=== PATIENT | male | born 1940 | race Caucasian/White ===

== ENCOUNTER → 2016-08-23 | Outpatient (CLI) | payer MEDICARE ==
--- NOTE | 2016-08-23 12:09 | XR ---
EXAMINATION TYPE: XR chest 2V, XR ribs LT DATE OF EXAM: 08/23/2016 12:03 PM COMPARISON: NONE HISTORY: Chest and left lower rib pain after fall injury 5 days ago. TECHNIQUE: Frontal and lateral views of the chest are obtained. A frontal and oblique images of the left-sided ribs are acquired. FINDINGS: There is underlying emphysematous change. Post CABG changes with Smith clips and sternal wires is present. There is no focal air space opacity, pleural effusion, or pneumothorax seen. The c ardiac silhouette size is within normal limits. The osseous structures are intact. Dedicated images of the left-sided ribs show no acute displaced left-sided rib fracture. Overlying so ft tissue is unremarkable. IMPRESSION: 1. Chronic changes without acute pulmonary process. 2. No acute displaced left-sided rib fractures are evident.
== END ==
LOC: RADXRMAIN 11:34
PROVIDERS: ATTEND Family Medicine
DX: R07.81 Pleurodynia (principal); W19.XXXA Unspecified fall, initial encounter
CPT/HCPCS: 71020

== ENCOUNTER → 2016-10-14 | Outpatient (CLI) | payer MEDICARE ==
[2016-10-14 11:07] LABS: Bilirubin, Delta 0.2 mg/dL (0.0-0.2); Total Bilirubin 1.2 mg/dL (0.2-1.3); Total Protein 7.1 g/dL (6.3-8.2)
== END | disposition home or self-care (01) ==
LOC: LABWHC1 10:13
PROVIDERS: ATTEND Internal Medicine Cardiovascular Disease
DX: I25.10 Atherosclerotic heart disease of native coronary artery without angina pectoris (principal); E78.5 Hyperlipidemia, unspecified
CPT/HCPCS: 36415; 80061; 80076

== ENCOUNTER → 2017-02-28 | Outpatient (CLI) | payer MEDICARE ==
--- NOTE | 2017-03-01 08:48 | XR ---
EXAMINATION TYPE: XR ribs RT DATE OF EXAM: 02/28/2017 COMPARISON: NONE HISTORY: Pain TECHNIQUE: 4 views submitted FINDINGS: Arthropathy shoulders. Postsurgical change involving the mediastinum. There is slight deformity of th e anterolateral margin of the right 10th rib fracture. Right-sided consolidation and small effusion n oted. No sizable pneumothorax seen by x-ray rib series technique. IMPRESSION: 1. Fracture anterolateral margin right 10th rib with minimal displacement.
== END | disposition home or self-care (01) ==
LOC: RADXRMAIN 15:40
PROVIDERS: ATTEND Family Medicine
DX: S22.31XA Fracture of one rib, right side, initial encounter for closed fracture (principal)

== ENCOUNTER → 2018-05-01 | Outpatient (CLI) | payer MEDICARE ==
[2018-05-01 16:11] LABS: LDL Cholesterol,Calculated 104.6 mg/dL (0.0-131.0); VLDL Calculation 11.4 mg/dL (5.00-40.00)
== END | disposition home or self-care (01) ==
LOC: LABWHC1 11:16
PROVIDERS: ATTEND Internal Medicine Cardiovascular Disease
DX: I25.10 Atherosclerotic heart disease of native coronary artery without angina pectoris (principal); E78.5 Hyperlipidemia, unspecified
CPT/HCPCS: 36415; 80061; 84450; 84460

== ENCOUNTER 2018-11-13 11:15 | Inpatient (IN) | payer MEDICARE ==
[2018-11-13] MEDS ORDERED: methylPREDNISolone SOD SUCCI 125 MG/2 ML VIAL IV STA (11:35)
[2018-11-13] MEDS ORDERED: IPRATROPIUM-ALBUTEROL 3 ML NEB INHALATION STA ×2 (11:35→11:46)
[2018-11-13] MEDS ORDERED: ACETAMINOPHEN TAB 500 MG TAB PO STA (11:39)
--- NOTE | 2018-11-13 11:39 | ED ---
General Adult HPI - General Chief complaint: Shortness of Breath Stated complaint: TAM Time Seen by Provider: 11/13/18 11:28 Source: patient, family, RN notes reviewed Mode of arrival: wheelchair Limitations: no limitations - History of Present Illness Initial comments: Patient is a pleasant 78-year-old male presenting to the emergency department with difficulty in breathing. Symptoms started a couple of days ago and have progressed since that time. Patient does have rare cough. Nonproductive. No chest pain. No leg pain or leg swelling. Symptoms are similar to previous COPD. Patient is denying any fevers at home. Symptoms do worsen with exertion. - Related Data Home Medications Medication Instructions Recorded Confirmed Albuterol Inhaler [Ventolin Hfa 1 - 2 puff INHALATION RT-Q6H PRN 11/13/18 11/13/18 Inhaler] Aspirin EC [Ecotrin Low Dose] 81 mg PO DAILY 11/13/18 11/13/18 Budesonide/Formoterol Fumarate 2 puff INHALATION RT-BID 11/13/18 11/13/18 [Symbicort 160-4.5 Mcg Inhaler] Magnesium(Unknown) 1 tab PO DAILY 11/13/18 11/13/18 Multivitamins, Thera [Multivitamin 1 tab PO DAILY 11/13/18 11/13/18 (formulary)] Tiotropium 18 Mcg/Puff [Spiriva] 1 cap INHALATION RT-DAILY 11/13/18 11/13/18 Vit C/E/Zn/Coppr/Lutein/Zeaxan 1 cap PO BID 11/13/18 11/13/18 [Preservision Areds 2 Softgel] Vitamin E(Unknown) 1 tab PO DAILY 11/13/18 11/13/18 Allergies Allergy/AdvReac Type Severity Reaction Status Date / Time No Known Allergies Allergy Unverified 11/13/18 11:47 Review of Systems ROS Statement: Those systems with pertinent positive or pertinent negative responses have been documented in the HPI. ROS Other: All systems not noted in ROS Statement are negative. Constitutional: Denies: fever Eyes: Denies: eye pain ENT: Denies: ear pain Respiratory: Reports: dyspnea Cardiovascular: Denies: chest pain Endocrine: Reports: fatigue Gastrointestinal: Denies: abdominal pain Genitourinary: Denies: dysuria Musculoskeletal: Denies: back pain Skin: Denies: rash Neurological: Denies: weakness Past Medical History Past Medical History: Coronary Artery Disease (CAD), Chest Pain / Angina, COPD History of Any Multi-Drug Resistant Organisms: None Reported Past Surgical History: Coronary Bypass/CABG Smoking Status: Former smoker Past Alcohol Use History: None Reported Past Drug Use History: None Reported General Exam Limitations: no limitations General appearance: alert Head exam: Present: atraumatic Eye exam: Present: normal appearance, PERRL ENT exam: Present: normal oropharynx Neck exam: Present: normal inspection Respiratory exam: Present: respiratory distress, wheezes, accessory muscle use, decreased breath sounds Cardiovascular Exam: Present: regular rate, normal rhythm GI/Abdominal exam: Present: soft. Absent: tenderness Extremities exam: Present: normal inspection. Absent: pedal edema, calf tenderness Neurological exam: Present: alert Psychiatric exam: Present: normal affect, normal mood Skin exam: Present: normal color Course Vital Signs 11/13/18 11/13/18 11/13/18 11:18 11:44 11:51 Temperature 99.7 F H Pulse Rate 92 92 88 Respiratory 26 H Rate Blood Pressure 148/81 O2 Sat by Pulse 96 Oximetry 11/13/18 11/13/18 11:52 12:02 Temperature Pulse Rate 88 90 Respiratory Rate Blood Pressure O2 Sat by Pulse Oximetry - Reevaluation(s) Reevaluation #1: 11/13/18 12:34 Patient does meet sepsis criteria diagnosed at 12:34 PM. Blood culture and lactic acid have been ordered. IV antibiotics will be ordered. EKG Findings - EKG Comments: EKG Findings:: Normal sinus rhythm 88. MD 120. QRS 92. QT 346. QTc 418. Normal axis. Normal QRS. Nonspecific ST-T. Medical Decision Making - Medical Decision Making Patient reevaluated and is somewhat improved. Patient still has some accessory muscle use however otherwise not in significant respiratory distress. Patient and family are updated on results and plan. Case was discussed in detail with Dr. Puente, who will admit his patient. Consult will be placed for Dr. Maurer who has previously seen this patient. - Lab Data Result diagrams: 11/13/18 11:33 11/13/18 11:33 Lab Results 11/13/18 11/13/18 11/13/18 Range/Units 11:33 11:33 11:33 WBC 19.6 H (3.8-10.6) k/uL RBC 4.63 (4.30-5.90) m/uL Hgb 14.3 (13.0-17.5) gm/dL Hct 43.6 (39.0-53.0) % MCV 94.2 (80.0-100.0) fL MCH 31.0 (25.0-35.0) pg MCHC 32.9 (31.0-37.0) g/dL RDW 15.2 (11.5-15.5) % Plt Count 214 (150-450) k/uL Neutrophils % 88 % Lymphocytes % 5 % Monocytes % 5 % Eosinophils % 1 % Basophils % 0 % Neutrophils # 17.3 H (1.3-7.7) k/uL Lymphocytes # 0.9 L (1.0-4.8) k/uL Monocytes # 1.0 (0-1.0) k/uL Eosinophils # 0.1 (0-0.7) k/uL Basophils # 0.1 (0-0.2) k/uL PT 11.7 (9.0-12.0) sec INR 1.1 (<1.2) APTT 28.6 (22.0-30.0) sec Sodium 137 (137-145) mmol/L Potassium 4.5 (3.5-5.1) mmol/L Chloride 103 (98-107) mmol/L Carbon Dioxide 24 (22-30) mmol/L Anion Gap 10 mmol/L BUN 20 (9-20) mg/dL Creatinine 0.90 (0.66-1.25) mg/dL Est GFR (CKD-EPI)AfAm >90 (>60 ml/min/1.73 sqM) Est GFR (CKD-EPI)NonAf 80 (>60 ml/min/1.73 sqM) Glucose 98 (74-99) mg/dL Plasma Lactic Acid Mele (0.7-2.0) mmol/L Calcium 9.5 (8.4-10.2) mg/dL Magnesium 2.2 (1.6-2.3) mg/dL Total Bilirubin 1.4 H (0.2-1.3) mg/dL AST 23 (17-59) U/L ALT 12 L (21-72) U/L Alkaline Phosphatase 69 (38-126) U/L Total Protein 7.5 (6.3-8.2) g/dL Albumin 4.3 (3.5-5.0) g/dL 11/13/18 Range/Units 11:33 WBC (3.8-10.6) k/uL RBC (4.30-5.90) m/uL Hgb (13.0-17.5) gm/dL Hct (39.0-53.0) % MCV (80.0-100.0) fL MCH (25.0-35.0) pg MCHC (31.0-37.0) g/dL RDW (11.5-15.5) % Plt Count (150-450) k/uL Neutrophils % % Lymphocytes % % Monocytes % % Eosinophils % % Basophils % % Neutrophils # (1.3-7.7) k/uL Lymphocytes # (1.0-4.8) k/uL Monocytes # (0-1.0) k/uL Eosinophils # (0-0.7) k/uL Basophils # (0-0.2) k/uL PT (9.0-12.0) sec INR (<1.2) APTT (22.0-30.0) sec Sodium (137-145) mmol/L Potassium (3.5-5.1) mmol/L Chloride (98-107) mmol/L Carbon Dioxide (22-30) mmol/L Anion Gap mmol/L BUN (9-20) mg/dL Creatinine (0.66-1.25) mg/dL Est GFR (CKD-EPI)AfAm (>60 ml/min/1.73 sqM) Est GFR (CKD-EPI)NonAf (>60 ml/min/1.73 sqM) Glucose (74-99) mg/dL Plasma Lactic Acid Mele 1.8 (0.7-2.0) mmol/L Calcium (8.4-10.2) mg/dL Magnesium (1.6-2.3) mg/dL Total Bilirubin (0.2-1.3) mg/dL AST (17-59) U/L ALT (21-72) U/L Alkaline Phosphatase (38-126) U/L Total Protein (6.3-8.2) g/dL Albumin (3.5-5.0) g/dL - Radiology Data Radiology results: image reviewed (Chest x-ray does have some increased markings mid and lower lung interstitial that could represent atypical pneumonia.) Critical Care Time Critical Care Time: Yes Total Critical Care Time: 32 Disposition Clinical Impression: Acute exacerbation of chronic obstructive airways disease, Pneumonia, Sepsis Disposition: ADMITTED IP TO THIS HOSP Condition: Serious Is patient prescribed a controlled substance at d/c from ED?: No Referrals: Jorge L Puente DO [Primary Care Provider] - 1-2 days Decision Time: 12:34
[2018-11-13 11:59] LABS: Basophils # (A) 0.1 k/uL (0-0.2); Basophils % (A) 0 %; Eosinophils # (A) 0.1 k/uL (0-0.7); Eosinophils % (A) 1 %; HCT 43.6 % (39.0-53.0); HGB 14.3 gm/dL (13.0-17.5); Lymphocytes # (A) 0.9 k/uL (1.0-4.8); Lymphocytes % (A) 5 %; MCHC 32.9 g/dL (31.0-37.0); MCV 94.2 fL (80.0-100.0); Mean Platelet Volume 7.2; Monocytes % (A) 5 %; Neutrophils # (A) 17.3 k/uL (1.3-7.7); Neutrophils % (A) 88 %; Platelet Count 214 k/uL (150-450); RBC 4.63 m/uL (4.30-5.90); RDW 15.2 % (11.5-15.5); WBC 19.6 k/uL (3.8-10.6)
[2018-11-13 12:06] LABS: ALT 12 U/L (21-72); AST 23 U/L (17-59); African American GFR (CKD) >90 (>60 ml/min/1.73 sqM); Albumin 4.3 g/dL (3.5-5.0); Alkaline Phosphatase 69 U/L (38-126); Anion Gap 10 mmol/L; Blood Urea Nitrogen 20 mg/dL (9-20); Calcium 9.5 mg/dL (8.4-10.2); Carbon Dioxide 24 mmol/L (22-30); Chloride 103 mmol/L (98-107); Glucose 98 mg/dL (74-99); Magnesium 2.2 mg/dL (1.6-2.3); Potassium 4.5 mmol/L (3.5-5.1); Sodium 137 mmol/L (137-145); Total Bilirubin 1.4 mg/dL (0.2-1.3); Total Protein 7.5 g/dL (6.3-8.2)
[2018-11-13 12:10] LABS: INR 1.1 (<1.2); Partial Thromboplastin Time 28.6 sec (22.0-30.0); Prothrombin Time 11.7 sec (9.0-12.0)
--- NOTE | 2018-11-13 12:27 | XR ---
EXAMINATION TYPE: XR chest 2V DATE OF EXAM: 11/13/2018 COMPARISON: 08/23/2016 HISTORY: 78-year-old male difficulty breathing, shortness of breath TECHNIQUE: AP and lateral views FINDINGS: The heart is normal size. Aorta and pulmonary vasculature within normal limits. Hyperinflation with f lattening of the hemidiaphragms. Median sternotomy wires are present with post-CABG changes in the me diastinum. Mild interstitial densities are present in the mid and lower lungs, increased from 08/24/19 17. IMPRESSION: COPD with increased interstitial densities mid and lower lungs as compared to 08/23/2016. Correlate fo r possible bronchitis or atypical pneumonias.
[2018-11-13] MEDS ORDERED: PNEUMONIA PROTOCOL UTILIZED 1 EACH MISC PO PRN (12:35)
[2018-11-13] MEDS ORDERED: IPRATROPIUM-ALBUTEROL 3 ML NEB INHALATION PRN (12:35)
[2018-11-13] MEDS ORDERED: AZITHROMYCIN 500 MG in SODIUM CHLORIDE 0.9% 250 ML IVPB STA (12:35)
[2018-11-13] MEDS: SODIUM CHLORIDE 0.9% 1,000 ML IV SCH ×2 (13:26→23:32)
[2018-11-13] MEDS: IPRATROPIUM-ALBUTEROL 3 ML NEB INHALATION SCH ×2 (15:55→19:18)
[2018-11-13] MEDS: methylPREDNISolone SOD SUCCI 125 MG/2 ML VIAL IV SCH ×2 (17:58→23:31)
--- NOTE | 2018-11-13 20:54 | P.CNPUL ---
History of Present Illness Consult date: 11/13/18 Reason for consult: dyspnea, COPD History of present illness: 6-year-old male patient who came into the emergency department because of worsening shortness of breath. This started couple of days ago and the patient's condition is been progressively getting worse since. The patient has a regular cough nonproductive. No chest pain. No neck swelling. No palpitation. No altered mentation. No fever. No chills. The patient has severe COPD. The patient does not have major limitation because of his COPD. He has been maintained on a combination of Symbicort and Spiriva on outpatient basis. His baseline FEV1 is 36%. His oxygen saturation has been 96% on room air. He has been up-to-date with vaccination. He uses albuterol rescue inhaler necessary basis. He follows up with me in the office regarding his COPD. His white cell count was at 19.6. Influenza screen was negative. Chest x-ray showed COPD with some increased interstitial densities in the mid in the lower lung padron bilaterally. Review of Systems Constitutional Constitutional: no fever, no night sweats, no significant weight gain, no s ignificant weight loss, no exercise intolerance Eyes Eyes: no dry eyes, no vision change, no irritation ENMT Ears: no difficulty hearing, no ear pain Nose: no frequent nosebleeds, no nose problems, no sinus problems Mouth/Throat: no sore throat, no bleeding gums, no snoring, no dry mouth, no mouth ulcers, no oral abnormalities, no teeth problems Cardiovascular Cardiovascular: no chest pain, no arm pain on exertion, no shortness of breath when walking, no shortness of breath when lying down, no palpitations, no known heart murmur Respiratory Respiratory: Increased dyspnea shortness of breath as discussed above Gastrointestinal Gastrointestinal: no abdominal pain, no nausea, no vomiting, no constipation, normal appetite, no diarrhea, not vomiting blood, no dyspepsia, no GERD Genitourinary Genitourinary: no incontinence, no difficulty urinating, no hematuria, no increased frequency Musculoskeletal Musculoskeletal: no muscle aches, no muscle weakness, no arthralgias/joint pain, no back pain, no swelling in the extremities Integumentary Skin: no abnormal mole, no jaundice, no rashes, no laceration Neurologic Neurologic: no loss of consciousness, no weakness, no numbness, no seizures, no dizziness, no migraines, no headaches, no tremor Psychiatric Psych: no depression, no sleep disturbances, feeling safe in a relationship, no alcohol abuse, no anxiety, no hallucinations, no suicidal thoughts Endocrine Endocrine: no fatigue Hematologic/Lymphatic Hematologic/Lymphatic no swollen glands, no bruising, no excessive bleeding Allergic/Immunologic Allergy/Immunologic: no runny nose, no sinus pressure, no itching, no hives, no frequent sneezing Past Medical History Past Medical History: Coronary Artery Disease (CAD), Chest Pain / Angina, COPD, GERD/Reflux, Hyperlipidemia, Osteoarthritis (OA) Additional Past Medical History / Comment(s): Coronary artery disease appears bypass surgery, COPD, hyperlipidemia, History of Any Multi-Drug Resistant Organisms: None Reported Past Surgical History: Coronary Bypass/CABG, Heart Catheterization Additional Past Surgical History / Comment(s): 1994 CABG 3 vessel, colonoscopy with benign polypectomy. Past Anesthesia/Blood Transfusion Reactions: No Reported Reaction Smoking Status: Former smoker - Past Family History Father Family Medical History: Myocardial Infarction (IA) Additional Family Medical History / Comment(s): Father of a IA in his 60s. Mother Family Medical History: Dementia Additional Family Medical History / Comment(s): Mother of alzheimer's dementia in her 60s. Medications and Allergies Home Medications Medication Instructions Recorded Confirmed Type Albuterol Inhaler [Ventolin Hfa 1 - 2 puff INHALATION RT-Q6H PRN 11/13/18 11/13/18 History Inhaler] Aspirin EC [Ecotrin Low Dose] 81 mg PO DAILY 11/13/18 11/13/18 History Budesonide/Formoterol Fumarate 2 puff INHALATION RT-BID 11/13/18 11/13/18 History [Symbicort 160-4.5 Mcg Inhaler] Magnesium(Unknown) 1 tab PO DAILY 11/13/18 11/13/18 History Multivitamins, Thera [Multivitamin 1 tab PO DAILY 11/13/18 11/13/18 History (formulary)] Tiotropium 18 Mcg/Puff [Spiriva] 1 cap INHALATION RT-DAILY 11/13/18 11/13/18 History Vit C/E/Zn/Coppr/Lutein/Zeaxan 1 cap PO BID 11/13/18 11/13/18 History [Preservision Areds 2 Softgel] Vitamin E(Unknown) 1 tab PO DAILY 11/13/18 11/13/18 History Allergies Allergy/AdvReac Type Severity Reaction Status Date / Time No Known Allergies Allergy Unverified 11/13/18 11:47 Physical Exam Vitals: Vital Signs Temp Pulse Pulse Resp BP BP Pulse Ox 11/13/18 19:31 88 11/13/18 19:18 87 97 11/13/18 18:14 97.5 F L 89 22 162/83 95 11/13/18 16:02 88 11/13/18 16:00 18 11/13/18 15:57 86 11/13/18 14:45 20 11/13/18 14:42 99.4 F 81 20 132/75 94 L 11/13/18 12:02 90 11/13/18 11:52 88 11/13/18 11:51 88 11/13/18 11:44 92 11/13/18 11:18 99.7 F H 92 26 H 148/81 96 Intake and Output 11/13/18 11/13/18 11/13/18 06:59 14:59 22:59 Other: Voiding Method Urinal # Voids 2 Weight 73.028 kg General Appearance no diaphoresis, no respiratory distress, speech not interrupted by breaths, no dyspnea, no pallor, not cachectic, well nourished, appears well HEENT no pursed lip breathing, no jugular venous distention, no mucous membrane cyanosis, no perioral cyanosis, mallampati classification: class 1 Chest no barrel chest, no retractions, no sternocleidomastoid muscle contractions, no supraclavicular retractions, no intercostal retractions, no decreased air movement, no rhonchi, no hyperinflation, prolonged expiratory wheezing, decreased air movement Heart no right ventricular heave, no distant heart sounds, no s3 gallop GI bowel sounds: hyperactive (borborygmi), bowel sounds: diminished or absent Extremities no cyanosis, no clubbing, no edema Neurologic no decreased mental status, no somnolence, no confusion Skin General Appearance normal, (normal) normal except as noted Results - Laboratory Findings CBC and BMP: 11/13/18 11:33 11/13/18 11:33 PT/INR, D-dimer PT 11.7 sec (9.0-12.0) 11/13/18 11:33 INR 1.1 (<1.2) 11/13/18 11:33 Abnormal lab findings: Abnormal Labs 11/13/18 11/13/18 11:33 11:33 WBC 19.6 H Neutrophils # 17.3 H Lymphocytes # 0.9 L Total Bilirubin 1.4 H ALT 12 L - Diagnostic Findings Chest x-ray: image reviewed Assessment and Plan Plan: 1 acute COPD exacerbation with possible active lower lobe pneumonia (atypical), the patient also has some leukocytosis 2 advanced COPD with a baseline FEV1 of 36% of predicted at baseline and the patient has been maintained on a combination of Symbicort and Spiriva 3 coronary artery disease with previous bypass surgery was done in 1994 4 hypertension 5 hyperlipidemia 6 osteoarthritis Plan The patient is currently on a combination of Rocephin and Zithromax. Monitor white cell count. Blood culture. Sputum culture. IV Solu-Medrol. DuoNeb nebulized treatments around the clock. We'll continue to follow.
[2018-11-14] MEDS: methylPREDNISolone SOD SUCCI 125 MG/2 ML VIAL IV SCH ×4 (05:55→22:15)
[2018-11-14] MEDS: IPRATROPIUM-ALBUTEROL 3 ML NEB INHALATION SCH ×4 (07:01→20:40)
[2018-11-14] MEDS: SODIUM CHLORIDE 0.9% 1,000 ML IV SCH ×2 (07:25→20:11)
[2018-11-14] MEDS: ASPIRIN 81 MG PO SCH (07:25)
--- NOTE | 2018-11-14 09:51 | XR ---
EXAMINATION TYPE: XR chest 2V DATE OF EXAM: 11/14/2018 COMPARISON: Prior chest x-ray 11/13/2018 HISTORY: Pneumonia TECHNIQUE: Frontal and lateral views of the chest are obtained. FINDINGS: Patient is post median sternotomy. Prominent lung volumes with flattening the hemidiaphragm s is compatible with underlying COPD. Interstitium is increased as on prior. There is no focal air sp rodney opacity, pleural effusion, or pneumothorax seen. The cardiac silhouette size is stable. Aorta is dense. The osseous structures are intact. There is bronchial wall thickening. IMPRESSION: Correlate for bronchitis, reactive airways disease. Additional findings above.
[2018-11-14] MEDS: MAGNESIUM OXIDE 400 MG TAB PO SCH (11:11)
--- NOTE | 2018-11-14 12:18 | P.PN ---
Subjective Progress Note Date: 11/14/18 Principal diagnosis: Dyspnea, COPD 78-year-old male patient who came into the emergency department because of worsening shortness of breath. This started couple of days ago and the patient's condition is been progressively getting worse since. The patient has a regular cough nonproductive. No chest pain. No neck swelling. No palpitation. No altered mentation. No fever. No chills. The patient has severe COPD. The patient does not have major limitation because of his COPD. He has been maintained on a combination of Symbicort and Spiriva on outpatient basis. His baseline FEV1 is 36%. His oxygen saturation has been 96% on room air. He has been up-to-date with vaccination. He uses albuterol rescue inhaler necessary basis. He follows up with me in the office regarding his COPD. His white cell count was at 19.6. Influenza screen was negative. Chest x-ray s howed COPD with some increased interstitial densities in the mid in the lower lung padron bilaterally. On 11/14/2018 patient seen in follow-up on medical surgical floor. He is awake and alert, in no acute distress, he is coughing, and bringing up copious amount of thick green colored sputum. He is on 2 L of oxygen with pulse ox of 97, afebrile, denies any chills, denies any chest wall tenderness. No new labs today. Antibiotic coverage in the form of Zithromax and Rocephin, IV steroids, and nebulized bronchodilators. Objective - Vital Signs Vital signs: Vital Signs Temp 98.4 F 11/14/18 05:55 Pulse 78 11/14/18 10:59 Resp 22 11/14/18 05:55 BP 135/69 11/14/18 05:55 Pulse Ox 96 11/14/18 07:01 Intake & Output 11/13/18 11/14/18 11/14/18 18:59 06:59 18:59 Output Total 1600 Balance -1600 Weight 73.028 kg Output: Urine 1600 Other: Voiding Method Urinal # Voids 2 1 # Bowel Movements 1 - Exam GENERAL EXAM: Alert, pleasant, 78-year-old white male, on 2 L of oxygen with pulse ox of 97%, comfortable in no apparent distress. HEAD: Normocephalic/atraumatic. EYES: Normal reaction of pupils, equal size. Conjunctiva pink, sclera white. NOSE: Clear with pink turbinates. THROAT: No erythema or exudates. NECK: No masses, no JVD, no thyroid enlargement, no adenopathy. CHEST: No chest wall deformity. Symmetrical expansion. LUNGS: Equal air entry with scattered wheezes CVS: Regular rate and rhythm, normal S1 and S2, no gallops, no murmurs, no rubs ABDOMEN: Soft, nontender. No hepatosplenomegaly, normal bowel sounds, no guarding or rigidity. EXTREMITIES: No clubbing, no edema, no cyanosis, 2+ pulses and upper and lower extremities. MUSCULOSKELETAL: Muscle strength and tone normal. SPINE: No scoliosis or deformity SKIN: No rashes CENTRAL NERVOUS SYSTEM: Alert and oriented -3. No focal deficits, tone is norm al in all 4 extremities. PSYCHIATRIC: Alert and oriented -3. Appropriate affect. Intact judgment and insight. - Labs CBC & Chem 7: 11/13/18 11:33 11/13/18 11:33 Labs: Microbiology - Last 24 Hours (Table) 11/13/18 19:29 Gram Stain - Preliminary Sputum Assessment and Plan Plan: 1 acute COPD exacerbation with possible active lower lobe pneumonia (atypical), the patient also has some leukocytosis 2 advanced COPD with a baseline FEV1 of 36% of predicted at baseline and the patient has been maintained on a combination of Symbicort and Spiriva 3 coronary artery disease with previous bypass surgery was done in 1994 4 hypertension 5 hyperlipidemia 6 osteoarthritis Plan: Continue same antibiotic coverage, no fever or chills, preliminary Gram stain of the sputum culture showed moderate gram-positive cocci, moderate gram-negative the selective and few gram-positive bacilli, final culture is pending. No fever or chills, patient is breathing easier, will continue with IV steroids, nebulized bronchodilators, he has a strong affective cough, and he is bringing up large amount of thick green colored sputum. We'll continue to follow I performed a history & physical examination of the patient and discussed their management with my nurse practitioner, Angelique Boone. I reviewed the nurse practitioner's note and agree with the documented findings and plan of care. Lung sounds are positive for diffuse wheezes. The findings and the impression was discussed with the patient. I attest to the documentation by the nurse practitioner. Time with Patient: Less than 30
[2018-11-14] MEDS: AZITHROMYCIN 500 MG TAB PO SCH (13:08)
[2018-11-15] MEDS: SODIUM CHLORIDE 0.9% 1,000 ML IV SCH ×2 (03:59→13:41)
[2018-11-15] MEDS: methylPREDNISolone SOD SUCCI 125 MG/2 ML VIAL IV SCH ×4 (05:03→23:53)
[2018-11-15] MEDS: ASPIRIN 81 MG PO SCH (08:12)
[2018-11-15] MEDS: IPRATROPIUM-ALBUTEROL 3 ML NEB INHALATION SCH ×4 (08:42→19:07)
[2018-11-15] MEDS: MAGNESIUM OXIDE 400 MG TAB PO SCH (11:30)
[2018-11-15 11:40] LABS: Glucose,Whole Blood 111 mg/dL (75-99)
[2018-11-15] MEDS: AZITHROMYCIN 500 MG TAB PO SCH (13:40)
--- NOTE | 2018-11-15 14:32 | P.PN ---
Subjective Progress Note Date: 11/15/18 Principal diagnosis: Dyspnea, COPD 78-year-old male patient who came into the emergency department because of worsening shortness of breath. This started couple of days ago and the patient's condition is been progressively getting worse since. The patient has a regular cough nonproductive. No chest pain. No neck swelling. No palpitation. No altered mentation. No fever. No chills. The patient has severe COPD. The patient does not have major limitation because of his COPD. He has been maintained on a combination of Symbicort and Spiriva on outpatient basis. His baseline FEV1 is 36%. His oxygen saturation has been 96% on room air. He has been up-to-date with vaccination. He uses albuterol rescue inhaler necessary basis. He follows up with me in the office regarding his COPD. His white cell count was at 19.6. Influenza screen was negative. Chest x-ray s howed COPD with some increased interstitial densities in the mid in the lower lung padron bilaterally. On 11/14/2018 patient seen in follow-up on medical surgical floor. He is awake and alert, in no acute distress, he is coughing, and bringing up copious amount of thick green colored sputum. He is on 2 L of oxygen with pulse ox of 97, afebrile, denies any chills, denies any chest wall tenderness. No new labs today. Antibiotic coverage in the form of Zithromax and Rocephin, IV steroids, and nebulized bronchodilators. On 11/15/2018 patient seen in follow-up on medical surgical floor. He is resting comfortably in bed, he is in no acute distress. Breathing easier, less congested, he states he is feeling much better, vital signs are stable, no fever, no chills, blood culture was negative, sputum culture is pending, preliminary Gram stain reveals moderate gram-positive cocci, moderate gram- negative bacilli, few gram-positive bacilli, final culture is pending. no new Labs today, no new chest x-rays. O2 saturation at rest on room air, was 96%, with exercise was 90%, and patient does not qualify for home oxygen. Hematocrit coverage in the form of Zithromax and Rocephin, IV steroids, nebulized dilators. Aspirin discharge home today or tomorrow. Objective - Vital Signs Vital signs: Vital Signs Temp 97.8 F 11/15/18 05:45 Pulse 80 11/15/18 12:17 Resp 16 11/15/18 05:45 BP 120/57 11/15/18 05:45 Pulse Ox 96 11/15/18 10:21 Intake & Output 11/14/18 11/15/18 11/15/18 18:59 06:59 18:59 Other: Voiding Method Urinal # Voids 3 1 - Exam GENERAL EXAM: Alert, pleasant, 78-year-old white male, on room air with pulse ox of 96%, comfortable in no apparent distress. HEAD: Normocephalic/atraumatic. EYES: Normal reaction of pupils, equal size. Conjunctiva pink, sclera white. NOSE: Clear with pink turbinates. THROAT: No erythema or exudates. NECK: No masses, no JVD, no thyroid enlargement, no adenopathy. CHEST: No chest wall deformity. Symmetrical expansion. LUNGS: Equal air entry with minimal wheezes, much better since yesterday. CVS: Regular rate and rhythm, normal S1 and S2, no gallops, no murmurs, no rubs ABDOMEN: Soft, nontender. No hepatosplenomegaly, normal bowel sounds, no guarding or rigidity. EXTREMITIES: No clubbing, no edema, no cyanosis, 2+ pulses and upper and lower extremities. MUSCULOSKELETAL: Muscle strength and tone normal. SPINE: No scoliosis or deformity SKIN: No rashes CENTRAL NERVOUS SYSTEM: Alert and oriented -3. No focal deficits, tone is normal in all 4 extremities. PSYCHIATRIC: Alert and oriented -3. Appropriate affect. Intact judgment and insight. - Labs CBC & Chem 7: 11/13/18 11:33 11/13/18 11:33 Labs: Abnormal Lab Results - Last 24 Hours (Table) 11/15/18 Range/Units 11:38 POC Glucose (mg/dL) 111 H (75-99) mg/dL Microbiology - Last 24 Hours (Table) 11/13/18 13:25 Blood Culture - Preliminary Blood No Growth after 24 hours Assessment and Plan Plan: 1 acute COPD exacerbation with possible active lower lobe pneumonia (atypical), the patient also has some leukocytosis 2 advanced COPD with a baseline FEV1 of 36% of predicted at baseline and the patient has been maintained on a combination of Symbicort and Spiriva 3 coronary artery disease with previous bypass surgery was done in 1994 4 hypertension 5 hyperlipidemia 6 osteoarthritis Plan: Patient is improving, less dyspneic, less bronchospastic, afebrile, vital signs are stable, he is on room air, limiting ambulation, sputum culture is still pending, the patient is improving, remains on Zithromax and Rocephin, from pulmonary perspective patient is stable for discharge home today or possibly tomorrow. Resected as tolerated, patient can go home on outpatient course of oral antibiotics, prednisone taper, he does have a nebulizer machine at home, however it is old and malfunctioning, consult with wedding planner regarding obtaining a new nebulizer machine for the patient. Patient can continue on Symbicort, Spiriva, and albuterol after discharge. He can go home on DuoNeb nebulized treatments 4 times daily and as needed every 2 hours. Need outpatient follow-up in the office with Dr. Maurer in 7-10 days. I performed a history & physical examination of the patient and discussed their management with my nurse practitioner, Angelique oBone. I reviewed the nurse practitioner's note and agree with the documented findings and plan of care. Lung sounds are positive for diffuse wheezes. The findings and the impression was discussed with the patient. I attest to the documentation by the nurse practitioner. Time with Patient: Less than 30
[2018-11-15 17:07] LABS: Glucose,Whole Blood 119 mg/dL (75-99)
--- NOTE | 2018-11-15 18:14 | P.HPIM ---
History of Present Illness H&P Date: 11/14/18 Chief Complaint: Worsening Shortness of breath This is an 78-year-old gentleman with history of CAD, CABG, chest pain,/angina, severe COPD, former smoker ,gastroesophageal reflux disease, hyperlipidemia, osteoarthritis presented to the ER with difficulty breathing 2 days. N onproductive occasional cough. Denies fevers or chills. Shortness of breath worsened with exertion.Chest x-ray reported COPD with increased densities bilateral mid to lower lungs. Influenza screen negative. T-max 99.7 on admission, and WBC 19.6, 96% on room air. Currently 96% on 2 L nasal cannula. IV antibiotics of Rocephin and Zithromax initiated along with nebulized bronchodilators, steroids. EKG reporting normal sinus rhythm with nonspecific ST-T waves. Evaluated by pulmonary with recommendations noted and appreciated. Patient now on coughing up tenacious green colored sputum. Blood and sputum cultures collected. Review of Systems ROS Statement: Those systems with pertinent positive or pertinent negative responses have been documented in the HPI. ROS Other: All systems not noted in ROS Statement are negative. Past Medical History Past Medical History: Coronary Artery Disease (CAD), Chest Pain / Angina, COPD, GERD/Reflux, Hyperlipidemia, Osteoarthritis (OA) Additional Past Medical History / Comment(s): Coronary artery disease appears bypass surgery, COPD, hyperlipidemia, History of Any Multi-Drug Resistant Organisms: None Reported Past Surgical History: Coronary Bypass/CABG, Heart Catheterization Additional Past Surgical History / Comment(s): 1994 CABG 3 vessel, colonoscopy with benign polypectomy. Past Anesthesia/Blood Transfusion Reactions: No Reported Reaction Smoking Status: Former smoker - Past Family History Father Family Medical History: Myocardial Infarction (WA) Additional Family Medical History / Comment(s): Father of a [place] in his 60s. Mother Family Medical History: Dementia Additional Family Medical History / Comment(s): Mother of alzheimer's dementia in her 60s. Medications and Allergies Home Medications Medication Instructions Recorded Confirmed Type Albuterol Inhaler [Ventolin Hfa 1 - 2 puff INHALATION RT-Q6H PRN 11/13/18 11/13/18 History Inhaler] Aspirin EC [Ecotrin Low Dose] 81 mg PO DAILY 11/13/18 11/13/18 History Budesonide/Formoterol Fumarate 2 puff INHALATION RT-BID 11/13/18 11/13/18 History [Symbicort 160-4.5 Mcg Inhaler] Magnesium(Unknown) 1 tab PO DAILY 11/13/18 11/13/18 History Multivitamins, Thera [Multivitamin 1 tab PO DAILY 11/13/18 11/13/18 History (formulary)] Tiotropium 18 Mcg/Puff [Spiriva] 1 cap INHALATION RT-DAILY 11/13/18 11/13/18 H istory Vit C/E/Zn/Coppr/Lutein/Zeaxan 1 cap PO BID 11/13/18 11/13/18 History [Preservision Areds 2 Softgel] Vitamin E(Unknown) 1 tab PO DAILY 11/13/18 11/13/18 History Allergies Allergy/AdvReac Type Severity Reaction Status Date / Time No Known Allergies Allergy Unverified 11/13/18 11:47 Physical Exam Vitals: Vital Signs Temp Pulse Pulse Pulse Resp BP BP 11/14/18 07:11 72 11/14/18 07:01 88 11/14/18 05:55 98.4 F 68 22 135/69 11/13/18 21:20 97.9 F 95 22 134/68 11/13/18 19:31 88 11/13/18 19:18 87 11/13/18 18:14 97.5 F L 89 22 162/83 11/13/18 16:02 88 11/13/18 16:00 18 11/13/18 15:57 86 11/13/18 14:45 20 11/13/18 14:42 99.4 F 81 20 132/75 11/13/18 12:02 90 11/13/18 11:52 88 11/13/18 11:51 88 11/13/18 11:44 92 11/13/18 11:18 99.7 F H 92 26 H 148/81 Pulse Ox 11/14/18 07:11 11/14/18 07:01 96 11/14/18 05:55 97 11/13/18 21:20 97 11/13/18 19:31 11/13/18 19:18 97 11/13/18 18:14 95 11/13/18 16:02 11/13/18 16:00 11/13/18 15:57 11/13/18 14:45 11/13/18 14:42 94 L 11/13/18 12:02 11/13/18 11:52 11/13/18 11:51 11/13/18 11:44 11/13/18 11:18 96 Intake and Output 11/13/18 11/14/18 11/14/18 22:59 06:59 14:59 Output Total 1600 Balance -1600 Output: Urine 1600 Other: Voiding Method Urinal # Voids 1 # Bowel Movements 1 PHYSICAL EXAM: VITAL SIGNS: As above GENERAL: Sitting up in bed, no acute distress HEENT: Conjunctivae normal. eyes normal. Oral Mucosa moist NECK: No JVD. No thyroid enlargement. No LNs CARDIOVASCULAR: S1, S2 regular.. No murmur RESPIRATION: Breath sounds diminished in the bases. No rhonchi or crackles. Positive scattered expiratory wheezing . ABDOMEN: Soft, nontender . No guarding. no masses palpable.Bowel sounds heard. LEGS: No edema. no swelling PSYCHIATRY: Alert and oriented & O-3, mood and affect normal. NERVOUS SYSTEM: Cranial N 2-12 grossly normal. Moves all 4 limbs. Diffuse weakness No focal deficits. Strength and sensation grossly intact.. Skin: no lesions, no rash Joints: No active swelling. No inflammation. Lymphatic system. No LN neck axilla or groin. Results CBC & Chem 7: 11/13/18 11:33 11/13/18 11:33 Labs: Abnormal Lab Results - Last 24 Hours (Table) 11/13/18 11/13/18 Range/Units 11:33 11:33 WBC 19.6 H (3.8-10.6) k/uL Neutrophils # 17.3 H (1.3-7.7) k/uL Lymphocytes # 0.9 L (1.0-4.8) k/uL Total Bilirubin 1.4 H (0.2-1.3) mg/dL ALT 12 L (21-72) U/L Thrombosis Risk Factor Assmnt - Choose All That Apply Any of the Below Risk Factors Present?: Yes Each Factor Represents 1 point: Abnormal pulmonary function (COPD), Sepsis (< 1month), Serious lung disease incl. pneumonia (< 1month) Other Risk Factors: Yes Each Risk Factor Represents 3 Points: Age 75 years or older Other congenital or acquired thrombophilia - If yes, enter type in comment: No Thrombosis Risk Factor Assessment Total Risk Factor Score: 6 Thrombosis Risk Factor Assessment Level: High Risk Assessment and Plan Assessment: -Acute COPD exacerbation in a patient with advanced COPD -Possible acute bilateral lower lobe pneumonia -Leukocytosis secondary to the above -CAD, history of CABG -Gastroesophageal reflux disease -Hypertension -Hyperlipidemia -Osteoarthritis Plan: Continue on current medication regime ,monitoring and symptomatic treatment. Maintain IV antibiotics, nebulized bronchodilators, IV steroids. Follow cultures closely. Aggressive pulmonary toileting. GI and DVT prophylaxis in place. Follow closely with pulmonary. Home meds have been reviewed and resumed. Further recommendations to follow. The impression and plan of care has been dictated as directed. : I performed a history and examination of this patient, discussed the same with the dictator. I agree with the dictator's note ,documented as a scribe. Any additional findings or plans will be noted.
--- NOTE | 2018-11-15 18:23 | P.PN ---
Subjective Progress Note Date: 11/15/18 This is an 78-year-old gentleman with history of CAD, CABG, chest pain,/angina, severe COPD, former smoker ,gastroesophageal reflux disease, hyperlipidemia, osteoarthritis presented to the ER with difficulty breathing 2 days. Nonproductive occasional cough. Denies fevers or chills. Shortness of breath worsened with exertion.Chest x-ray reported COPD with increased densities bilateral mid to lower lungs. Influenza screen negative. T-max 99.7 on admission, and WBC 19.6, 96% on room air. Currently 96% on 2 L nasal cannula. IV antibiotics of Rocephin and Zithromax initiated along with nebulized br onchodilators, steroids. EKG reporting normal sinus rhythm with nonspecific ST-T waves. Evaluated by pulmonary with recommendations noted and appreciated. Patient now on coughing up tenacious green colored sputum. Blood and sputum cultures collected. 11/15/2018 breathing improving on nebulized bronchodilators, IV steroids, Zithromax and Rocephin. Afebrile. Preliminary sputum reporting moderate gram- negative cocci and moderate gram-negative bacilli. blood cultures negative at 48 hours. Maintaining O2 sats in the high 90s on room air. Objective - Vital Signs Vital signs: Vital Signs Temp 97.9 F 11/15/18 14:27 Pulse 85 11/15/18 15:30 Resp 16 11/15/18 15:30 BP 126/56 11/15/18 14:27 Pulse Ox 94 L 11/15/18 14:27 Intake & Output 11/14/18 11/15/18 11/15/18 18:59 06:59 18:59 Other: Voiding Method Urinal # Voids 3 1 3 - Exam VITAL SIGNS: As above GENERAL: Sitting up in bed, no acute distress HEENT: Conjunctivae normal. eyes normal. Oral Mucosa moist NECK: No JVD. No thyroid enlargement. No LNs CARDIOVASCULAR: S1, S2 regular.. No murmur RESPIRATION: Improved air entry , bilateral bases diminished. No rhonchi or crackles. Improving scattered expiratory wheezing . ABDOMEN: Soft, nontender . No guarding. no masses palpable.Bowel sounds heard. LEGS: No edema. no swelling PSYCHIATRY: Alert and oriented & O-3, mood and affect normal. NERVOUS SYSTEM: Cranial N 2-12 grossly normal. Moves all 4 limbs. Diffuse weakness No focal deficits. Strength and sensation grossly intact.. Skin: no lesions, no rash Joints: No active swelling. No inflammation. Lymphatic system. No LN neck axilla or groin. Microbiology 11/13/18 13:25 Blood Blood Culture - Preliminary No Growth after 48 hours 11/13/18 19:29 Sputum Gram Stain - Preliminary - Labs CBC & Chem 7: 11/13/18 11:33 11/13/18 11:33 Labs: Abnormal Lab Results - Last 24 Hours (Table) 11/15/18 11/15/18 Range/Units 11:38 17:06 POC Glucose (mg/dL) 111 H 119 H (75-99) mg/dL Microbiology - Last 24 Hours (Table) 11/13/18 13:25 Blood Culture - Preliminary Blood No Growth after 48 hours Assessment and Plan Assessment: -Acute COPD exacerbation in a patient with advanced COPD -Possible acute bilateral lower lobe pneumonia, and preliminary sputum reporting moderate gram-positive cocci and gram-negative bacilli -Leukocytosis secondary to the above -CAD, history of CABG -Gastroesophageal reflux disease -Hypertension -Hyperlipidemia -Osteoarthritis Plan: Continue on current medication regime ,monitoring and symptomatic treatment. Maintain IV antibiotics, nebulized bronchodilators, IV steroids. Final culture results pending. Cleared by pulmonary for discharge tomorrow. Discharge planning in progress. Case management to assist with replacing malfunctioning nebulizer machine. The impression and plan of care has been dictated as directed. : I performed a history and examination of this patient, discussed the same with the dictator. I agree with the dictator's note ,documented as a scribe. Any additional findings or plans will be noted.
[2018-11-15 20:45] LABS: Glucose,Whole Blood 156 mg/dL (75-99)
[2018-11-15] MEDS: INSULIN ASPART (NovoLOG) 100 UNIT/ML VIAL SQ SCH (20:48)
[2018-11-15 22:02] VITALS: RESP 18
[2018-11-16] MEDS: methylPREDNISolone SOD SUCCI 125 MG/2 ML VIAL IV SCH ×2 (05:57→11:35)
[2018-11-16 06:04] VITALS: BP 157/74; TEMP 97.9
[2018-11-16 07:01] LABS: Glucose,Whole Blood 113 mg/dL (75-99)
[2018-11-16] MEDS: INSULIN ASPART (NovoLOG) 100 UNIT/ML VIAL SQ SCH ×2 (07:06→11:40)
[2018-11-16] MEDS: IPRATROPIUM-ALBUTEROL 3 ML NEB INHALATION SCH ×2 (07:16→11:02)
[2018-11-16] MEDS: ASPIRIN 81 MG PO SCH (08:28)
[2018-11-16 10:28] LABS: Basophils % (A) 0 %; Eosinophils % (A) 0 %; HCT 41.8 % (39.0-53.0); HGB 13.2 gm/dL (13.0-17.5); Lymphocytes # (A) 0.5 k/uL (1.0-4.8); Lymphocytes % (A) 3 %; MCH 30.8 pg (25.0-35.0); MCHC 31.6 g/dL (31.0-37.0); MCV 97.5 fL (80.0-100.0); Mean Platelet Volume 7.2; Monocytes # (A) 0.3 k/uL (0-1.0); Monocytes % (A) 2 %; Neutrophils # (A) 13.2 k/uL (1.3-7.7); Neutrophils % (A) 94 %; Platelet Count 295 k/uL (150-450); RBC 4.29 m/uL (4.30-5.90); RDW 13.7 % (11.5-15.5); WBC 14.1 k/uL (3.8-10.6)
[2018-11-16 10:50] LABS: African American GFR (CKD) >90 (>60 ml/min/1.73 sqM); Anion Gap 9 mmol/L; Blood Urea Nitrogen 23 mg/dL (9-20); Calcium 9.4 mg/dL (8.4-10.2); Carbon Dioxide 27 mmol/L (22-30); Chloride 106 mmol/L (98-107); Glucose 145 mg/dL (74-99); Potassium 4.4 mmol/L (3.5-5.1); Sodium 142 mmol/L (137-145)
[2018-11-16 11:12] VITALS: PULSE 79
--- NOTE | 2018-11-16 11:22 | P.DS ---
Providers Date of admission: 11/13/18 12:35 Expected date of discharge: 11/16/18 Attending physician: Jorge L Puente Consults: 11/13/18 12:35 Consult Physician Routine Consulting Provider: Filiberto Maurer Consult Reason/Comments: dyspnea Do you want consulting provider notified?: Yes Primary care physician: Jorge L Puente [place] [facility] Course: Final Diagnoses: -Acute COPD exacerbation in a patient with advanced COPD -Possible acute bilateral lower lobe pneumonia, and preliminary sputum reporting moderate gram-positive cocci and gram-negative bacilli -Leukocytosis secondary to the above -CAD, history of CABG -Gastroesophageal reflux disease -Hypertension -Hyperlipidemia -Osteoarthritis Hospital course:This is an 78-year-old gentleman with history of CAD, CABG, chest pain,/angina, severe COPD, former smoker ,gastroesophageal reflux disease, hyperlipidemia, osteoarthritis presented to the ER with difficulty breathing 2 days. Nonproductive occasional cough. Denies fevers or chills. Shortness of breath worsened with exertion.Chest x-ray reported COPD with increased densities bilateral mid to lower lungs. Influenza screen negative. T-max 99.7 on admission, and WBC 19.6, 96% on room air. Currently 96% on 2 L nasal cannula. IV antibiotics of Rocephin and Zithromax initiated along with nebulized bronchodilators, steroids. EKG reporting normal sinus rhythm with nonspecific ST-T waves. Evaluated by pulmonary with recommendations noted and appreciated. Patient now on coughing up tenacious green colored sputum. Blood and sputum cultures collected. 11/15/2018 breathing improving on nebulized bronchodilators, IV steroids, Zithromax and Rocephin. Afebrile. Preliminary sputum reporting moderate gram- negative cocci and moderate gram-negative bacilli. blood cultures negative at 48 hours. Maintaining O2 sats in the high 90s on room air. Significant clinical improvement. O2 sat 92% on room air after ambulation.Patient has been cleared by pulmonary for discharge. Patient is being discharged home in a stable condition with guarded prognosis. Final sputum culture results to be faxed to both Dr. Puente and Dr. Maurer. Exam GENERAL: Alert and oriented 3 no acute distress CARDIOVASCULAR: S1, S2 regular.. No murmur RESPIRATION: Improved air entry , bilateral bases diminished. No rhonchi or crackles. Improving fine scattered expiratory wheezing . ABDOMEN: Soft, nontender . No guarding. no masses palpable.Bowel sounds heard. NERVOUS SYSTEM: No focal deficits. The impression and plan of care has been dictated as directed. : I performed a history and examination of this patient, discussed the same with the dictator. I agree with the dictator's note ,documented as a scribe. Any additional findings or plans will be noted. Time taken: 35 minutes Patient Condition at Discharge: Stable Plan - Discharge Summary Discharge Rx Participant: No New Discharge Prescriptions: New Cefuroxime Axetil [Ceftin] 500 mg PO BID #14 tab predniSONE 10 mg PO DIRECTED #30 tab Ipratropium-Albuterol Nebulize [Duoneb 0.5 mg-3 mg/3 ml Soln] 3 ml INHALATION RT-QID #120 ampul.neb Omeprazole [PriLOSEC] 20 mg PO AC-BID #30 cap Continue Vitamin E(Unknown) 1 tab PO DAILY Multivitamins, Thera [Multivitamin (formulary)] 1 tab PO DAILY Magnesium(Unknown) 1 tab PO DAILY Aspirin EC [Ecotrin Low Dose] 81 mg PO DAILY Albuterol Inhaler [Ventolin Hfa Inhaler] 1 - 2 puff INHALATION RT-Q6H PRN PRN Reason: Shortness Of Breath Tiotropium 18 Mcg/Puff [Spiriva] 1 cap INHALATION RT-DAILY Budesonide/Formoterol Fumarate [Symbicort 160-4.5 Mcg Inhaler] 2 puff IN HALATION RT-BID Vit C/E/Zn/Coppr/Lutein/Zeaxan [Preservision Areds 2 Softgel] 1 cap PO BID Discharge Medication List Albuterol Inhaler [Ventolin Hfa Inhaler] 1 - 2 puff INHALATION RT-Q6H PRN 11/13/18 [History] Aspirin EC [Ecotrin Low Dose] 81 mg PO DAILY 11/13/18 [History] Budesonide/Formoterol Fumarate [Symbicort 160-4.5 Mcg Inhaler] 2 puff INHALATION RT-BID 11/13/18 [History] Magnesium(Unknown) 1 tab PO DAILY 11/13/18 [History] Multivitamins, Thera [Multivitamin (formulary)] 1 tab PO DAILY 11/13/18 [History] Tiotropium 18 Mcg/Puff [Spiriva] 1 cap INHALATION RT-DAILY 11/13/18 [History] Vit C/E/Zn/Coppr/Lutein/Zeaxan [Preservision Areds 2 Softgel] 1 cap PO BID 11/13/18 [History] Vitamin E(Unknown) 1 tab PO DAILY 11/13/18 [History] Cefuroxime Axetil [Ceftin] 500 mg PO BID #14 tab 11/16/18 [Rx] Ipratropium-Albuterol Nebulize [Duoneb 0.5 mg-3 mg/3 ml Soln] 3 ml INHALATION RT-QID #120 ampul.neb 11/16/18 [Rx] Omeprazole [PriLOSEC] 20 mg PO AC-BID #30 cap 11/16/18 [Rx] predniSONE 10 mg PO DIRECTED #30 tab 11/16/18 [Rx] Follow up Appointment(s)/Referral(s): Jorge L Puente DO [Primary Care Provider] - 2 Weeks [facility] [NON-STAFF] - (Supplied Nebulizer) Filiberto Maurer MD [Family Provider] - 1 Week Activity/Diet/Wound Care/Special Instructions: Pending pulmonary clearance. O2 sat on room air after ambulation: 92% Case management assisting with new nebulizer machine Fax final sputum culture results to both Dr. Puente and Dr. Maurer
[2018-11-16 11:37] LABS: Glucose,Whole Blood 87 mg/dL (75-99)
[2018-11-16] MEDS: MAGNESIUM OXIDE 400 MG TAB PO SCH (11:37)
--- NOTE | 2018-11-16 13:51 | P.PN ---
Subjective Progress Note Date: 11/16/18 Principal diagnosis: Dyspnea, COPD 78-year-old male patient who came into the emergency department because of worsening shortness of breath. This started couple of days ago and the patient's condition is been progressively getting worse since. The patient has a regular cough nonproductive. No chest pain. No neck swelling. No palpitation. No altered mentation. No fever. No chills. The patient has severe COPD. The patient does not have major limitation because of his COPD. He has been maintained on a combination of Symbicort and Spiriva on outpatient basis. His baseline FEV1 is 36%. His oxygen saturation has been 96% on room air. He has been up-to-date with vaccination. He uses albuterol rescue inhaler necessary basis. He follows up with me in the office regarding his COPD. His white cell count was at 19.6. Influenza screen was negative. Chest x-ray s howed COPD with some increased interstitial densities in the mid in the lower lung padron bilaterally. On 11/14/2018 patient seen in follow-up on medical surgical floor. He is awake and alert, in no acute distress, he is coughing, and bringing up copious amount of thick green colored sputum. He is on 2 L of oxygen with pulse ox of 97, afebrile, denies any chills, denies any chest wall tenderness. No new labs today. Antibiotic coverage in the form of Zithromax and Rocephin, IV steroids, and nebulized bronchodilators. On 11/15/2018 patient seen in follow-up on medical surgical floor. He is resting comfortably in bed, he is in no acute distress. Breathing easier, less congested, he states he is feeling much better, vital signs are stable, no fever, no chills, blood culture was negative, sputum culture is pending, preliminary Gram stain reveals moderate gram-positive cocci, moderate gram- negative bacilli, few gram-positive bacilli, final culture is pending. no new Labs today, no new chest x-rays. O2 saturation at rest on room air, was 96%, with exercise was 90%, and patient does not qualify for home oxygen. Hematocrit coverage in the form of Zithromax and Rocephin, IV steroids, nebulized dilators. Aspirin discharge home today or tomorrow. On 11/16/2018 In follow-up on medical surgical floor. He continues to improve, no fever no chills, breathing easier, lung sounds are diminished, with some minimal end expiratory wheezes, overall feeling much better. Vital signs are stable, no fever or chills, sputum culture still pending, blood culture shows no growth. White count is trending down, down to 14.1, hemoglobin is 13.2, electrolyte within normal limits, B1 is 23, creatinine 0.86. Patient has been treated with Zithromax and Rocephin. IV steroids, nebulizers. Objective - Vital Signs Vital signs: Vital Signs Temp 97.9 F 11/16/18 06:04 Pulse 79 11/16/18 11:11 Resp 18 11/16/18 06:04 BP 157/74 11/16/18 06:04 Pulse Ox 92 L 11/16/18 11:19 Intake & Output 11/15/18 11/16/18 11/16/18 18:59 06:59 18:59 Other: Voiding Method Urinal # Voids 3 1 - Exam GENERAL EXAM: Alert, pleasant, 78-year-old white male, on room air with pulse ox of 92%, comfortable in no apparent distress. HEAD: Normocephalic/atraumatic. EYES: Normal reaction of pupils, equal size. Conjunctiva pink, sclera white. NOSE: Clear with pink turbinates. THROAT: No erythema or exudates. NECK: No masses, no JVD, no thyroid enlargement, no adenopathy. CHEST: No chest wall deformity. Symmetrical expansion. LUNGS: Equal air entry with minimal end expiratory wheezes CVS: Regular rate and rhythm, normal S1 and S2, no gallops, no murmurs, no rubs ABDOMEN: Soft, nontender. No hepatosplenomegaly, normal bowel sounds, no guarding or rigidity. EXTREMITIES: No clubbing, no edema, no cyanosis, 2+ pulses and upper and lower extremities. MUSCULOSKELETAL: Muscle strength and tone normal. SPINE: No scoliosis or deformity SKIN: No rashes CENTRAL NERVOUS SYSTEM: Alert and oriented -3. No focal deficits, tone is normal in all 4 extremities. PSYCHIATRIC: Alert and oriented -3. Appropriate affect. Intact judgment and insight. - Labs CBC & Chem 7: 11/16/18 09:24 11/16/18 09:24 Labs: Abnormal Lab Results - Last 24 Hours (Table) 11/15/18 11/15/18 11/16/18 Range/Units 17:06 20:44 06:59 WBC (3.8-10.6) k/uL RBC (4.30-5.90) m/uL Neutrophils # (1.3-7.7) k/uL Lymphocytes # (1.0-4.8) k/uL BUN (9-20) mg/dL Glucose (74-99) mg/dL POC Glucose (mg/dL) 119 H 156 H 113 H (75-99) mg/dL 11/16/18 11/16/18 Range/Units 09:24 09:24 WBC 14.1 H (3.8-10.6) k/uL RBC 4.29 L (4.30-5.90) m/uL Neutrophils # 13.2 H (1.3-7.7) k/uL Lymphocytes # 0.5 L (1.0-4.8) k/uL BUN 23 H (9-20) mg/dL Glucose 145 H (74-99) mg/dL POC Glucose (mg/dL) (75-99) mg/dL Microbiology - Last 24 Hours (Table) 11/13/18 13:25 Blood Culture - Preliminary Blood No Growth after 48 hours Assessment and Plan Plan: 1 acute COPD exacerbation with possible active lower lobe pneumonia (atypical), the patient also has some leukocytosis 2 advanced COPD with a baseline FEV1 of 36% of predicted at baseline and the patient has been maintained on a combination of Symbicort and Spiriva 3 coronary artery disease with previous bypass surgery was done in 1994 4 hypertension 5 hyperlipidemia 6 osteoarthritis Plan: Patient continues to improve, vital signs table, no fever or chills, so far no growth on the sputum and blood cultures, final cultures are pending. From pulmonary perspective he stable for discharge home today and prednisone taper, he finish outpatient course of oral antibiotics, he continues on albuterol nebulized treatments, Spiriva, Symbicort I performed a history & physical examination of the patient and discussed their management with my nurse practitioner, Angelique Boone. I reviewed the nurse practitioner's note and agree with the documented findings and plan of care. Lung sounds are positive for diffuse wheezes. The findings and the impression was discussed with the patient. I attest to the documentation by the nurse practitioner. Time with Patient: Less than 30
--- NOTE | 2018-11-20 08:33 | CDI ---
Documentation Clarification Form Date: 11/20/18 From: Lori Lagos Phone: If questions call Sarah Gamez @ [phone], Hours-8:30 am & 5 pm M- Michelle Admit Date: 11/13/2018 12:35:00 PM Patient Name: Calixto Olivarez Visit Number: [id number] Discharge Date: 11/16/2018 11:57:00 AM ATTENTION: The Clinical Documentation Specialists (CDI) and [facility] Coding Staff appreciate your assistance in clarifying documentation. Please respond to the clarification below the line at the bottom and electronically sign. The CDI & [facility] Coding staff will review the response and follow-up if needed. Please note: Queries are made part of the Legal Health Record. If you have any questions, please contact the author of this message via ITS. Dr. Jorge L Puente The patient presented with the following acute COPD exacerbation and possbile acute bilateral lower lobe pneumonia. Per ED Note - meets sepsis criteria. Some accessory muscle use however not in significant respiratory distress. History/Risk Factors: CAD, GERD, HTN, hyperlipidemia, OA WBC: 19.6 Lactic acid: 1.8 Blood cultures: no growth Vitals signs on admission: P-92, r-26, BP-148/81, O2 sat- 96 RA Total Bilirubin: 1.4 Treatment: IV Rocephin, In your professional opinion, please clarify if these findings signify one of the following conditions, whether the condition is POA, and cause, if known: Condition Sepsis ruled out Sepsis ruled in SIRS, without underlying infectious process Other, please specify Unable to determine Present on Admission Yes No NO MTDD
== END 2018-11-16 11:57 | disposition home or self-care (01) | DRG 194 ==
LOC: EC 11:15 → 4MS4W 12:35
PROVIDERS: ADMIT Family Medicine; ATTEND Family Medicine
DX: J18.9 Pneumonia, unspecified organism (principal); J44.0 Chronic obstructive pulmonary disease with (acute) lower respiratory infection; J44.1 Chronic obstructive pulmonary disease with (acute) exacerbation; I25.10 Atherosclerotic heart disease of native coronary artery without angina pectoris; I10 Essential (primary) hypertension; E78.5 Hyperlipidemia, unspecified; K21.9 Gastro-esophageal reflux disease without esophagitis; M19.90 Unspecified osteoarthritis, unspecified site; Z79.82 Long term (current) use of aspirin; Z79.51 Long term (current) use of inhaled steroids; Z79.899 Other long term (current) drug therapy; Z95.1 Presence of aortocoronary bypass graft; Z87.891 Personal history of nicotine dependence; Z82.49 Family history of ischemic heart disease and other diseases of the circulatory system; Z82.0 Family history of epilepsy and other diseases of the nervous system
CPT/HCPCS: 36415; 71046; 80048; 80053; 83605; 83735; 85025; 85610; 85730; 87040; 87070; 87205; 87502; 93005; 94640; 96365; 96366; 96367; 96375; 96376; 99291

== ENCOUNTER 2020-04-09 13:04 | Inpatient (IN) | payer MEDICARE ==
[2020-04-09] MEDS ORDERED: ALBUTEROL NEBULIZED 2.5 MG/3 ML INHALATION STA (13:45)
[2020-04-09] MEDS ORDERED: SODIUM CHLORIDE 0.9% 1,000 ML IV STA (13:45)
[2020-04-09] MEDS ORDERED: IPRATROPIUM 0.5 MG/2.5 ML NEBU INHALATION STA (13:45)
[2020-04-09] MEDS ORDERED: methylPREDNISolone SOD SUCCI 125 MG/2 ML VIAL IV STA (13:45)
[2020-04-09] MEDS ORDERED: ACETAMINOPHEN TAB 500 MG TAB PO STA (13:47)
[2020-04-09] MEDS ORDERED: IBUPROFEN 600 MG TAB PO STA (13:47)
--- NOTE | 2020-04-09 13:55 | ED ---
General Adult HPI - General Chief complaint: Shortness of Breath Stated complaint: SOB Time Seen by Provider: 04/09/20 13:40 Source: patient, RN notes reviewed, old records reviewed Mode of arrival: ambulatory Limitations: no limitations - History of Present Illness Initial comments: This is an 79-year-old male who presents emergency department with a past medical history significant for COPD. Patient states started having shortness of breath yesterday and it got considerably worse today. Patient states he is coughing with occasional sputum production. Patient denies any chest pain or palpitations. Patient states he does feel warm but he didn't accept her. Patient denies any headache patient denies numbness weakness. Patient denies lightheadedness or dizziness. Patient has vomited patient denies nausea vomiting diarrhea. - Related Data Home Medications Medication Instructions Recorded Confirmed Albuterol Inhaler (Mhu) [Ventolin 1 - 2 puff INHALATION RT-Q6H PRN 11/13/18 11/13/18 Hfa Inhaler (Mhu)] Aspirin EC [Ecotrin Low Dose] 81 mg PO DAILY 11/13/18 11/13/18 Budesonide/Formoterol Fumarate 2 puff INHALATION RT-BID 11/13/18 11/13/18 [Symbicort 160-4.5 Mcg Inhaler] Magnesium(Unknown) 1 tab PO DAILY 11/13/18 11/13/18 Multivitamins, Thera [Multivitamin 1 tab PO DAILY 11/13/18 11/13/18 (formulary)] Tiotropium 18 Mcg/Puff [Spiriva] 1 cap INHALATION RT-DAILY 11/13/18 11/13/18 Vit C/E/Zn/Coppr/Lutein/Zeaxan 1 cap PO BID 11/13/18 11/13/18 [Preservision Areds 2 Softgel] Vitamin E(Unknown) 1 tab PO DAILY 11/13/18 11/13/18 Previous Rx's Medication Instructions Recorded Cefuroxime Axetil [Ceftin] 500 mg PO BID #14 tab 11/16/18 Ipratropium-Albuterol Nebulize 3 ml INHALATION RT-QID #120 11/16/18 [Duoneb 0.5 mg-3 mg/3 ml Soln] ampul.neb Omeprazole [PriLOSEC] 20 mg PO AC-BID #30 cap 11/16/18 predniSONE 10 mg PO DIRECTED #30 tab 11/16/18 Allergies Allergy/AdvReac Type Severity Reaction Status Date / Time No Known Allergies Allergy Unverified 11/13/18 11:47 Review of Systems ROS Statement: Those systems with pertinent positive or pertinent negative responses have been documented in the HPI. ROS Other: All systems not noted in ROS Statement are negative. Past Medical History Past Medical History: Coronary Artery Disease (CAD), Chest Pain / Angina, COPD, GERD/Reflux, Hyperlipidemia, Osteoarthritis (OA) Additional Past Medical History / Comment(s): Coronary artery disease appears bypass surgery, COPD, hyperlipidemia, History of Any Multi-Drug Resistant Organisms: None Reported Past Surgical History: Coronary Bypass/CABG, Heart Catheterization Additional Past Surgical History / Comment(s): 1994 CABG 3 vessel, colonoscopy with benign polypectomy. Past Anesthesia/Blood Transfusion Reactions: No Reported Reaction Past Psychological History: No Psychological Hx Reported Smoking Status: Former smoker Past Alcohol Use History: None Reported Past Drug Use History: None Reported - Past Family History Father Family Medical History: Myocardial Infarction ([place]) Additional Family Medical History / Comment(s): Father of a [place] in his 60s. Mother Family Medical History: Dementia Additional Family Medical History / Comment(s): Mother of alzheimer's dementia in her 60s. General Exam - General Exam Comments Initial Comments: GENERAL: Patient is well-developed and well-nourished. Patient is nontoxic and well- hydrated and is in mild distress. ENT: Neck is soft and supple. No significant lymphadenopathy is noted. Oropharynx is clear. Moist mucous membranes. Neck has full range of motion without eliciting any pain. EYES: The sclera were anicteric and conjunctiva were pink and moist. Extraocular movements were intact and pupils were equal round and reactive to light. Eyelids were unremarkable. PULMONARY: Unlabored respirations. Good breath sounds bilaterally. No audible rales rhonchi or wheezing was noted. CARDIOVASCULAR: There is a regular rate and rhythm without any murmurs gallops or rubs. ABDOMEN: Soft and nontender with normal bowel sounds. SKIN: Skin is clear with no lesions or rashes and otherwise unremarkable. NEUROLOGIC: Patient is alert and oriented x3. Cranial nerves II through XII are grossly intact. Motor and sensory are also intact. Normal speech, volume and content. Symmetrical smile. MUSCULOSKELETAL: Normal extremities with adequate strength and full range of motion. LYMPHATICS: No significant lymphadenopathy is noted PSYCHIATRIC: Normal psychiatric evaluation. Limitations: no limitations Course Vital Signs 04/09/20 04/09/20 04/09/20 13:42 14:01 14:25 Temperature 100.3 F H Pulse Rate 100 89 91 Respiratory 22 Rate Blood Pressure 137/66 O2 Sat by Pulse 93 L Oximetry Medical Decision Making - Medical Decision Making EKG shows normal sinus rhythm at 93 bpm MT interval is 124 QRS is 90 QT interval 362 QTC is 450 per patient's EKG shows no ST segment elevation or depression. Chest x-ray shows no acute abnormality. Patient was given Rocephin. Patient received 3 breathing treatment in the emergency department as well as steroids and he was feeling better but not back to his baseline. Patient continued to wheeze diffusely. I spoke with Dr. Puente admitted the patient I wrote admitting orders. I con tinue and steroids - Lab Data Result diagrams: 04/09/20 13:54 04/09/20 13:54 Lab Results 04/09/20 04/09/20 04/09/20 Range/Units 13:54 13:54 13:54 WBC 19.7 H (3.8-10.6) k/uL RBC 4.56 (4.30-5.90) m/uL Hgb 14.4 (13.0-17.5) gm/dL Hct 44.5 (39.0-53.0) % MCV 97.5 (80.0-100.0) fL MCH 31.5 (25.0-35.0) pg MCHC 32.3 (31.0-37.0) g/dL RDW 13.8 (11.5-15.5) % Plt Count 223 (150-450) k/uL Neutrophils % 88 % Lymphocytes % 6 % Monocytes % 4 % Eosinophils % 1 % Basophils % 0 % Neutrophils # 17.4 H (1.3-7.7) k/uL Lymphocytes # 1.2 (1.0-4.8) k/uL Monocytes # 0.8 (0-1.0) k/uL Eosinophils # 0.2 (0-0.7) k/uL Basophils # 0.0 (0-0.2) k/uL PT 11.8 (9.0-12.0) sec INR 1.2 H (<1.2) APTT 26.2 (22.0-30.0) sec Sodium 134 L (137-145) mmol/L Potassium 5.0 (3.5-5.1) mmol/L Chloride 103 (98-107) mmol/L Carbon Dioxide 22 (22-30) mmol/L Anion Gap 9 mmol/L BUN 19 (9-20) mg/dL Creatinine 0.88 (0.66-1.25) mg/dL Est GFR (CKD-EPI)AfAm >90 (>60 ml/min/1.73 sqM) Est GFR (CKD-EPI)NonAf 81 (>60 ml/min/1.73 sqM) Glucose 112 H (74-99) mg/dL Plasma Lactic Acid Mele (0.7-2.0) mmol/L Calcium 9.0 (8.4-10.2) mg/dL Magnesium 1.9 (1.6-2.3) mg/dL Total Bilirubin 1.2 (0.2-1.3) mg/dL AST 34 (17-59) U/L ALT 13 (4-49) U/L Alkaline Phosphatase 47 (38-126) U/L Troponin I (0.000-0.034) ng/mL Total Protein 7.3 (6.3-8.2) g/dL Albumin 4.2 (3.5-5.0) g/dL 04/09/20 04/09/20 Range/Units 13:54 13:54 WBC (3.8-10.6) k/uL RBC (4.30-5.90) m/uL Hgb (13.0-17.5) gm/dL Hct (39.0-53.0) % MCV (80.0-100.0) fL MCH (25.0-35.0) pg MCHC (31.0-37.0) g/dL RDW (11.5-15.5) % Plt Count (150-450) k/uL Neutrophils % % Lymphocytes % % Monocytes % % Eosinophils % % Basophils % % Neutrophils # (1.3-7.7) k/uL Lymphocytes # (1.0-4.8) k/uL Monocytes # (0-1.0) k/uL Eosinophils # (0-0.7) k/uL Basophils # (0-0.2) k/uL PT (9.0-12.0) sec INR (<1.2) APTT (22.0-30.0) sec Sodium (137-145) mmol/L Potassium (3.5-5.1) mmol/L Chloride (98-107) mmol/L Carbon Dioxide (22-30) mmol/L Anion Gap mmol/L BUN (9-20) mg/dL Creatinine (0.66-1.25) mg/dL Est GFR (CKD-EPI)AfAm (>60 ml/min/1.73 sqM) Est GFR (CKD-EPI)NonAf (>60 ml/min/1.73 sqM) Glucose (74-99) mg/dL Plasma Lactic Acid Mele 2.1 H* (0.7-2.0) mmol/L Calcium (8.4-10.2) mg/dL Magnesium (1.6-2.3) mg/dL Total Bilirubin (0.2-1.3) mg/dL AST (17-59) U/L ALT (4-49) U/L Alkaline Phosphatase (38-126) U/L Troponin I <0.012 (0.000-0.034) ng/mL Total Protein (6.3-8.2) g/dL Albumin (3.5-5.0) g/dL Critical Care Time Critical Care Time: Yes Total Critical Care Time: 35 Disposition Clinical Impression: Acute exacerbation of chronic obstructive pulmonary disease Disposition: ADMITTED IP TO THIS HOSP Referrals: Jorge L Puente DO [Primary Care Provider] - 1-2 days Time of Disposition: 14:58
[2020-04-09 14:20] LABS: Basophils % (A) 0 %; Eosinophils # (A) 0.2 k/uL (0-0.7); Eosinophils % (A) 1 %; HCT 44.5 % (39.0-53.0); HGB 14.4 gm/dL (13.0-17.5); Lymphocytes # (A) 1.2 k/uL (1.0-4.8); Lymphocytes % (A) 6 %; MCH 31.5 pg (25.0-35.0); MCHC 32.3 g/dL (31.0-37.0); MCV 97.5 fL (80.0-100.0); Mean Platelet Volume 7.3; Monocytes # (A) 0.8 k/uL (0-1.0); Monocytes % (A) 4 %; Neutrophils # (A) 17.4 k/uL (1.3-7.7); Neutrophils % (A) 88 %; Platelet Count 223 k/uL (150-450); RBC 4.56 m/uL (4.30-5.90); RDW 13.8 % (11.5-15.5); WBC 19.7 k/uL (3.8-10.6)
[2020-04-09 14:24] LABS: ALT 13 U/L (4-49); AST 34 U/L (17-59); African American GFR (CKD) >90 (>60 ml/min/1.73 sqM); Albumin 4.2 g/dL (3.5-5.0); Alkaline Phosphatase 47 U/L (38-126); Anion Gap 9 mmol/L; Blood Urea Nitrogen 19 mg/dL (9-20); Carbon Dioxide 22 mmol/L (22-30); Chloride 103 mmol/L (98-107); Glucose 112 mg/dL (74-99); Magnesium 1.9 mg/dL (1.6-2.3); Non-African American GFR(CKD) 81 (>60 ml/min/1.73 sqM); Sodium 134 mmol/L (137-145); Total Bilirubin 1.2 mg/dL (0.2-1.3); Total Protein 7.3 g/dL (6.3-8.2)
[2020-04-09 14:32] LABS: INR 1.2 (<1.2); Partial Thromboplastin Time 26.2 sec (22.0-30.0); Prothrombin Time 11.8 sec (9.0-12.0)
[2020-04-09] MEDS ORDERED: AZITHROMYCIN 500 MG in SODIUM CHLORIDE 0.9% 250 ML IVPB STA (15:18)
--- NOTE | 2020-04-09 15:26 | XR ---
EXAMINATION TYPE: XR chest 2V DATE OF EXAM: 04/09/2020 COMPARISON: Prior chest x-ray 11/14/2018 HISTORY: Shortness of breath, cough, difficulty breathing TECHNIQUE: Frontal and lateral views of the chest are obtained. FINDINGS: Lung volumes are increased. Patient is post median sternotomy. Aorta is dense. There is pat jacque basilar density noted on the left. There is likely underlying emphysematous change with apical jordon cencies present. Heart is small and stable. IMPRESSION: Correlate for left lower lobe or lingular pneumonia versus atelectasis or scarring. Ther e is likely underlying emphysema.
[2020-04-09] MEDS: methylPREDNISolone SOD SUCCI 125 MG/2 ML VIAL IV SCH (18:46)
[2020-04-09] MEDS: IPRATROPIUM-ALBUTEROL 3 ML NEB INHALATION PRN (19:52)
[2020-04-09] MEDS ORDERED: ALBUTEROL NEBULIZED 2.5 MG/3 ML INHALATION PRN ×2 (21:30)
[2020-04-10] MEDS: methylPREDNISolone SOD SUCCI 125 MG/2 ML VIAL IV SCH ×4 (00:41→17:16)
[2020-04-10] MEDS: IPRATROPIUM-ALBUTEROL 3 ML NEB INHALATION PRN (07:36)
[2020-04-10] MEDS: IPRATROPIUM 0.5 MG/2.5 ML NEBU INHALATION SCH ×4 (07:38→19:37)
[2020-04-10] MEDS: guaiFENesin 600 MG TABLET.ER PO SCH (08:09)
[2020-04-10] MEDS: FUROSEMIDE 20 MG TAB PO SCH (08:09)
[2020-04-10] MEDS: ATORVASTATIN 10 MG TAB PO SCH (08:09)
[2020-04-10] MEDS: ASPIRIN 81 MG PO SCH (08:09)
[2020-04-10] MEDS: SYMBICORT 160-4.5 MCG INHALER INHALATION SCH (10:57)
--- NOTE | 2020-04-10 14:35 | P.CNPUL ---
History of Present Illness Consult date: 04/10/20 Requesting physician: Jorge L Puente Reason for consult: dyspnea, COPD Chief complaint: Shortness of breath, cough congestion History of present illness: This a very pleasant 79-year-old gentleman who follows with Dr. Puente as his primary care provider. He has a history of coronary artery disease with previous coronary artery bypass grafting, hyperlipidemia, osteoarthritis, former smoker. He also has a history of severe chronic obstructive pulmonary disease and is maintained on Symbicort, Spiriva and albuterol in the outpatient setting. His baseline FEV1 value is 36% of predicted. He follows with Dr. Maurer in our office for the same. He presented to the emergency room yesterday with complaints of increasing shortness of breath, cough, congestion. His x-ray does show some left lower lobe/lingular pneumonia versus atelectasis or scarring. Evidence of underlying emphysema. He is seen today in consultation on the regular medical floor. He is currently sitting up in bed. Awake and alert in no acute distress. He is maintaining O2 saturation in the mid 90s on 3 L/m per nasal cannula. He is afebrile. White count 19.7. Hemoglobin 14.4. Sodium 134. Potassium 5.0 creatinine 0.88. He's been initiated on DuoNeb inhalations, Symbicort, IV Solu-Medrol, Mucinex and antibiotics in the form of ceftriaxone and azithromycin. CoVID 19 screen pending. Review of Systems REVIEW OF SYSTEMS: CONSTITUTIONAL: Denies any recent significant weight loss or weight gain. EYES: Denies change in vision. EARS, NOSE, MOUTH, THROAT: Denies headaches, denies sore throat. CARDIOVASCULAR: Denies chest pain, palpitations or syncopal episodes. RESPIRATORY: Positive for shortness of breath, cough, congestion no hemoptysis. GASTROINTESTINAL: Denies change in appetite, denies abdominal pain GENITOURINARY: Denies hematuria, denies infections. MUSKULOSKELETAL: Denies pain, denies swelling. INTEGUMENTARY: Denies rash, denies eczema. NEUROLOGICAL: Denies recent memory loss, no recent seizure activity. PSYCHIATRIC: Denies anxiety, denies depression. HEMATOLOGIC/LYMPHATIC: Denies anemia, denies enlarged lymph nodes. Past Medical History Past Medical History: Coronary Artery Disease (CAD), Chest Pain / Angina, COPD, GERD/Reflux, Hyperlipidemia, Osteoarthritis (OA) Additional Past Medical History / Comment(s): Coronary artery disease appears bypass surgery, COPD, hyperlipidemia, History of Any Multi-Drug Resistant Organisms: None Reported Past Surgical History: Coronary Bypass/CABG, Heart Catheterization Additional Past Surgical History / Comment(s): 1994 CABG 3 vessel, colonoscopy with benign polypectomy. Past Anesthesia/Blood Transfusion Reactions: No Reported Reaction Past Psychological History: No Psychological Hx Reported Additional Psychological History / Comment(s): Pt resides with his spouse. He uses no assistive devices. He drives. He states he has a nebulizer. Smoking Status: Former smoker Past Alcohol Use History: None Reported Additional Past Alcohol Use History / Comment(s): Pt started smoking in 1955 and quit in 2004. He smoked 1-1.5 ppd. Past Drug Use History: None Reported - Past Family History Father Family Medical History: Myocardial Infarction ([place]) Additional Family Medical History / Comment(s): Father of a [place] in his 60s. Mother Family Medical History: Dementia Additional Family Medical History / Comment(s): Mother of alzheimer's dementia in her 60s. Medications and Allergies Home Medications Medication Instructions Recorded Confirmed Type Aspirin EC [Ecotrin Low Dose] 81 mg PO DAILY 11/13/18 04/09/20 History Budesonide/Formoterol Fumarate 1 puff INHALATION RT-DAILY 11/13/18 04/09/20 History [Symbicort 160-4.5 Mcg Inhaler] Vit C/E/Zn/Coppr/Lutein/Zeaxan 1 cap PO DAILY 11/13/18 04/09/20 History [Preservision Areds 2 Softgel] Albuterol Inhaler [Ventolin Hfa 1 puff INHALATION RT-DAILY PRN 04/09/20 04/09/20 History Inhaler] Albuterol Nebulized [Ventolin 2.5 mg INHALATION RT-QID PRN 04/09/20 04/09/20 History Nebulized] Cyanocobalamin (Vitamin B-12) 1,000 mcg PO DAILY 04/09/20 04/09/20 History [Vitamin B-12] Furosemide [Lasix] 20 mg PO DAILY 04/09/20 04/09/20 History Rosuvastatin Calcium [Crestor] 5 mg PO DAILY 04/09/20 04/09/20 History Tiotropium [place] [Spiriva 2 puff INHALATION RT-DAILY 04/09/20 04/09/20 History Respimat] Vitamin A 8,000 unit PO DAILY 04/09/20 04/09/20 History guaiFENesin [Mucinex] 600 mg PO DAILY 04/09/20 04/09/20 History Allergies Allergy/AdvReac Type Severity Reaction Status Date / Time No Known Allergies Allergy Verified 04/09/20 15:49 Physical Exam Vitals: Vital Signs Temp Pulse Pulse Resp BP BP Pulse Ox 04/10/20 12:36 97.6 F 82 18 160/83 96 04/10/20 11:10 79 04/10/20 10:57 78 04/10/20 07:49 80 04/10/20 07:38 80 04/10/20 05:00 98.3 F 75 16 112/67 98 04/09/20 22:40 97.9 F 80 16 139/74 97 04/09/20 21:55 98.1 F 85 18 117/68 97 04/09/20 21:27 98.1 F 85 18 117/68 97 04/09/20 20:03 78 04/09/20 19:52 70 04/09/20 18:48 80 18 118/73 98 04/09/20 16:10 98.9 F 82 18 114/76 99 04/09/20 14:59 20 04/09/20 14:25 91 Intake and Output 04/09/20 04/10/20 04/10/20 22:59 06:59 14:59 Intake Total 590 600 Balance 590 600 Intake: Oral 590 600 Other: Voiding Method Urinal Urinal # Voids 2 2 Weight 65.629 kg GENERAL EXAM: Alert, very pleasant 79-year-old gentleman, on 3 L nasal cannula, comfortable in no apparent distress. HEAD: Normocephalic. EYES: Normal reaction of pupils, equal size. NOSE: Clear with pink turbinates. THROAT: No erythema or exudates. NECK: No masses, no JVD. CHEST: No chest wall deformity. LUNGS: Equal air entry with crackles in left posterior bases, end expiratory wheeze, diminished CVS: S1 and S2 normal with no audible murmur, regular rhythm. ABDOMEN: No hepatosplenomegaly, normal bowel sounds, no guarding or rigidity. SPINE: No scoliosis or deformity SKIN: No rashes CENTRAL NERVOUS SYSTEM: No focal deficits, tone is normal in all 4 extremities. EXTREMITIES: There is no peripheral edema. No clubbing, no cyanosis. Peripheral pulses are intact. Results - Laboratory Findings CBC and BMP: 04/09/20 13:54 04/09/20 13:54 PT/INR, D-dimer PT 11.8 sec (9.0-12.0) 04/09/20 13:54 INR 1.2 (<1.2) H 04/09/20 13:54 Abnormal lab findings: Abnormal Labs 04/09/20 04/09/20 04/09/20 13:54 13:54 13:54 WBC 19.7 H Neutrophils # 17.4 H INR 1.2 H Sodium 134 L Glucose 112 H Plasma Lactic Acid Mele 04/09/20 13:54 WBC Neutrophils # INR Sodium Glucose Plasma Lactic Acid Mele 2.1 H* - Diagnostic Findings Chest x-ray: image reviewed Assessment and Plan Assessment: 1 Acute exacerbation of chronic obstructive pulmonary sees, complicated by left lower lobe early infiltrate/pneumonia, CoVID 19 screen pending 2 Severe Gold stage III/IV chronic obstructive pulmonary disease with FEV1 value 36% of predicted 3 History of chronic tobacco dependence 4 Coronary artery disease with previous coronary artery bypass grafting 3 5 Hyperlipidemia 6 Osteoarthritis 7 Gastroesophageal reflux disease Plan: The patient was seen and evaluated by Dr. Malave Chest x-ray and labs reviewed Continue treatment for COPD exacerbation Titrate down the FiO2 as tolerated Probable discharge in a.m. We'll continue to follow and make further recommendations based on his clinical status I, the cosigning physician, performed a history & physical examination of the patient. Lungs sounds with crackles in left base, end expiratory wheeze, diminished Maintaining good O2 saturations in the 90s on 3 L/m per nasal cannula. I discussed the assessment and plan of care with my nurse practitioner, Maribel Gray. I attest to the above note as dictated by her. Time with Patient: Greater than 30
[2020-04-10] MEDS ORDERED: AZITHROMYCIN 500 MG in SODIUM CHLORIDE 0.9% 250 ML IVPB SCH (16:00)
[2020-04-10 16:23] VITALS: BMI 20.2
--- NOTE | 2020-04-10 23:23 | P.HPIM ---
History of Present Illness H&P Date: 04/10/20 79-year-old male who was admitted with significant exacerbation COPD. Patient states started having shortness of breath yesterday and it got considerably worse today. Patient states he is coughing with occasional sputum production. Patient denies any chest pain or palpitations. Patient states he does feel warm but he didn't accept her. Patient denies any headache patient denies numbness weakness. Patient denies lightheadedness or dizziness. Patient has vomited patient denies nausea vomiting diarrhea. he was tested for ". Covid 19 which is pending currently Review of Systems GENERAL: Patient denies fever. Denies chills. EYES: Denies blurred vision. Denies vision changes. Denies eye pain. EARS, NOSE, MOUTH, & THROAT: Denies headache. Denies sore throat. Denies ear pain. RESPIRATORY: Shortness of breath and difficulty with breathing. CARDIOVASCULAR: Denies chest pain or pressure. Denies palpitations. Denies arrhythmias. GASTROINTESTINAL: Denies abdominal pain. Denies diarrhea. Denies constipation. Denies nausea. Denies vomiting. Denies heartburn. Denies blood in the stool. GENITOURINARY: Denies urinary frequency. Denies burning. Denies dysuria. Denies cloudy urine. Denies blood in the urine. MUSCULOSKELETAL: Denies myalgias. Denies joint swelling. Denies decreased range of motion beyond patients baseline. INTEGUMENTARY: Denies pruitis. Denies rash. PSYCHIATRIC: Denies suicidal or homicial ideations. ENDOCRINE: Denies weight change. Denies polydipsia. Denies polyuria. HEMATOLOGIC: Denies bleeding disorders. Past Medical History Past Medical History: Coronary Artery Disease (CAD), Chest Pain / Angina, COPD, GERD/Reflux, Hyperlipidemia, Osteoarthritis (OA) Additional Past Medical History / Comment(s): Coronary artery disease appears bypass surgery, COPD, hyperlipidemia, History of Any Multi-Drug Resistant Organisms: None Reported Past Surgical History: Coronary Bypass/CABG, Heart Catheterization Additional Past Surgical History / Comment(s): 1994 CABG 3 vessel, colonoscopy with benign polypectomy. Past Anesthesia/Blood Transfusion Reactions: No Reported Reaction Past Psychological History: No Psychological Hx Reported Additional Psychological History / Comment(s): Pt resides with his spouse. He uses no assistive devices. He drives. He states he has a nebulizer. Smoking Status: Former smoker Past Alcohol Use History: None Reported Additional Past Alcohol Use History / Comment(s): Pt started smoking in 1955 and quit in 2004. He smoked 1-1.5 ppd. Past Drug Use History: None Reported - Past Family History Father Family Medical History: Myocardial Infarction ([place]) Additional Family Medical History / Comment(s): Father of a [place] in his 60s. Mother Family Medical History: Dementia Additional Family Medical History / Comment(s): Mother of alzheimer's dementia in her 60s. Medications and Allergies Home Medications Medication Instructions Recorded Confirmed Type Aspirin EC [Ecotrin Low Dose] 81 mg PO DAILY 11/13/18 04/09/20 History Budesonide/Formoterol Fumarate 1 puff INHALATION RT-DAILY 11/13/18 04/09/20 History [Symbicort 160-4.5 Mcg Inhaler] Vit C/E/Zn/Coppr/Lutein/Zeaxan 1 cap PO DAILY 11/13/18 04/09/20 History [Preservision Areds 2 Softgel] Albuterol Inhaler [Ventolin Hfa 1 puff INHALATION RT-DAILY PRN 04/09/20 04/09/20 History Inhaler] Albuterol Nebulized [Ventolin 2.5 mg INHALATION RT-QID PRN 04/09/20 04/09/20 History Nebulized] Cyanocobalamin (Vitamin B-12) 1,000 mcg PO DAILY 04/09/20 04/09/20 History [Vitamin B-12] Furosemide [Lasix] 20 mg PO DAILY 04/09/20 04/09/20 History Rosuvastatin Calcium [Crestor] 5 mg PO DAILY 04/09/20 04/09/20 History Tiotropium [place] [Spiriva 2 puff INHALATION RT-DAILY 04/09/20 04/09/20 History Respimat] Vitamin A 8,000 unit PO DAILY 04/09/20 04/09/20 History guaiFENesin [Mucinex] 600 mg PO DAILY 04/09/20 04/09/20 History Allergies Allergy/AdvReac Type Severity Reaction Status Date / Time No Known Allergies Allergy Verified 04/09/20 15:49 Physical Exam Osteopathic Statement: *. No significant issues noted on an osteopathic structural exam other than those noted in the History and Physical/Consult. Vitals: Vital Signs Temp Pulse Pulse Resp BP Pulse Ox 04/10/20 19:47 80 04/10/20 19:38 80 04/10/20 15:30 80 04/10/20 15:19 78 04/10/20 12:36 97.6 F 82 18 160/83 96 04/10/20 11:10 79 04/10/20 10:57 78 04/10/20 07:49 80 04/10/20 07:38 80 04/10/20 05:00 98.3 F 75 16 112/67 98 Intake and Output 04/10/20 04/10/20 04/11/20 14:59 22:59 06:59 Intake Total 600 350 Output Total 400 Balance 600 -50 Intake: Intake, IV Titration 50 Amount cefTRIAXone 1 gm In 50 Sodium Chloride 0.9% 50 ml @ 100 mls/hr IVPB Q24H [facility] Rx#:[id number] Oral 600 300 Output: Urine 400 Other: Voiding Method Urinal # Voids 2 Weight 65.629 kg GENERAL: This is a -79 year-old in no apparent distress at the time of examination. Pleasant and cooperative. HEENT: Head is atraumatic, normocephalic. Pupils are equal, round, and reactive to light. Sclerae anicteric. Conjunctivae are clear. Mucus membranes of the mouth are moist. Neck is supple. RESPIRATORY: Diminished breath sounds bilateral or air exchange CARDIOVASCULAR: Regular rate and rhythm. S1 and S2 noted. No systolic or diastolic murmur auscultated. No JVD noted. No S3 or S4 noted. Is a former GASTROINTESTINAL: No distention noted. Abdomen soft and round. Normal active bowel sounds auscultated x 4 quadrants. No pain or tenderness noted upon palpation. INTEGUMENTARY: No cyanosis. No jaundice. No rashes noted. No cellulitis noted. EXTREMITIES: 2+ peripheral pulses. No evidence of peripheral edema. No calf tenderness noted. NEUROLOGIC: Cranial nerves II-XII intact. PSYCHIATRIC: Awake, alert, and oriented X 3. Appropriate affect. Intact judgement and insight. Results CBC & Chem 7: 04/09/20 13:54 04/09/20 13:54 Labs: Microbiology - Last 24 Hours (Table) 04/09/20 13:59 Blood Culture - Preliminary Blood No Growth after 24 hours Thrombosis Risk Factor Assmnt - Choose All That Apply Each Factor Represents 1 point: Abnormal pulmonary function (COPD) Each Risk Factor Represents 3 Points: Age 75 years or older Other congenital or acquired thrombophilia - If yes, enter type in comment: No Thrombosis Risk Factor Assessment Total Risk Factor Score: 4 Thrombosis Risk Factor Assessment Level: Moderate Risk Assessment and Plan (1) Acute exacerbation of chronic obstructive pulmonary disease Current Visit: Yes Status: Acute Code(s): J44.1 - CHRONIC OBSTRUCTIVE PULMONARY DISEASE W (ACUTE) EXACERBATION SNOMED Code(s): 801973664 (2) Pneumonia Current Visit: No Status: Acute Code(s): J18.9 - PNEUMONIA, UNSPECIFIED ORGANISM SNOMED Code(s): 232796220 (3) History of coronary artery disease Current Visit: Yes Status: Acute Code(s): Z86.79 - PERSONAL HISTORY OF OTHER DISEASES OF THE CIRCULATORY SYSTEM SNOMED Code(s): 857786045 (4) GERD (gastroesophageal reflux disease) Current Visit: Yes Status: Acute Code(s): K21.9 - GASTRO-ESOPHAGEAL REFLUX DISEASE WITHOUT ESOPHAGITIS SNOMED Code(s): 728622787 Plan: Plan is to continue IV hydration pulmonary dictation and progress
[2020-04-11] MEDS: methylPREDNISolone SOD SUCCI 125 MG/2 ML VIAL IV SCH ×3 (00:27→12:45)
[2020-04-11] MEDS: IPRATROPIUM 0.5 MG/2.5 ML NEBU INHALATION SCH ×3 (07:28→14:59)
[2020-04-11] MEDS: SYMBICORT 160-4.5 MCG INHALER INHALATION SCH (07:29)
[2020-04-11] MEDS: guaiFENesin 600 MG TABLET.ER PO SCH (08:03)
[2020-04-11] MEDS: ASPIRIN 81 MG PO SCH (08:03)
[2020-04-11] MEDS: ATORVASTATIN 10 MG TAB PO SCH (08:03)
[2020-04-11] MEDS: FUROSEMIDE 20 MG TAB PO SCH (08:04)
[2020-04-11 13:18] VITALS: BP 139/76; TEMP 98.3
--- NOTE | 2020-04-11 13:46 | P.DS ---
Providers Date of admission: 04/09/20 15:13 Expected date of discharge: 04/11/20 Attending physician: Jorge L Puente Consults: 04/09/20 15:13 Consult Physician Routine Consulting Provider: Christie Malave Consult Reason/Comments: COPD exacerbation Do you want consulting provider notified?: Yes Primary care physician: Jorge L Puente [facility] Course: Final Diagnoses: (1) Acute exacerbation of chronic obstructive pulmonary disease Current Visit: Yes Status: Acute Code(s): J44.1 - CHRONIC OBSTRUCTIVE PULMONARY DISEASE W (ACUTE) EXACERBATION SNOMED Code(s): 895314783 (2) Pneumonia Current Visit: No Status: Acute Code(s): J18.9 - PNEUMONIA, UNSPECIFIED ORGANISM SNOMED Code(s): 398438321 (3) History of coronary artery disease Current Visit: Yes Status: Acute Code(s): Z86.79 - PERSONAL HISTORY OF OTHER DISEASES OF THE CIRCULATORY SYSTEM SNOMED Code(s): 483292105 (4) GERD (gastroesophageal reflux disease) Current Visit: Yes Status: Acute Code(s): K21.9 - GASTRO-ESOPHAGEAL REFLUX DISEASE WITHOUT ESOPHAGITIS SNOMED Code(s): 322369193 Hospital course:79-year-old male who was admitted with significant exacerbation COPD. Patient states started having shortness of breath yesterday and it got considerably worse today. Patient states he is coughing with occasional sputum production. Patient denies any chest pain or palpitations. Patient states he does feel warm but he didn't accept her. Patient denies any headache patient denies numbness weakness. Patient denies lightheadedness or dizziness. Patient has vomited patient denies nausea vomiting diarrhea. he was tested for ". Covid 19 which is pending currently Evaluated associated by pulmonary. Maintained on nebulized bronchodilators, antibiotics and steroids. Significant clinical improvement. Required 2 L of oxygen at discharge, 88% on room air after ambulation.COVID testing pending. Patient will be discharged home today in a stable condition with guarded prognosis pending final DC recommendations and clearance from pulmonary. The impression and plan of care has been dictated as directed. : I performed a history and examination of this patient, discussed the same with the dictator. I agree with the dictator's note ,documented as a scribe. Any additional findings or plans will be noted. Patient Condition at Discharge: Stable Plan - Discharge Summary Discharge Rx Participant: No New Discharge Prescriptions: New predniSONE 10 mg PO DIRECTED #30 tab Azithromycin [Zithromax] 500 mg PO DAILY 1 Days #5 tab Continue Aspirin EC [Ecotrin Low Dose] 81 mg PO DAILY Budesonide/Formoterol Fumarate [Symbicort 160-4.5 Mcg Inhaler] 1 puff INHALATION RT-DAILY Vit C/E/Zn/Coppr/Lutein/Zeaxan [Preservision Areds 2 Softgel] 1 cap PO DAILY Vitamin A 8,000 unit PO DAILY Furosemide [Lasix] 20 mg PO DAILY Tiotropium [place] [Spiriva Respimat] 2 puff INHALATION RT-DAILY Rosuvastatin Calcium [Crestor] 5 mg PO DAILY Cyanocobalamin (Vitamin B-12) [Vitamin B-12] 1,000 mcg PO DAILY Albuterol Nebulized [Ventolin Nebulized] 2.5 mg INHALATION RT-QID PRN PRN Reason: Shortness Of Breath Albuterol Inhaler [Ventolin Hfa Inhaler] 1 puff INHALATION RT-DAILY PRN PRN Reason: Shortness Of Breath guaiFENesin [Mucinex] 600 mg PO DAILY Discharge Medication List Aspirin EC [Ecotrin Low Dose] 81 mg PO DAILY 11/13/18 [History] Budesonide/Formoterol Fumarate [Symbicort 160-4.5 Mcg Inhaler] 1 puff INHALATION RT-DAILY 11/13/18 [History] Vit C/E/Zn/Coppr/Lutein/Zeaxan [Preservision Areds 2 Softgel] 1 cap PO DAILY 11/13/18 [History] Albuterol Inhaler [Ventolin Hfa Inhaler] 1 puff INHALATION RT-DAILY PRN 04/09/20 [History] Albuterol Nebulized [Ventolin Nebulized] 2.5 mg INHALATION RT-QID PRN 04/09/20 [History] Cyanocobalamin (Vitamin B-12) [Vitamin B-12] 1,000 mcg PO DAILY 04/09/20 [History] Furosemide [Lasix] 20 mg PO DAILY 04/09/20 [History] Rosuvastatin Calcium [Crestor] 5 mg PO DAILY 04/09/20 [History] Tiotropium [place] [Spiriva Respimat] 2 puff INHALATION RT-DAILY 04/09/20 [History] Vitamin A 8,000 unit PO DAILY 04/09/20 [History] guaiFENesin [Mucinex] 600 mg PO DAILY 04/09/20 [History] Azithromycin [Zithromax] 500 mg PO DAILY 1 Days #5 tab 04/11/20 [Rx] predniSONE 10 mg PO DIRECTED #30 tab 04/11/20 [Rx] Follow up Appointment(s)/Referral(s): Christie Malave MD [STAFF PHYSICIAN] - 04/30/20 3:00 pm ( You will see Maribel Gray NP.) Jorge L Puente DO [Primary Care Provider] - 04/17/20 1:20 pm Ambulatory/Diagnostic Orders: Complete Blood Count w/diff [LAB.AMB] Time Frame: 3 Days, Location: None Selected Activity/Diet/Wound Care/Special Instructions: Pending final DC recommendations and clearance from pulmonary. Covid pending, maintain quarantine until results in/notified by PCP. 2 L nasal cannula O2 at discharge, O2 sat on room air after ambulation 88%
[2020-04-11 15:01] VITALS: RESP 18
[2020-04-11 15:17] VITALS: PULSE 88
--- NOTE | 2020-04-11 15:55 | P.PN ---
Subjective Progress Note Date: 04/11/20 Principal diagnosis: Acute exacerbation of COPD This a very pleasant 79-year-old gentleman who follows with Dr. Puente as his primary care provider. He has a history of coronary artery disease with previous coronary artery bypass grafting, hyperlipidemia, osteoarthritis, former smoker. He also has a history of severe chronic obstructive pulmonary disease and is maintained on Symbicort, Spiriva and albuterol in the outpatient setting. His baseline FEV1 value is 36% of predicted. He follows with Dr. Maurer in our office for the same. He presented to the emergency room yesterday with complaints of increasing shortness of breath, cough, congestion. His x-ray does show some left lower lobe/lingular pneumonia versus atelectasis or scarring. Evidence of underlying emphysema. He is seen today in consultation on the regular medical floor. He is currently sitting up in bed. Awake and alert in no acute distress. He is maintaining O2 saturation in the mid 90s on 3 L/m per nasal cannula. He is afebrile. White count 19.7. Hemoglobin 14.4. Sodium 134. Potassium 5.0 creatinine 0.88. He's been initiated on DuoNeb inhalations, Symbicort, IV Solu-Medrol, Mucinex and antibiotics in the form of ceftriaxone and azithromycin. CoVID 19 screen pending. The patient is seen today 04/11/2020 in follow-up on the regular medical floor. He is currently sitting up in a chair at the bedside. Awake and alert in no acute distress. His breathing is nearly back to his baseline. No worsening shortness of breath, cough or congestion. Continues with some dyspnea on ex ertion. Does qualify for home oxygen. He is continued on ceftriaxone and azithromycin along with Symbicort, DuoNeb inhalations, IV Solu-Medrol, Mucinex. Objective - Vital Signs Vital signs: Vital Signs Temp 98.3 F 04/11/20 13:00 Pulse 88 04/11/20 15:12 Resp 18 04/11/20 15:12 BP 139/76 04/11/20 13:00 Pulse Ox 94 L 04/11/20 13:00 Intake & Output 04/10/20 04/11/20 04/11/20 18:59 06:59 18:59 Intake Total 369 609 2664 Output Total 400 Balance 744 268 0691 Weight 65.629 kg Intake: Intake, IV Titration 50 Amount cefTRIAXone 1 gm In 50 Sodium Chloride 0.9% 50 ml @ 100 mls/hr IVPB Q24H [facility] Rx#:[id number] Oral [phone] Output: Urine 400 Other: Voiding Method Urinal Urinal Urinal # Voids 2 3 2 - Exam GENERAL EXAM: Alert, very pleasant 79-year-old gentleman, on 3 L nasal cannula, comfortable in no apparent distress. HEAD: Normocephalic. EYES: Normal reaction of pupils, equal size. NOSE: Clear with pink turbinates. THROAT: No erythema or exudates. NECK: No masses, no JVD. CHEST: No chest wall deformity. LUNGS: Equal air entry with crackles in left posterior bases, end expiratory wheeze, diminished CVS: S1 and S2 normal with no audible murmur, regular rhythm. ABDOMEN: No hepatosplenomegaly, normal bowel sounds, no guarding or rigidity. SPINE: No scoliosis or deformity SKIN: No rashes CENTRAL NERVOUS SYSTEM: No focal deficits, tone is normal in all 4 extremities. EXTREMITIES: There is no peripheral edema. No clubbing, no cyanosis. Peripheral pulses are intact. - Labs CBC & Chem 7: 04/09/20 13:54 04/09/20 13:54 Labs: Microbiology - Last 24 Hours (Table) 04/09/20 13:59 Blood Culture - Preliminary Blood No Growth after 24 hours Assessment and Plan Assessment: 1 Acute exacerbation of chronic obstructive pulmonary sees, complicated by left lower lobe early infiltrate/pneumonia, CoVID 19 screen pending 2 Severe Gold stage III/IV chronic obstructive pulmonary disease with FEV1 value 36% of predicted 3 History of chronic tobacco dependence 4 Coronary artery disease with previous coronary artery bypass grafting 3 5 Hyperlipidemia 6 Osteoarthritis 7 Gastroesophageal reflux disease Plan: The patient was seen and evaluated by Dr. Malave Cleared for discharge from the pulmonary standpoint Continue prednisone taper, bronchodilators Complete a course of antibiotics Remain in self isolation until Covid 19 test resulted Follow-up in the office in 1-2 weeks' time I, the cosigning physician, performed a history & physical examination of the patient. Lungs sounds with crackles in left base, end expiratory wheeze, diminished Maintaining good O2 saturations in the 90s on 3 L/m per nasal cannula. I discussed the assessment and plan of care with my nurse practitioner, Maribel Gray. I attest to the above note as dictated by her.
== END 2020-04-11 16:45 | disposition home or self-care (01) | DRG 190 ==
LOC: EC 13:04 → 2ORMAIN 15:13 → 6NMEDSUR 17:43
PROVIDERS: ADMIT Family Medicine; ATTEND Family Medicine
DX: J43.9 Emphysema, unspecified (principal); J18.9 Pneumonia, unspecified organism; M19.90 Unspecified osteoarthritis, unspecified site; K21.9 Gastro-esophageal reflux disease without esophagitis; I25.10 Atherosclerotic heart disease of native coronary artery without angina pectoris; E78.5 Hyperlipidemia, unspecified; Z20.828 Contact with and (suspected) exposure to other viral communicable diseases; Z79.51 Long term (current) use of inhaled steroids; Z79.52 Long term (current) use of systemic steroids; Z79.82 Long term (current) use of aspirin; Z79.899 Other long term (current) drug therapy; Z82.0 Family history of epilepsy and other diseases of the nervous system; Z82.49 Family history of ischemic heart disease and other diseases of the circulatory system; Z87.891 Personal history of nicotine dependence; Z95.1 Presence of aortocoronary bypass graft
CPT/HCPCS: 36415; 71046; 80053; 83605; 83735; 84484; 85025; 85610; 85730; 87040; 93005; 94640; 96365; 96367; 96375; 99291

== ENCOUNTER 2021-09-26 13:58 | Emergency (ER) | payer MEDICARE ==
[2021-09-26 14:10] VITALS: RESP 18; TEMP 98.4
[2021-09-26 14:19] LABS: Glucose,Whole Blood 109 mg/dL (75-99)
[2021-09-26] MEDS ORDERED: SODIUM CHLORIDE 0.9% 500 ML 500 ML IV STA (15:41)
--- NOTE | 2021-09-26 15:51 | ED ---
General Adult HPI - General Chief complaint: Weakness Stated complaint: weakness Time Seen by Provider: 09/26/21 15:03 Source: patient, EMS, RN notes reviewed, old records reviewed Mode of arrival: EMS Limitations: no limitations - History of Present Illness Initial comments: 81-year-old male presenting for evaluation of weakness and cramping. 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 He is currently on Lasix for lower extremity edema. He does not drink enough water according to family. He's return to baseline at the time my evaluation without any significant complaints. He did have some chest discomfort as well as headache over the past several days. No fever. No cough. - Related Data Home Medications Medication Instructions Recorded Confirmed Aspirin EC [Ecotrin Low Dose] 81 mg PO DAILY 11/13/18 09/26/21 Furosemide [Lasix] 20 mg PO DAILY 04/09/20 09/26/21 Allergies Allergy/AdvReac Type Severity Reaction Status Date / Time No Known Allergies Allergy Verified 09/26/21 16:34 Review of Systems ROS Statement: Those systems with pertinent positive or pertinent negative responses have been documented in the HPI. ROS Other: All systems not noted in ROS Statement are negative. Past Medical History Past Medical History: Coronary Artery Disease (CAD), Chest Pain / Angina, COPD, GERD/Reflux, Hyperlipidemia, Osteoarthritis (OA) Additional Past Medical History / Comment(s): Coronary artery disease appears bypass surgery, COPD, hyperlipidemia, History of Any Multi-Drug Resistant Organisms: None Reported Past Surgical History: Coronary Bypass/CABG, Heart Catheterization Additional Past Surgical History / Comment(s): 1994 CABG 3 vessel, colonoscopy with benign polypectomy. Past Anesthesia/Blood Transfusion Reactions: No Reported Reaction Past Psychological History: No Psychological Hx Reported Smoking Status: Former smoker Past Alcohol Use History: None Reported Past Drug Use History: None Reported - Past Family History Father Family Medical History: Myocardial Infarction ([place]) Additional Family Medical History / Comment(s): Father of a [place] in his 60s. Mother Family Medical History: Dementia Additional Family Medical History / Comment(s): Mother of alzheimer's dementia in her 60s. General Exam Limitations: no limitations General appearance: alert, in no apparent distress Head exam: Present: atraumatic, normocephalic Eye exam: Present: normal appearance, PERRL ENT exam: Present: mucous membranes dry Neck exam: Present: normal inspection. Absent: tenderness, meningismus Respiratory exam: Present: normal lung sounds bilaterally. Absent: respiratory distress, wheezes Cardiovascular Exam: Present: regular rate, normal rhythm GI/Abdominal exam: Present: soft. Absent: distended, tenderness Extremities exam: Present: normal capillary refill, pedal edema Neurological exam: Present: alert, oriented X3, CN II-XII intact. Absent: motor sensory deficit Psychiatric exam: Present: normal affect, normal mood Skin exam: Present: warm, dry, intact. Absent: cyanosis, diaphoretic Course Vital Signs 09/26/21 14:04 Temperature 98.4 F Pulse Rate 66 Respiratory 18 Rate Blood Pressure 159/87 O2 Sat by Pulse 97 Oximetry - Reevaluation(s) Reevaluation #1: 09/26/21 18:25 Urinalysis does show white cells without bacteria. Patient is not having any urinary symptoms. Culture pending. EKG Findings - EKG Comments: EKG Findings:: EKG: Sinus rhythm rate of 67, MA interval 97, QRS duration 98, QTC 413, no ST segment elevation. Medical Decision Making - Medical Decision Making 81-year-old male who presented for cramping episode and weakness. With several other minor complaints. Extensive workup was performed emergency department including head CT, chest x-ray, laboratory testing. He has normal CBC, normal CMP, Patient feeling better, no further symptoms. Eager for discharge. - Lab Data Result diagrams: 09/26/21 15:41 09/26/21 15:41 Lab Results 09/26/21 09/26/21 09/26/21 Range/Units 14:17 15:41 15:41 WBC 7.8 (3.8-10.6) k/uL RBC 4.18 L (4.30-5.90) m/uL Hgb 13.1 (13.0-17.5) gm/dL Hct 40.0 (39.0-53.0) % MCV 95.9 (80.0-100.0) fL MCH 31.5 (25.0-35.0) pg MCHC 32.8 (31.0-37.0) g/dL RDW 13.8 (11.5-15.5) % Plt Count 231 (150-450) k/uL MPV 7.6 Neutrophils % 71 % Lymphocytes % 17 % Monocytes % 7 % Eosinophils % 2 % Basophils % 2 % Neutrophils # 5.5 (1.3-7.7) k/uL Lymphocytes # 1.3 (1.0-4.8) k/uL Monocytes # 0.5 (0-1.0) k/uL Eosinophils # 0.2 (0-0.7) k/uL Basophils # 0.1 (0-0.2) k/uL PT 11.4 (9.0-12.0) sec INR 1.1 (<1.2) APTT 25.7 (22.0-30.0) sec Sodium (137-145) mmol/L Potassium (3.5-5.1) mmol/L Chloride (98-107) mmol/L Carbon Dioxide (22-30) mmol/L Anion Gap mmol/L BUN (9-20) mg/dL Creatinine (0.66-1.25) mg/dL Est GFR (CKD-EPI)AfAm (>60 ml/min/1.73 sqM) Est GFR (CKD-EPI)NonAf (>60 ml/min/1.73 sqM) Glucose (74-99) mg/dL POC Glucose (mg/dL) 109 H (75-99) mg/dL POC Glu [employer]neyman Painter ID Neha Martin Calcium (8.4-10.2) mg/dL Magnesium (1.6-2.3) mg/dL Total Bilirubin (0.2-1.3) mg/dL AST (17-59) U/L ALT (4-49) U/L Alkaline Phosphatase (38-126) U/L NT-Pro-B Natriuret Pep pg/mL Total Protein (6.3-8.2) g/dL Albumin (3.5-5.0) g/dL Urine Color Urine Appearance (Clear) Urine pH (5.0-8.0) Ur Specific [place] (1.001-1.035) Urine Protein (Negative) Urine Glucose (UA) (Negative) Urine Ketones (Negative) Urine Blood (Negative) Urine Nitrite (Negative) Urine Bilirubin (Negative) Urine Urobilinogen (<2.0) mg/dL Ur Leukocyte Esterase (Negative) Urine RBC (0-5) /hpf Urine WBC (0-5) /hpf Hyaline Casts (0-2) /lpf Urine Mucus (None) /hpf 09/26/21 09/26/21 09/26/21 Range/Units 15:41 15:41 17:13 WBC (3.8-10.6) k/uL RBC (4.30-5.90) m/uL Hgb (13.0-17.5) gm/dL Hct (39.0-53.0) % MCV (80.0-100.0) fL MCH (25.0-35.0) pg MCHC (31.0-37.0) g/dL RDW (11.5-15.5) % Plt Count (150-450) k/uL MPV Neutrophils % % Lymphocytes % % Monocytes % % Eosinophils % % Basophils % % Neutrophils # (1.3-7.7) k/uL Lymphocytes # (1.0-4.8) k/uL Monocytes # (0-1.0) k/uL Eosinophils # (0-0.7) k/uL Basophils # (0-0.2) k/uL PT (9.0-12.0) sec INR (<1.2) APTT (22.0-30.0) sec Sodium 138 (137-145) mmol/L Potassium 4.5 (3.5-5.1) mmol/L Chloride 104 (98-107) mmol/L Carbon Dioxide 28 (22-30) mmol/L Anion Gap 6 mmol/L BUN 20 (9-20) mg/dL Creatinine 1.02 (0.66-1.25) mg/dL Est GFR (CKD-EPI)AfAm 78 (>60 ml/min/1.73 sqM) Est GFR (CKD-EPI)NonAf 68 (>60 ml/min/1.73 sqM) Glucose 83 (74-99) mg/dL POC Glucose (mg/dL) (75-99) mg/dL POC Glu Journeyman Painter ID Calcium 9.3 (8.4-10.2) mg/dL Magnesium 2.1 (1.6-2.3) mg/dL Total Bilirubin 0.8 (0.2-1.3) mg/dL AST 23 (17-59) U/L ALT 13 (4-49) U/L Alkaline Phosphatase 58 (38-126) U/L NT-Pro-B Natriuret Pep 245 pg/mL Total Protein 7.0 (6.3-8.2) g/dL Albumin 4.1 (3.5-5.0) g/dL Urine Color Yellow Urine Appearance Clear (Clear) Urine pH 6.0 (5.0-8.0) Ur Specific [place] 1.017 (1.001-1.035) Urine Protein Trace H (Negative) Urine Glucose (UA) Negative (Negative) Urine Ketones Negative (Negative) Urine Blood Negative (Negative) Urine Nitrite Negative (Negative) Urine Bilirubin Negative (Negative) Urine Urobilinogen <2.0 (<2.0) mg/dL Ur Leukocyte Esterase Moderate H (Negative) Urine RBC 4 (0-5) /hpf Urine WBC 25 H (0-5) /hpf Hyaline Casts 3 H (0-2) /lpf Urine Mucus Few H (None) /hpf Disposition Clinical Impression: Muscle cramping, Dehydration Disposition: HOME SELF-CARE Condition: Fair Instructions (If sedation given, give patient instructions): Dehydration (ED) Is patient prescribed a controlled substance at d/c from ED?: No Referrals: Jorge L Puente DO [Primary Care Provider] - 1-2 days Time of Disposition: 18:29
[2021-09-26 15:56] LABS: Basophils # (A) 0.1 k/uL (0-0.2); Basophils % (A) 2 %; Eosinophils # (A) 0.2 k/uL (0-0.7); Eosinophils % (A) 2 %; HGB 13.1 gm/dL (13.0-17.5); Lymphocytes # (A) 1.3 k/uL (1.0-4.8); Lymphocytes % (A) 17 %; MCH 31.5 pg (25.0-35.0); MCHC 32.8 g/dL (31.0-37.0); MCV 95.9 fL (80.0-100.0); Mean Platelet Volume 7.6; Monocytes # (A) 0.5 k/uL (0-1.0); Monocytes % (A) 7 %; Neutrophils # (A) 5.5 k/uL (1.3-7.7); Neutrophils % (A) 71 %; Platelet Count 231 k/uL (150-450); RBC 4.18 m/uL (4.30-5.90); RDW 13.8 % (11.5-15.5); WBC 7.8 k/uL (3.8-10.6)
[2021-09-26 16:07] LABS: Albumin 4.1 g/dL (3.5-5.0); Calcium 9.3 mg/dL (8.4-10.2); INR 1.1 (<1.2); Magnesium 2.1 mg/dL (1.6-2.3); Partial Thromboplastin Time 25.7 sec (22.0-30.0); Potassium 4.5 mmol/L (3.5-5.1); Prothrombin Time 11.4 sec (9.0-12.0); Total Bilirubin 0.8 mg/dL (0.2-1.3)
--- NOTE | 2021-09-26 16:27 | CT ---
EXAMINATION TYPE: CT brain wo con DATE OF EXAM: 09/26/2021 COMPARISON: None HISTORY: Weakness CT DLP: 1099.4 mGycm Automated exposure control for dose reduction was used. Images obtained of the brain without contrast. There is cerebral cortical atrophy. There is no mass effect or midline shift. There is no sign of int racranial hemorrhage. There is mild white matter hypodensity around the lateral ventricles. There is mucosal thickening posterior left maxillary sinus. Calvarium is intact. IMPRESSION: Cerebral atrophy and mild chronic small vessel ischemia. No acute intracranial abnormality.
--- NOTE | 2021-09-26 16:28 | XR ---
EXAMINATION TYPE: XR chest 2V DATE OF EXAM: 09/26/2021 COMPARISON: 09/27/2019 HISTORY: Weakness TECHNIQUE: FINDINGS: Heart is normal. Lungs are clear of infiltrate. There is flattening of the diaphragm. There are sternal wires. There are no hilar masses. Thoracic aorta is atheromatous. IMPRESSION: COPD. No acute lung disease. No change.
[2021-09-26 17:22] LABS: Appearance,Urine Clear (Clear); Bilirubin,Urine Negative (Negative); Blood,Urine Negative (Negative); Color,Urine Yellow; Glucose,Urine (UA) Negative (Negative); Hyaline Casts,Urine 3 /lpf (0-2); Ketones,Urine Negative (Negative); Leukocyte Esterase,Urine Moderate (Negative); Mucus,Urine Few /hpf; Nitrite,Urine Negative (Negative); Protein,Urine Trace (Negative); RBC,Urine 4 /hpf (0-5); Specific Gravity,Urine 1.017 (1.001-1.035); Urobilinogen,Urine <2.0 mg/dL (<2.0); WBC,Urine 25 /hpf (0-5)
[2021-09-26 19:06] VITALS: BP 163/86; PULSE 60
== END 2021-09-26 18:48 | disposition home or self-care (01) ==
LOC: EC 13:58
DX: E86.0 Dehydration (principal); R25.2 Cramp and spasm; J44.9 Chronic obstructive pulmonary disease, unspecified; E78.5 Hyperlipidemia, unspecified; I25.10 Atherosclerotic heart disease of native coronary artery without angina pectoris; K21.9 Gastro-esophageal reflux disease without esophagitis; M19.90 Unspecified osteoarthritis, unspecified site; Z79.82 Long term (current) use of aspirin; Z87.891 Personal history of nicotine dependence; Z95.1 Presence of aortocoronary bypass graft; Z79.899 Other long term (current) drug therapy
CPT/HCPCS: 36415; 70450; 71046; 80053; 81001; 83605; 83735; 83880; 85025; 85610; 85730; 87086; 93005; 99285

== ENCOUNTER 2021-12-24 21:49 | Inpatient (IN) | payer MEDICARE ==
[2021-12-24] MEDS ORDERED: IPRATROPIUM-ALBUTEROL 3 ML NEB INHALATION STA (22:00)
[2021-12-24] MEDS ORDERED: methylPREDNISolone SOD SUCCI 125 MG/2 ML VIAL IV STA (22:00)
[2021-12-24] MEDS ORDERED: SODIUM CHLORIDE 0.9% 1,000 ML IV STA (22:00)
--- NOTE | 2021-12-24 22:08 | ED ---
SOB HPI - General Chief Complaint: Shortness of Breath Stated Complaint: TAM Time Seen by Provider: 12/24/21 21:50 Source: patient, EMS Mode of arrival: EMS Limitations: no limitations - History of Present Illness Initial Comments: This patient is an 81-year-old man with history of COPD brought by ambulance to be evaluated for worsening shortness of breath. Patient states that he is usually on 3 L of oxygen at home. Tonight he was feeling short of breath despite using that. He did try using his home medication but with no improvement EMS was called. Patient denies having fever or chills. States he has a nonproductive cough. There is no chest pain but he states it does feel tight. The patient states she is feeling a little better since EMS had placed him on CPAP. He has not noted change in urination or bowel movements. No leg pain or swelling. MD Complaint: shortness of breath, cough -: hour(s) Severity scale (1-10): 0 Improves With: oxygen Worsens With: nothing Known History Of: COPD Associated Symptoms: cough Treatments Prior to Arrival: oxygen, bronchodilator, NIPPV - Related Data Home Oxygen Therapy: Yes Home Oxygen Amount: 3 Liters Home Medications Medication Instructions Recorded Confirmed Aspirin EC [Ecotrin Low Dose] 81 mg PO DAILY 11/13/18 12/24/21 Albuterol Sulfate [Proair Hfa] 1 puff INHALATION RT-Q6H PRN 10/15/21 12/24/21 Fluticasone Propion/Salmeterol 1 puff INHALATION RT-HS 10/15/21 12/24/21 [Wixela 250-50 Inhub] Finasteride [Proscar] 5 mg PO DAILY 12/24/21 12/24/21 Tamsulosin HCl [Flomax] 0.4 mg PO BID 12/24/21 12/24/21 Previous Rx's Medication Instructions Recorded Atorvastatin [Lipitor] 40 mg PO HS #30 tab 10/22/21 Clopidogrel [Plavix] 75 mg PO DAILY #30 tab 10/22/21 Folic Acid 1 mg PO DAILY tab 10/22/21 Pantoprazole [Protonix] 40 mg PO AC-BRKFST #30 tab 10/22/21 amLODIPine [Norvasc] 5 mg PO DAILY #30 tab 10/22/21 Albuterol Nebulized [Ventolin 2.5 mg INHALATION RT-Q4H PRN ml 12/30/21 Nebulized] Calcium Carbonate [Tums] 1,000 mg PO TID PRN tab 12/30/21 INSULIN ASPART (NovoLOG) [NovoLOG 0 unit SQ ACHS each 12/30/21 (formulary)] Insulin Detemir (Levemir) [Levemir] 10 unit SQ HS each 12/30/21 Ipratropium-Albuterol Nebulize 3 ml INHALATION RT-QID each 12/30/21 [Duoneb 0.5 mg-3 mg/3 ml Soln] Sulfamethox-Tmp 800-160Mg [Bactrim 1 each PO BID 5 Days #10 tab 12/30/21 DS 800-160 mg] guaiFENesin [Mucinex] 600 mg PO Q8HR PRN tab 12/31/21 Allergies Allergy/AdvReac Type Severity Reaction Status Date / Time No Known Allergies Allergy Verified 12/24/21 23:10 Review of Systems ROS Statement: Those systems with pertinent positive or pertinent negative responses have been documented in the HPI. ROS Other: All systems not noted in ROS Statement are negative. Constitutional: Denies: fever, chills Respiratory: Reports: cough, dyspnea, wheezes. Denies: hemoptysis Cardiovascular: Denies: chest pain, palpitations, orthopnea, edema, syncope Gastrointestinal: Denies: abdominal pain, vomiting, diarrhea, melena, hematochezia Genitourinary: Denies: dysuria, hematuria Musculoskeletal: Denies: back pain Skin: Denies: rash Neurological: Denies: headache Past Medical History Past Medical History: Coronary Artery Disease (CAD), Chest Pain / Angina, COPD, CVA/TIA, Hyperlipidemia, Osteoarthritis (OA) Additional Past Medical History / Comment(s): COPD, "mini stroke 2-3 months ago- "weakness on rt side, some on the left", indwelling catheter. History of Any Multi-Drug Resistant Organisms: None Reported Past Surgical History: Coronary Bypass/CABG Additional Past Surgical History / Comment(s): 1994 CABG 3 vessel, colonoscopy with benign polypectomy. hoda cataracts Past Anesthesia/Blood Transfusion Reactions: No Reported Reaction Past Psychological History: No Psychological Hx Reported Smoking Status: Former smoker Past Alcohol Use History: Unable to Obtain Past Drug Use History: Unable to Obtain - Past Family History Father Family Medical History: Myocardial Infarction (MT) Additional Family Medical History / Comment(s): Father of a MT in his 60s. Mother Family Medical History: Unable to Obtain Additional Family Medical History / Comment(s): . General Exam Limitations: no limitations General appearance: alert, in no apparent distress Head exam: Present: atraumatic, normocephalic Eye exam: Present: normal appearance. Absent: scleral icterus, conjunctival injection Neck exam: Present: normal inspection Respiratory exam: Present: respiratory distress, wheezes, accessory muscle use, decreased breath sounds. Absent: rales, rhonchi, stridor Cardiovascular Exam: Present: normal rhythm, tachycardia, normal heart sounds. Absent: systolic murmur, diastolic murmur, rubs, gallop GI/Abdominal exam: Present: soft. Absent: distended, tenderness, guarding, rebound, rigid, mass Extremities exam: Present: normal inspection, normal capillary refill. Absent: pedal edema, calf tenderness Back exam: Present: normal inspection. Absent: CVA tenderness (R), CVA tenderness (L) Neurological exam: Present: alert Skin exam: Present: warm, dry, intact, normal color. Absent: rash Course Vital Signs 12/24/21 12/24/21 12/24/21 21:51 22:02 22:05 Temperature 98.5 F Pulse Rate 115 H Respiratory 33 H Rate Blood Pressure 103/83 O2 Sat by Pulse 90 L Oximetry Fraction of 40 Inspired Oxygen (FIO2) 12/24/21 12/24/21 12/25/21 23:00 23:05 00:46 Temperature Pulse Rate 87 86 Respiratory Rate Blood Pressure O2 Sat by Pulse Oximetry Fraction of 40 Inspired Oxygen (FIO2) 12/25/21 12/25/21 12/25/21 01:00 01:39 02:28 Temperature Pulse Rate 82 82 87 Respiratory 16 16 20 Rate Blood Pressure 76/49 89/57 77/46 O2 Sat by Pulse 100 100 Oximetry Fraction of Inspired Oxygen (FIO2) 12/25/21 12/25/21 12/25/21 02:55 03:00 03:10 Temperature Pulse Rate 85 84 83 Respiratory Rate Blood Pressure 77/49 77/49 77/49 O2 Sat by Pulse 100 100 100 Oximetry Fraction of Inspired Oxygen (FIO2) 12/25/21 12/25/21 12/25/21 03:12 03:20 03:30 Temperature 98.7 F Pulse Rate 82 81 84 Respiratory 18 Rate Blood Pressure 82/53 82/53 85/55 O2 Sat by Pulse 100 100 100 Oximetry Fraction of Inspired Oxygen (FIO2) 12/25/21 12/25/21 12/25/21 03:40 03:50 04:00 Temperature Pulse Rate 79 77 77 Respiratory Rate Blood Pressure 90/57 79/51 75/55 O2 Sat by Pulse 100 100 100 Oximetry Fraction of Inspired Oxygen (FIO2) 12/25/21 12/25/21 12/25/21 04:10 04:20 04:30 Temperature Pulse Rate 75 82 78 Respiratory Rate Blood Pressure 78/51 90/56 93/61 O2 Sat by Pulse 100 99 100 Oximetry Fraction of Inspired Oxygen (FIO2) 12/25/21 12/25/21 04:40 04:50 Temperature Pulse Rate 79 81 Respiratory Rate Blood Pressure 88/58 87/59 O2 Sat by Pulse 100 99 Oximetry Fraction of Inspired Oxygen (FIO2) Medical Decision Making - Lab Data Result diagrams: 12/30/21 11:23 12/30/21 11:23 Lab Results 12/24/21 12/24/21 12/24/21 Range/Units 22:08 22:08 22:08 WBC 14.8 H (3.8-10.6) k/uL RBC 2.45 L (4.30-5.90) m/uL Hgb 7.7 L D (13.0-17.5) gm/dL Hct 23.3 L (39.0-53.0) % MCV 95.3 (80.0-100.0) fL MCH 31.4 (25.0-35.0) pg MCHC 33.0 (31.0-37.0) g/dL RDW 15.4 (11.5-15.5) % Plt Count 461 H (150-450) k/uL MPV 7.0 Neutrophils % 97 % Lymphocytes % 2 % Monocytes % 1 % Eosinophils % 0 % Basophils % 0 % Neutrophils # 14.3 H (1.3-7.7) k/uL Lymphocytes # 0.3 L (1.0-4.8) k/uL Monocytes # 0.1 (0-1.0) k/uL Eosinophils # 0.0 (0-0.7) k/uL Basophils # 0.0 (0-0.2) k/uL Hypochromasia Moderate Poikilocytosis Moderate PT 12.2 H (9.0-12.0) sec INR 1.1 (<1.2) APTT 17.6 L (22.0-30.0) sec D-Dimer 4.84 H (<0.60) mg/L FEU VBG pH (7.31-7.41) VBG pCO2 (37-51) mmHg VBG HCO3 (24-28) mmol/L Sodium 131 L (137-145) mmol/L Potassium 4.3 (3.5-5.1) mmol/L Chloride 96 L (98-107) mmol/L Carbon Dioxide 22 (22-30) mmol/L Anion Gap 13 mmol/L BUN 24 H (9-20) mg/dL Creatinine 1.14 (0.66-1.25) mg/dL Est GFR (CKD-EPI)AfAm 69 (>60 ml/min/1.73 sqM) Est GFR (CKD-EPI)NonAf 60 (>60 ml/min/1.73 sqM) Glucose 96 (74-99) mg/dL Lactic Ac Sepsis Rflx Plasma Lactic Acid Mele (0.7-2.0) mmol/L Calcium 8.8 (8.4-10.2) mg/dL Total Bilirubin 0.4 (0.2-1.3) mg/dL AST 23 (17-59) U/L ALT 16 (4-49) U/L Alkaline Phosphatase 78 (38-126) U/L Troponin I (0.000-0.034) ng/mL NT-Pro-B Natriuret Pep pg/mL Total Protein 6.1 L (6.3-8.2) g/dL Albumin 3.7 (3.5-5.0) g/dL Urine Color Urine Appearance (Clear) Urine pH (5.0-8.0) Ur Specific [place] (1.001-1.035) Urine Protein (Negative) Urine Glucose (UA) (Negative) Urine Ketones (Negative) Urine Blood (Negative) Urine Nitrite (Negative) Urine Bilirubin (Negative) Urine Urobilinogen (<2.0) mg/dL Ur Leukocyte Esterase (Negative) Urine RBC (0-5) /hpf Urine WBC (0-5) /hpf Urine WBC Clumps (None) /hpf Urine Bacteria (None) /hpf Urine Mucus (None) /hpf Blood Type Blood Type Confirm Blood Type Recheck Bld Type Recheck Status Antibody Screen Crossmatch Spec Expiration Date 12/24/21 12/24/21 12/24/21 Range/Units 22:08 22:08 22:08 WBC (3.8-10.6) k/uL RBC (4.30-5.90) m/uL Hgb (13.0-17.5) gm/dL Hct (39.0-53.0) % MCV (80.0-100.0) fL MCH (25.0-35.0) pg MCHC (31.0-37.0) g/dL RDW (11.5-15.5) % Plt Count (150-450) k/uL MPV Neutrophils % % Lymphocytes % % Monocytes % % Eosinophils % % Basophils % % Neutrophils # (1.3-7.7) k/uL Lymphocytes # (1.0-4.8) k/uL Monocytes # (0-1.0) k/uL Eosinophils # (0-0.7) k/uL Basophils # (0-0.2) k/uL Hypochromasia Poikilocytosis PT (9.0-12.0) sec INR (<1.2) APTT (22.0-30.0) sec D-Dimer (<0.60) mg/L FEU VBG pH (7.31-7.41) VBG pCO2 (37-51) mmHg VBG HCO3 (24-28) mmol/L Sodium (137-145) mmol/L Potassium (3.5-5.1) mmol/L Chloride (98-107) mmol/L Carbon Dioxide (22-30) mmol/L Anion Gap mmol/L BUN (9-20) mg/dL Creatinine (0.66-1.25) mg/dL Est GFR (CKD-EPI)AfAm (>60 ml/min/1.73 sqM) Est GFR (CKD-EPI)NonAf (>60 ml/min/1.73 sqM) Glucose (74-99) mg/dL Lactic Ac Sepsis Rflx Plasma Lactic Acid Mele 2.3 H* (0.7-2.0) mmol/L Calcium (8.4-10.2) mg/dL Total Bilirubin (0.2-1.3) mg/dL AST (17-59) U/L ALT (4-49) U/L Alkaline Phosphatase (38-126) U/L Troponin I <0.012 (0.000-0.034) ng/mL NT-Pro-B Natriuret Pep 224 pg/mL Total Protein (6.3-8.2) g/dL Albumin (3.5-5.0) g/dL Urine Color Urine Appearance (Clear) Urine pH (5.0-8.0) Ur Specific [place] (1.001-1.035) Urine Protein (Negative) Urine Glucose (UA) (Negative) Urine Ketones (Negative) Urine Blood (Negative) Urine Nitrite (Negative) Urine Bilirubin (Negative) Urine Urobilinogen (<2.0) mg/dL Ur Leukocyte Esterase (Negative) Urine RBC (0-5) /hpf Urine WBC (0-5) /hpf Urine WBC Clumps (None) /hpf Urine Bacteria (None) /hpf Urine Mucus (None) /hpf Blood Type Blood Type Confirm Blood Type Recheck Bld Type Recheck Status Antibody Screen Crossmatch Spec Expiration Date 12/24/21 12/24/21 12/24/21 Range/Units 22:08 22:22 23:30 WBC (3.8-10.6) k/uL RBC (4.30-5.90) m/uL Hgb (13.0-17.5) gm/dL Hct (39.0-53.0) % MCV (80.0-100.0) fL MCH (25.0-35.0) pg MCHC (31.0-37.0) g/dL RDW (11.5-15.5) % Plt Count (150-450) k/uL MPV Neutrophils % % Lymphocytes % % Monocytes % % Eosinophils % % Basophils % % Neutrophils # (1.3-7.7) k/uL Lymphocytes # (1.0-4.8) k/uL Monocytes # (0-1.0) k/uL Eosinophils # (0-0.7) k/uL Basophils # (0-0.2) k/uL Hypochromasia Poikilocytosis PT (9.0-12.0) sec INR (<1.2) APTT (22.0-30.0) sec D-Dimer (<0.60) mg/L FEU VBG pH 7.39 (7.31-7.41) VBG pCO2 40 (37-51) mmHg VBG HCO3 24 (24-28) mmol/L Sodium (137-145) mmol/L Potassium (3.5-5.1) mmol/L Chloride (98-107) mmol/L Carbon Dioxide (22-30) mmol/L Anion Gap mmol/L BUN (9-20) mg/dL Creatinine (0.66-1.25) mg/dL Est GFR (CKD-EPI)AfAm (>60 ml/min/1.73 sqM) Est GFR (CKD-EPI)NonAf (>60 ml/min/1.73 sqM) Glucose (74-99) mg/dL Lactic Ac Sepsis Rflx Y Plasma Lactic Acid Mele (0.7-2.0) mmol/L Calcium (8.4-10.2) mg/dL Total Bilirubin (0.2-1.3) mg/dL AST (17-59) U/L ALT (4-49) U/L Alkaline Phosphatase (38-126) U/L Troponin I (0.000-0.034) ng/mL NT-Pro-B Natriuret Pep pg/mL Total Protein (6.3-8.2) g/dL Albumin (3.5-5.0) g/dL Urine Color Urine Appearance (Clear) Urine pH (5.0-8.0) Ur Specific [place] (1.001-1.035) Urine Protein (Negative) Urine Glucose (UA) (Negative) Urine Ketones (Negative) Urine Blood (Negative) Urine Nitrite (Negative) Urine Bilirubin (Negative) Urine Urobilinogen (<2.0) mg/dL Ur Leukocyte Esterase (Negative) Urine RBC (0-5) /hpf Urine WBC (0-5) /hpf Urine WBC Clumps (None) /hpf Urine Bacteria (None) /hpf Urine Mucus (None) /hpf Blood Type Blood Type Confirm O Positive Blood Type Recheck Bld Type Recheck Status Antibody Screen Crossmatch Spec Expiration Date 12/24/21 12/25/21 12/25/21 Range/Units 23:59 00:52 01:58 WBC (3.8-10.6) k/uL RBC (4.30-5.90) m/uL Hgb (13.0-17.5) gm/dL Hct (39.0-53.0) % MCV (80.0-100.0) fL MCH (25.0-35.0) pg MCHC (31.0-37.0) g/dL RDW (11.5-15.5) % Plt Count (150-450) k/uL MPV Neutrophils % % Lymphocytes % % Monocytes % % Eosinophils % % Basophils % % Neutrophils # (1.3-7.7) k/uL Lymphocytes # (1.0-4.8) k/uL Monocytes # (0-1.0) k/uL Eosinophils # (0-0.7) k/uL Basophils # (0-0.2) k/uL Hypochromasia Poikilocytosis PT (9.0-12.0) sec INR (<1.2) APTT (22.0-30.0) sec D-Dimer (<0.60) mg/L FEU VBG pH (7.31-7.41) VBG pCO2 (37-51) mmHg VBG HCO3 (24-28) mmol/L Sodium (137-145) mmol/L Potassium (3.5-5.1) mmol/L Chloride (98-107) mmol/L Carbon Dioxide (22-30) mmol/L Anion Gap mmol/L BUN (9-20) mg/dL Creatinine (0.66-1.25) mg/dL Est GFR (CKD-EPI)AfAm (>60 ml/min/1.73 sqM) Est GFR (CKD-EPI)NonAf (>60 ml/min/1.73 sqM) Glucose (74-99) mg/dL Lactic Ac Sepsis Rflx Plasma Lactic Acid Mele 2.1 H* (0.7-2.0) mmol/L Calcium (8.4-10.2) mg/dL Total Bilirubin (0.2-1.3) mg/dL AST (17-59) U/L ALT (4-49) U/L Alkaline Phosphatase (38-126) U/L Troponin I (0.000-0.034) ng/mL NT-Pro-B Natriuret Pep pg/mL Total Protein (6.3-8.2) g/dL Albumin (3.5-5.0) g/dL Urine Color Yellow Urine Appearance Cloudy (Clear) Urine pH 6.0 (5.0-8.0) Ur Specific [place] 1.014 (1.001-1.035) Urine Protein Trace H (Negative) Urine Glucose (UA) Negative (Negative) Urine Ketones Negative (Negative) Urine Blood Large H (Negative) Urine Nitrite Positive (Negative) Urine Bilirubin Negative (Negative) Urine Urobilinogen <2.0 (<2.0) mg/dL Ur Leukocyte Esterase Large H (Negative) Urine RBC >182 H (0-5) /hpf Urine WBC >182 H (0-5) /hpf Urine WBC Clumps Occasional H (None) /hpf Urine Bacteria Rare H (None) /hpf Urine Mucus Rare H (None) /hpf Blood Type O Positive Blood Type Confirm Blood Type Recheck No Previous Record Bld Type Recheck Status CABO Indicated Antibody Screen NEGATIVE Crossmatch See Detail Spec Expiration Date 12/28/2021 - 235112/25/21 Range/Units 03:14 WBC (3.8-10.6) k/uL RBC (4.30-5.90) m/uL Hgb (13.0-17.5) gm/dL Hct (39.0-53.0) % MCV (80.0-100.0) fL MCH (25.0-35.0) pg MCHC (31.0-37.0) g/dL RDW (11.5-15.5) % Plt Count (150-450) k/uL MPV Neutrophils % % Lymphocytes % % Monocytes % % Eosinophils % % Basophils % % Neutrophils # (1.3-7.7) k/uL Lymphocytes # (1.0-4.8) k/uL Monocytes # (0-1.0) k/uL Eosinophils # (0-0.7) k/uL Basophils # (0-0.2) k/uL Hypochromasia Poikilocytosis PT (9.0-12.0) sec INR (<1.2) APTT (22.0-30.0) sec D-Dimer (<0.60) mg/L FEU VBG pH (7.31-7.41) VBG pCO2 (37-51) mmHg VBG HCO3 (24-28) mmol/L Sodium (137-145) mmol/L Potassium (3.5-5.1) mmol/L Chloride (98-107) mmol/L Carbon Dioxide (22-30) mmol/L Anion Gap mmol/L BUN (9-20) mg/dL Creatinine (0.66-1.25) mg/dL Est GFR (CKD-EPI)AfAm (>60 ml/min/1.73 sqM) Est GFR (CKD-EPI)NonAf (>60 ml/min/1.73 sqM) Glucose (74-99) mg/dL Lactic Ac Sepsis Rflx Y Plasma Lactic Acid Mele (0.7-2.0) mmol/L Calcium (8.4-10.2) mg/dL Total Bilirubin (0.2-1.3) mg/dL AST (17-59) U/L ALT (4-49) U/L Alkaline Phosphatase (38-126) U/L Troponin I (0.000-0.034) ng/mL NT-Pro-B Natriuret Pep pg/mL Total Protein (6.3-8.2) g/dL Albumin (3.5-5.0) g/dL Urine Color Urine Appearance (Clear) Urine pH (5.0-8.0) Ur Specific [place] (1.001-1.035) Urine Protein (Negative) Urine Glucose (UA) (Negative) Urine Ketones (Negative) Urine Blood (Negative) Urine Nitrite (Negative) Urine Bilirubin (Negative) Urine Urobilinogen (<2.0) mg/dL Ur Leukocyte Esterase (Negative) Urine RBC (0-5) /hpf Urine WBC (0-5) /hpf Urine WBC Clumps (None) /hpf Urine Bacteria (None) /hpf Urine Mucus (None) /hpf Blood Type Blood Type Confirm Blood Type Recheck Bld Type Recheck Status Antibody Screen Crossmatch Spec Expiration Date - EKG Data -: EKG Interpreted by Me EKG shows normal: sinus rhythm, axis (Normal), intervals (Normal), QRS complexes (Normal) Rate: tachycardia (Rate 114 bpm) Interpretation: nonspecific ST-T wave changes, other (ECG is limited by artifact) Disposition Clinical Impression: COPD (chronic obstructive pulmonary disease), Anemia, Lactic acidosis, Elevated d-dimer, UTI (urinary tract infection) Disposition: ADMITTED IP TO THIS HOSP Condition: Stable Is patient prescribed a controlled substance at d/c from ED?: No Time of Disposition: 00:15
[2021-12-24 22:19] LABS: Albumin 3.7 g/dL (3.5-5.0); Calcium 8.8 mg/dL (8.4-10.2); Potassium 4.3 mmol/L (3.5-5.1); Total Bilirubin 0.4 mg/dL (0.2-1.3); Total Protein 6.1 g/dL (6.3-8.2)
[2021-12-24 22:37] LABS: INR 1.1 (<1.2); Prothrombin Time 12.2 sec (9.0-12.0)
--- NOTE | 2021-12-24 22:37 | XR ---
EXAMINATION TYPE: XR chest 1V portable DATE OF EXAM: 12/24/2021 COMPARISON: 09/26/2021 HISTORY: Short of breath TECHNIQUE: FINDINGS: There is no heart failure nor confluent pneumonic infiltrate. There is pulmonary emphysema. Heart size is normal. There are sternal wires. There is pulmonary hyperinflation and flattening of t he diaphragm. There are chest leads. IMPRESSION: COPD. No acute lung disease. No change.
[2021-12-24 22:38] LABS: Basophils % (A) 0 %; Eosinophils % (A) 0 %; HCT 23.3 % (39.0-53.0); Hypochromasia Moderate; Lymphocytes # (A) 0.3 k/uL (1.0-4.8); Lymphocytes % (A) 2 %; MCH 31.4 pg (25.0-35.0); MCV 95.3 fL (80.0-100.0); Monocytes # (A) 0.1 k/uL (0-1.0); Monocytes % (A) 1 %; Neutrophils # (A) 14.3 k/uL (1.3-7.7); Neutrophils % (A) 97 %; Platelet Count 461 k/uL (150-450); Poikilocytosis Moderate; RBC 2.45 m/uL (4.30-5.90); RDW 15.4 % (11.5-15.5); WBC 14.8 k/uL (3.8-10.6)
[2021-12-24 22:48] LABS: HGB 7.7 gm/dL (13.0-17.5)
[2021-12-24 22:50] LABS: Partial Thromboplastin Time 17.6 sec (22.0-30.0)
[2021-12-24 23:39] LABS: VBG PH 7.39 (7.31-7.41)
[2021-12-25] MEDS ORDERED: SODIUM CHLORIDE 0.9% 1,000 ML IV ONE (00:26)
[2021-12-25] MEDS ORDERED: SODIUM CHLORIDE 0.9% 500 ML 500 ML IV STA (00:26)
[2021-12-25] MEDS ORDERED: SODIUM CHLORIDE 0.9% 1,000 ML IV STA (00:26)
[2021-12-25 01:10] LABS: Appearance,Urine Cloudy (Clear); Bacteria,Urine Rare /hpf; Bilirubin,Urine Negative (Negative); Blood,Urine Large (Negative); Color,Urine Yellow; Glucose,Urine (UA) Negative (Negative); Ketones,Urine Negative (Negative); Leukocyte Esterase,Urine Large (Negative); Mucus,Urine Rare /hpf; Nitrite,Urine Positive (Negative); Protein,Urine Trace (Negative); RBC,Urine >182 /hpf (0-5); Specific Gravity,Urine 1.014 (1.001-1.035); Urobilinogen,Urine <2.0 mg/dL (<2.0); WBC,Urine >182 /hpf (0-5)
--- NOTE | 2021-12-25 01:19 | CT ---
EXAMINATION TYPE: CT chest angio for PE DATE OF EXAM: 12/25/2021 COMPARISON: 11/10/2021 HISTORY: SOB CT DLP: 248.6 mGycm Automated exposure control for dose reduction was used. CONTRAST: The contrast was Isovue 70 mL. There are 3 postprocessed images. There is diffuse pulmonary emphysema. There is pulmonary hyperinflation and flattening of the diaphra gm. No mediastinal adenopathy. No hilar mass. Thoracic aorta is intact. There is 2.5 cm stellate mass in the anterior segment right upper lobe with central calcification. There is normal contrast opacification of the pulmonary arteries. No filling defect. Thoracic aorta is intact. No aneurysm or dissection. No pleural effusion. The bony thorax is intact. There are sternal wires. IMPRESSION: No evidence of pulmonary embolism. Bullous pulmonary emphysema. Right upper lobe mass with central ca lcification that is stable compared to recent CT scan. I would consider benign and malignant etiology .
[2021-12-25] MEDS ORDERED: ALBUTEROL NEBULIZED 2.5 MG/3 ML INHALATION PRN (03:57)
[2021-12-25] MEDS: methylPREDNISolone SOD SUCCI 125 MG/2 ML VIAL IV SCH ×4 (06:22→23:20)
[2021-12-25] MEDS: PANTOPRAZOLE 40 MG TABLET PO SCH (06:48)
[2021-12-25] MEDS: IPRATROPIUM-ALBUTEROL 3 ML NEB INHALATION SCH ×4 (07:00→20:40)
[2021-12-25] MEDS ORDERED: NON FORMULARY DRUG (Tiotropium 18 Mcg/Puff 1 PUFF Each) INHALATION SCH (08:00)
[2021-12-25 08:47] LABS: HCT 24.5 % (39.0-53.0); HGB 7.8 gm/dL (13.0-17.5); Hypochromasia Marked; MCH 29.9 pg (25.0-35.0); MCHC 31.6 g/dL (31.0-37.0); MCV 94.5 fL (80.0-100.0); Mean Platelet Volume 7.1; Platelet Count 352 k/uL (150-450); Poikilocytosis Slight; RDW 15.4 % (11.5-15.5); WBC 49.6 k/uL (3.8-10.6)
[2021-12-25 08:52] LABS: Calcium 8.7 mg/dL (8.4-10.2); Potassium 4.8 mmol/L (3.5-5.1)
[2021-12-25] MEDS: amLODIPine 5 MG TAB PO SCH (09:36)
[2021-12-25] MEDS: TAMSULOSIN 0.4 MG CAP.ER.24H PO SCH ×2 (10:11→20:30)
[2021-12-25] MEDS: ASPIRIN 81 MG PO SCH (10:11)
[2021-12-25] MEDS: FINASTERIDE 5 MG TAB PO SCH (10:11)
[2021-12-25] MEDS: CLOPIDOGREL 75 MG TAB PO SCH (10:11)
[2021-12-25 11:17] LABS: Band Neutrophils % 3 %; Lymphocytes # (M) 0.99 k/uL (1.0-4.8); Metamyelocytes % 1 %; Neutrophils % (M) 93 %; Nucleated Red Blood Cells 0 /100 WBC (0-0); Total Cells Counted 100
[2021-12-25 11:21] LABS: Polychromasia Present
[2021-12-25] MEDS: ERTAPENEM 1 GM in SODIUM CHLORIDE 0.9% 50 ML IVPB SCH (11:41)
--- NOTE | 2021-12-25 13:00 | US ---
EXAMINATION TYPE: US kidneys/renal and bladder DATE OF EXAM: 12/25/2021 COMPARISON: NONE CLINICAL HISTORY: Recurrent UTI. UTI's EXAM MEASUREMENTS: Right Kidney: 10.9 x 5.6 x 5.6 cm Left Kidney: 10.6 x 5.1 x 6.1 cm Right Kidney: Moderate hydronephrosis Left Kidney: Moderate hydronephrosis Bladder: distended with internal debris Bilateral Jets: right only seen There is no evidence for hydronephrosis at this point in time. Question increased cortical echogenici ty. No nephrolithiasis is seen. No masses are identified. The urinary bladder is shows low level in ternal echoes suggesting debris, there is likely an impression inferiorly on the bladder due to promi nent prostate. IMPRESSION: Bilateral hydronephrosis, there may be a component of medical renal disease. Probable debris within t he urinary bladder, correlate for chronic bladder outlet obstruction
[2021-12-25] MEDS ORDERED: CALCIUM CARBONATE 500 MG CHEWABLE PO PRN (13:50)
[2021-12-25 14:02] VITALS: BMI 19.3
--- NOTE | 2021-12-25 14:15 | P.CNPUL ---
History of Present Illness Consult date: 12/25/21 Reason for consult: dyspnea History of present illness: I was asked to evaluate this patient for shortness of breath and dyspnea. The patient presented emergency department because of increased shortness of breath. He is known to have advanced COPD and the patient has been oxygen dependent at 3 L per minute nasal cannula. The patient has some limited cough. No significant sputum production. He is chronically short of breath and he has d eveloped significant limitation excess capacity because of his underlying advanced COPD he also has a right upper lobe opacity, a spiculated lesion that needs to be further investigated. The patient was supposed underwent PET scan on outpatient basis and this has not been completed. The patient was in the hospital back in October 2021 and that time the patient had a gram-negative urine checked infection with Enterobacter. I was reviewing the subsequent urine cultures and there is a urine culture that was done by his primary care physician on 12/17/2021 which showed again Enterobacter and this time the patient's Enterobacter was quite resistant to Rocephin and penicillins. The patient continues to have dysuria frequency or urgency. His UA was significantly abnormal and the patient had clumps of white cells and rare bacteria. Culture is still pending for now. Abdominal admission, his lactic acid was at 2.8 currently is at 3.0. The patient also developed an acute leukocytosis morning. The white cell count came from 14.8 up to 49.6. Hemoglobin stable at 7.8 and platelet count is at 352. The patient obviously has signs of UTI and some early sepsis. BUN is 24 with a creatinine of 1.1. His coagulation profile is within normal. D-dimer slightly elevated at 4.8. The patient was given a dose of Rocephin in the emergency department. I discontinued the Rocephin and give the patient IV Invanz. He is not altered. Is able to communicate and answer questions appropriately. Denies having any chest pain. No flank pain. A CT abdomen chest was done in the emergency department and the patient was found to have no evidence of any pulmonary embolism. 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 The patient also has a right upper lobe mass measuring around 2.5 cm in size and anterior segment of the right upper lobe with central calcification and the patient has some right hilar mediastinal lymph node calcification also. Upon my evaluation, I ordered an ultrasound the abdomen and the kidneys and the patient was found to have moderate hydronephrosis. There was also debris within the urinary bladder consistent with infection and possible chronic bladder outlet obstruction. Review of Systems REVIEW OF SYSTEMS: CONSTITUTIONAL: No reported fever or chills.. Progressive debility and ongoing weight loss EYES: Denies change in vision. EARS, NOSE, MOUTH, THROAT: Denies headaches, denies sore throat. CARDIOVASCULAR: Denies chest pain, palpitations or syncopal episodes. RESPIRATORY: Positive for shortness of breath, cough, congestion no hemoptysis. GASTROINTESTINAL: Denies change in appetite, denies abdominal pain GENITOURINARY: Denies hematuria, recurrent UTIs and the patient is currently having difficulties with urination dysuria MUSKULOSKELETAL: Denies pain, denies swelling. INTEGUMENTARY: Denies rash, denies eczema. NEUROLOGICAL: Denies recent memory loss, no recent seizure activity. PSYCHIATRIC: Denies anxiety, denies depression. HEMATOLOGIC/LYMPHATIC: Denies anemia, denies enlarged lymph nodes. Past Medical History Past Medical History: Coronary Artery Disease (CAD), Chest Pain / Angina, COPD, CVA/TIA, Hyperlipidemia, Osteoarthritis (OA) Additional Past Medical History / Comment(s): COPD, "mini stroke 2-3 months ago- "weakness on rt side, some on the left", indwelling catheter. History of Any Multi-Drug Resistant Organisms: None Reported Past Surgical History: Coronary Bypass/CABG Additional Past Surgical History / Comment(s): 1994 CABG 3 vessel, colonoscopy with benign polypectomy. hoda cataracts Past Anesthesia/Blood Transfusion Reactions: No Reported Reaction Past Psychological History: No Psychological Hx Reported Additional Psychological History / Comment(s): Pt resides with his spouse. He states he has a nebulizer. Smoking Status: Former smoker Past Alcohol Use History: Unable to Obtain Additional Past Alcohol Use History / Comment(s): Pt started smoking in 1955 and quit in 2004. He smoked 1-1.5 ppd. Past Drug Use History: Unable to Obtain - Past Family History Father Family Medical History: Myocardial Infarction (LA) Additional Family Medical History / Comment(s): Father of a LA in his 60s. Mother Family Medical History: Unable to Obtain Additional Family Medical History / Comment(s): . Medications and Allergies Home Medications Medication Instructions Recorded Confirmed Type Aspirin EC [Ecotrin Low Dose] 81 mg PO DAILY 11/13/18 12/24/21 History Albuterol Sulfate [Proair Hfa] 1 puff INHALATION RT-Q6H PRN 10/15/21 12/24/21 History Fluticasone Propion/Salmeterol 1 puff INHALATION RT-HS 10/15/21 12/24/21 History [Wixela 250-50 Inhub] Tiotropium 18 Mcg/Puff [Spiriva] 1 puff INHALATION RT-DAILY 10/15/21 12/24/21 History Atorvastatin [Lipitor] 40 mg PO HS #30 tab 10/22/21 12/24/21 Rx Clopidogrel [Plavix] 75 mg PO DAILY #30 tab 10/22/21 12/24/21 Rx Folic Acid 1 mg PO DAILY tab 10/22/21 12/24/21 Rx Pantoprazole [Protonix] 40 mg PO AC-BRKFST #30 tab 10/22/21 12/24/21 Rx amLODIPine [Norvasc] 5 mg PO DAILY #30 tab 10/22/21 12/24/21 Rx Finasteride [Proscar] 5 mg PO DAILY 12/24/21 12/24/21 History Sulfamethox-Tmp 800-160Mg [Bactrim 1 tab PO BID 12/24/21 12/24/21 History DS 800-160 mg] Tamsulosin HCl [Flomax] 0.4 mg PO BID 12/24/21 12/24/21 History Allergies Allergy/AdvReac Type Severity Reaction Status Date / Time No Known Allergies Allergy Verified 12/24/21 23:10 Physical Exam Vitals: Vital Signs Temp Pulse Pulse Resp BP BP Pulse Ox 12/25/21 08:03 98.3 F 76 19 90/49 99 12/25/21 07:14 88 12/25/21 07:00 88 12/25/21 05:50 98 F 80 12/25/21 05:30 98.7 F 79 20 93/55 100 12/25/21 04:50 81 87/59 99 12/25/21 04:40 79 88/58 100 12/25/21 04:30 78 93/61 100 12/25/21 04:20 82 90/56 99 12/25/21 04:10 75 78/51 100 12/25/21 04:00 77 75/55 100 12/25/21 03:50 77 79/51 100 12/25/21 03:40 79 90/57 100 12/25/21 03:30 84 85/55 100 12/25/21 03:20 81 82/53 100 12/25/21 03:12 98.7 F 82 18 82/53 100 12/25/21 03:10 83 77/49 100 12/25/21 03:00 84 77/49 100 12/25/21 02:55 85 77/49 100 12/25/21 02:28 87 20 77/46 100 12/25/21 01:39 82 16 89/57 12/25/21 01:00 82 16 76/49 100 12/25/21 00:46 12/24/21 23:05 86 12/24/21 23:00 87 12/24/21 22:05 12/24/21 22:02 98.5 F 12/24/21 21:51 115 H 33 H 103/83 90 L FiO2 12/25/21 08:03 12/25/21 07:14 12/25/21 07:00 12/25/21 05:50 12/25/21 05:30 12/25/21 04:50 12/25/21 04:40 12/25/21 04:30 12/25/21 04:20 12/25/21 04:10 12/25/21 04:00 12/25/21 03:50 12/25/21 03:40 12/25/21 03:30 12/25/21 03:20 12/25/21 03:12 12/25/21 03:10 12/25/21 03:00 12/25/21 02:55 12/25/21 02:28 12/25/21 01:39 12/25/21 01:00 12/25/21 00:46 40 12/24/21 23:05 12/24/21 23:00 12/24/21 22:05 40 12/24/21 22:02 12/24/21 21:51 Intake and Output 12/24/21 12/25/21 12/25/21 22:59 06:59 14:59 Intake Total 310 118 Output Total 250 Balance 310 -132 Intake: Oral 118 Blood Product 310 Rc Cpda-1 Unit 310 [id number] Output: Urine 250 Other: Voiding Method Urinal Weight 54.431 kg 54.431 kg GENERAL EXAM: Alert, very pleasant 79-year-old gentleman, on 4 L nasal cannula, comfortable in no apparent distress. HEAD: Normocephalic. EYES: Normal reaction of pupils, equal size. NOSE: Clear with pink turbinates. THROAT: No erythema or exudates. NECK: No masses, no JVD. CHEST: No chest wall deformity. LUNGS: Equal air entry with crackles in left posterior bases, end expiratory wheeze, diminished CVS: S1 and S2 normal with no audible murmur, regular rhythm. ABDOMEN: No hepatosplenomegaly, normal bowel sounds, no guarding or rigidity. SPINE: No scoliosis or deformity SKIN: No rashes CENTRAL NERVOUS SYSTEM: No focal deficits, tone is normal in all 4 extremities. EXTREMITIES: There is no peripheral edema. No clubbing, no cyanosis. Peripheral pulses are intact. Results - Laboratory Findings CBC and BMP: 12/25/21 06:55 12/25/21 06:55 PT/INR, D-dimer PT 12.2 sec (9.0-12.0) H 12/24/21 22:08 INR 1.1 (<1.2) 12/24/21 22:08 D-Dimer 4.84 mg/L FEU (<0.60) H 12/24/21 22:08 Abnormal lab findings: Abnormal Labs 12/24/21 12/24/21 12/24/21 22:08 22:08 22:08 WBC 14.8 H RBC 2.45 L Hgb 7.7 L D Hct 23.3 L Plt Count 461 H Neutrophils # 14.3 H Lymphocytes # 0.3 L PT 12.2 H APTT 17.6 L D-Dimer 4.84 H Sodium 131 L Chloride 96 L BUN 24 H Glucose Plasma Lactic Acid Mele Total Protein 6.1 L Urine Protein Urine Blood Ur Leukocyte Esterase Urine RBC Urine WBC Urine WBC Clumps Urine Bacteria Urine Mucus Crossmatch 12/24/21 12/24/21 12/25/21 22:08 23:59 00:52 WBC RBC Hgb Hct Plt Count Neutrophils # Lymphocytes # PT APTT D-Dimer Sodium Chloride BUN Glucose Plasma Lactic Acid Mele 2.3 H* Total Protein Urine Protein Trace H Urine Blood Large H Ur Leukocyte Esterase Large H Urine RBC >182 H Urine WBC >182 H Urine WBC Clumps Occasional H Urine Bacteria Rare H Urine Mucus Rare H Crossmatch See Detail 12/25/21 12/25/21 12/25/21 01:58 06:55 06:55 WBC 49.6 H RBC 2.60 L Hgb 7.8 L Hct 24.5 L Plt Count Neutrophils # Lymphocytes # PT APTT D-Dimer Sodium Chloride BUN Glucose Plasma Lactic Acid Mele 2.1 H* 2.3 H* Total Protein Urine Protein Urine Blood Ur Leukocyte Esterase Urine RBC Urine WBC Urine WBC Clumps Urine Bacteria Urine Mucus Crossmatch 12/25/21 06:55 WBC RBC Hgb Hct Plt Count Neutrophils # Lymphocytes # PT APTT D-Dimer Sodium 132 L Chloride BUN 24 H Glucose 120 H Plasma Lactic Acid Mele Total Protein Urine Protein Urine Blood Ur Leukocyte Esterase Urine RBC Urine WBC Urine WBC Clumps Urine Bacteria Urine Mucus Crossmatch - Diagnostic Findings Chest x-ray: image reviewed CT scan - chest: image reviewed Assessment and Plan Plan: Acute UTI, suspect recurrent gram-negative infection with Enterobacter as the patient previous infections with Enterobacter back in October and December 2021.. Ultrasound of the kidneys also showing moderate degree of bilateral hydronephrosis. Consider obstructive uropathy resulting into recurrent UTIs. T he renal function is stable for now. Acute leukocytosis, likely secondary to above Mild lactic acidosis Advanced COPD with chronic hypoxic respiratory failure with an O2 Right upper lobe mass, measuring 2.5 cm in size in the right upper lobe that needs to be worked up on outpatient basis including a PET scan. Nevertheless, the patient has advanced lung disease and quite debilitated and he may not be a good candidate for biopsies or any other further intervention being a therapeutic or surgical interventions regarding the site upper lobe opacity. Chronic anemia, chronic disease UTI with previous cultures showing enterobacter, Resistant to Rocephine New-onset seizure activity Previous TIA, difficulty speaking resolved. 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 No surgery recommended at this time, continued outpatient monitoring. Status post fall, possible seizure or per neurology possible convulsive syncope Central cord syndrome, Cervical spinal stenosis ;C3-C4 moderate to severe and C5-C6 moderate spinal canal stenosis, additional multilevel bilateral moderate to severe neural foraminal stenosis extending from C3-C4 through C5-C6 reported as per cervical MRI, orthopedic spine recommending steroids/conservative management COPD, advanced CAD, history of CABG Gastroesophageal reflux disease Hypertension Hyperlipidemia Osteoarthritis Former nicotine dependence plan Obtain urine cultures ultrasound the kidneys were noted and the patient has moderate degree of bilateral hydronephrosis. Proceed with urology consultation regarding obstructive uropathy. IV antibiotic coverage with IV Invanz 1 g every 24 hours pneumonic-like cultures and sensitivities COPD stable for now. Put the patient on DuoNeb nebulized treatments around the clock and Symbicort and the patient was also taking Spiriva on outpatient basis in combination with Wixela Inhub Give the patient Solu-Medrol over the next 24 hours IV. I think the COPD essentially stable. Should be able to taper the patient to a prednisone by t omorrow Right upper lobe opacity the stool further workup with a PET scan on outpatient basis Continue Flomax Monitor urine output Resume all medications We'll continue to follow Long-term prognosis poor baseline above-mentioned comorbidities.
[2021-12-25 16:44] LABS: Glucose,Whole Blood 154 mg/dL (70-110)
[2021-12-25] MEDS: INSULIN ASPART (NovoLOG) 100 UNIT/ML VIAL SQ SCH (20:30)
[2021-12-25] MEDS: ATORVASTATIN 40 MG TAB PO SCH (20:30)
[2021-12-25] MEDS: SYMBICORT 80-4.5 MCG INHALER INHALATION SCH (20:40)
[2021-12-25 20:46] LABS: Glucose,Whole Blood 156 mg/dL (70-110)
[2021-12-26 05:53] LABS: Glucose,Whole Blood 140 mg/dL (70-110)
[2021-12-26] MEDS: INSULIN ASPART (NovoLOG) 100 UNIT/ML VIAL SQ SCH ×4 (06:35→19:58)
[2021-12-26] MEDS: PANTOPRAZOLE 40 MG TABLET PO SCH (06:35)
[2021-12-26] MEDS: methylPREDNISolone SOD SUCCI 125 MG/2 ML VIAL IV SCH ×4 (06:35→23:42)
[2021-12-26] MEDS: IPRATROPIUM-ALBUTEROL 3 ML NEB INHALATION SCH ×4 (08:29→20:43)
[2021-12-26] MEDS: SYMBICORT 80-4.5 MCG INHALER INHALATION SCH ×2 (08:29→20:44)
[2021-12-26] MEDS: ERTAPENEM 1 GM in SODIUM CHLORIDE 0.9% 50 ML IVPB SCH (09:23)
[2021-12-26] MEDS: amLODIPine 5 MG TAB PO SCH (09:23)
[2021-12-26] MEDS: TAMSULOSIN 0.4 MG CAP.ER.24H PO SCH ×2 (09:23→19:57)
[2021-12-26] MEDS: ASPIRIN 81 MG PO SCH (09:23)
[2021-12-26] MEDS: CLOPIDOGREL 75 MG TAB PO SCH (09:23)
[2021-12-26] MEDS: FINASTERIDE 5 MG TAB PO SCH (09:23)
--- NOTE | 2021-12-26 11:34 | P.PN ---
Subjective Progress Note Date: 12/26/21 I was asked to evaluate this patient for shortness of breath and dyspnea. The patient presented emergency department because of increased shortness of breath. He is known to have advanced COPD and the patient has been oxygen dependent at 3 L per minute nasal cannula. The patient has some limited cough. No significant sputum production. He is chronically short of breath and he has developed significant limitation excess capacity because of his underlying advanced COPD he also has a right upper lobe opacity, a spiculated lesion that needs to be further investigated. The patient was supposed underwent PET scan on outpatient basis and this has not been completed. The patient was in the hospital back in October 2021 and that time the patient had a gram-negative urine checked infection with Enterobacter. I was reviewing the subsequent urine cultures and there is a urine culture that was done by his primary care physician on 12/17/2021 which showed again Enterobacter and this time the patient's Enterobacter was quite resistant to Rocephin and penicillins. The patient continues to have dysuria frequency or urgency. His UA was significantly abnormal and the patient had clumps of white cells and rare bacteria. Culture is still pending for now. Abdominal admission, his lactic acid was at 2.8 currently is at 3.0. The patient also developed an acute leukocytosis morning. The white cell count came from 14.8 up to 49.6. Hemoglobin stable at 7.8 and platelet count is at 352. The patient obviously has signs of UTI and some early sepsis. BUN is 24 with a creatinine of 1.1. His coagulation profile is within normal. D-dimer slightly elevated at 4.8. The patient was given a dose of Rocephin in the emergency department. I discontinued the Rocephin and give the patient IV Invanz. He is not altered. Is able to communicate and answer questions appropriately. Denies having any chest pain. No flank pain. A CT [facility] and the patient was found to have no evidence of any pulmonary embolism. 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 The patient also has a right upper lobe mass measuring around 2.5 cm in size and anterior segment of the right upper lobe with central calcification and the patient has some right hilar mediastinal lymph node calcification also. Upon my evaluation, I ordered an ultrasound the abdomen and the kidneys and the patient was found to have moderate hydronephrosis. There was also debris within the urinary bladder consistent with infection and possible chronic bladder outlet obstruction. On today's evaluation of 12/23/2021, the patient is stable. The patient is being covered with broad-spectrum antibiotics. Urine cultures are still pending for now. No new complaints. The patient remains on IV Invanz. The patient also will be seen by urology regarding the bilateral hydronephrosis and obstructive uropathy. No new labs are available from today. Cultures are still pending for now. The patient does not look to be septic or toxic at this point in time. His resting comfortably in bed. No other significant events otherwise for now. Objective - Vital Signs Vital signs: Vital Signs Temp 97.7 F 12/26/21 08:00 Pulse 82 12/26/21 08:43 Resp 18 12/26/21 08:00 BP 118/50 12/26/21 08:00 Pulse Ox 100 12/26/21 08:00 FiO2 40 12/25/21 00:46 Intake & Output 12/25/21 12/26/21 12/26/21 18:59 06:59 18:59 Intake Total 354 360 Output Total 1675 600 Balance -1321 -600 360 Weight 54.431 kg Intake: Oral 354 360 Output: Urine 1675 600 Other: Voiding Method Urinal Urinal - Exam GENERAL EXAM: Alert, very pleasant 79-year-old gentleman, on 4 L nasal cannula, comfortable in no apparent distress. HEAD: Normocephalic. EYES: Normal reaction of pupils, equal size. NOSE: Clear with pink turbinates. THROAT: No erythema or exudates. NECK: No masses, no JVD. CHEST: No chest wall deformity. LUNGS: Equal air entry with crackles in left posterior bases, end expiratory wheeze, diminished CVS: S1 and S2 normal with no audible murmur, regular rhythm. ABDOMEN: No hepatosplenomegaly, normal bowel sounds, no guarding or rigidity. SPINE: No scoliosis or deformity SKIN: No rashes CENTRAL NERVOUS SYSTEM: No focal deficits, tone is normal in all 4 extremities. EXTREMITIES: There is no peripheral edema. No clubbing, no cyanosis. Peripheral pulses are intact. - Labs CBC & Chem 7: 12/25/21 06:55 12/25/21 06:55 Labs: Abnormal Lab Results - Last 24 Hours (Table) 12/25/21 12/25/2122 Range/Units 14:34 16:39 20:27 POC Glucose (mg/dL) 154 H 156 H (70-110) mg/dL Plasma Lactic Acid Mele 2.2 H* (0.7-2.0) mmol/L 12/26/21 Range/Units 05:52 POC Glucose (mg/dL) 140 H (70-110) mg/dL Plasma Lactic Acid Mele (0.7-2.0) mmol/L Assessment and Plan Plan: Acute UTI, suspect recurrent gram-negative infection with Enterobacter as the patient previous infections with Enterobacter back in October and December 2021.. Ultrasound of the kidneys also showing moderate degree of bilateral hydronephrosis. Consider obstructive uropathy resulting into recurrent UTIs. The renal function is stable for now. Awaiting cultures from today and the patient is also going to be seen by urology Acute leukocytosis, likely secondary to above, awaiting follow-up labs from today Mild lactic acidosis Advanced COPD with chronic hypoxic respiratory failure with an O2 Right upper lobe mass, measuring 2.5 cm in size in the right upper lobe that needs to be worked up on outpatient basis including a PET scan. Nevertheless, the patient has advanced lung disease and quite debilitated and he may not be a good candidate for biopsies or any other further intervention being a therapeuti c or surgical interventions regarding the site upper lobe opacity. Chronic anemia, chronic disease UTI with previous cultures showing enterobacter, Resistant to Rocephine New-onset seizure activity Previous TIA, difficulty speaking resolved. 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 No surgery recommended at this time, continued outpatient monitoring. Status post fall, possible seizure or per neurology possible convulsive syncope Central cord syndrome, Cervical spinal stenosis ;C3-C4 moderate to severe and C5-C6 moderate spinal canal stenosis, additional multilevel bilateral moderate to severe neural foraminal stenosis extending from C3-C4 through C5-C6 reported as per cervical MRI, orthopedic spine recommending steroids/conservative management COPD, advanced CAD, history of CABG Gastroesophageal reflux disease Hypertension Hyperlipidemia Osteoarthritis Former nicotine dependence plan Obtain urine cultures , results are still pending ultrasound the kidneys were noted and the patient has moderate degree of bilateral hydronephrosis. Proceed with urology consultation regarding obstructive uropathy. Urology consultation is still pending Continue IV antibiotic coverage with IV Invanz 1 g every 24 hours pneumonic-like cultures and sensitivities COPD stable for now. Put the patient on DuoNeb nebulized treatments around the clock and Symbicort and the patient was also taking Spiriva on outpatient basis in combination with Wixela Inhub Give the patient Solu-Medrol over the next 24 hours IV. Keep IV salmeterol for another 24 hours Right upper lobe opacity the stool further workup with a PET scan on outpatient basis Continue Flomax Monitor urine output Resume all medications We'll continue to follow Long-term prognosis poor baseline above-mentioned comorbidities.
[2021-12-26 11:36] LABS: Glucose,Whole Blood 157 mg/dL (70-110)
[2021-12-26 16:58] LABS: Glucose,Whole Blood 424 mg/dL (70-110)
--- NOTE | 2021-12-26 18:15 | P.HPIM ---
History of Present Illness H&P Date: 12/26/21 Chief Complaint: Shortness of breath Patient is seen and evaluated for Dr. Jorge L Puente 81-year-old man with history of COPD brought by ambulance to be evaluated for worsening shortness of breath. Patient states that he is usually on 3 L of oxygen at home. Tonight he was feeling short of breath despite using that. He did try using his home medication but with no improvement EMS was called. Patient denies having fever or chills. States he has a nonproductive cough. Th ere is no chest pain but he states it does feel tight. The patient states she is feeling a little better since EMS had placed him on CPAP. He has not noted change in urination or bowel movements. No leg pain or swelling. Workup in ED reveals his lactic acid was at 2.8 currently is at 3.0; white cell count came from 14.8 up to 49.6. Hemoglobin stable at 7.8 and platelet count is at 352; signs of UTI and some early sepsis. BUN is 24 with a creatinine of 1.1. His coagulation profile is within normal. D-dimer slightly elevated at 4.8. The patient was given a dose of Rocephin in the emergency department. A CT abdomen chest was done in the emergency department and the patient was found to have no evidence of any pulmonary embolism. 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 The patient also has a right upper lobe mass measuring around 2.5 cm in size and anterior segment of the right upper lobe with central calcification and the patient has some right hilar mediastinal lymph node calcification also. Upon my evaluation, I ordered an ultrasound the abdomen and the kidneys and the patient was found to have moderate hydronephrosis. There was also debris within the urinary bladder consistent with infection and possible chronic bladder outlet obstruction. Review of Systems REVIEW OF SYSTEMS: CONSTITUTIONAL: No fever, no malaise, no fatigue. HEENT: No recent visual problems or hearing problems. Denied any sore throat. CARDIOVASCULAR: No chest pain, orthopnea, PND, no palpitations, no syncope. PULMONARY: No shortness of breath, no cough, no hemoptysis. GASTROINTESTINAL: No diarrhea, no nausea, no vomiting, no abdominal pain. NEUROLOGICAL: No headaches, no weakness, no numbness. HEMATOLOGICAL: Denies any bleeding or petechiae. GENITOURINARY: Denies any burning micturition, frequency, or urgency. MUSCULOSKELETAL/RHEUMATOLOGICAL: Denies any joint pain, swelling, or any muscle pain. ENDOCRINE: Denies any polyuria or polydipsia. The rest of the 14-point review of systems is negative. Past Medical History Past Medical History: Coronary Artery Disease (CAD), Chest Pain / Angina, COPD, CVA/TIA, Hyperlipidemia, Osteoarthritis (OA) Additional Past Medical History / Comment(s): COPD, "mini stroke 2-3 months ago- "weakness on rt side, some on the left", indwelling catheter. History of Any Multi-Drug Resistant Organisms: None Reported Past Surgical History: Coronary Bypass/CABG Additional Past Surgical History / Comment(s): 1994 CABG 3 vessel, colonoscopy with benign polypectomy. hoda cataracts Past Anesthesia/Blood Transfusion Reactions: No Reported Reaction Past Psychological History: No Psychological Hx Reported Additional Psychological History / Comment(s): Pt resides with his spouse. He states he has a nebulizer. Smoking Status: Former smoker Past Alcohol Use History: Unable to Obtain Additional Past Alcohol Use History / Comment(s): Pt started smoking in 1954 and quit in 2004. He smoked 1-1.5 ppd. Past Drug Use History: Unable to Obtain - Past Family History Father Family Medical History: Myocardial Infarction (CT) Additional Family Medical History / Comment(s): Father of a CT in his 60s. Mother Family Medical History: Unable to Obtain Additional Family Medical History / Comment(s): . Medications and Allergies Home Medications Medication Instructions Recorded Confirmed Type Aspirin EC [Ecotrin Low Dose] 81 mg PO DAILY 11/13/18 12/24/21 History Albuterol Sulfate [Proair Hfa] 1 puff INHALATION RT-Q6H PRN 10/15/21 12/24/21 History Fluticasone Propion/Salmeterol 1 puff INHALATION RT-HS 10/15/21 12/24/21 History [Wixela 250-50 Inhub] Tiotropium 18 Mcg/Puff [Spiriva] 1 puff INHALATION RT-DAILY 10/15/21 12/24/21 History Atorvastatin [Lipitor] 40 mg PO HS #30 tab 10/22/21 12/24/21 Rx Clopidogrel [Plavix] 75 mg PO DAILY #30 tab 10/22/21 12/24/21 Rx Folic Acid 1 mg PO DAILY tab 10/22/21 12/24/21 Rx Pantoprazole [Protonix] 40 mg PO AC-BRKFST #30 tab 10/22/21 12/24/21 Rx amLODIPine [Norvasc] 5 mg PO DAILY #30 tab 10/22/21 12/24/21 Rx Finasteride [Proscar] 5 mg PO DAILY 12/24/21 12/24/21 History Sulfamethox-Tmp 800-160Mg [Bactrim 1 tab PO BID 12/24/21 12/24/21 History DS 800-160 mg] Tamsulosin HCl [Flomax] 0.4 mg PO BID 12/24/21 12/24/21 History Allergies Allergy/AdvReac Type Severity Reaction Status Date / Time No Known Allergies Allergy Verified 12/24/21 23:10 Physical Exam Vitals: Vital Signs Temp Pulse Pulse Resp BP Pulse Ox 12/26/21 11:39 80 12/26/21 08:43 82 12/26/21 08:29 82 12/26/21 08:00 97.7 F 84 18 118/50 100 12/26/21 03:00 98 F 96 21 109/48 99 12/25/21 23:15 97.8 F 87 20 100/52 100 12/25/21 20:50 85 12/25/21 20:40 84 12/25/21 19:37 98.5 F 80 20 99/52 100 12/25/21 16:41 82 12/25/21 16:29 80 100 12/25/21 16:00 98.4 F 96 18 92/45 100 12/25/21 14:00 92 22 12/25/21 12:00 98.8 F 85 92 22 104/35 98 Intake and Output 12/25/21 12/26/21 12/26/21 22:59 06:59 14:59 Intake Total 118 360 Output Total 775 600 Balance -657 -600 360 Intake: Oral 118 360 Output: Urine 775 600 Other: Voiding Method Urinal Urinal - Constitutional General appearance: Present: average body habitus, cooperative, no acute distress - EENT Eyes: Present: anicteric sclerae, EOMI, PERRLA, normal appearance ENT: Present: hearing grossly normal, normal oropharynx Ears: bilateral: normal - Neck Neck: Present: normal ROM. Absent: lymphadenopathy, rigidity, thyromegaly Carotids: negative: bruit present Thyroid: bilateral: normal size, negative: enlarged, nodule - Respiratory Respiratory: bilateral: CTA, negative: rales, rhonchi, wheezing - Cardiovascular Rhythm: regular Heart sounds: normal: S1, S2 Abnormal Heart Sounds: Absent: systolic murmur, diastolic murmur - Gastrointestinal General gastrointestinal: Present: normal bowel sounds, soft. Absent: distended, organomegaly, tenderness - Genitourinary Genitourinary Comment(s): deferred - Integumentary Integumentary: Present: normal turgor. Absent: jaundiced, rash, ulcer - Neurologic Neurologic: Present: CNII-XII intact. Absent: focal deficits - Musculoskeletal Musculoskeletal: Present: gait normal, strength equal bilaterally - Psychiatric Psychiatric: Present: A&O x's 3, appropriate affect, intact judgment & insight Results CBC & Chem 7: 12/25/21 06:55 12/25/21 06:55 Labs: Abnormal Lab Results - Last 24 Hours (Table) 12/25/21 12/25/21 12/25/21 Range/Units 14:34 16:39 20:27 POC Glucose (mg/dL) 154 H 156 H (70-110) mg/dL Plasma Lactic Acid Mele 2.2 H* (0.7-2.0) mmol/L 12/26/21 12/26/21 Range/Units 05:52 11:31 POC Glucose (mg/dL) 140 H 157 H (70-110) mg/dL Plasma Lactic Acid Mele (0.7-2.0) mmol/L Thrombosis Risk Factor Assmnt - Choose All That Apply Any of the Below Risk Factors Present?: Yes Each Factor Represents 1 point: Abnormal pulmonary function (COPD), Medical pt on bed rest, Serious lung disease incl. pneumonia (< 1month) Each Risk Factor Represents 3 Points: Age 75 years or older Other congenital or acquired thrombophilia - If yes, enter type in comment: No Thrombosis Risk Factor Assessment Total Risk Factor Score: 6 Thrombosis Risk Factor Assessment Level: High Risk Assessment and Plan Assessment: 1. Acute UTI, suspect recurrent gram-negative infection with Enterobacter as the patient previous infections with Enterobacter back in October and December 2021.. Ultrasound of the kidneys also showing moderate degree of bilateral hydro nephrosis. Consider obstructive uropathy resulting into recurrent UTIs. The renal function is stable for now. Urology is consulted and recommendations are pending -- Acute leukocytosis, likely secondary to above -Mild lactic acidosis 2. Advanced COPD with chronic hypoxic respiratory failure with an O2; in acute exacerbation; patient remains on methylprednisolone 60 mg every 6 hours 3. Right upper lobe mass, measuring 2.5 cm in size in the right upper lobe that needs to be worked up on outpatient basis including a PET scan. Nevertheless, the patient has advanced lung disease and quite debilitated and he may not be a good candidate for biopsies or any other further intervention being a therapeutic or surgical interventions regarding the site upper lobe opacity. 4. New-onset seizure activity -- Status post fall, possible seizure or per neurology possible convulsive syncope 5. Previous TIA, difficulty speaking resolved. 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 No surgery recommended at this time, continued outpatient monitoring. 6. Mild encephalopathy, etiology unclear reported per EEG 7. Central cord syndrome, Cervical spinal stenosis ;C3-C4 moderate to severe a nd C5-C6 moderate spinal canal stenosis, additional multilevel bilateral moderate to severe neural foraminal stenosis extending from C3-C4 through C5-C6 reported as per cervical MRI, orthopedic spine recommending steroids/conservative management 8. Hypertension; amlodipine 5 mg daily 9. Hyperlipidemia; Lipitor 40 mg by mouth daily at bedtime
[2021-12-26 19:53] LABS: Glucose,Whole Blood 197 mg/dL (70-110)
[2021-12-26] MEDS: ATORVASTATIN 40 MG TAB PO SCH (19:57)
[2021-12-26] MEDS: INSULIN DETEMIR (LEVEMIR) 100 UNIT/ML SYR SQ SCH (19:58)
[2021-12-27] MEDS: INSULIN ASPART (NovoLOG) 100 UNIT/ML VIAL SQ SCH ×4 (06:45→20:47)
[2021-12-27 06:47] LABS: Glucose,Whole Blood 67 mg/dL (70-110)
[2021-12-27] MEDS: PANTOPRAZOLE 40 MG TABLET PO SCH (06:49)
[2021-12-27] MEDS: methylPREDNISolone SOD SUCCI 125 MG/2 ML VIAL IV SCH ×4 (06:49→23:38)
[2021-12-27 07:04] LABS: Glucose,Whole Blood 99 mg/dL (70-110)
[2021-12-27 07:20] LABS: Basophils % (A) 0 %; Eosinophils % (A) 0 %; HCT 24.9 % (39.0-53.0); HGB 7.7 gm/dL (13.0-17.5); Hypochromasia Marked; Lymphocytes # (A) 0.4 k/uL (1.0-4.8); Lymphocytes % (A) 2 %; MCH 29.3 pg (25.0-35.0); MCHC 30.9 g/dL (31.0-37.0); MCV 95.1 fL (80.0-100.0); Mean Platelet Volume 7.4; Monocytes # (A) 0.3 k/uL (0-1.0); Monocytes % (A) 2 %; Neutrophils # (A) 20.1 k/uL (1.3-7.7); Neutrophils % (A) 96 %; Platelet Count 352 k/uL (150-450); Poikilocytosis Slight; RBC 2.62 m/uL (4.30-5.90); RDW 15.5 % (11.5-15.5); WBC 20.8 k/uL (3.8-10.6)
[2021-12-27 07:45] LABS: Calcium 8.9 mg/dL (8.4-10.2); Potassium 5.2 mmol/L (3.5-5.1); Total Bilirubin 0.2 mg/dL (0.2-1.3); Total Protein 5.4 g/dL (6.3-8.2)
--- NOTE | 2021-12-27 08:04 | P.GSCN ---
History of Present Illness Consult date: 12/26/21 Reason for Consult: UTI, Hematuria Requesting physician: Jorge L Puente History of present illness: The patient is an 81-year-old white male known to Dr. Vickers. He was hospitalized in October 2021 with new onset seizure. A Paige catheter was placed at that time for urinary retention. Later that month a urine culture showed an Enterobacter UTI. He was placed on tamsulosin. When last seen in the office by Dr. Vickers on December 17, the postvoid residual was 452 mL. A urine culture showed a persistent Enterobacter UTI. The tamsulosin dosage was increased to 0.8 mg daily. Ultrasound shows bilateral moderate hydronephrosis. I explained to the patient and his family that this is likely due to urinary retention, and in some cases can ultimately progress to renal failure. Review of Systems - Constitutional Denies chills, Denies fever - Genitourinary Reports as per HPI Past Medical History Past Medical History: Coronary Artery Disease (CAD), Chest Pain / Angina, COPD, CVA/TIA, Hyperlipidemia, Osteoarthritis (OA) Additional Past Medical History / Comment(s): COPD, "mini stroke 2-3 months ago- "weakness on rt side, some on the left", indwelling catheter. History of Any Multi-Drug Resistant Organisms: None Reported Past Surgical History: Coronary Bypass/CABG Additional Past Surgical History / Comment(s): 1994 CABG 3 vessel, colonoscopy with benign polypectomy. hoda cataracts Past Anesthesia/Blood Transfusion Reactions: No Reported Reaction Past Psychological History: No Psychological Hx Reported Additional Psychological History / Comment(s): Pt resides with his spouse. He states he has a nebulizer. Smoking Status: Former smoker Past Alcohol Use History: Unable to Obtain Additional Past Alcohol Use History / Comment(s): Pt started smoking in 1955 and quit in 2004. He smoked 1-1.5 ppd. Past Drug Use History: Unable to Obtain - Past Family History Father Family Medical History: Myocardial Infarction ([place]) Additional Family Medical History / Comment(s): Father of a [place] in his 60s. Mother Family Medical History: Unable to Obtain Additional Family Medical History / Comment(s): . Medications and Allergies Home Medications Medication Instructions Recorded Confirmed Type Aspirin EC [Ecotrin Low Dose] 81 mg PO DAILY 11/13/18 12/24/21 History Albuterol Sulfate [Proair Hfa] 1 puff INHALATION RT-Q6H PRN 10/15/21 12/24/21 History Fluticasone Propion/Salmeterol 1 puff INHALATION RT-HS 10/15/21 12/24/21 History [Wixela 250-50 Inhub] Tiotropium 18 Mcg/Puff [Spiriva] 1 puff INHALATION RT-DAILY 10/15/21 12/24/21 History Atorvastatin [Lipitor] 40 mg PO HS #30 tab 10/22/21 12/24/21 Rx Clopidogrel [Plavix] 75 mg PO DAILY #30 tab 10/22/21 12/24/21 Rx Folic Acid 1 mg PO DAILY tab 10/22/21 12/24/21 Rx Pantoprazole [Protonix] 40 mg PO AC-BRKFST #30 tab 10/22/21 12/24/21 Rx amLODIPine [Norvasc] 5 mg PO DAILY #30 tab 10/22/21 12/24/21 Rx Finasteride [Proscar] 5 mg PO DAILY 12/24/21 12/24/21 History Sulfamethox-Tmp 800-160Mg [Bactrim 1 tab PO BID 12/24/21 12/24/21 History DS 800-160 mg] Tamsulosin HCl [Flomax] 0.4 mg PO BID 12/24/21 12/24/21 History Allergies Allergy/AdvReac Type Severity Reaction Status Date / Time No Known Allergies Allergy Verified 12/24/21 23:10 Surgical - Exam Vital Signs Pulse Resp BP Pulse Ox 115 H 33 H 103/83 90 L 12/24/21 21:51 12/24/21 21:51 12/24/21 21:51 12/24/21 21:51 - General well developed, well nourished, no distress - Respiratory normal respiratory effort - Abdomen Soft, non-tender, no mass. Suprapubic fullness is palpable. - Genitourinary normal penis with no external lesions, testicles non-tender - Psychiatric oriented to time, oriented to person, oriented to place, speech is normal, memory intact Results - Labs 12/27/21 06:54 12/27/21 06:54 Abnormal Lab Results - Last 24 Hours (Table) 12/25/21 12/25/21 12/25/21 Range/Units 14:34 16:39 20:27 POC Glucose (mg/dL) 154 H 156 H (70-110) mg/dL Plasma Lactic Acid Mele 2.2 H* (0.7-2.0) mmol/L 12/26/21 12/26/21 Range/Units 05:52 11:31 POC Glucose (mg/dL) 140 H 157 H (70-110) mg/dL Plasma Lactic Acid Mele (0.7-2.0) mmol/L - Imaging US - kidney/bladder: report reviewed Assessment and Plan (1) Bilateral hydronephrosis Current Visit: Yes Status: Acute Code(s): N13.30 - UNSPECIFIED HYDRON EPHROSIS SNOMED Code(s): 33408722 (2) UTI (urinary tract infection) Current Visit: Yes Status: Acute Code(s): N39.0 - URINARY TRACT INFECTION, SITE NOT SPECIFIED SNOMED Code(s): 16807968 Plan: The patient is currently receiving ertapenem, to which the Enterobacter is sensitive. He continues to receive tamsulosin 0.8 mg daily in addition to finasteride. I suspect he continues to empty his bladder incompletely. A p ostvoid residual will be checked. He may require Paige catheter replacement, as the bilateral hydronephrosis seen on ultrasound is likely due to urinary retention. Time with Patient: Greater than 30
[2021-12-27] MEDS: IPRATROPIUM-ALBUTEROL 3 ML NEB INHALATION SCH ×4 (08:07→20:10)
[2021-12-27] MEDS: SYMBICORT 80-4.5 MCG INHALER INHALATION SCH ×2 (08:08→20:10)
[2021-12-27] MEDS: ERTAPENEM 1 GM in SODIUM CHLORIDE 0.9% 50 ML IVPB SCH (08:51)
[2021-12-27] MEDS: ASPIRIN 81 MG PO SCH (08:51)
[2021-12-27] MEDS: CLOPIDOGREL 75 MG TAB PO SCH (08:51)
[2021-12-27] MEDS: amLODIPine 5 MG TAB PO SCH (08:52)
[2021-12-27] MEDS: TAMSULOSIN 0.4 MG CAP.ER.24H PO SCH ×2 (08:52→20:47)
[2021-12-27] MEDS: FINASTERIDE 5 MG TAB PO SCH (08:52)
--- NOTE | 2021-12-27 10:09 | P.PN ---
Subjective Progress Note Date: 12/27/21 Principal diagnosis: UTI, Hematuria, Incomplete Bladder Emptying The patient denies dysuria and hematuria. He states that he is voiding without difficulty. Objective - Vital Signs Vital signs: Vital Signs Temp 97.9 F 12/27/21 03:35 Pulse 85 12/27/21 08:18 Resp 20 12/27/21 03:35 BP 118/68 12/27/21 03:35 Pulse Ox 100 12/27/21 03:35 FiO2 40 12/25/21 00:46 Intake & Output 12/26/21 12/27/21 12/27/21 18:59 06:59 18:59 Intake Total 1130 118 Output Total 825 550 Balance 1130 825 432 Intake: Intake, IV Titration 50 Amount Ertapenem 1 gm In Sodium 50 Chloride 0.9% 50 ml @ 100 mls/hr IVPB DAILY [facility] Rx #:[id number] Oral 1080 118 Output: Urine 825 550 Other: Voiding Method Urinal - Constitutional General appearance: Present: average body habitus, cooperative - Genitourinary Genitourinary Comment(s): Normal phallus, normal urethral meatus. The scrotum and testes are normal. MAXIMO - Normal anal sphincter tone, no rectal masses. The prostate is significantly enlarged and smooth. - Psychiatric Psychiatric: Present: A&O x's 3 - Labs CBC & Chem 7: 12/27/21 06:54 12/27/21 06:54 Labs: Abnormal Lab Results - Last 24 Hours (Table) 12/26/21 12/26/21 12/26/21 Range/Units 11:31 16:36 19:51 WBC (3.8-10.6) k/uL RBC (4.30-5.90) m/uL Hgb (13.0-17.5) gm/dL Hct (39.0-53.0) % MCHC (31.0-37.0) g/dL Neutrophils # (1.3-7.7) k/uL Lymphocytes # (1.0-4.8) k/uL Potassium (3.5-5.1) mmol/L Chloride (98-107) mmol/L BUN (9-20) mg/dL POC Glucose (mg/dL) 157 H 424 H 197 H (70-110) mg/dL Total Protein (6.3-8.2) g/dL Albumin (3.5-5.0) g/dL 12/27/21 12/27/21 12/27/21 Range/Units 06:40 06:54 06:54 WBC 20.8 H (3.8-10.6) k/uL RBC 2.62 L (4.30-5.90) m/uL Hgb 7.7 L (13.0-17.5) gm/dL Hct 24.9 L (39.0-53.0) % MCHC 30.9 L (31.0-37.0) g/dL Neutrophils # 20.1 H (1.3-7.7) k/uL Lymphocytes # 0.4 L (1.0-4.8) k/uL Potassium 5.2 H (3.5-5.1) mmol/L Chloride 108 H (98-107) mmol/L BUN 28 H (9-20) mg/dL POC Glucose (mg/dL) 67 L (70-110) mg/dL Total Protein 5.4 L (6.3-8.2) g/dL Albumin 3.0 L (3.5-5.0) g/dL Assessment and Plan (1) Bilateral hydronephrosis Current Visit: Yes Status: Acute Code(s): N13.30 - UNSPECIFIED HYDRONEPHROSIS SNOMED Code(s): 62291991 (2) UTI (urinary tract infection) Current Visit: Yes Status: Acute Code(s): N39.0 - URINARY TRACT INFECTION, SITE NOT SPECIFIED SNOMED Code(s): 12193014 Plan: Continue ertapenem. Bladder Scan will be utilized to check postvoid residual.
--- NOTE | 2021-12-27 11:33 | P.PN ---
Subjective Progress Note Date: 12/27/21 I was asked to evaluate this patient for shortness of breath and dyspnea. The patient presented emergency department because of increased shortness of breath. He is known to have advanced COPD and the patient has been oxygen dependent at 3 L per minute nasal cannula. The patient has some limited cough. No significant sputum production. He is chronically short of breath and he has developed significant limitation excess capacity because of his underlying advanced COPD he also has a right upper lobe opacity, a spiculated lesion that needs to be further investigated. The patient was supposed underwent PET scan on outpatient basis and this has not been completed. The patient was in the hospital back in October 2021 and that time the patient had a gram-negative urine checked infection with Enterobacter. I was reviewing the subsequent urine cultures and there is a urine culture that was done by his primary care physician on 12/17/2021 which showed again Enterobacter and this time the patient's Enterobacter was quite resistant to Rocephin and penicillins. The patient continues to have dysuria frequency or urgency. His UA was significantly abnormal and the patient had clumps of white cells and rare bacteria. Culture is still pending for now. Abdominal admission, his lactic acid was at 2.8 currently is at 3.0. The patient also developed an acute leukocytosis morning. The white cell count came from 14.8 up to 49.6. Hemoglobin stable at 7.8 and platelet count is at 352. The patient obviously has signs of UTI and some early sepsis. BUN is 24 with a creatinine of 1.1. His coagulation profile is within normal. D-dimer slightly elevated at 4.8. The patient was given a dose of Rocephin in the emergency department. I discontinued the Rocephin and give the patient IV Invanz. He is not altered. Is able to communicate and answer questions appropriately. Denies having any chest pain. No flank pain. [facility] CT [facility] and the patient was found to have no evidence of any pulmonary embolism. 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 The patient also has a right upper lobe mass measuring around 2.5 cm in size and anterior segment of the right upper lobe with central calcification and the patient has some right hilar mediastinal lymph node calcification also. Upon my evaluation, I ordered an ultrasound the abdomen and the kidneys and the patient was found to have moderate hydronephrosis. There was also debris within the urinary bladder consistent with infection and possible chronic bladder outlet obstruction. On today's evaluation of 12/26/2021, the patient is stable. The patient is being covered with broad-spectrum antibiotics. Urine cultures are still pending for now. No new complaints. The patient remains on IV Invanz. The patient also will be seen by urology regarding the bilateral hydronephrosis and obstructive uropathy. No new labs are available from today. Cultures are still pending for now. The patient does not look to be septic or toxic at this point in time. His resting comfortably in bed. No other significant events otherwise for now. 12/27/2021, the patient is being seen for a follow-up. The patient is doing well. No specific complaints. Remains on IV Invanz. Urine cultures are still pending. The patient was seen by urology and Proscar was also added to his medication regimen. He remains on bronchodilators. He remains on systemic steroids. He is feeling better. Less short of breath. No altered mentation. Very fragile. Oral intake is quite low and the patient's body mass index is 19.4. No other significant issues otherwise for now. Objective - Vital Signs Vital signs: Vital Signs Temp 97.9 F 12/27/21 08:00 Pulse 84 12/27/21 11:20 Resp 20 12/27/21 11:20 BP 104/60 12/27/21 11:20 Pulse Ox 99 12/27/21 11:20 FiO2 40 12/25/21 00:46 Intake & Output 12/26/21 12/27/21 12/27/21 18:59 06:59 18:59 Intake Total 1130 118 Output Total 825 550 Balance 1130 825 432 Intake: Intake, IV Titration 50 Amount Ertapenem 1 gm In Sodium 50 Chloride 0.9% 50 ml @ 100 mls/hr IVPB DAILY [facility] Rx #:[id number] Oral 1080 118 Output: Urine 825 550 Other: Voiding Method Urinal - Exam GENERAL EXAM: Alert, very pleasant 79-year-old gentleman, on 4 L nasal cannula, comfortable in no apparent distress. HEAD: Normocephalic. EYES: Normal reaction of pupils, equal size. NOSE: Clear with pink turbinates. THROAT: No erythema or exudates. NECK: No masses, no JVD. CHEST: No chest wall deformity. LUNGS: Equal air entry with crackles in left posterior bases, end expiratory wheeze, diminished CVS: S1 and S2 normal with no audible murmur, regular rhythm. ABDOMEN: No hepatosplenomegaly, normal bowel sounds, no guarding or rigidity. SPINE: No scoliosis or deformity SKIN: No rashes CENTRAL NERVOUS SYSTEM: No focal deficits, tone is normal in all 4 extremities. EXTREMITIES: There is no peripheral edema. No clubbing, no cyanosis. Peripheral pulses are intact. - Labs CBC & Chem 7: 12/27/21 06:54 12/27/21 06:54 Labs: Abnormal Lab Results - Last 24 Hours (Table) 12/26/21 12/26/21 12/26/21 Range/Units 11:31 16:36 19:51 WBC (3.8-10.6) k/uL RBC (4.30-5.90) m/uL Hgb (13.0-17.5) gm/dL Hct (39.0-53.0) % MCHC (31.0-37.0) g/dL Neutrophils # (1.3-7.7) k/uL Lymphocytes # (1.0-4.8) k/uL Potassium (3.5-5.1) mmol/L Chloride (98-107) mmol/L BUN (9-20) mg/dL POC Glucose (mg/dL) 157 H 424 H 197 H (70-110) mg/dL Total Protein (6.3-8.2) g/dL Albumin (3.5-5.0) g/dL 12/27/21 12/27/21 12/27/21 Range/Units 06:40 06:54 06:54 WBC 20.8 H (3.8-10.6) k/uL RBC 2.62 L (4.30-5.90) m/uL Hgb 7.7 L (13.0-17.5) gm/dL Hct 24.9 L (39.0-53.0) % MCHC 30.9 L (31.0-37.0) g/dL Neutrophils # 20.1 H (1.3-7.7) k/uL Lymphocytes # 0.4 L (1.0-4.8) k/uL Potassium 5.2 H (3.5-5.1) mmol/L Chloride 108 H (98-107) mmol/L BUN 28 H (9-20) mg/dL POC Glucose (mg/dL) 67 L (70-110) mg/dL Total Protein 5.4 L (6.3-8.2) g/dL Albumin 3.0 L (3.5-5.0) g/dL Assessment and Plan Plan: Acute UTI, suspect recurrent gram-negative infection with Enterobacter as the patient previous infections with Enterobacter back in October and December 2021.. Ultrasound of the kidneys also showing moderate degree of bilateral hydronephrosis. Consider obstructive uropathy resulting into recurrent UTIs. The renal function is stable for now. Awaiting cultures. Note that the patient's obstructive uropathy and the patient is currently on examination Flomax and Proscar. Acute leukocytosis, likely secondary to above, and the white cell count has improved significantly down to 20.8 Mild lactic acidosis Advanced COPD with chronic hypoxic respiratory failure with an O2 Right upper lobe mass, measuring 2.5 cm in size in the right upper lobe that needs to be worked up on outpatient basis including a PET scan. Nevertheless, the patient has advanced lung disease and quite debilitated and he may not be a good candidate for biopsies or any other further intervention being a therapeutic or surgical interventions regarding the site upper lobe opacity. Chronic anemia, chronic disease UTI with previous cultures showing enterobacter, Resistant to Rocephine New-onset seizure activity Previous TIA, difficulty speaking resolved. 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 No surgery recommended at this time, continued outpatient monitoring. Status post fall, possible seizure or per neurology possible convulsive syncope Central cord syndrome, Cervical spinal stenosis ;C3-C4 moderate to severe and C5-C6 moderate spinal canal stenosis, additional multilevel bilateral moderate to severe neural foraminal stenosis extending from C3-C4 through C5-C6 reported as per cervical MRI, orthopedic spine recommending steroids/conservative manage ment COPD, advanced CAD, history of CABG Gastroesophageal reflux disease Hypertension Hyperlipidemia Osteoarthritis Former nicotine dependence plan Awaiting urine cultures ultrasound the kidneys were noted and the patient has moderate degree of bilateral hydronephrosis. Proceed with urology consultation regarding obstructive uropathy. Urology consultation was done and patient was given Proscar for obstructive uropathy Continue IV antibiotic coverage with IV Invanz 1 g every 24 hours pneumonic-like cultures and sensitivities COPD stable for now. Put the patient on DuoNeb nebulized treatments around the clock and Symbicort and the patient was also taking Spiriva on outpatient basis in combination with Wixela Inhub Give the patient Solu-Medrol over the next 24 hours IV. Right upper lobe opacity the stool further workup with a PET scan on outpatient basis Continue Flomax Monitor urine output Resume all medications We'll continue to follow Long-term prognosis poor baseline above-mentioned comorbidities.
[2021-12-27 11:53] LABS: Glucose,Whole Blood 206 mg/dL (70-110)
[2021-12-27 16:29] LABS: Glucose,Whole Blood 133 mg/dL (70-110)
--- NOTE | 2021-12-27 19:31 | P.PN ---
Subjective Progress Note Date: 12/27/21 Principal diagnosis: Acute UTI, suspect recurrent gram-negative infection with Enterobacter Acute exacerbation COPD Possible pneumonia Right upper lobe lung mass Bilateral hydronephrosis 81-year-old man with history of COPD brought by ambulance to be evaluated for worsening shortness of breath. Patient states that he is usually on 3 L of oxygen at home. Tonight he was feeling short of breath despite using that. He did try using his home medication but with no improvement EMS was called. Patient denies having fever or chills. States he has a nonproductive cough. There is no chest pain but he states it does feel tight. The patient states she is feeling a little better since EMS had placed him on CPAP. He has not noted change in urination or bowel movements. No leg pain or swelling. Workup in ED reveals his lactic acid was at 2.8 currently is at 3.0; white cell count came from 14.8 up to 49.6. Hemoglobin stable at 7.8 and platelet count is at 352; signs of UTI and some early sepsis. BUN is 24 with a creatinine of 1.1. His coagulation profile is within normal. D-dimer slightly elevated at 4.8. The patient was given a dose of Rocephin in the emergency department. A CT abdomen chest was done in the emergency department and the patient was found to have no evidence of any pulmonary embolism. 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 The patient also has a right upper lobe mass measuring around 2.5 cm in size and anterior segment of the right upper lobe with central calcification and the patient has some right hilar mediastinal lymph node calcification also. Upon my evaluation, I ordered an ultrasound the abdomen and the kidneys and the patient was found to have moderate hydronephrosis. There was also debris within the urinary bladder consistent with infection and possible chronic bladder outlet obstruction. 12/27/2021 Patient is seen and evaluated with family at bedside; family continues to be worried about patient being weak Vital signs are reviewed; patient remains hemodynamically stable and remains afebrile Blood work reveals elevated white blood count of 20.8, hemoglobin of 7.7, sodium 138, potassium 5.2, BUN/creatinine of 28/0.9 Patient has been evaluated by urology for bilateral hydronephrosis and is deemed related to incomplete bladder emptying; urology recommending monitoring for postvoid residual; further recommendations pending Patient remains on IV antibiotics in form of Invanz 1 g every 24 hours for possible pneumonia/UTI; pulmonary recommending to continue with IV Solu-Medrol for another 24 hours; remains on DuoNeb nebulizer treatments and Symbicort Recommend PT/OT evaluation once patient is medically stable Objective - Vital Signs Vital signs: Vital Signs Temp 97.9 F 12/27/21 08:00 Pulse 84 12/27/21 15:52 Resp 20 12/27/21 11:20 BP 104/60 12/27/21 11:20 Pulse Ox 99 12/27/21 11:20 FiO2 40 12/25/21 00:46 Intake & Output 12/26/21 12/27/21 12/27/21 18:59 06:59 18:59 Intake Total 1130 118 Output Total 825 1580 Balance 5740 -000 -9594 Intake: Intake, IV Titration 50 Amount Ertapenem 1 gm In Sodium 50 Chloride 0.9% 50 ml @ 100 mls/hr IVPB DAILY [facility] Rx #:[id number] Oral 1080 118 Output: Urine 825 800 Post Void Residual 780 Other: Voiding Method Urinal - Exam - Constitutional General appearance: Present: average body habitus, cooperative, no acute distress - EENT Eyes: Present: anicteric sclerae, EOMI, PERRLA, normal appearance ENT: Present: hearing grossly normal, normal oropharynx Ears: bilateral: normal - Neck Neck: Present: normal ROM. Absent: lymphadenopathy, rigidity, thyromegaly Carotids: negative: bruit present Thyroid: bilateral: normal size, negative: enlarged, nodule - Respiratory Respiratory: bilateral: CTA, negative: rales, rhonchi, wheezing - Cardiovascular Rhythm: regular Heart sounds: normal: S1, S2 Abnormal Heart Sounds: Absent: systolic murmur, diastolic murmur - Gastrointestinal General gastrointestinal: Present: normal bowel sounds, soft. Absent: distended, organomegaly, tenderness - Genitourinary Genitourinary Comment(s): deferred - Integumentary Integumentary: Present: normal turgor. Absent: jaundiced, rash, ulcer - Neurologic Neurologic: Present: CNII-XII intact. Absent: focal deficits - Musculoskeletal Musculoskeletal: Present: gait normal, strength equal bilaterally - Psychiatric Psychiatric: Present: A&O x's 3, appropriate affect, intact judgment & insight - Labs CBC & Chem 7: 12/27/21 06:54 12/27/21 06:54 Labs: Abnormal Lab Results - Last 24 Hours (Table) 12/26/21 12/26/21 12/27/21 Range/Units 16:36 19:51 06:40 WBC (3.8-10.6) k/uL RBC (4.30-5.90) m/uL Hgb (13.0-17.5) gm/dL Hct (39.0-53.0) % MCHC (31.0-37.0) g/dL Neutrophils # (1.3-7.7) k/uL Lymphocytes # (1.0-4.8) k/uL Potassium (3.5-5.1) mmol/L Chloride (98-107) mmol/L BUN (9-20) mg/dL POC Glucose (mg/dL) 424 H 197 H 67 L (70-110) mg/dL Total Protein (6.3-8.2) g/dL Albumin (3.5-5.0) g/dL 12/27/21 12/27/21 12/27/21 Range/Units 06:54 06:54 11:33 WBC 20.8 H (3.8-10.6) k/uL RBC 2.62 L (4.30-5.90) m/uL Hgb 7.7 L (13.0-17.5) gm/dL Hct 24.9 L (39.0-53.0) % MCHC 30.9 L (31.0-37.0) g/dL Neutrophils # 20.1 H (1.3-7.7) k/uL Lymphocytes # 0.4 L (1.0-4.8) k/uL Potassium 5.2 H (3.5-5.1) mmol/L Chloride 108 H (98-107) mmol/L BUN 28 H (9-20) mg/dL POC Glucose (mg/dL) 206 H (70-110) mg/dL Total Protein 5.4 L (6.3-8.2) g/dL Albumin 3.0 L (3.5-5.0) g/dL Assessment and Plan Assessment: 1. Acute UTI, suspect recurrent gram-negative infection with Enterobacter as the patient previous infections with Enterobacter back in October and December 2021.. Ultrasound of the kidneys also showing moderate degree of bilateral hydronephrosis. Consider obstructive uropathy resulting into recurrent UTIs. The renal function is stable for now. Urology is consulted and recommendations are pending -- Acute leukocytosis, likely secondary to above -Mild lactic acidosis 2. Advanced COPD with chronic hypoxic respiratory failure with an O2; in acute exacerbation; patient remains on methylprednisolone 60 mg every 6 hours 3. Right upper lobe mass, measuring 2.5 cm in size in the right upper lobe that needs to be worked up on outpatient basis including a PET scan. Nevertheless, the patient has advanced lung disease and quite debilitated and he may not be a good candidate for biopsies or any other further intervention being a therapeutic or surgical interventions regarding the site upper lobe opacity. 4. New-onset seizure activity -- Status post fall, possible seizure or per neurology possible convulsive syncope 5. Previous TIA, difficulty speaking resolved. 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 No surgery recommended at this time, continued outpatient monitoring. 6. Mild encephalopathy, etiology unclear reported per EEG 7. Central cord syndrome, Cervical spinal stenosis ;C3-C4 moderate to severe and C5-C6 moderate spinal canal stenosis, additional multilevel bilateral moderate to severe neural foraminal stenosis extending from C3-C4 through C5-C6 reported as per cervical MRI, orthopedic spine recommending steroids/conserv ative management 8. Hypertension; amlodipine 5 mg daily 9. Hyperlipidemia; Lipitor 40 mg by mouth daily at bedtime
[2021-12-27 20:07] LABS: Glucose,Whole Blood 257 mg/dL (70-110)
[2021-12-27] MEDS: INSULIN DETEMIR (LEVEMIR) 100 UNIT/ML SYR SQ SCH (20:47)
[2021-12-27] MEDS: ATORVASTATIN 40 MG TAB PO SCH (20:47)
[2021-12-28] MEDS ORDERED: LORazepam 0.5 MG TAB PO PRN (01:24)
[2021-12-28 02:00] LABS: Glucose,Whole Blood 59 mg/dL (70-110)
[2021-12-28 02:18] LABS: Glucose,Whole Blood 87 mg/dL (70-110)
[2021-12-28 06:11] LABS: Glucose,Whole Blood 89 mg/dL (70-110)
[2021-12-28] MEDS: INSULIN ASPART (NovoLOG) 100 UNIT/ML VIAL SQ SCH ×4 (06:27→20:23)
[2021-12-28] MEDS: methylPREDNISolone SOD SUCCI 125 MG/2 ML VIAL IV SCH ×4 (06:40→22:59)
[2021-12-28] MEDS: PANTOPRAZOLE 40 MG TABLET PO SCH (06:40)
[2021-12-28 07:55] LABS: African American GFR (CKD) >90 (>60 ml/min/1.73 sqM); Anion Gap 2 mmol/L; Blood Urea Nitrogen 23 mg/dL (9-20); Calcium 8.6 mg/dL (8.4-10.2); Carbon Dioxide 30 mmol/L (22-30); Chloride 104 mmol/L (98-107); Glucose 64 mg/dL (74-99); Non-African American GFR(CKD) 82 (>60 ml/min/1.73 sqM); Potassium 4.4 mmol/L (3.5-5.1); Sodium 136 mmol/L (137-145)
[2021-12-28] MEDS: IPRATROPIUM-ALBUTEROL 3 ML NEB INHALATION SCH ×4 (08:34→20:56)
[2021-12-28] MEDS: SYMBICORT 80-4.5 MCG INHALER INHALATION SCH ×2 (08:34→20:56)
[2021-12-28 08:49] LABS: Basophils % (A) 0 %; Eosinophils % (A) 0 %; HCT 25.2 % (39.0-53.0); HGB 7.7 gm/dL (13.0-17.5); Hypochromasia Marked; Lymphocytes # (A) 0.3 k/uL (1.0-4.8); Lymphocytes % (A) 3 %; MCH 29.3 pg (25.0-35.0); MCHC 30.6 g/dL (31.0-37.0); MCV 95.7 fL (80.0-100.0); Mean Platelet Volume 7.8; Monocytes # (A) 0.2 k/uL (0-1.0); Monocytes % (A) 2 %; Neutrophils # (A) 12.7 k/uL (1.3-7.7); Neutrophils % (A) 95 %; Platelet Count 320 k/uL (150-450); Poikilocytosis Slight; RBC 2.64 m/uL (4.30-5.90); RDW 15.1 % (11.5-15.5); WBC 13.3 k/uL (3.8-10.6)
[2021-12-28] MEDS: ERTAPENEM 1 GM in SODIUM CHLORIDE 0.9% 50 ML IVPB SCH (10:17)
[2021-12-28] MEDS: amLODIPine 5 MG TAB PO SCH (10:17)
[2021-12-28] MEDS: FOLIC ACID 1 MG TAB PO SCH (10:18)
[2021-12-28] MEDS: ASPIRIN 81 MG PO SCH (10:18)
[2021-12-28] MEDS: CLOPIDOGREL 75 MG TAB PO SCH (10:18)
[2021-12-28] MEDS: FINASTERIDE 5 MG TAB PO SCH (10:18)
[2021-12-28] MEDS: TAMSULOSIN 0.4 MG CAP.ER.24H PO SCH ×2 (10:18→20:23)
[2021-12-28 11:35] LABS: Glucose,Whole Blood 143 mg/dL (70-110)
--- NOTE | 2021-12-28 13:04 | P.PN ---
Subjective Progress Note Date: 12/28/21 Principal diagnosis: Acute urinary tract infection, and advanced COPD with chronic hypoxic respiratory failure I was asked to evaluate this patient for shortness of breath and dyspnea. The patient presented emergency department because of increased shortness of breath. He is known to have advanced COPD and the patient has been oxygen dependent at 3 L per minute nasal cannula. The patient has some limited cough. No significant sputum production. He is chronically short of breath and he has developed significant limitation excess capacity because of his underlying advan lana COPD he also has a right upper lobe opacity, a spiculated lesion that needs to be further investigated. The patient was supposed underwent PET scan on outpatient basis and this has not been completed. The patient was in the hospital back in October 2021 and that time the patient had a gram-negative urine checked infection with Enterobacter. I was reviewing the subsequent urine cultures and there is a urine culture that was done by his primary care physician on 12/17/2021 which showed again Enterobacter and this time the patient's Enterobacter was quite resistant to Rocephin and penicillins. The patient continues to have dysuria frequency or urgency. His UA was significantly abnormal and the patient had clumps of white cells and rare bacteria. Culture is still pending for now. Abdominal admission, his lactic acid was at 2.8 currently is at 3.0. The patient also developed an acute leukocytosis morning. The white cell count came from 14.8 up to 49.6. Hemoglobin stable at 7.8 and platelet count is at 352. The patient obviously has signs of UTI and some early sepsis. BUN is 24 with a creatinine of 1.1. His coagulation profile is within normal. D-dimer slightly elevated at 4.8. The patient was given a dose of Rocephin in the emergency department. I discontinued the Rocephin and give the patient IV Invanz. He is not altered. Is able to communicate and answer questions appropriately. Denies having any chest pain. No flank pain. A CT abdomen chest was done in the emergency department and the patient was found to have no evidence of any pulmonary embolism. 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 The patient also has a right upper lobe mass measuring around 2.5 cm in size and anterior segment of the right upper lobe with central calcification and the patient has some right hilar mediastinal lymph node calcification also. Upon my evaluation, I ordered an ultrasound the abdomen and the kidneys and the patient was found to have moderate hydronephrosis. There was also debris within the urinary bladder consistent with infection and possible chronic bladder outlet obstruction. On today's evaluation of 12/26/2021, the patient is stable. The patient is being covered with broad-spectrum antibiotics. Urine cultures are still pending for now. No new complaints. The patient remains on IV Invanz. The patient also will be seen by urology regarding the bilateral hydronephrosis and obstructive uropathy. No new labs are available from today. Cultures are still pending for now. The patient does not look to be septic or toxic at this point in time. His resting comfortably in bed. No other significant events otherwise for now. 12/27/2021, the patient is being seen for a follow-up. The patient is doing well. No specific complaints. Remains on IV Invanz. Urine cultures are still pending. The patient was seen by urology and Proscar was also added to his medication regimen. He remains on bronchodilators. He remains on systemic steroids. He is feeling better. Less short of breath. No altered mentation. Very fragile. Oral intake is quite low and the patient's body mass index is 19.4. No other significant issues otherwise for now. Reevaluated today on 12/28/21, patient is doing relatively well, no active pulmonary issues, he does have underlying COPD, but he seems to be comfortable, and not in any distress. His urinary tract infection and his hydronephrosis is being addressed by urology and by infectious disease on the case. WBC count today is 13.3 hemoglobin 7.7. Basic metabolic profile is normal Objective - Vital Signs Vital signs: Vital Signs Temp 97.8 F 12/28/21 08:00 Pulse 82 12/28/21 11:57 Resp 18 12/28/21 08:00 BP 116/65 12/28/21 08:00 Pulse Ox 98 12/28/21 08:23 FiO2 32 12/27/21 20:10 Intake & Output 12/27/21 12/28/21 12/28/21 18:59 06:59 18:59 Intake Total 118 Output Total 1580 2675 Balance -1462 -2675 Intake: Oral 118 Output: Urine 800 2675 Post Void Residual 780 Other: Voiding Method Indwelling Catheter Indwelling Catheter - Exam GENERAL EXAM: Revealed 81-year-old white male in no distress. HEENT: PERRLA, EOMI, nonicteric, no neck masses, no JVD. CHEST: No chest wall deformity. LUNGS: Symmetrical chest expansion, expiratory rhonchi and wheezes noted bilaterally. Mostly on forced expiratory maneuver. CVS: S1 and S2 normal with no audible murmur, regular rhythm. ABDOMEN: No hepatosplenomegaly, normal bowel sounds, no guarding or rigidity. SPINE: No scoliosis or deformity SKIN: No rashes CENTRAL NERVOUS SYSTEM: Alert and oriented 3 no gross focal deficits. EXTREMITIES: No clubbing edema or cyanosis. - Labs CBC & Chem 7: 12/28/21 08:22 12/28/21 06:57 Labs: Abnormal Lab Results - Last 24 Hours (Table) 12/27/21 12/27/21 12/28/21 Range/Units 16:26 20:05 01:59 WBC (3.8-10.6) k/uL RBC (4.30-5.90) m/uL Hgb (13.0-17.5) gm/dL Hct (39.0-53.0) % MCHC (31.0-37.0) g/dL Neutrophils # (1.3-7.7) k/uL Lymphocytes # (1.0-4.8) k/uL Sodium (137-145) mmol/L BUN (9-20) mg/dL Glucose (74-99) mg/dL POC Glucose (mg/dL) 133 H 257 H 59 L (70-110) mg/dL Plasma Lactic Acid Mele (0.7-2.0) mmol/L 12/28/21 12/28/21 12/28/21 Range/Units 06:57 08:22 08:22 WBC 13.3 H (3.8-10.6) k/uL RBC 2.64 L (4.30-5.90) m/uL Hgb 7.7 L (13.0-17.5) gm/dL Hct 25.2 L (39.0-53.0) % MCHC 30.6 L (31.0-37.0) g/dL Neutrophils # 12.7 H (1.3-7.7) k/uL Lymphocytes # 0.3 L (1.0-4.8) k/uL Sodium 136 L (137-145) mmol/L BUN 23 H (9-20) mg/dL Glucose 64 L (74-99) mg/dL POC Glucose (mg/dL) (70-110) mg/dL Plasma Lactic Acid Mele 3.6 H* (0.7-2.0) mmol/L 12/28/21 12/28/21 Range/Units 11:09 11:33 WBC (3.8-10.6) k/uL RBC (4.30-5.90) m/uL Hgb (13.0-17.5) gm/dL Hct (39.0-53.0) % MCHC (31.0-37.0) g/dL Neutrophils # (1.3-7.7) k/uL Lymphocytes # (1.0-4.8) k/uL Sodium (137-145) mmol/L BUN (9-20) mg/dL Glucose (74-99) mg/dL POC Glucose (mg/dL) 143 H (70-110) mg/dL Plasma Lactic Acid Mele 2.3 H* (0.7-2.0) mmol/L Assessment and Plan Assessment: Impression: Acute urinary tract infection/recurrent,/cultures are pending. In the meantime the patient remains on Invanz. Advanced COPD with chronic hypoxic respiratory failure Right upper lobe mass, needs evaluation on outpatient basis. Suspicious for malignancy. Chronic anemia New onset seizure History of TIA Central cord syndrome Coronary artery disease Benign essential hypertension Ex-smoker Degenerative joint disease Dyslipidemia Recommendation: Continue antibiotics as per ID on the case. Continue bronchodilators for underlying COPD Will need outpatient follow-up post discharge. PET scan on outpatient basis after discharge and follow-up on our office Continue Flomax. Continue to monitor urine output. Continue supportive care measures. Will follow. Time with Patient: Less than 30
[2021-12-28 16:32] LABS: Glucose,Whole Blood 182 mg/dL (70-110)
[2021-12-28 20:00] LABS: Glucose,Whole Blood 163 mg/dL (70-110)
[2021-12-28] MEDS: INSULIN DETEMIR (LEVEMIR) 100 UNIT/ML SYR SQ SCH (20:23)
[2021-12-28] MEDS: ATORVASTATIN 40 MG TAB PO SCH (20:23)
[2021-12-29 06:08] LABS: Glucose,Whole Blood 114 mg/dL (70-110)
[2021-12-29] MEDS: PANTOPRAZOLE 40 MG TABLET PO SCH (06:12)
[2021-12-29] MEDS: methylPREDNISolone SOD SUCCI 125 MG/2 ML VIAL IV SCH (06:12)
[2021-12-29] MEDS: INSULIN ASPART (NovoLOG) 100 UNIT/ML VIAL SQ SCH ×4 (06:14→20:32)
[2021-12-29] MEDS: IPRATROPIUM-ALBUTEROL 3 ML NEB INHALATION SCH ×4 (08:12→20:38)
[2021-12-29] MEDS: SYMBICORT 80-4.5 MCG INHALER INHALATION SCH ×2 (08:12→20:38)
--- NOTE | 2021-12-29 09:00 | P.PN ---
Progress Note - Text Progress Note Date: 12/29/21 Mr. Olivarez Paige catheter is draining clear yellow urine. It was placed on December 27 because his postvoid residual exceeded 800 mL. He continues to receive ertapenem. From a urologic standpoint, he may be discharged home on appropriate oral antibiotics, with the Paige catheter, and follow up with Dr. Vickers. Please notify me if I can be of any further assistance.
[2021-12-29] MEDS: TAMSULOSIN 0.4 MG CAP.ER.24H PO SCH ×2 (11:31→20:31)
[2021-12-29] MEDS: amLODIPine 5 MG TAB PO SCH (11:31)
[2021-12-29] MEDS: ASPIRIN 81 MG PO SCH (11:31)
[2021-12-29] MEDS: FOLIC ACID 1 MG TAB PO SCH (11:31)
[2021-12-29] MEDS: CLOPIDOGREL 75 MG TAB PO SCH (11:31)
[2021-12-29] MEDS: FINASTERIDE 5 MG TAB PO SCH (11:31)
[2021-12-29] MEDS: ERTAPENEM 1 GM in SODIUM CHLORIDE 0.9% 50 ML IVPB SCH (11:32)
[2021-12-29 11:46] LABS: Glucose,Whole Blood 157 mg/dL (70-110)
--- NOTE | 2021-12-29 12:28 | P.PN ---
Subjective Progress Note Date: 12/29/21 Principal diagnosis: Acute urinary tract infection, and advanced COPD with chronic hypoxic respiratory failure I was asked to evaluate this patient for shortness of breath and dyspnea. The patient presented emergency department because of increased shortness of breath. He is known to have advanced COPD and the patient has been oxygen dependent at 3 L per minute nasal cannula. The patient has some limited cough. No significant sputum production. He is chronically short of breath and he has developed significant limitation excess capacity because of his underlying advan lana COPD he also has a right upper lobe opacity, a spiculated lesion that needs to be further investigated. The patient was supposed underwent PET scan on outpatient basis and this has not been completed. The patient was in the hospital back in October 2021 and that time the patient had a gram-negative urine checked infection with Enterobacter. I was reviewing the subsequent urine cultures and there is a urine culture that was done by his primary care physician on 12/17/2021 which showed again Enterobacter and this time the patient's Enterobacter was quite resistant to Rocephin and penicillins. The patient continues to have dysuria frequency or urgency. His UA was significantly abnormal and the patient had clumps of white cells and rare bacteria. Culture is still pending for now. Abdominal admission, his lactic acid was at 2.8 currently is at 3.0. The patient also developed an acute leukocytosis morning. The white cell count came from 14.8 up to 49.6. Hemoglobin stable at 7.8 and platelet count is at 352. The patient obviously has signs of UTI and some early sepsis. BUN is 24 with a creatinine of 1.1. His coagulation profile is within normal. D-dimer slightly elevated at 4.8. The patient was given a dose of Rocephin in the emergency department. I discontinued the Rocephin and give the patient IV Invanz. He is not altered. Is able to communicate and answer questions appropriately. Denies having any chest pain. No flank pain. A CT abdomen chest was done in the emergency department and the patient was found to have no evidence of any pulmonary embolism. 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 The patient also has a right upper lobe mass measuring around 2.5 cm in size and anterior segment of the right upper lobe with central calcification and the patient has some right hilar mediastinal lymph node calcification also. Upon my evaluation, I ordered an ultrasound the abdomen and the kidneys and the patient was found to have moderate hydronephrosis. There was also debris within the urinary bladder consistent with infection and possible chronic bladder outlet obstruction. On today's evaluation of 12/26/2021, the patient is stable. The patient is being covered with broad-spectrum antibiotics. Urine cultures are still pending for now. No new complaints. The patient remains on IV Invanz. The patient also will be seen by urology regarding the bilateral hydronephrosis and obstructive uropathy. No new labs are available from today. Cultures are still pending for now. The patient does not look to be septic or toxic at this point in time. His resting comfortably in bed. No other significant events otherwise for now. 12/27/2021, the patient is being seen for a follow-up. The patient is doing well. No specific complaints. Remains on IV Invanz. Urine cultures are still pending. The patient was seen by urology and Proscar was also added to his medication regimen. He remains on bronchodilators. He remains on systemic steroids. He is feeling better. Less short of breath. No altered mentation. Very fragile. Oral intake is quite low and the patient's body mass index is 19.4. No other significant issues otherwise for now. Reevaluated today on 12/28/21, patient is doing relatively well, no active pulmonary issues, he does have underlying COPD, but he seems to be comfortable, and not in any distress. His urinary tract infection and his hydronephrosis is being addressed by urology and by infectious disease on the case. WBC count today is 13.3 hemoglobin 7.7. Basic metabolic profile is normal Reevaluated today on 12/29/21, patient is doing well pulmonary perspective, he was seen by urology, and recommended discharge home on oral antibiotics. Patient is complaining of weakness, he cannot ambulate without assistance, and he was given a walker to use at bedside. But he had difficulty using it on his own. I believe the patient will definitely need referral to a rehab facility/ECF from the pulmonary perspective, I will clear the patient to be discharged home, and we will change his antibiotics to Bactrim to cover En terobacter infection in the urine. This should be given for no more than 5 days Objective - Vital Signs Vital signs: Vital Signs Temp 97.4 F L 12/29/21 11:34 Pulse 81 12/29/21 11:42 Resp 18 12/29/21 11:34 BP 131/63 12/29/21 11:34 Pulse Ox 99 12/29/21 11:34 FiO2 32 12/27/21 20:10 Intake & Output 12/28/21 12/29/21 12/29/21 18:59 06:59 18:59 Intake Total 500 490 420 Output Total 1150 2500 Balance -650 490 -2080 Weight 54.431 kg Intake: IV 20 10 Invasive Line 2 20 10 Oral 480 480 420 Output: Urine 1150 2500 Other: Voiding Method Indwelling Catheter Indwelling Catheter # Voids 2 - Exam GENERAL EXAM: Revealed 81-year-old white male in no distress. HEENT: PERRLA, EOMI, nonicteric, no neck masses, no JVD. CHEST: No chest wall deformity. LUNGS: Symmetrical chest expansion, expiratory rhonchi and wheezes noted bilaterally. Mostly on forced expiratory maneuver. CVS: S1 and S2 normal with no audible murmur, regular rhythm. ABDOMEN: No hepatosplenomegaly, normal bowel sounds, no guarding or rigidity. SPINE: No scoliosis or deformity SKIN: No rashes CENTRAL NERVOUS SYSTEM: Alert and oriented 3 no gross focal deficits. EXTREMITIES: No clubbing edema or cyanosis. - Labs CBC & Chem 7: 12/28/21 08:22 12/28/21 06:57 Labs: Abnormal Lab Results - Last 24 Hours (Table) 12/28/21 12/28/21 12/29/21 Range/Units 16:31 19:58 06:07 POC Glucose (mg/dL) 182 H 163 H 114 H (70-110) mg/dL 12/29/21 Range/Units 11:34 POC Glucose (mg/dL) 157 H (70-110) mg/dL Microbiology - Last 24 Hours (Table) 12/28/21 08:22 Blood Culture - Preliminary Blood No Growth after 24 hours Assessment and Plan Assessment: Impression: Acute urinary tract infection/patient is on Invanz urine cultures from 12/17 were positive for Enterobacter aerogenes Advanced COPD with chronic hypoxic respiratory failure Right upper lobe mass, needs evaluation on outpatient basis. Suspicious for malignancy. Chronic anemia New onset seizure History of TIA Central cord syndrome Coronary artery disease Benign essential hypertension Ex-smoker Degenerative joint disease Dyslipidemia Recommendation: Continue bronchodilators for underlying COPD Will need outpatient follow-up post discharge. Patient should have outpatient follow-up possibly a PET scan on outpatient basis Bactrim for 5 days orally student services director to evaluate for possible rehab placement Continue Flomax. Cleared from the pulmonary perspective for discharge planning Will follow. Time with Patient: Less than 30
[2021-12-29 16:36] LABS: Glucose,Whole Blood 151 mg/dL (70-110)
[2021-12-29 20:23] LABS: Glucose,Whole Blood 149 mg/dL (70-110)
[2021-12-29] MEDS: INSULIN DETEMIR (LEVEMIR) 100 UNIT/ML SYR SQ SCH (20:31)
[2021-12-29] MEDS: ATORVASTATIN 40 MG TAB PO SCH (20:31)
[2021-12-29] MEDS: SULFAMETHOX-TMP 800-160MG 1 EACH TAB PO SCH (21:01)
--- NOTE | 2021-12-29 21:06 | P.PN ---
Subjective Progress Note Date: 12/28/21 patient is pleasant 81-year-old male who is doing better today with less shortness of breath however he does suffer from extreme weakness which is currently under physical therapy evaluation for. He continues pulmonary treatment at this time. He denies any fever he wants to slightly more productive cough and he denies any chest pain Objective - Vital Signs Vital signs: Vital Signs Temp 97.9 F 12/28/21 23:21 Pulse 83 12/28/21 23:21 Resp 18 12/28/21 23:21 BP 126/66 12/28/21 23:21 Pulse Ox 99 12/28/21 23:21 FiO2 32 12/27/21 20:10 Intake & Output 12/28/21 12/28/21 12/29/21 06:59 18:59 06:59 Intake Total 500 10 Output Total 2675 1150 Balance -2675 -650 10 Weight 54.431 kg Intake: IV 20 10 Invasive Line 2 20 10 Oral 480 Output: Urine 2675 1150 Other: Voiding Method Indwelling Catheter Indwelling Catheter Indwelling Catheter - Exam GENERAL EXAM: Alert, very pleasant 79-year-old gentleman, on 4 L nasal cannula, comfortable in no apparent distress. HEAD: Normocephalic. EYES: Normal reaction of pupils, equal size. NOSE: Clear with pink turbinates. THROAT: No erythema or exudates. NECK: No masses, no JVD. CHEST: No chest wall deformity. LUNGS: Equal air entry with crackles in left posterior bases, end expiratory wheeze, diminished CVS: S1 and S2 normal with no audible murmur, regular rhythm. ABDOMEN: No hepatosplenomegaly, normal bowel sounds, no guarding or rigidity. SPINE: No scoliosis or deformity SKIN: No rashes CENTRAL NERVOUS SYSTEM: No focal deficits, tone is normal in all 4 extremities. EXTREMITIES: There is no peripheral edema. No clubbing, no cyanosis. Peripheral pulses are intact. - Labs CBC & Chem 7: 12/28/21 08:22 12/28/21 06:57 Labs: Abnormal Lab Results - Last 24 Hours (Table) 12/28/21 12/28/21 12/28/21 Range/Units 01:59 06:57 08:22 WBC 13.3 H (3.8-10.6) k/uL RBC 2.64 L (4.30-5.90) m/uL Hgb 7.7 L (13.0-17.5) gm/dL Hct 25.2 L (39.0-53.0) % MCHC 30.6 L (31.0-37.0) g/dL Neutrophils # 12.7 H (1.3-7.7) k/uL Lymphocytes # 0.3 L (1.0-4.8) k/uL Sodium 136 L (137-145) mmol/L BUN 23 H (9-20) mg/dL Glucose 64 L (74-99) mg/dL POC Glucose (mg/dL) 59 L (70-110) mg/dL Plasma Lactic Acid Mele (0.7-2.0) mmol/L 12/28/21 12/28/21 12/28/21 Range/Units 08:22 11:09 11:33 WBC (3.8-10.6) k/uL RBC (4.30-5.90) m/uL Hgb (13.0-17.5) gm/dL Hct (39.0-53.0) % MCHC (31.0-37.0) g/dL Neutrophils # (1.3-7.7) k/uL Lymphocytes # (1.0-4.8) k/uL Sodium (137-145) mmol/L BUN (9-20) mg/dL Glucose (74-99) mg/dL POC Glucose (mg/dL) 143 H (70-110) mg/dL Plasma Lactic Acid Mele 3.6 H* 2.3 H* (0.7-2.0) mmol/L 12/28/21 12/28/21 Range/Units 16:31 19:58 WBC (3.8-10.6) k/uL RBC (4.30-5.90) m/uL Hgb (13.0-17.5) gm/dL Hct (39.0-53.0) % MCHC (31.0-37.0) g/dL Neutrophils # (1.3-7.7) k/uL Lymphocytes # (1.0-4.8) k/uL Sodium (137-145) mmol/L BUN (9-20) mg/dL Glucose (74-99) mg/dL POC Glucose (mg/dL) 182 H 163 H (70-110) mg/dL Plasma Lactic Acid Mele (0.7-2.0) mmol/L Assessment and Plan (1) Anemia Current Visit: Yes Status: Acute Code(s): D64.9 - ANEMIA, UNSPECIFIED SNOMED Code(s): 528992907 (2) Acute exacerbation of chronic obstructive pulmonary disease Current Visit: No Status: Acute Code(s): J44.1 - CHRONIC OBSTRUCTIVE PULMONARY DISEASE W (ACUTE) EXACERBATION SNOMED Code(s): 624750996 (3) Acute on chronic renal failure Current Visit: No Status: Acute Code(s): N17.9 - ACUTE KIDNEY FAILURE, UNSPECIFIED; N18.9 - CHRONIC KIDNEY DISEASE, UNSPECIFIED SNOMED Code(s): 854737800 (4) Coronary artery disease Current Visit: No Status: Acute Code(s): I25.10 - ATHSCL HEART DISEASE OF [place] CORONARY ARTERY W/O ANG PCTRS SNOMED Code(s): 57707822 (5) Degenerative cervical disc Current Visit: No Status: Acute Code(s): M50.30 - OTHER CERVICAL DISC DEGENERATION, UNSP CERVICAL REGION SNOMED Code(s): 30929247 (6) Frequent falls Current Visit: No Status: Acute Code(s): R29.6 - REPEATED FALLS SNOMED Code(s): 533643741 (7) GERD (gastroesophageal reflux disease) Current Visit: No Status: Acute Code(s): K21.9 - GASTRO-ESOPHAGEAL REFLUX DISEASE WITHOUT ESOPHAGITIS SNOMED Code(s): 105498937 (8) Hard of hearing Current Visit: No Status: Acute Code(s): H91.90 - UNSPECIFIED HEARING LOSS, UNSPECIFIED EAR SNOMED Code(s): 37775966 (9) History of coronary artery bypass graft Current Visit: No Status: Acute Code(s): Z95.1 - PRESENCE OF AORTOCORONARY BYPASS GRAFT SNOMED Code(s): 014655977 (10) UTI (urinary tract infection) Current Visit: Yes Status: Acute Code(s): N39.0 - URINARY TRACT INFECTION, SITE NOT SPECIFIED SNOMED Code(s): 84002814
--- NOTE | 2021-12-29 21:14 | P.PN ---
Subjective Progress Note Date: 12/29/21 patient is pleasant 81-year-old male who is doing better today with less shortness of breath however he does suffer from extreme weakness which is currently under physical therapy evaluation for. He continues pulmonary treatment at this time. He denies any fever he wants to slightly more productive cough and he denies any chest pain 12/29/21 patient seen today doing much better he still with folely catheter will continue to monitor signs and symptoms of infection no fever reported working with physical therapy Objective - Vital Signs Vital signs: Vital Signs Temp 97.6 F 12/29/21 16:36 Pulse 84 12/29/21 20:48 Resp 18 12/29/21 16:36 BP 120/72 12/29/21 16:36 Pulse Ox 98 12/29/21 16:36 FiO2 32 12/27/21 20:10 Intake & Output 12/29/21 12/29/21 12/30/21 06:59 18:59 06:59 Intake Total 490 1000 Output Total 4300 900 Balance 490 -3300 -900 Intake: IV 10 20 Invasive Line 2 10 20 Oral 480 980 Output: Urine 4300 900 Other: Voiding Method Indwelling Catheter Indwelling Catheter # Voids 2 - Exam GENERAL EXAM: Alert, very pleasant 79-year-old gentleman, on 4 L nasal cannula, comfortable in no apparent distress. HEAD: Normocephalic. EYES: Normal reaction of pupils, equal size. NOSE: Clear with pink turbinates. THROAT: No erythema or exudates. NECK: No masses, no JVD. CHEST: No chest wall deformity. LUNGS: Equal air entry with crackles in left posterior bases, end expiratory wheeze, diminished CVS: S1 and S2 normal with no audible murmur, regular rhythm. ABDOMEN: No hepatosplenomegaly, normal bowel sounds, no guarding or rigidity. SPINE: No scoliosis or deformity SKIN: No rashes CENTRAL NERVOUS SYSTEM: No focal deficits, tone is normal in all 4 extremities. EXTREMITIES: There is no peripheral edema. No clubbing, no cyanosis. Peripheral pulses are intact. - Labs CBC & Chem 7: 12/28/21 08:22 12/28/21 06:57 Labs: Abnormal Lab Results - Last 24 Hours (Table) 12/29/21 12/29/21 12/29/21 Range/Units 06:07 11:34 16:29 POC Glucose (mg/dL) 114 H 157 H 151 H (70-110) mg/dL 12/29/21 Range/Units 20:21 POC Glucose (mg/dL) 149 H (70-110) mg/dL Microbiology - Last 24 Hours (Table) 12/28/21 08:22 Blood Culture - Preliminary Blood No Growth after 24 hours Assessment and Plan (1) Anemia Current Visit: Yes Status: Acute Code(s): D64.9 - ANEMIA, UNSPECIFIED SNOMED Code(s): 409273802 (2) Acute exacerbation of chronic obstructive pulmonary disease Current Visit: No Status: Acute Code(s): J44.1 - CHRONIC OBSTRUCTIVE PULMONARY DISEASE W (ACUTE) EXACERBATION SNOMED Code(s): 156000049 (3) Acute on chronic renal failure Current Visit: No Status: Acute Code(s): N17.9 - ACUTE KIDNEY FAILURE, UNSPECIFIED; N18.9 - CHRONIC KIDNEY DISEASE, UNSPECIFIED SNOMED Code(s): 702370434 (4) Coronary artery disease Current Visit: No Status: Acute Code(s): I25.10 - ATHSCL HEART DISEASE OF [place] CORONARY ARTERY W/O ANG PCTRS SNOMED Code(s): 23145454 (5) Degenerative cervical disc Current Visit: No Status: Acute Code(s): M50.30 - OTHER CERVICAL DISC DEGENERATION, UNSP CERVICAL REGION SNOMED Code(s): 88839508 (6) Frequent falls Current Visit: No Status: Acute Code(s): R29.6 - REPEATED FALLS SNOMED Code(s): 339365160 (7) GERD (gastroesophageal reflux disease) Current Visit: No Status: Acute Code(s): K21.9 - GASTRO-ESOPHAGEAL REFLUX DISEASE WITHOUT ESOPHAGITIS SNOMED Code(s): 057183229 (8) Hard of hearing Current Visit: No Status: Acute Code(s): H91.90 - UNSPECIFIED HEARING LOSS, UNSPECIFIED EAR SNOMED Code(s): 32959968 (9) History of coronary artery bypass graft Current Visit: No Status: Acute Code(s): Z95.1 - PRESENCE OF AORTOCORONARY BYPASS GRAFT SNOMED Code(s): 292000863 (10) UTI (urinary tract infection) Current Visit: Yes Status: Acute Code(s): N39.0 - URINARY TRACT INFECTION, SITE NOT SPECIFIED SNOMED Code(s): 04690252 Plan: continue IV antibiotics continue pulmonary support continue physical therapy anticipate discharge in the next 24 to 36 hours.
[2021-12-30 06:03] LABS: Glucose,Whole Blood 76 mg/dL (70-110)
[2021-12-30] MEDS: INSULIN ASPART (NovoLOG) 100 UNIT/ML VIAL SQ SCH ×4 (06:11→20:14)
[2021-12-30] MEDS: PANTOPRAZOLE 40 MG TABLET PO SCH (06:13)
[2021-12-30] MEDS: SYMBICORT 80-4.5 MCG INHALER INHALATION SCH ×2 (08:38→20:24)
[2021-12-30] MEDS: IPRATROPIUM-ALBUTEROL 3 ML NEB INHALATION SCH ×4 (08:38→20:25)
[2021-12-30] MEDS: SULFAMETHOX-TMP 800-160MG 1 EACH TAB PO SCH ×2 (10:21→20:14)
[2021-12-30] MEDS: CLOPIDOGREL 75 MG TAB PO SCH (10:22)
[2021-12-30] MEDS: FOLIC ACID 1 MG TAB PO SCH (10:22)
[2021-12-30] MEDS: TAMSULOSIN 0.4 MG CAP.ER.24H PO SCH ×2 (10:22→20:14)
[2021-12-30] MEDS: ASPIRIN 81 MG PO SCH (10:22)
[2021-12-30] MEDS: FINASTERIDE 5 MG TAB PO SCH (10:22)
[2021-12-30] MEDS: amLODIPine 5 MG TAB PO SCH (10:22)
[2021-12-30 11:44] LABS: Basophils % (A) 0 %; Eosinophils % (A) 0 %; HCT 23.7 % (39.0-53.0); HGB 7.3 gm/dL (13.0-17.5); Hypochromasia Marked; Lymphocytes # (A) 0.8 k/uL (1.0-4.8); Lymphocytes % (A) 6 %; MCH 28.5 pg (25.0-35.0); MCHC 30.9 g/dL (31.0-37.0); MCV 92.3 fL (80.0-100.0); Mean Platelet Volume 7.9; Monocytes # (A) 0.6 k/uL (0-1.0); Monocytes % (A) 5 %; Neutrophils # (A) 10.7 k/uL (1.3-7.7); Neutrophils % (A) 88 %; Platelet Count 312 k/uL (150-450); Poikilocytosis Slight; RBC 2.57 m/uL (4.30-5.90); RDW 15.1 % (11.5-15.5); WBC 12.2 k/uL (3.8-10.6)
[2021-12-30 11:51] LABS: Glucose,Whole Blood 158 mg/dL (70-110)
[2021-12-30 12:12] LABS: Calcium 8.5 mg/dL (8.4-10.2); Potassium 4.2 mmol/L (3.5-5.1)
--- NOTE | 2021-12-30 12:46 | P.DS ---
Providers Date of admission: 12/25/21 03:57 Expected date of discharge: 12/30/21 Attending physician: Jorge L Puente Consults: 12/25/21 00:24 Consult Physician Routine Consulting Provider: Filiberto Maurer Consult Reason/Comments: COPD exacerbation. Dyspnea. Do you want consulting provider notified?: Yes 12/25/21 03:57 Consult Physician Routine Consulting Provider: David Vickers Consult Reason/Comments: Your patient. Hematuria Do you want consulting provider notified?: Yes Primary care physician: Jorge L Puente [facility] Course: Final diagnoses Assessment and Plan (1) Anemia, chronic Current Visit: Yes Status: Acute Code(s): D64.9 - ANEMIA, UNSPECIFIED S NOMED Code(s): 561359875 (2) Acute exacerbation of chronic obstructive pulmonary disease Current Visit: No Status: Acute Code(s): J44.1 - CHRONIC OBSTRUCTIVE PULMONARY DISEASE W (ACUTE) EXACERBATION SNOMED Code(s): 353390757 (3) Acute on chronic renal failure Current Visit: No Status: Acute Code(s): N17.9 - ACUTE KIDNEY FAILURE, UNSPECIFIED; N18.9 - CHRONIC KIDNEY DISEASE, UNSPECIFIED SNOMED Code(s): 137413438 (4) Coronary artery disease Current Visit: No Status: Acute Code(s): I25.10 - ATHSCL HEART DISEASE OF [place] CORONARY ARTERY W/O ANG PCTRS SNOMED Code(s): 65813341 (5) Degenerative cervical disc Current Visit: No Status: Acute Code(s): M50.30 - OTHER CERVICAL DISC DEGENERATION, UNSP CERVICAL REGION SNOMED Code(s): 57061910 (6) Frequent falls Current Visit: No Status: Acute Code(s): R29.6 - REPEATED FALLS SNOMED Code(s): 533072396 (7) GERD (gastroesophageal reflux disease) Current Visit: No Status: Acute Code(s): K21.9 - GASTRO-ESOPHAGEAL REFLUX DISEASE WITHOUT ESOPHAGITIS SNOMED Code(s): 648805777 (8) Hard of hearing Current Visit: No Status: Acute Code(s): H91.90 - UNSPECIFIED HEARING LOSS, UNSPECIFIED EAR SNOMED Code(s): 81875919 (9) History of coronary artery bypass graft Current Visit: No Status: Acute Code(s): Z95.1 - PRESENCE OF AORTOCORONARY BYPASS GRAFT SNOMED Code(s): 130729899 (10) UTI (urinary tract infection) with urine cultures on 12/17 reporting Enterobacter aerogenesis Current Visit: Yes Status: Acute Code(s): N39.0 - URINARY TRACT INFECTION, SITE NOT SPECIFIED SNOMED Code(s): 87848160 (11) right upper lobe mass, further outpatient evaluation/PET scan recommended Hospital course: This is an 81-year-old gentleman admitted with acute UTI, advanced COPD, chronic hypoxic respiratory failure, bilateral hydronephrosis and multiple other medical issues. Evaluated and treated by pulmonary, urology .Chest CTA completed, reporting no evidence of any pulmonary embolism; positive bullous emphysema,right upper lobe mass measuring around 2.5 cm in size and anterior segment of the right upper lobe with central calcification-stable compared to prior computed tomography scan. Per pulmonary review, patient also has right hilar mediastinal lymph node calcification. Abdomen/Pelvis ultrasound completed reporting bilateral moderate hydronephrosis with debris within the urinary bladder consistent with infection and possible chronic bladder outlet obstruction. Maintained on ertapenem. Continued on Flomax. High post-residuals exceeding 800 MLS, required Paige catheter placement; per urology bilateral hydronephrosis likely due to urinary retention. Patient to be maintained with Paige catheter and follow-up with urology in 1 week for further recommendations. Telemetry sinus rhythm, Chest pain, palpitations or increased shortness of breath. Significant clinical improvement but at the same time continues to have significant weakness. Cleared for discharge by both pulmonary and neurology. Evaluated by physical therapy recommending subacute rehab. Patient will be discharged today in a stable condition with guarded prognosis to [facility] subacute rehab. The impression and plan of care has been dictated as directed. : I performed a history and examination of this patient, discussed the same with the dictator. I agree with the dictator's note ,documented as a scribe. Any additional findings or plans will be noted. Patient Condition at Discharge: Stable Plan - Discharge Summary Discharge Rx Participant: No New Discharge Prescriptions: New Insulin Detemir (Levemir) [Levemir] 10 unit SQ HS each INSULIN ASPART (NovoLOG) [NovoLOG (formulary)] 0 unit SQ ACHS each Calcium Carbonate [Tums] 1,000 mg PO TID PRN tab PRN Reason: Heartburn Sulfamethox-Tmp 800-160Mg [Bactrim DS 800-160 mg] 1 each PO BID 5 Days #10 tab Ipratropium-Albuterol Nebulize [Duoneb 0.5 mg-3 mg/3 ml Soln] 3 ml INHALATION RT-QID each Albuterol Nebulized [Ventolin Nebulized] 2.5 mg INHALATION RT-Q4H PRN ml PRN Reason: Dyspnea Continue Aspirin EC [Ecotrin Low Dose] 81 mg PO DAILY Folic Acid 1 mg PO DAILY tab Atorvastatin [Lipitor] 40 mg PO HS #30 tab amLODIPine [Norvasc] 5 mg PO DAILY #30 tab Clopidogrel [Plavix] 75 mg PO DAILY #30 tab Fluticasone Propion/Salmeterol [Wixela 250-50 Inhub] 1 puff INHALATION RT-HS Albuterol Sulfate [Proair Hfa] 1 puff INHALATION RT-Q6H PRN PRN Reason: Shortness Of Breath Pantoprazole [Protonix] 40 mg PO AC-BRKFST #30 tab Tamsulosin HCl [Flomax] 0.4 mg PO BID Finasteride [Proscar] 5 mg PO DAILY Discontinued Tiotropium 18 Mcg/Puff [Spiriva] 1 puff INHALATION RT-DAILY Sulfamethox-Tmp 800-160Mg [Bactrim DS 800-160 mg] 1 tab PO BID Discharge Medication List Aspirin EC [Ecotrin Low Dose] 81 mg PO DAILY 11/13/18 [History] Albuterol Sulfate [Proair Hfa] 1 puff INHALATION RT-Q6H PRN 10/15/21 [History] Fluticasone Propion/Salmeterol [Wixela 250-50 Inhub] 1 puff INHALATION RT-HS 10/15/21 [History] Atorvastatin [Lipitor] 40 mg PO HS #30 tab 10/22/21 [Rx] Clopidogrel [Plavix] 75 mg PO DAILY #30 tab 10/22/21 [Rx] Folic Acid 1 mg PO DAILY tab 10/22/21 [Rx] Pantoprazole [Protonix] 40 mg PO AC-BRKFST #30 tab 10/22/21 [Rx] amLODIPine [Norvasc] 5 mg PO DAILY #30 tab 10/22/21 [Rx] Finasteride [Proscar] 5 mg PO DAILY 12/24/21 [History] Tamsulosin HCl [Flomax] 0.4 mg PO BID 12/24/21 [History] Albuterol Nebulized [Ventolin Nebulized] 2.5 mg INHALATION RT-Q4H PRN ml 12/30/21 [Rx] Calcium Carbonate [Tums] 1,000 mg PO TID PRN tab 12/30/21 [Rx] INSULIN ASPART (NovoLOG) [NovoLOG (formulary)] 0 unit SQ ACHS each 12/30/21 [Rx] Insulin Detemir (Levemir) [Levemir] 10 unit SQ HS each 12/30/21 [Rx] Ipratropium-Albuterol Nebulize [Duoneb 0.5 mg-3 mg/3 ml Soln] 3 ml INHALATION RT-QID each 12/30/21 [Rx] Sulfamethox-Tmp 800-160Mg [Bactrim DS 800-160 mg] 1 each PO BID 5 Days #10 tab 12/30/21 [Rx] Follow up Appointment(s)/Referral(s): David Vickers MD [STAFF PHYSICIAN] - 1 Week Filiberto Maurer MD [Family Provider] - 01/13/22 10:00 am Jorge L Puente DO [Primary Care Provider] - 1 Week (After DC from subacute rehab.) Activity/Diet/Wound Care/Special Instructions: ECF: [facility] Son pending Maintain Paige catheter, with management as per urology. Discharge Disposition: TRANSFER TO SNF/ECF
--- NOTE | 2021-12-30 14:33 | P.PN ---
Subjective Progress Note Date: 12/30/21 Principal diagnosis: Acute urinary tract infection, and advanced COPD with chronic hypoxic respiratory failure I was asked to evaluate this patient for shortness of breath and dyspnea. The patient presented emergency department because of increased shortness of breath. He is known to have advanced COPD and the patient has been oxygen dependent at 3 L per minute nasal cannula. The patient has some limited cough. No significant sputum production. He is chronically short of breath and he has developed significant limitation excess capacity because of his underlying advan lana COPD he also has a right upper lobe opacity, a spiculated lesion that needs to be further investigated. The patient was supposed underwent PET scan on outpatient basis and this has not been completed. The patient was in the hospital back in October 2021 and that time the patient had a gram-negative urine checked infection with Enterobacter. I was reviewing the subsequent urine cultures and there is a urine culture that was done by his primary care physician on 12/17/2021 which showed again Enterobacter and this time the patient's Enterobacter was quite resistant to Rocephin and penicillins. The patient continues to have dysuria frequency or urgency. His UA was significantly abnormal and the patient had clumps of white cells and rare bacteria. Culture is still pending for now. Abdominal admission, his lactic acid was at 2.8 currently is at 3.0. The patient also developed an acute leukocytosis morning. The white cell count came from 14.8 up to 49.6. Hemoglobin stable at 7.8 and platelet count is at 352. The patient obviously has signs of UTI and some early sepsis. BUN is 24 with a creatinine of 1.1. His coagulation profile is within normal. D-dimer slightly elevated at 4.8. The patient was given a dose of Rocephin in the emergency department. I discontinued the Rocephin and give the patient IV Invanz. He is not altered. Is able to communicate and answer questions appropriately. Denies having any chest pain. No flank pain. A CT abdomen chest was done in the emergency department and the patient was found to have no evidence of any pulmonary embolism. 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 The patient also has a right upper lobe mass measuring around 2.5 cm in size and anterior segment of the right upper lobe with central calcification and the patient has some right hilar mediastinal lymph node calcification also. Upon my evaluation, I ordered an ultrasound the abdomen and the kidneys and the patient was found to have moderate hydronephrosis. There was also debris within the urinary bladder consistent with infection and possible chronic bladder outlet obstruction. On today's evaluation of 12/26/2021, the patient is stable. The patient is being covered with broad-spectrum antibiotics. Urine cultures are still pending for now. No new complaints. The patient remains on IV Invanz. The patient also will be seen by urology regarding the bilateral hydronephrosis and obstructive uropathy. No new labs are available from today. Cultures are still pending for now. The patient does not look to be septic or toxic at this point in time. His resting comfortably in bed. No other significant events otherwise for now. 12/27/2021, the patient is being seen for a follow-up. The patient is doing well. No specific complaints. Remains on IV Invanz. Urine cultures are still pending. The patient was seen by urology and Proscar was also added to his medication regimen. He remains on bronchodilators. He remains on systemic steroids. He is feeling better. Less short of breath. No altered mentation. Very fragile. Oral intake is quite low and the patient's body mass index is 19.4. No other significant issues otherwise for now. Reevaluated today on 12/28/21, patient is doing relatively well, no active pulmonary issues, he does have underlying COPD, but he seems to be comfortable, and not in any distress. His urinary tract infection and his hydronephrosis is being addressed by urology and by infectious disease on the case. WBC count today is 13.3 hemoglobin 7.7. Basic metabolic profile is normal Reevaluated today on 12/29/21, patient is doing well pulmonary perspective, he was seen by urology, and recommended discharge home on oral antibiotics. Patient is complaining of weakness, he cannot ambulate without assistance, and he was given a walker to use at bedside. But he had difficulty using it on his own. I believe the patient will definitely need referral to a rehab facility/ECF from the pulmonary perspective, I will clear the patient to be discharged home, and we will change his antibiotics to Bactrim to cover En terobacter infection in the urine. This should be given for no more than 5 days Reevaluated today on 12/30/21, patient is doing well, no major issues overnight, patient is being considered for discharge to rehab facility or ECF possibly [facility]. No major issues at present Objective - Vital Signs Vital signs: Vital Signs Temp 98.2 F 12/30/21 12:54 Pulse 87 12/30/21 12:54 Resp 20 12/30/21 12:54 BP 123/68 12/30/21 12:54 Pulse Ox 97 12/30/21 12:54 FiO2 32 12/27/21 20:10 Intake & Output 12/29/21 12/30/21 12/30/21 18:59 06:59 18:59 Intake Total 1000 120 Output Total 4300 2700 1600 Balance -3300 -2700 -1480 Intake: IV 20 Invasive Line 2 20 Oral 980 120 Output: Urine 4300 2700 1600 Other: Voiding Method Indwelling Catheter Indwelling Catheter Indwelling Catheter - Exam GENERAL EXAM: Revealed 81-year-old white male in no distress. HEENT: PERRLA, EOMI, nonicteric, no neck masses, no JVD. CHEST: No chest wall deformity. LUNGS: Symmetrical chest expansion, no rhonchi and no wheezes CVS: S1 and S2 normal with no audible murmur, regular rhythm. ABDOMEN: No hepatosplenomegaly, normal bowel sounds, no guarding or rigidity. SPINE: No scoliosis or deformity SKIN: No rashes CENTRAL NERVOUS SYSTEM: Alert and oriented 3 no gross focal deficits. EXTREMITIES: No clubbing edema or cyanosis. - Labs CBC & Chem 7: 12/30/21 11:23 12/30/21 11:23 Labs: Abnormal Lab Results - Last 24 Hours (Table) 12/29/21 12/29/21 12/30/21 Range/Units 16:29 20:21 11:23 WBC 12.2 H (3.8-10.6) k/uL RBC 2.57 L (4.30-5.90) m/uL Hgb 7.3 L (13.0-17.5) gm/dL Hct 23.7 L (39.0-53.0) % MCHC 30.9 L (31.0-37.0) g/dL Neutrophils # 10.7 H (1.3-7.7) k/uL Lymphocytes # 0.8 L (1.0-4.8) k/uL Sodium (137-145) mmol/L Carbon Dioxide (22-30) mmol/L BUN (9-20) mg/dL Glucose (74-99) mg/dL POC Glucose (mg/dL) 151 H 149 H (70-110) mg/dL 12/30/21 12/30/21 Range/Units 11:23 11:49 WBC (3.8-10.6) k/uL RBC (4.30-5.90) m/uL Hgb (13.0-17.5) gm/dL Hct (39.0-53.0) % MCHC (31.0-37.0) g/dL Neutrophils # (1.3-7.7) k/uL Lymphocytes # (1.0-4.8) k/uL Sodium 133 L (137-145) mmol/L Carbon Dioxide 33 H (22-30) mmol/L BUN 24 H (9-20) mg/dL Glucose 125 H (74-99) mg/dL POC Glucose (mg/dL) 158 H (70-110) mg/dL Microbiology - Last 24 Hours (Table) 12/28/21 08:22 Blood Culture - Preliminary Blood No Growth after 48 hours Assessment and Plan Assessment: Impression: Acute urinary tract infection/patient is on Invanz urine cultures from 12/17 were positive for Enterobacter aerogenes Advanced COPD with chronic hypoxic respiratory failure Right upper lobe mass, needs evaluation on outpatient basis. Suspicious for malignancy. Chronic anemia New onset seizure History of TIA Central cord syndrome Coronary artery disease Benign essential hypertension Ex-smoker Degenerative joint disease Dyslipidemia Recommendation: Agree with discharge planning Follow-up with Dr. Maurer in 2 weeks Continue Bactrim for few more days. Continue Flomax. Cleared from the pulmonary perspective for discharge planning Will follow. Time with Patient: Less than 30
[2021-12-30 16:43] LABS: Glucose,Whole Blood 120 mg/dL (70-110)
[2021-12-30 20:11] LABS: Glucose,Whole Blood 120 mg/dL (70-110)
[2021-12-30] MEDS: ATORVASTATIN 40 MG TAB PO SCH (20:14)
[2021-12-30] MEDS: INSULIN DETEMIR (LEVEMIR) 100 UNIT/ML SYR SQ SCH (20:14)
[2021-12-30] MEDS: guaiFENesin 600 MG TABLET.ER PO PRN (22:31)
[2021-12-31 06:01] LABS: Glucose,Whole Blood 62 mg/dL (70-110)
[2021-12-31 06:12] LABS: Glucose,Whole Blood 75 mg/dL (70-110)
[2021-12-31] MEDS: INSULIN ASPART (NovoLOG) 100 UNIT/ML VIAL SQ SCH ×4 (06:18→20:48)
[2021-12-31] MEDS: PANTOPRAZOLE 40 MG TABLET PO SCH (06:19)
[2021-12-31] MEDS: SYMBICORT 80-4.5 MCG INHALER INHALATION SCH ×2 (08:34→20:17)
[2021-12-31] MEDS: IPRATROPIUM-ALBUTEROL 3 ML NEB INHALATION SCH ×4 (08:34→20:17)
[2021-12-31] MEDS: ASPIRIN 81 MG PO SCH (09:07)
[2021-12-31] MEDS: CLOPIDOGREL 75 MG TAB PO SCH (09:07)
[2021-12-31] MEDS: TAMSULOSIN 0.4 MG CAP.ER.24H PO SCH ×2 (09:07→20:46)
[2021-12-31] MEDS: guaiFENesin 600 MG TABLET.ER PO PRN ×2 (09:07→20:46)
[2021-12-31] MEDS: amLODIPine 5 MG TAB PO SCH (09:08)
[2021-12-31] MEDS: FINASTERIDE 5 MG TAB PO SCH (09:08)
[2021-12-31] MEDS: FOLIC ACID 1 MG TAB PO SCH (09:08)
[2021-12-31] MEDS: SULFAMETHOX-TMP 800-160MG 1 EACH TAB PO SCH ×2 (09:10→21:06)
[2021-12-31 11:40] LABS: Glucose,Whole Blood 134 mg/dL (70-110)
[2021-12-31 16:34] LABS: Glucose,Whole Blood 154 mg/dL (70-110)
[2021-12-31 17:18] LABS: HCT 24.9 % (39.0-53.0); HGB 7.7 gm/dL (13.0-17.5); Hypochromasia Marked; MCH 28.7 pg (25.0-35.0); MCHC 30.8 g/dL (31.0-37.0); MCV 93.1 fL (80.0-100.0); Platelet Count 322 k/uL (150-450); RBC 2.68 m/uL (4.30-5.90); RDW 15.2 % (11.5-15.5); WBC 14.6 k/uL (3.8-10.6)
[2021-12-31 17:29] LABS: Potassium 4.3 mmol/L (3.5-5.1)
[2021-12-31 17:30] LABS: Calcium 8.5 mg/dL (8.4-10.2)
[2021-12-31 20:35] LABS: Glucose,Whole Blood 121 mg/dL (70-110)
[2021-12-31] MEDS: INSULIN DETEMIR (LEVEMIR) 100 UNIT/ML SYR SQ SCH (20:46)
[2021-12-31] MEDS: ATORVASTATIN 40 MG TAB PO SCH (20:46)
[2022-01-01 06:04] LABS: Glucose,Whole Blood 64 mg/dL (70-110)
[2022-01-01] MEDS: INSULIN ASPART (NovoLOG) 100 UNIT/ML VIAL SQ SCH ×3 (06:10→16:54)
[2022-01-01] MEDS: PANTOPRAZOLE 40 MG TABLET PO SCH (06:10)
[2022-01-01 06:21] LABS: Glucose,Whole Blood 104 mg/dL (70-110)
[2022-01-01] MEDS: SULFAMETHOX-TMP 800-160MG 1 EACH TAB PO SCH (08:55)
[2022-01-01] MEDS: amLODIPine 5 MG TAB PO SCH (08:55)
[2022-01-01] MEDS: FINASTERIDE 5 MG TAB PO SCH (08:55)
[2022-01-01] MEDS: TAMSULOSIN 0.4 MG CAP.ER.24H PO SCH (08:55)
[2022-01-01] MEDS: CLOPIDOGREL 75 MG TAB PO SCH (08:55)
[2022-01-01] MEDS: ASPIRIN 81 MG PO SCH (08:55)
[2022-01-01] MEDS: FOLIC ACID 1 MG TAB PO SCH (08:55)
[2022-01-01] MEDS: guaiFENesin 600 MG TABLET.ER PO PRN (09:01)
[2022-01-01] MEDS: IPRATROPIUM-ALBUTEROL 3 ML NEB INHALATION SCH ×3 (09:19→17:02)
[2022-01-01] MEDS: SYMBICORT 80-4.5 MCG INHALER INHALATION SCH (09:19)
[2022-01-01 09:36] VITALS: RESP 18
[2022-01-01 11:48] LABS: Glucose,Whole Blood 150 mg/dL (70-110)
[2022-01-01 11:49] VITALS: TEMP 98.1
[2022-01-01] MEDS ORDERED: LEVOFLOXACIN 500 MG TAB PO SCH (12:00)
[2022-01-01 12:18] LABS: Calcium 8.2 mg/dL (8.4-10.2); Potassium 4.7 mmol/L (3.5-5.1)
[2022-01-01 15:48] VITALS: BP 108/55; PULSE 60
[2022-01-01 16:44] LABS: Glucose,Whole Blood 135 mg/dL (70-110)
[2022-01-02] MEDS ORDERED: LEVOFLOXACIN 250 MG TAB PO SCH (12:00)
--- NOTE | 2022-01-02 23:11 | CDI ---
Documentation Clarification Form Date: 01/02/2022 10:55:59 PM From: Elizabeth Arriaga Phone: Admit Date: 12/25/2021 03:57:00 AM Patient Name: Calixto Olivarez Visit Number: [id number] Discharge Date: 01/01/2022 05:02:00 PM ATTENTION: The Clinical Documentation Specialists (CDI) and [facility] Coding Staff appreciate your assistance in clarifying documentation. Please respond to the clarification below the line at the bottom and electronically sign. The CDI & [facility] Coding staff will review the response and follow-up if needed. Please note: Queries are made part of the Legal Health Record. If you have any questions, please contact the author of this message via ITS. Dr. Jorge L Puente Patient has a documented BMI of [insert BMI. date, location]. Additional clarification is requested. History/Risk Factors: 81yo M, bullous pulmonary emphysema right upper lobe mass with central calcification, UTI w Enterobacter aerogenes, mild lactic acidosis, chronic resp failure w O2, Chronic anemia Clinical Indicators: Progressive debility and ongoingweightloss Patients weight: Sqoqux36.431 kg 54.431 kg; Very fragile; Oral intake is quite low Calculated BMI is: 19.4 Please clarify, is there is an additional diagnosis that is clinically appropriate for this patient? [ ] Cachexia [X ] Underweight [ ] Malnutrition, (further specify severity and type) [ ] Other, please specify [ ] Unable to determine (Template Last Revised: July 2020) MTDD
--- NOTE | 2022-01-02 23:32 | CDI ---
Documentation Clarification Form Date: 01/02/2022 11:16:30 PM From: Elizabeth Arriaga Phone: Admit Date: 12/25/2021 03:57:00 AM Patient Name: Calixto Olivarez Visit Number: [id number] Discharge Date: 01/01/2022 05:02:00 PM ATTENTION: The Clinical Documentation Specialists (CDI) and [facility] Coding Staff appreciate your assistance in clarifying documentation. Please respond to the clarification below the line at the bottom and electronically sign. The CDI & [facility] Coding staff will review the response and follow-up if needed. Please note: Queries are made part of the Legal Health Record. If you have any questions, please contact the author of this message via ITS. Dr. Jorge L Puente Unspecified CKD is documented per Juaquin Puente 12/29/21. Additional clarification regarding the stage of CKD is requested. History/Risk Factors: 81yo M, bullous pulmonary emphysema right upper lobe mass with central calcification, UTI w Enterobacter aerogenes, mild lactic acidosis, chronic resp failure w O2, Chronic anemia, CITLALLI on CKD Clinical Indicators: 12/25 H Blood Urea Nitrogen 24mg/dL (9-20) Creatinine 1.18mg/dL (0.66-1.25) Non- GFR(CKD) 57 (>60 ml/min/1.73 sqM) GFR (CKD) 66 (>60 ml/min/1.73 sq Please clarify the stage of the CKD, if known: [ ] CKD Stage 1 (GFR > 90) [ ] CKD Stage 2 (GFR 60-89) [ ] CKD Stage 3 (GFR 30-59) [ ] CKD Stage 3a (GFR 45-59) [ ] CKD Stage 3b (GFR 30-44) [ ] CKD Stage 4 (GFR 15-29) [ ] CKD Stage 5 (GFR <15) [ ] ESRD [ ] Other, please specify [X ] Unable to determine (Template last revised: July 2020) CAROLINAD
--- NOTE | 2022-01-07 12:23 | CDI ---
Documentation Clarification Form Date: 01/07/2022 11:52:14 AM From: Elizabeth Arriaga Admit Date: 12/25/2021 03:57:00 AM Patient Name: Calixto Olivarez Visit Number: [id number] Discharge Date: 01/01/2022 05:02:00 PM ATTENTION: The Clinical Documentation Specialists (CDI) and [facility] Coding Staff appreciate your assistance in clarifying documentation. Please respond to the clarification below the line at the bottom and electronically sign. The CDI & [facility] Coding staff will review the response and follow-up if needed. Please note: Queries are made part of the Legal Health Record. If you have any questions, please contact the author of this message via ITS. Dr. Jorge L Puente Sepsis is documented per Consult 12/25/21 which may lack sufficient clinical evidence/support in the medical record. Additional clarification is requested. History/Risk Factors: 81yo M, Acute UTI, mild lactic acidosis, COPD w/ chronic resp failure, early sepsis, Bullous pulmonary emphysema right upper lobe mass with central calcification Clinical Indicators: WBC: 12/25/21 49.6 k/uL (3.8- 10.6) HH Lactic Acid, Venous 2.2mmol/L (0.7-2.0) Blood Culture [id number] Vitals signs: 12/25/2222:15 97.8 F 87 20 100/52 100 Treatment: Mild increase in renal function, Bactrim DS discontinued and convertedto Levaquin. RepeatBMPpending. Denieschest pain,palpitationsor increasedshortness of breath. Antibiotics: Bactrim DS discontinued and convertedto Levaquin. In your professional opinion, please clarify if these findings signify one of the following conditions: [ ] Sepsis POA [X ] Sepsis, Not POA [ ] Sepsis ruled out [ ] Other, please specify [ ] Unable to determine MTDD
== END 2022-01-01 17:02 | DRG 689 ==
LOC: EC 21:49 → 3SCARD 12-25 03:57
PROVIDERS: ADMIT Family Medicine; ATTEND Family Medicine
DX: N13.6 Pyonephrosis (principal); A41.89 Other specified sepsis; E87.2 Acidosis; I69.351 Hemiplegia and hemiparesis following cerebral infarction affecting right dominant side; J96.11 Chronic respiratory failure with hypoxia; I69.352 Hemiplegia and hemiparesis following cerebral infarction affecting left dominant side; G93.40 Encephalopathy, unspecified; Z16.19 Resistance to other specified beta lactam antibiotics; Z68.1 Body mass index [BMI] 19.9 or less, adult; N17.9 Acute kidney failure, unspecified; N18.9 Chronic kidney disease, unspecified; I12.9 Hypertensive chronic kidney disease with stage 1 through stage 4 chronic kidney disease, or unspecified chronic kidney disease; D63.1 Anemia in chronic kidney disease; I25.10 Atherosclerotic heart disease of native coronary artery without angina pectoris; M50.30 Other cervical disc degeneration, unspecified cervical region; R29.6 Repeated falls; K21.00 Gastro-esophageal reflux disease with esophagitis, without bleeding; H91.90 Unspecified hearing loss, unspecified ear; R91.8 Other nonspecific abnormal finding of lung field; J43.9 Emphysema, unspecified; J98.4 Other disorders of lung; N32.0 Bladder-neck obstruction; R53.81 Other malaise; R56.9 Unspecified convulsions; W19.XXXA Unspecified fall, initial encounter; M48.02 Spinal stenosis, cervical region; S14.129A Central cord syndrome at unspecified level of cervical spinal cord, initial encounter; B95.2 Enterococcus as the cause of diseases classified elsewhere; I65.21 Occlusion and stenosis of right carotid artery; I72.0 Aneurysm of carotid artery; R31.9 Hematuria, unspecified; R33.9 Retention of urine, unspecified; B96.89 Other specified bacterial agents as the cause of diseases classified elsewhere; R79.1 Abnormal coagulation profile; R33.8 Other retention of urine; M19.90 Unspecified osteoarthritis, unspecified site; E78.5 Hyperlipidemia, unspecified; R63.6 Underweight; Z96.0 Presence of urogenital implants; Z91.81 History of falling; Z95.1 Presence of aortocoronary bypass graft; Z98.41 Cataract extraction status, right eye; Z98.42 Cataract extraction status, left eye; Z86.010 Personal history of colon polyps; Z98.890 Other specified postprocedural states; Z87.891 Personal history of nicotine dependence; Z82.49 Family history of ischemic heart disease and other diseases of the circulatory system; Z79.82 Long term (current) use of aspirin; Z79.899 Other long term (current) drug therapy; Z79.02 Long term (current) use of antithrombotics/antiplatelets; Z79.51 Long term (current) use of inhaled steroids; Z87.440 Personal history of urinary (tract) infections; Z99.81 Dependence on supplemental oxygen
CPT/HCPCS: 36415; 71045; 71275; 76770; 80048; 80053; 81001; 82803; 83605; 83880; 84484; 85025; 85027; 85379; 85610; 85730; 86850; 86900; 86901; 86920; 87040; 87635; 93005; 94640; 94660; 94760; 96374; 99285

== ENCOUNTER → 2022-01-15 | Outpatient (CLI) | payer MEDICARE ==
--- NOTE | 2022-01-16 11:11 | PE ---
EXAMINATION TYPE: PET CT fusion skull to thigh DATE OF EXAM: 01/15/2022 CLINICAL INDICATION:Male, 81 years old with history of R91.1 Lung Nodule; TECHNIQUE: Following the intravenous administration of 12.98 mCi of F-18 FDG, whole body images ar e performed from the skull base to the midthigh. Images are reviewed on the computer in the coronal, axial, and sagittal planes. Reconstructed rotating images are created on independent workstation an d reviewed on the computer. A non-contrast CT is performed in conjunction with the PET scan. Glucos e level 110 mg/dL COMPARISON: CT 11/10/2021, 12/25/2021. PET/CT none. FINDINGS: Mediastinal SUV maximum is 1.4. Hepatic parenchyma SUV maximum is 2.4. SKULL BASE AND NECK: Soft tissue uptake in the posterior larynx involving the inferior constrictor p haryngeal raphe max SUV 4.1. CHEST, MEDIASTINUM, AND HILAR REGION: New pulmonary nodules from prior scan on 12/25/2021, -Right upper lobe 13 mm pulmonary nodule Max SUV 2.1. -Left lower lobe tubular FDG uptake max SUV 5.1 . This felt to represent an opacified bronchus on tessa or CT.. -Right lower lobe consolidation/nodule areas along the right lateral lower lobe SUV 2.5 and 2.4. Right upper lobe partially calcified pulmonary nodule measuring 20 x 15 mm with max SUV 8.5. Left upper lobe spiculated nodule measuring 5 mm with FDG activity below background levels likely due to its small size. Left lower lobe pulmonary nodule really only 1040 FDG uptake is seen within the ABDOMEN AND PELVIS: No suspicious FDG activity. OSSEOUS STRUCTURES: No suspicious FDG activity. OTHER CT: Calcified senile bands. Mild intracranial vascular calcifications. Carotid artery bifurcati on atherosclerosis. Moderate to severe coronary artery atherosclerosis with sternotomy changes. There is moderate centrilobular emphysema changes throughout the lungs. Partially calcified right pulmonar y hilum and mediastinal lymph nodes. Calcified gallstones in the gallbladder lumen. Bilateral renal c ysts. Atherosclerosis of the arterial vasculature. Thickened bladder wall circumferentially measuring up to 12 mm. Paige catheter is in place. Prostate gland calcifications with prominence of the prosta te gland. Bone island in the sacrum. There is peripheral sclerotic rim of the lucent lesion in the ri ght iliac bone likely benign. Additional multilevel disc degeneration changes are seen throughout the spine. IMPRESSION: 1. FDG activity in the right upper lobe pulmonary nodule suspicious for malignancy. 2. New scattered nodules/consolidation areas from prior on 12/25/2021 and may represent superimposed infectious/inflammatory process versus metastatic disease given such a short interval between prior e xam 3. Slight asymmetric left focal uptake at the level of the arytenoid cartilage posteriorly, FDG leve ls appear to be more physiologic. Attention on follow-up imaging. Consider direct visualization if th ere is concern. 4. Circumferential bladder wall thickening correlate with urinalysis for cystitis.
== END | disposition home or self-care (01) ==
LOC: RADPETMAIN 14:43
PROVIDERS: ATTEND Internal Medicine Critical Care Medicine
DX: R91.1 Solitary pulmonary nodule (principal)
CPT/HCPCS: 78815; A9552

== ENCOUNTER 2022-01-22 21:50 | Inpatient (IN) | payer MEDICARE ==
[2022-01-22] MEDS ORDERED: ALBUTEROL NEBULIZED 2.5 MG/3 ML INHALATION STA (23:15)
[2022-01-22 23:37] LABS: Basophils % (A) 0 %; Eosinophils % (A) 1 %; HCT 23.3 % (39.0-53.0); Hypochromasia Marked; Lymphocytes # (A) 0.8 k/uL (1.0-4.8); Lymphocytes % (A) 12 %; MCHC 29.7 g/dL (31.0-37.0); Mean Platelet Volume 7.4; Monocytes # (A) 0.5 k/uL (0-1.0); Monocytes % (A) 8 %; Neutrophils # (A) 4.9 k/uL (1.3-7.7); Neutrophils % (A) 76 %; Platelet Count 381 k/uL (150-450); Poikilocytosis Moderate; RBC 2.76 m/uL (4.30-5.90); RDW 15.8 % (11.5-15.5); WBC 6.5 k/uL (3.8-10.6)
[2022-01-22 23:54] LABS: Partial Thromboplastin Time 23.7 sec (22.0-30.0); Prothrombin Time 11.2 sec (9.0-12.0)
[2022-01-22 23:55] LABS: Appearance,Urine Cloudy (Clear); Bacteria,Urine Occasional /hpf; Bilirubin,Urine Negative (Negative); Blood,Urine Trace (Negative); Color,Urine Yellow; Glucose,Urine (UA) Negative (Negative); Ketones,Urine Negative (Negative); Leukocyte Esterase,Urine Large (Negative); Mucus,Urine Many /hpf; Nitrite,Urine Positive (Negative); Protein,Urine 1+ (Negative); RBC,Urine 16 /hpf (0-5); Squamous Epithelial Cell,Urine <1 /hpf (0-4); Urobilinogen,Urine <2.0 mg/dL (<2.0); WBC,Urine >182 /hpf (0-5)
[2022-01-22 23:59] LABS: ALT 15 U/L (4-49); AST 19 U/L (17-59); African American GFR (CKD) >90 (>60 ml/min/1.73 sqM); Albumin 3.3 g/dL (3.5-5.0); Alkaline Phosphatase 80 U/L (38-126); Anion Gap 10 mmol/L; Blood Urea Nitrogen 19 mg/dL (9-20); Calcium 8.9 mg/dL (8.4-10.2); Carbon Dioxide 22 mmol/L (22-30); Chloride 101 mmol/L (98-107); Glucose 104 mg/dL (74-99); HGB 6.9 gm/dL (13.0-17.5); MCV 84.3 fL (80.0-100.0); Non-African American GFR(CKD) 79 (>60 ml/min/1.73 sqM); Potassium 4.6 mmol/L (3.5-5.1); Sodium 133 mmol/L (137-145); Total Bilirubin 0.2 mg/dL (0.2-1.3); Total Protein 5.7 g/dL (6.3-8.2)
[2022-01-23] MEDS ORDERED: NALOXONE 0.4 MG/ML 1 ML VIAL IV PRN (00:24)
--- NOTE | 2022-01-23 00:30 | XR ---
EXAMINATION TYPE: XR chest 2V DATE OF EXAM: 01/23/2022 COMPARISON: 12/24/2021 HISTORY: Productive cough TECHNIQUE: FINDINGS: There is pulmonary hyperinflation and flattening of the diaphragm. There is some mild patch y infiltrate lateral right lower lobe. There are no hilar masses. Mediastinum is normal. There are st ernal wires. Thorax is intact IMPRESSION: Pulmonary emphysema without change. There is some new mild infiltrate lateral right lower lobe compared to old exam.
--- NOTE | 2022-01-23 00:31 | ED ---
General Adult HPI - General Chief complaint: Recheck/Abnormal Lab/Rx Stated complaint: Abnormal labs, sent by Time Seen by Provider: 01/22/22 22:41 Source: patient Mode of arrival: wheelchair Limitations: no limitations - History of Present Illness Initial comments: Patient is an 81-year-old male with a past medical history of COPD, TIA, hyperlipidemia, and coronary artery disease who presents to the emergency department for evaluation of low hemoglobin. Patient states he was in the hospital for and was then sent to rehab at [facility]. Patient states he was discharged from [facility] this morning. They man blood before discharge. He got a call this evening stating his hemoglobin was 5.9 and that he needed to go to the emergency department. Patient reports feeling more weak than normal and a bit lightheaded. Denies fever, chills, chest pain, dizziness, palpitations, shortness of breath, abdominal pain, nausea, vomiting, blood in stool, blood in urine. Denies personal and family history of colon cancer. Denies history of GI bleed, diverticulosis, and hemorrhoids. Patient is on Plavix for prior TIAs. Takes a baby aspirin but otherwise denies chronic NSAID use. - Related Data Home Medications Medication Instructions Recorded Confirmed Aspirin EC [Ecotrin Low Dose] 81 mg PO DAILY 11/13/18 12/24/21 Albuterol Sulfate [Proair Hfa] 1 puff INHALATION RT-Q6H PRN 10/15/21 12/24/21 Fluticasone Propion/Salmeterol 1 puff INHALATION RT-HS 10/15/21 12/24/21 [Wixela 250-50 Inhub] Finasteride [Proscar] 5 mg PO DAILY 12/24/21 12/24/21 Tamsulosin HCl [Flomax] 0.4 mg PO BID 12/24/21 12/24/21 Previous Rx's Medication Instructions Recorded Atorvastatin [Lipitor] 40 mg PO HS #30 tab 10/22/21 Clopidogrel [Plavix] 75 mg PO DAILY #30 tab 10/22/21 Folic Acid 1 mg PO DAILY tab 10/22/21 Pantoprazole [Protonix] 40 mg PO AC-BRKFST #30 tab 10/22/21 amLODIPine [Norvasc] 5 mg PO DAILY #30 tab 10/22/21 Calcium Carbonate [Tums] 1,000 mg PO TID PRN tab 12/30/21 guaiFENesin [Mucinex] 600 mg PO Q8HR PRN tab 12/31/21 Ipratropium-Albuterol Nebulize 3 ml INHALATION QID #120 packet 01/01/22 [Duoneb 0.5 mg-3 mg/3 ml Soln] Levofloxacin [Levaquin] 500 mg PO DAILY 3 Days #3 tab 01/01/22 Allergies Allergy/AdvReac Type Severity Reaction Status Date / Time No Known Allergies Allergy Verified 01/22/22 22:04 Review of Systems ROS Statement: Those systems with pertinent positive or pertinent negative responses have been documented in the HPI. ROS Other: All systems not noted in ROS Statement are negative. Past Medical History Past Medical History: Coronary Artery Disease (CAD), Chest Pain / Angina, COPD, CVA/TIA, Hyperlipidemia, Osteoarthritis (OA) Additional Past Medical History / Comment(s): COPD, "mini stroke 2-3 months ago- "weakness on rt side, some on the left", indwelling catheter. History of Any Multi-Drug Resistant Organisms: None Reported Past Surgical History: Coronary Bypass/CABG Additional Past Surgical History / Comment(s): 1994 CABG 3 vessel, colonoscopy with benign polypectomy. hoda cataracts Past Anesthesia/Blood Transfusion Reactions: No Reported Reaction Past Psychological History: No Psychological Hx Reported Smoking Status: Former smoker Past Alcohol Use History: Unable to Obtain Past Drug Use History: Unable to Obtain - Past Family History Father Family Medical History: Myocardial Infarction ([place]) Additional Family Medical History / Comment(s): Father of a [place] in his 60s. Mother Family Medical History: Unable to Obtain Additional Family Medical History / Comment(s): . General Exam Limitations: no limitations General appearance: alert, in no apparent distress Head exam: Present: atraumatic, normocephalic, normal inspection Respiratory exam: Present: normal lung sounds bilaterally. Absent: respiratory distress, wheezes, rales, rhonchi, stridor Cardiovascular Exam: Present: regular rate, normal rhythm, normal heart sounds. Absent: systolic murmur, diastolic murmur, rubs, gallop, clicks GI/Abdominal exam: Present: soft, normal bowel sounds. Absent: distended, tenderness, guarding, rebound, rigid Rectal exam: Present: heme (+) stool, hemorrhoids (1 external non thrombosed ). Absent: black stool, bloody stool Neurological exam: Present: alert, oriented X3, CN II-XII intact Psychiatric exam: Present: normal affect, normal mood Skin exam: Present: warm, dry, intact, normal color. Absent: rash Course Vital Signs 01/22/22 01/23/22 01/23/22 22:01 00:25 00:35 Temperature 98.5 F Pulse Rate 88 88 90 Respiratory 16 Rate Blood Pressure 114/70 O2 Sat by Pulse 98 Oximetry Medical Decision Making - Medical Decision Making This is an 81-year-old male who presents for evaluation of low hemoglobin. Thorough history and examination were performed. Patient is well-appearing. Vitals stable. Rectal exam reveals 1 nonthrombosed external hemorrhoid. No gross blood in the stool. Laboratory studies obtained. Hemoglobin is 6.9. For the most part hemoglobin has been trending downward since October. Hemoccult is positive. 1 packed unit ordered. Results discussed with patient and his family were agreeable to admission. Case discussed with Dr. Moyer who accepts admission. Dr. Escobar on consult. Dr. Hylton is my attending. - Lab Data Result diagrams: 01/22/22 23:28 01/22/22 23:28 Lab Results 01/22/22 01/22/22 01/22/22 Range/Units 23:28 23:28 23:28 WBC 6.5 (3.8-10.6) k/uL RBC 2.76 L (4.30-5.90) m/uL Hgb 6.9 L* (13.0-17.5) gm/dL Hct 23.3 L (39.0-53.0) % MCV 84.3 D (80.0-100.0) fL MCH 25.0 (25.0-35.0) pg MCHC 29.7 L (31.0-37.0) g/dL RDW 15.8 H (11.5-15.5) % Plt Count 381 (150-450) k/uL MPV 7.4 Neutrophils % 76 % Lymphocytes % 12 % Monocytes % 8 % Eosinophils % 1 % Basophils % 0 % Neutrophils # 4.9 (1.3-7.7) k/uL Lymphocytes # 0.8 L (1.0-4.8) k/uL Monocytes # 0.5 (0-1.0) k/uL Eosinophils # 0.0 (0-0.7) k/uL Basophils # 0.0 (0-0.2) k/uL Hypochromasia Marked Poikilocytosis Moderate PT (9.0-12.0) sec INR (<1.2) APTT (22.0-30.0) sec Sodium 133 L (137-145) mmol/L Potassium 4.6 (3.5-5.1) mmol/L Chloride 101 (98-107) mmol/L Carbon Dioxide 22 (22-30) mmol/L Anion Gap 10 mmol/L BUN 19 (9-20) mg/dL Creatinine 0.90 (0.66-1.25) mg/dL Est GFR (CKD-EPI)AfAm >90 (>60 ml/min/1.73 sqM) Est GFR (CKD-EPI)NonAf 79 (>60 ml/min/1.73 sqM) Glucose 104 H (74-99) mg/dL Calcium 8.9 (8.4-10.2) mg/dL Total Bilirubin 0.2 (0.2-1.3) mg/dL AST 19 (17-59) U/L ALT 15 (4-49) U/L Alkaline Phosphatase 80 (38-126) U/L Troponin I (0.000-0.034) ng/mL Total Protein 5.7 L (6.3-8.2) g/dL Albumin 3.3 L (3.5-5.0) g/dL Urine Color Urine Appearance (Clear) Urine pH (5.0-8.0) Ur Specific [place] (1.001-1.035) Urine Protein (Negative) Urine Glucose (UA) (Negative) Urine Ketones (Negative) Urine Blood (Negative) Urine Nitrite (Negative) Urine Bilirubin (Negative) Urine Urobilinogen (<2.0) mg/dL Ur Leukocyte Esterase (Negative) Urine RBC (0-5) /hpf Urine WBC (0-5) /hpf Urine WBC Clumps (None) /hpf Ur Squamous Epith Cells (0-4) /hpf Urine Bacteria (None) /hpf Urine Mucus (None) /hpf Stool Occult Blood Positive (Negative) 08/19/22 08/19/22 08/19/22 Range/Units 23:28 23:28 23:28 WBC (3.8-10.6) k/uL RBC (4.30-5.90) m/uL Hgb (13.0-17.5) gm/dL Hct (39.0-53.0) % MCV (80.0-100.0) fL MCH (25.0-35.0) pg MCHC (31.0-37.0) g/dL RDW (11.5-15.5) % Plt Count (150-450) k/uL MPV Neutrophils % % Lymphocytes % % Monocytes % % Eosinophils % % Basophils % % Neutrophils # (1.3-7.7) k/uL Lymphocytes # (1.0-4.8) k/uL Monocytes # (0-1.0) k/uL Eosinophils # (0-0.7) k/uL Basophils # (0-0.2) k/uL Hypochromasia Poikilocytosis PT 11.2 (9.0-12.0) sec INR 1.0 (<1.2) APTT 23.7 (22.0-30.0) sec Sodium (137-145) mmol/L Potassium (3.5-5.1) mmol/L Chloride (98-107) mmol/L Carbon Dioxide (22-30) mmol/L Anion Gap mmol/L BUN (9-20) mg/dL Creatinine (0.66-1.25) mg/dL Est GFR (CKD-EPI)AfAm (>60 ml/min/1.73 sqM) Est GFR (CKD-EPI)NonAf (>60 ml/min/1.73 sqM) Glucose (74-99) mg/dL Calcium (8.4-10.2) mg/dL Total Bilirubin (0.2-1.3) mg/dL AST (17-59) U/L ALT (4-49) U/L Alkaline Phosphatase (38-126) U/L Troponin I <0.012 (0.000-0.034) ng/mL Total Protein (6.3-8.2) g/dL Albumin (3.5-5.0) g/dL Urine Color Yellow Urine Appearance Cloudy (Clear) Urine pH 6.0 (5.0-8.0) Ur Specific [place] 1.020 (1.001-1.035) Urine Protein 1+ H (Negative) Urine Glucose (UA) Negative (Negative) Urine Ketones Negative (Negative) Urine Blood Trace H (Negative) Urine Nitrite Positive (Negative) Urine Bilirubin Negative (Negative) Urine Urobilinogen <2.0 (<2.0) mg/dL Ur Leukocyte Esterase Large H (Negative) Urine RBC 16 H (0-5) /hpf Urine WBC >182 H (0-5) /hpf Urine WBC Clumps Few H (None) /hpf Ur Squamous Epith Cells <1 (0-4) /hpf Urine Bacteria Occasional H (None) /hpf Urine Mucus Many H (None) /hpf Stool Occult Blood (Negative) Disposition Clinical Impression: GI bleed, Low hemoglobin, Weakness Disposition: ADMITTED IP TO THIS [facility] Condition: Fair Referrals: Jorge L Puente DO [Primary Care Provider] - 1-2 days Time of Disposition: 00:42 Decision Time: 00:42
--- NOTE | 2022-01-23 09:13 | P.GSCN ---
History of Present Illness Consult date: 01/23/22 Reason for Consult: Anemia History of present illness: This is an 81-year-old male with multiple medical problems patient was noted to be anemic. [facility] Patient denies any evidence of GI bleed. Past Medical History Past Medical History: Coronary Artery Disease (CAD), Chest Pain / Angina, COPD, CVA/TIA, Hyperlipidemia, Osteoarthritis (OA) Additional Past Medical History / Comment(s): COPD, "mini stroke 2-3 months ago- "weakness on rt side, some on the left", indwelling catheter. History of Any Multi-Drug Resistant Organisms: None Reported Past Surgical History: Coronary Bypass/CABG Additional Past Surgical History / Comment(s): 1994 CABG 3 vessel, colonoscopy with benign polypectomy. hoda cataracts Past Anesthesia/Blood Transfusion Reactions: No Reported Reaction Past Psychological History: No Psychological Hx Reported Additional Psychological History / Comment(s): Pt resides with his spouse. He states he has a nebulizer. Smoking Status: Former smoker Past Alcohol Use History: Unable to Obtain Additional Past Alcohol Use History / Comment(s): Pt started smoking in 1954 and quit in 2004. He smoked 1-1.5 ppd. Past Drug Use History: Unable to Obtain - Past Family History Father Family Medical History: Myocardial Infarction ([place]) Additional Family Medical History / Comment(s): Father of a [place] in his 60s. Mother Family Medical History: Unable to Obtain Additional Family Medical History / Comment(s): . Medications and Allergies Home Medications Medication Instructions Recorded Confirmed Type Aspirin EC [Ecotrin Low Dose] 81 mg PO DAILY 11/13/18 12/24/21 History Albuterol Sulfate [Proair Hfa] 1 puff INHALATION RT-Q6H PRN 10/15/21 12/24/21 History Fluticasone Propion/Salmeterol 1 puff INHALATION RT-HS 10/15/21 12/24/21 History [Wixela 250-50 Inhub] Atorvastatin [Lipitor] 40 mg PO HS #30 tab 10/22/21 12/24/21 Rx Clopidogrel [Plavix] 75 mg PO DAILY #30 tab 10/22/21 12/24/21 Rx Folic Acid 1 mg PO DAILY tab 10/22/21 12/24/21 Rx Pantoprazole [Protonix] 40 mg PO AC-BRKFST #30 tab 10/22/21 12/24/21 Rx amLODIPine [Norvasc] 5 mg PO DAILY #30 tab 10/22/21 12/24/21 Rx Finasteride [Proscar] 5 mg PO DAILY 12/24/21 12/24/21 History Tamsulosin HCl [Flomax] 0.4 mg PO BID 12/24/21 12/24/21 History Calcium Carbonate [Tums] 1,000 mg PO TID PRN tab 12/30/21 Rx guaiFENesin [Mucinex] 600 mg PO Q8HR PRN tab 12/31/21 Rx Ipratropium-Albuterol Nebulize 3 ml INHALATION QID #120 packet 01/01/22 Rx [Duoneb 0.5 mg-3 mg/3 ml Soln] Levofloxacin [Levaquin] 500 mg PO DAILY 3 Days #3 tab 01/01/22 Rx Allergies Allergy/AdvReac Type Severity Reaction Status Date / Time No Known Allergies Allergy Verified 01/22/22 22:04 Surgical - Exam Vital Signs Temp Pulse Resp BP Pulse Ox 98.5 F 88 16 114/70 98 01/22/22 22:01 01/22/22 22:01 01/22/22 22:01 01/22/22 22:01 01/22/22 22:01 - General well developed, well nourished, no distress - Eyes PERRL - ENT normal pinna - Neck no masses - Respiratory normal expansion - Abdomen Abdomen: soft, non tender Results - Labs 01/22/22 23:28 01/22/22 23:28 Abnormal Lab Results - Last 24 Hours (Table) 01/22/22 01/22/22 01/22/22 Range/Units 23:14 23:28 23:28 RBC 2.76 L (4.30-5.90) m/uL Hgb 6.9 L* (13.0-17.5) gm/dL Hct 23.3 L (39.0-53.0) % MCHC 29.7 L (31.0-37.0) g/dL RDW 15.8 H (11.5-15.5) % Lymphocytes # 0.8 L (1.0-4.8) k/uL Sodium 133 L (137-145) mmol/L Glucose 104 H (74-99) mg/dL Total Protein 5.7 L (6.3-8.2) g/dL Albumin 3.3 L (3.5-5.0) g/dL Urine Protein (Negative) Urine Blood (Negative) Ur Leukocyte Esterase (Negative) Urine RBC (0-5) /hpf Urine WBC (0-5) /hpf Urine WBC Clumps (None) /hpf Urine Bacteria (None) /hpf Urine Mucus (None) /hpf Crossmatch See Detail 01/22/22 Range/Units 23:28 RBC (4.30-5.90) m/uL Hgb (13.0-17.5) gm/dL Hct (39.0-53.0) % MCHC (31.0-37.0) g/dL RDW (11.5-15.5) % Lymphocytes # (1.0-4.8) k/uL Sodium (137-145) mmol/L Glucose (74-99) mg/dL Total Protein (6.3-8.2) g/dL Albumin (3.5-5.0) g/dL Urine Protein 1+ H (Negative) Urine Blood Trace H (Negative) Ur Leukocyte Esterase Large H (Negative) Urine RBC 16 H (0-5) /hpf Urine WBC >182 H (0-5) /hpf Urine WBC Clumps Few H (None) /hpf Urine Bacteria Occasional H (None) /hpf Urine Mucus Many H (None) /hpf Crossmatch Diabetes panel 01/22/22 Range/Units 23:28 Sodium 133 L (137-145) mmol/L Potassium 4.6 (3.5-5.1) mmol/L Chloride 101 (98-107) mmol/L Carbon Dioxide 22 (22-30) mmol/L BUN 19 (9-20) mg/dL Creatinine 0.90 (0.66-1.25) mg/dL Glucose 104 H (74-99) mg/dL Calcium 8.9 (8.4-10.2) mg/dL AST 19 (17-59) U/L ALT 15 (4-49) U/L Alkaline Phosphatase 80 (38-126) U/L Total Protein 5.7 L (6.3-8.2) g/dL Albumin 3.3 L (3.5-5.0) g/dL Calcium panel 08/19/22 Range/Units 23:28 Calcium 8.9 (8.4-10.2) mg/dL Albumin 3.3 L (3.5-5.0) g/dL Pituitary panel 01/22/22 Range/Units 23:28 Sodium 133 L (137-145) mmol/L Potassium 4.6 (3.5-5.1) mmol/L Chloride 101 (98-107) mmol/L Carbon Dioxide 22 (22-30) mmol/L BUN 19 (9-20) mg/dL Creatinine 0.90 (0.66-1.25) mg/dL Glucose 104 H (74-99) mg/dL Calcium 8.9 (8.4-10.2) mg/dL Adrenal panel 01/22/22 Range/Units 23:28 Sodium 133 L (137-145) mmol/L Potassium 4.6 (3.5-5.1) mmol/L Chloride 101 (98-107) mmol/L Carbon Dioxide 22 (22-30) mmol/L BUN 19 (9-20) mg/dL Creatinine 0.90 (0.66-1.25) mg/dL Glucose 104 H (74-99) mg/dL Calcium 8.9 (8.4-10.2) mg/dL Total Bilirubin 0.2 (0.2-1.3) mg/dL AST 19 (17-59) U/L ALT 15 (4-49) U/L Alkaline Phosphatase 80 (38-126) U/L Total Protein 5.7 L (6.3-8.2) g/dL Albumin 3.3 L (3.5-5.0) g/dL Assessment and Plan Assessment: Severe anemia. Patient will 6.1. Patient will undergo upper and lower endoscopy Tuesday.
[2022-01-23 13:16] LABS: Anisocytosis Slight; HCT 24.6 % (39.0-53.0); HGB 7.3 gm/dL (13.0-17.5); Hypochromasia Marked; MCH 24.4 pg (25.0-35.0); MCHC 29.7 g/dL (31.0-37.0); MCV 82.2 fL (80.0-100.0); Mean Platelet Volume 9.1; Platelet Count 284 k/uL (150-450); Poikilocytosis Slight; RBC 2.99 m/uL (4.30-5.90); RDW 17.3 % (11.5-15.5)
[2022-01-23 14:26] VITALS: BMI 18.3
--- NOTE | 2022-01-23 20:35 | P.HPIM ---
History of Present Illness H&P Date: 01/23/22 Chief Complaint: Low hemoglobin 81-year-old male with a past medical history of COPD, TIA, hyperlipidemia, and coronary artery disease who presents to the emergency department for evaluation of low hemoglobin. Patient states he was in the hospital for and was then sent to rehab at [facility]. Patient states he was discharged from [facility] this morning. They man blood before discharge. He got a call this evening stating his hemoglobin was 5.9 and that he needed to go to the emergency department. Patient reports feeling more weak than normal and a bit lighthea ded. Denies fever, chills, chest pain, dizziness, palpitations, shortness of breath, abdominal pain, nausea, vomiting, blood in stool, blood in urine. Denies personal and family history of colon cancer. Denies history of GI bleed, diverticulosis, and hemorrhoids. Patient is on Plavix for prior TIAs. Takes a baby aspirin but otherwise denies chronic NSAID use. Laboratory studies obtained. Hemoglobin is 6.9. For the most part hemoglobin has been trending downward since October. Hemoccult is positive. 1 packed unit ordered. Results discussed with patient and his family were agreeable to ad mission. Review of Systems REVIEW OF SYSTEMS: CONSTITUTIONAL: No fever, no malaise, no fatigue. HEENT: No recent visual problems or hearing problems. Denied any sore throat. CARDIOVASCULAR: No chest pain, orthopnea, PND, no palpitations, no syncope. PULMONARY: No shortness of breath, no cough, no hemoptysis. GASTROINTESTINAL: No diarrhea, no nausea, no vomiting, no abdominal pain. NEUROLOGICAL: No headaches, no weakness, no numbness. HEMATOLOGICAL: Denies any bleeding or petechiae. GENITOURINARY: Denies any burning micturition, frequency, or urgency. MUSCULOSKELETAL/RHEUMATOLOGICAL: Denies any joint pain, swelling, or any muscle pain. ENDOCRINE: Denies any polyuria or polydipsia. The rest of the 14-point review of systems is negative. Past Medical History Past Medical History: Coronary Artery Disease (CAD), Chest Pain / Angina, COPD, CVA/TIA, Hyperlipidemia, Osteoarthritis (OA) Additional Past Medical History / Comment(s): COPD, "mini stroke 2-3 months ago- "weakness on rt side, some on the left", indwelling catheter. History of Any Multi-Drug Resistant Organisms: None Reported Past Surgical History: Coronary Bypass/CABG Additional Past Surgical History / Comment(s): 1994 CABG 3 vessel, colonoscopy with benign polypectomy. hoda cataracts Past Anesthesia/Blood Transfusion Reactions: No Reported Reaction Past Psychological History: No Psychological Hx Reported Additional Psychological History / Comment(s): Pt resides with his spouse. He states he has a nebulizer. Smoking Status: Former smoker Past Alcohol Use History: Unable to Obtain Additional Past Alcohol Use History / Comment(s): Pt started smoking in 1954 and quit in 2004. He smoked 1-1.5 ppd. Past Drug Use History: Unable to Obtain - Past Family History Father Family Medical History: Myocardial Infarction ([place]) Additional Family Medical History / Comment(s): Father of a [place] in his 60s. Mother Family Medical History: Unable to Obtain Additional Family Medical History / Comment(s): . Medications and Allergies Home Medications Medication Instructions Recorded Confirmed Type Aspirin EC [Ecotrin Low Dose] 81 mg PO DAILY 11/13/18 01/23/22 History Albuterol Sulfate [Proair Hfa] 1 puff INHALATION RT-Q6H PRN 10/15/21 01/23/22 History Fluticasone Propion/Salmeterol 1 puff INHALATION RT-HS 10/15/21 01/23/22 History [Wixela 250-50 Inhub] Atorvastatin [Lipitor] 40 mg PO HS #30 tab 10/22/21 01/23/22 Rx Clopidogrel [Plavix] 75 mg PO DAILY #30 tab 10/22/21 01/23/22 Rx Folic Acid 1 mg PO DAILY tab 10/22/21 01/23/22 Rx Pantoprazole [Protonix] 40 mg PO AC-BRKFST #30 tab 10/22/21 01/23/22 Rx amLODIPine [Norvasc] 5 mg PO DAILY #30 tab 10/22/21 01/23/22 Rx Finasteride [Proscar] 5 mg PO DAILY 12/24/21 01/23/22 History Tamsulosin HCl [Flomax] 0.4 mg PO BID 12/24/21 01/23/22 History Calcium Carbonate [Tums] 1,000 mg PO TID PRN tab 12/30/21 01/23/22 Rx guaiFENesin [Mucinex] 600 mg PO Q8HR PRN tab 12/31/21 01/23/22 Rx Ipratropium-Albuterol Nebulize 3 ml INHALATION RT-QID PRN 01/23/22 01/23/22 History [Duoneb 0.5 mg-3 mg/3 ml Soln] Allergies Allergy/AdvReac Type Severity Reaction Status Date / Time No Known Allergies Allergy Verified 01/23/22 14:35 Physical Exam Vitals: Vital Signs Temp Pulse Resp BP Pulse Ox 01/23/22 09:04 20 01/23/22 07:51 92 20 113/75 99 01/23/22 06:03 74 15 134/78 98 01/23/22 03:30 67 15 107/67 96 01/23/22 02:49 97.8 F 73 14 108/73 01/23/22 02:19 97.8 F 74 14 103/69 01/23/22 02:09 97.4 F L 74 15 111/57 95 01/23/22 00:35 90 01/23/22 00:25 88 01/22/22 22:01 98.5 F 88 16 114/70 98 Intake and Output 01/22/22 01/23/22 01/23/22 22:59 06:59 14:59 Intake Total 279 Balance 279 Intake: Blood Product 279 Rc Pheresis 2 As3 Unit 279 [id number] Other: Voiding Method Indwelling Catheter Weight 59.874 kg 59.874 kg General appearance: alert, in no apparent distress Head exam: Present: atraumatic, normocephalic, normal inspection Respiratory exam: Present: normal lung sounds bilaterally. Absent: respiratory distress, wheezes, rales, rhonchi, stridor Cardiovascular Exam: Present: regular rate, normal rhythm, normal heart sounds. Absent: systolic murmur, diastolic murmur, rubs, gallop, clicks GI/Abdominal exam: Present: soft, normal bowel sounds. Absent: distended, tenderness, guarding, rebound, rigid Rectal exam: Present: heme (+) stool, hemorrhoids (1 external non thrombosed ). Absent: black stool, bloody stool Neurological exam: Present: alert, oriented X3, CN II-XII intact Psychiatric exam: Present: normal affect, normal mood Skin exam: Present: warm, dry, intact, normal color. Absent: rash Results CBC & Chem 7: 01/23/22 13:07 01/22/22 23:28 Labs: Abnormal Lab Results - Last 24 Hours (Table) 01/22/22 01/22/22 01/22/22 Range/Units 23:14 23:28 23:28 RBC 2.76 L (4.30-5.90) m/uL Hgb 6.9 L* (13.0-17.5) gm/dL Hct 23.3 L (39.0-53.0) % MCHC 29.7 L (31.0-37.0) g/dL RDW 15.8 H (11.5-15.5) % Lymphocytes # 0.8 L (1.0-4.8) k/uL Sodium 133 L (137-145) mmol/L Glucose 104 H (74-99) mg/dL Total Protein 5.7 L (6.3-8.2) g/dL Albumin 3.3 L (3.5-5.0) g/dL Urine Protein (Negative) Urine Blood (Negative) Ur Leukocyte Esterase (Negative) Urine RBC (0-5) /hpf Urine WBC (0-5) /hpf Urine WBC Clumps (None) /hpf Urine Bacteria (None) /hpf Urine Mucus (None) /hpf Crossmatch See Detail 01/22/22 Range/Units 23:28 RBC (4.30-5.90) m/uL Hgb (13.0-17.5) gm/dL Hct (39.0-53.0) % MCHC (31.0-37.0) g/dL RDW (11.5-15.5) % Lymphocytes # (1.0-4.8) k/uL Sodium (137-145) mmol/L Glucose (74-99) mg/dL Total Protein (6.3-8.2) g/dL Albumin (3.5-5.0) g/dL Urine Protein 1+ H (Negative) Urine Blood Trace H (Negative) Ur Leukocyte Esterase Large H (Negative) Urine RBC 16 H (0-5) /hpf Urine WBC >182 H (0-5) /hpf Urine WBC Clumps Few H (None) /hpf Urine Bacteria Occasional H (None) /hpf Urine Mucus Many H (None) /hpf Crossmatch Thrombosis Risk Factor Assmnt - Choose All That Apply Any of the Below Risk Factors Present?: Yes Each Factor Represents 1 point: Age 41-60 years Other Risk Factors: Yes Each Risk Factor Represents 3 Points: Age 75 years or older Thrombosis Risk Factor Assessment Total Risk Factor Score: 4 Thrombosis Risk Factor Assessment Level: Moderate Risk Assessment and Plan Assessment: 1. GI bleed; - We will start patient on Protonix 40 mg IV twice a day; hold aspirin and Plavix - Gen. surgery is consulted with plans for endoscopy on Tuesday 2. Acute blood loss anemia; patient has received 1 unit of packed RBCs; repeat hemoglobin is 7.3; we will monitor H&H closely with plans to transfuse if hemoglobin is less than 7.0 3. UTI; start patient on Rocephin 1 g IV daily; blood cultures and urine culture obtained; we will adjust antibiotic therapy once culture results are available 4. Hyperlipidemia; patient takes Lipitor at home which has been placed on hold given nothing by mouth status with GI bleed 5. COPD; not in exacerbation; continue with home inhaler therapy in form of Symbicort inhaler, albuterol inhaler and DuoNeb nebulizer treatments 6. Coronary artery disease; patient takes aspirin, Plavix, beta blockers and statin therapy which have been placed on hold DVT prophylaxis; SCDs only, given GI bleed CODE STATUS; DO NOT RESUSCITATE
[2022-01-23] MEDS: PANTOPRAZOLE 40 MG/10 ML VIAL IVP SCH (20:39)
[2022-01-24] MEDS ORDERED: PEG 3350 (236 GM/BTL) + LYTES 4,000 ML BOTTLE PO ONE (08:00)
[2022-01-24] MEDS: PANTOPRAZOLE 40 MG/10 ML VIAL IVP SCH ×2 (08:17→20:48)
[2022-01-24] MEDS: IPRATROPIUM-ALBUTEROL 3 ML NEB INHALATION PRN ×2 (08:35→12:15)
[2022-01-24 09:24] LABS: HCT 23.8 % (39.6-50.0); HGB 7.2 g/dL (13.0-17.0); MCH 24.1 pg (27.0-32.0); MCHC 30.3 g/dL (32.0-37.0); MCV 79.6 fL (80.0-97.0); Mean Platelet Volume 9.2 fL (9.5-12.2); NRBC Per 100 WBC 0 /100 WBCS (0.0-0.0); Platelet Count 327 X 10*3/uL (140-440); RBC 2.99 X 10*6/uL (4.40-5.60); RDW 18.2 % (11.5-14.5); WBC 6.55 X 10*3/uL (4.50-10.00)
[2022-01-24 10:21] LABS: African American GFR (CKD) 95.2 (60.0-200.0); Anion Gap 9.3 mmol/L (10.00-18.00); BUN/Creat Ratio 11.43 Ratio (12.00-20.00); Blood Urea Nitrogen 9.3 mg/dL (9.0-27.0); Calcium 8.7 mg/dL (8.7-10.3); Carbon Dioxide 24.5 mmol/L (20.0-27.5); Non-African American GFR(CKD) 82.1 (60.0-200.0); Potassium 4.2 mmol/L (3.5-5.5)
--- NOTE | 2022-01-24 10:53 | P.PN ---
Progress Note - Text Progress Note Date: 01/24/22 Patient been stable. He's had no further episodes of GI bleed. On exam vital signs are stable. Abdomen soft. Patient scheduled for EGD colonoscopy in the a.m.
--- NOTE | 2022-01-24 17:25 | P.PN ---
Subjective Progress Note Date: 01/24/22 Principal diagnosis: GI bleed Acute blood loss anemia 81-year-old male with a past medical history of COPD, TIA, hyperlipidemia, and coronary artery disease who presents to the emergency department for evaluation of low hemoglobin. Patient states he was in the hospital for COV- and was then sent to rehab at [facility]. Patient states he was discharged from [facility] this morning. They man blood before discharge. He got a call this evening stating his hemoglobin was 5.9 and that he needed to go to the emergency department. Patient reports feeling more weak than normal and a bit lightheaded. Denies fever, chills, chest pain, dizziness, palpitations, shortness of breath, abdominal pain, nausea, vomiting, blood in stool, blood in urine. Denies personal and family history of colon cancer. Denies history of GI bleed, diverticulosis, and hemorrhoids. Patient is on Plavix for prior TIAs. Takes a baby aspirin but otherwise denies chronic NSAID use. Laboratory studies obtained. Hemoglobin is 6.9. For the most part hemoglobin has been trending downward since October. Hemoccult is positive. 1 packed unit ordered. Results discussed with patient and his family were agreeable to admission. Hemoglobin remained stable at 7.3 this morning; patient does report episode of dark stools this morning; we will monitor H&H closely with plans to transfuse if hemoglobin is less than 7.0 Patient is scheduled for EGD/colonoscopy tomorrow morning Objective - Vital Signs Vital signs: Vital Signs Temp 97.3 F L 01/24/22 07:52 Pulse 80 01/24/22 08:38 Resp 20 01/24/22 07:52 BP 126/68 01/24/22 07:52 Pulse Ox 94 L 01/24/22 07:52 FiO2 Intake & Output 01/23/22 01/24/22 01/24/22 18:59 06:59 18:59 Intake Total 50 Output Total 2600 Balance 50 -2600 Weight 59.874 kg Intake: Intake, IV Titration 50 Amount cefTRIAXone 1 gm In 50 Sodium Chloride 0.9% 50 ml @ 100 mls/hr IVPB Q24HR [facility] Rx#:[id number] Output: Urine 2600 Other: Voiding Method Indwelling Catheter Indwelling Catheter - Exam PHYSICAL EXAMINATION: GENERAL: The patient is alert and oriented x3, not in any acute distress. Well developed, well nourished. HEENT: Pupils are round and equally reacting to light. EOMI. No scleral icterus. No conjunctival pallor. Normocephalic, atraumatic. No pharyngeal erythema. No thyromegaly. CARDIOVASCULAR: S1 and S2 present. No murmurs, rubs, or gallops. PULMONARY: Chest is clear to auscultation, no wheezing or crackles. ABDOMEN: Soft, nontender, nondistended, normoactive bowel sounds. No palpable organomegaly. MUSCULOSKELETAL: No joint swelling or deformity. EXTREMITIES: No cyanosis, clubbing, or pedal edema. NEUROLOGICAL: Gross neurological examination did not reveal any focal deficits. SKIN: No rashes. - Labs CBC & Chem 7: 01/24/22 06:11 01/24/22 06:11 Labs: Abnormal Lab Results - Last 24 Hours (Table) 01/23/22 01/24/22 01/24/22 Range/Units 13:07 06:11 06:11 RBC 2.99 L 2.99 L (4.30-5.90) m/uL Hgb 7.3 L 7.2 L (13.0-17.5) gm/dL Hct 24.6 L 23.8 L (39.0-53.0) % MCV 79.6 L (80.0-97.0) fL MCH 24.4 L 24.1 L (25.0-35.0) pg MCHC 29.7 L 30.3 L (31.0-37.0) g/dL RDW 17.3 H 18.2 H (11.5-15.5) % MPV 9.2 L (9.5-12.2) fL Anion Gap 9.30 L (10.00-18.00) mmol/L BUN/Creatinine Ratio 11.43 L (12.00-20.00) Ratio Microbiology - Last 24 Hours (Table) 01/22/22 23:28 Urine Culture - Preliminary Urine,Voided Assessment and Plan Assessment: 1. GI bleed; - We will start patient on Protonix 40 mg IV twice a day; hold aspirin and Plavix - Gen. surgery is consulted with plans for endoscopy on Tuesday 2. Acute blood loss anemia; patient has received 1 unit of packed RBCs; repeat hemoglobin is 7.3; we will monitor H&H closely with plans to transfuse if hemoglobin is less than 7.0 3. UTI; start patient on Rocephin 1 g IV daily; blood cultures and urine cultu re obtained; we will adjust antibiotic therapy once culture results are available 4. Hyperlipidemia; patient takes Lipitor at home which has been placed on hold given nothing by mouth status with GI bleed 5. COPD; not in exacerbation; continue with home inhaler therapy in form of Symbicort inhaler, albuterol inhaler and DuoNeb nebulizer treatments 6. Coronary artery disease; patient takes aspirin, Plavix, beta blockers and statin therapy which have been placed on hold DVT prophylaxis; SCDs only, given GI bleed CODE STATUS; DO NOT RESUSCITATE
[2022-01-24] MEDS: SYMBICORT 80-4.5 MCG INHALER INHALATION SCH (19:31)
[2022-01-25] MEDS: PANTOPRAZOLE 40 MG/10 ML VIAL IVP SCH ×2 (08:14→21:38)
[2022-01-25] MEDS: SYMBICORT 80-4.5 MCG INHALER INHALATION SCH ×2 (08:44→21:02)
[2022-01-25] MEDS ORDERED: LACTATED RINGERS 1,000 ML IV ONE ×2 (09:01)
[2022-01-25] MEDS ORDERED: PROPOFOL 10 MG/ML 20 ML VIAL IV ONE (09:03)
[2022-01-25] MEDS ORDERED: LIDOCAINE 2% INJ 20 MG/ML (2 ML VIAL) ONE (09:03)
--- NOTE | 2022-01-25 09:36 | P.OP ---
Date of Procedure: 01/25/22 Preoperative Diagnosis: GI bleed Postoperative Diagnosis: Antral gastritis Mild diverticulosis Poor colon prep Procedure(s) Performed: EGD Colonoscopy Anesthesia: MAC Surgeon: Sudeep Escobar Pathology: other (Antrum) Condition: stable Disposition: PACU Description of Procedure: The patient's placed on the endoscopy table lateral position. He received IV sedation. The fascia was placed oropharynx passed in the esophagus into the stomach. Scope was then placed through the pylorus. The first and second portion of the duodenum appeared normal. Scope was then brought back the antrum was mildly inflamed. Biopsies performed. The scope was then retroflexed and the remainder of the stomach appeared normal. There was a small sliding hiatal hernia. The GE junction was at 38 cm per the distal esophagus appeared normal. Proximal esophagus appeared normal. Scope withdrawn. Next digital rectal exam was performed. This revealed a few external hemorrhoids. The flexible colonoscope was then placed patient anus and passed throughout the colon. The colon was quite tortuous. There was a poor colon prep. The scope was placed into the cecum. There was a large amount liquid stool which limited the view of the ileocecal valve. The scope was withdrawn. The right colon appeared normal however there is a large amount liquid stool which limited the view of the colon. The transverse colon appeared normal. In the descending; there was moderate diverticular disease. Scope was then brought back the rectum and this appeared normal. There is no evidence of any GI bleed. The colon prep was limited due to the large amount liquid stool. If presumed patient may have bleeding from hemorr hoids.
[2022-01-25 11:14] LABS: African American GFR (CKD) >90 (>60 ml/min/1.73 sqM); Anion Gap 8 mmol/L; Blood Urea Nitrogen 8 mg/dL (9-20); Calcium 8.4 mg/dL (8.4-10.2); Carbon Dioxide 27 mmol/L (22-30); Chloride 99 mmol/L (98-107); Glucose 86 mg/dL (74-99); Non-African American GFR(CKD) 80 (>60 ml/min/1.73 sqM); Sodium 134 mmol/L (137-145)
[2022-01-25 11:21] LABS: Anisocytosis Slight; HCT 24.7 % (39.0-53.0); HGB 7.4 gm/dL (13.0-17.5); Hypochromasia Marked; MCH 24.3 pg (25.0-35.0); MCHC 29.9 g/dL (31.0-37.0); MCV 81.1 fL (80.0-100.0); Mean Platelet Volume 7.2; Platelet Count 340 k/uL (150-450); Poikilocytosis Slight; RBC 3.04 m/uL (4.30-5.90); WBC 6.5 k/uL (3.8-10.6)
[2022-01-25] MEDS: FINASTERIDE 5 MG TAB PO SCH (11:26)
[2022-01-25] MEDS: TAMSULOSIN 0.4 MG CAP.ER.24H PO SCH ×2 (11:27→21:38)
[2022-01-25] MEDS: ALBUTEROL NEBULIZED 2.5 MG/3 ML INHALATION PRN ×2 (11:41→15:45)
--- NOTE | 2022-01-25 15:37 | P.PN ---
Subjective Progress Note Date: 01/25/22 This is an 81-year-old gentleman admitted with acute on chronic anemia, UTI/history of recurrent UTIs, advanced COPD, chronic hypoxic respiratory failure, right lung mass/recent PET scan, bilateral hydronephrosis and multiple other medical issues, recently discharged from [facility] rehab. Hemoglobin 7.4. Evaluated by surgery, scheduled for EGD and colonoscopy this morning. Urine culture reporting pseudomonas aeruginosa, antibiotics adjusted to Zosyn. Currently maintaining O2 sats in the low 90s on room air. Denies chest pain, palpitations. Objective - Vital Signs Vital signs: Vital Signs Temp 97.8 F 01/25/22 15:09 Pulse 80 01/25/22 15:09 Resp 15 01/25/22 15:09 BP 117/65 01/25/22 15:09 Pulse Ox 94 L 01/25/22 15:09 FiO2 Intake & Output 01/24/22 01/25/22 01/25/22 18:59 06:59 18:59 Intake Total 3240 200 Output Total 3 Balance 3237 200 Intake: IV 200 Oral 3240 Output: Urine/Stool Mix 3 Other: Voiding Method Indwelling Catheter # Voids 3 3 # Bowel Movements 6 7 3 - Exam - Exam GENERAL EXAM: Alert and oriented 3, sitting up in bed, no acute distress. RAMONA. HEAD: Normocephalic. EYES: Normal reaction of pupils, equal size. THROAT: No erythema or exudates. NECK: Supple, no JVD LUNGS: Equal air entry, diminished bases. CVS: S1 and S2 normal with no audible murmur, regular rhythm. ABDOMEN: No hepatosplenomegaly, normal bowel sounds, no guarding or rigidity. SKIN: No rashes, warm and dry CENTRAL NERVOUS SYSTEM: No focal deficits, tone is normal in all 4 extremities. EXTREMITIES: No peripheral edema. No clubbing, no cyanosis. Peripheral pulses are intact. - Labs CBC & Chem 7: 01/25/22 10:45 01/25/22 10:45 Labs: Abnormal Lab Results - Last 24 Hours (Table) 01/25/22 01/25/22 Range/Units 10:45 10:45 RBC 3.04 L (4.30-5.90) m/uL Hgb 7.4 L (13.0-17.5) gm/dL Hct 24.7 L (39.0-53.0) % MCH 24.3 L (25.0-35.0) pg MCHC 29.9 L (31.0-37.0) g/dL RDW 17.0 H (11.5-15.5) % Sodium 134 L (137-145) mmol/L BUN 8 L (9-20) mg/dL Microbiology - Last 24 Hours (Table) 01/22/22 23:28 Urine Culture - Final Urine,Voided Pseudomonas aeruginosa Assessment and Plan Assessment: Acute on chronic anemia Right upper lobe mass, PET scan recently completed on 01/15/2022, scheduled to meet with Dr. Maurer regarding results,this End-stage COPD, emphysema Acute UTI, cultures reporting pseudomonas aeruginosa, in a patient with recurrent UTIs; recently Enterobacter aerogensis on 12/17/2009 Chronic renal failure CAD Degenerative cervical disc disease Gait dysfunction, history of falls Gastroesophageal reflux disease Heart of hearing Plan: Continue on current medication regime, monitoring and symptomatic treatment. Scheduled for EGD/colonoscopy this a.m. pulmonary consulted regarding recent PET scan/emphysema/advanced COPD. Discharge planning in progress, authorization pending. The impression and plan of care has been dictated as directed. : I performed a history and examination of this patient, discussed the same with the dictator. I agree with the dictator's note ,documented as a scribe. Any additional findings or plans will be noted.
[2022-01-25] MEDS: PIPERACILLIN-TAZOBACTAM 3.375 GM in SODIUM CHLORIDE 0.9% 100 ML IVPB SCH (15:50)
[2022-01-26] MEDS: PIPERACILLIN-TAZOBACTAM 3.375 GM in SODIUM CHLORIDE 0.9% 100 ML IVPB SCH ×3 (00:26→16:01)
[2022-01-26] MEDS: SYMBICORT 80-4.5 MCG INHALER INHALATION SCH ×2 (07:52→19:43)
[2022-01-26] MEDS: PANTOPRAZOLE 40 MG/10 ML VIAL IVP SCH ×2 (09:30→22:30)
[2022-01-26] MEDS: TAMSULOSIN 0.4 MG CAP.ER.24H PO SCH ×2 (09:30→22:30)
[2022-01-26] MEDS: FINASTERIDE 5 MG TAB PO SCH (09:30)
--- NOTE | 2022-01-26 09:30 | CDI ---
Documentation Clarification Form Date: 01/26/2022 09:17:04 AM From: Rosalba Bolaños CCS, CCDS Admit Date: 01/23/2022 02:03:00 AM Patient Name: Calixto Olivarez Visit Number: [id number] Discharge Date: ATTENTION: The Clinical Documentation Specialists (CDI) and [facility] Coding Staff appreciate your assistance in clarifying documentation. Please respond to the clarification below the line at the bottom and electronically sign. The CDI & [facility] Coding staff will review the response and follow-up if needed. Please note: Queries are made part of the Legal Health Record. If you have any questions, please contact the author of this message via ITS. Dr. Jorge L Puente: Chronic renal failure is documented in the 01/25 Attending Physician Progress Note without further specificity of the stage of CKD. Please clarify if there is an additional diagnosis and/or clinical significance related to this value. History/Risk Factors: Per the 01/23 H/P: Hyperlipidemia, COPD, CAD, TIA with weakness on right side, some on the left; Osteoarthritis, Indwelling Catheter, COVID 19, CABG. Former smoker. Clinical Indicators: Presented to the ED on 01/23 with low Hemoglobin. Recently admitted for COVID-19, discharged to Rehab and discharged to home this morning. Blood draw prior to discharge: Hgb 5.9. Called by physician to return to the ED. Complaining of being weak & lightheaded. Rectal exam: + Heme stool and external Hemorrhoids. Admit with GI Bleed, Low Hemoglobin and Weakness. Current LAB: 01/22 BUN: 19. 01/24: 9.3. 01/25: 8 01/22 Creatinine: 0.90. 01/24: 0.8. 01/25: 0.87 01/22 GFR: 79. 01/24: 82.1. 01/25: 80 Historical GFR: 11/14/2014: >60 Treatment 01/23: Oral Nutrition Supplement: Ensure clear TID, General Surgery Consult (GI Bleed), DNR Status, INH Ventolin 2.5 mg x1, IV Rocephin 50 mls @ 100 mls/hr q2Hr, INH Ventolin 2.5 mg q5H/prn, INH Duoneb 3 ml QID/PRN, IV Protonix 40 mg BID. Procedures: 01/25: EGD with Stomach biopsy and Colonoscopy Is there an additional diagnosis and/or clinical significance related to the above lab result/information? [ ] CKD Stage 2 (GFR 60-89) [ ] CKD ruled out [ ] Other, please specify: [ ] Unable to determine (Template Last Revised: July 2020) 01/27: Query response documented in the 01/26 Discharge Summary, Dr. Puente: CKD stage II. (CDS: VERONICA) MTDD
--- NOTE | 2022-01-26 09:41 | CDI ---
Documentation Clarification Form Date: 01/26/2022 09:32:00 AM From: Rosalba Bolaños CCS, CCDS Admit Date: 01/23/2022 02:03:00 AM Patient Name: Calixto Olivarez Visit Number: [id number] Discharge Date: ATTENTION: The Clinical Documentation Specialists (CDI) and [facility] Coding Staff appreciate your assistance in clarifying documentation. Please respond to the clarification below the line at the bottom and electronically sign. The CDI & [facility] Coding staff will review the response and follow-up if needed. Please note: Queries are made part of the Legal Health Record. If you have any questions, please contact the author of this message via ITS. Dr. Jorge L Puente: Per the Patient's Past Medical History in the 01/23 ED note, the 01/23 Surgery Consult and the 01/23 H/P the patient has an indwelling catheter. Per the 01/23 H/P and subsequent Attending Progress Notes the patient's Voiding Method is Indwelling Catheter. The patient also has documented diagnosis of UTI with a history of recurrent UTIs. Additional clarification regarding the etiology of the UTI is requested. History/Risk Factors: Per the 01/23 H/P: Hyperlipidemia, COPD, CAD, TIA with weakness on right side, some on the left; Osteoarthritis, Indwelling Catheter, COVID 19, CABG. Former smoker. Clinical Indicators: Presented to the ED on 01/23 with low Hemoglobin. Recently admitted for COVID-19, discharged to Rehab and discharged to home this morning. Blood draw prior to discharge: Hgb 5.9. Called by physician to return to the ED. Complaining of being weak & lightheaded. Rectal exam: + Heme stool and external Hemorrhoids. Admit with GI Bleed, Low Hemoglobin and Weakness. 01/22 UA: Yellow, Cloudy, 1+ Protein, Trace Blood, Positive Nitrite, Large Esterase, RBC 16, WBC >182. 01/22 Urine culture: Final: Pseudomonas aeruginosa. Treatment 01/23: Oral Nutrition Supplement: Ensure clear TID, General Surgery Consult (GI Bleed), DNR Status, INH Ventolin 2.5 mg x1, IV Rocephin 50 mls @ 100 mls/hr q2Hr, INH Ventolin 2.5 mg q5H/prn, INH Duoneb 3 ml QID/PRN, IV Protonix 40 mg BID. 01/25 Antibiotics changed to IV Zosyn 100 mls @ 25 mls/hr q8H. Procedures: 01/25: EGD with Stomach biopsy and Colonoscopy Please clarify the etiology of the UTI, if known: [X ] UTI is related to the Paige catheter [ ] UTI is not related to the Paige catheter [ ] Other, please specify: [ ] Unable to determine (Template Last Revised: August 2020) MTDD
--- NOTE | 2022-01-26 10:13 | P.DS ---
Providers Date of admission: 01/23/22 02:03 Expected date of discharge: 01/26/22 Attending physician: Jorge L Puente Consults: 01/23/22 00:24 Consult Physician Routine Consulting Provider: Sudeep Escobar Consult Reason/Comments: GI bleed Do you want consulting provider notified?: Yes 01/25/22 13:18 Consult Physician Urgent Consulting Provider: Anton Pang Reason/Comments: emphysema/ recent pet scan Do you want consulting provider notified?: Yes Primary care physician: Jorge L Puente [facility] Course: Final Diagnoses: Acute on chronic anemia status post EGD and colonoscopy reporting antral gastritis, mild diverticulosis, poor colon prep with no evidence of GI bleed, suspected bleeding from hemorrhoids as per surgery. Right upper lobe mass, PET scan recently completed on 01/15/2022, scheduled to meet with Dr. Maurer regarding results,this End-stage COPD, emphysema Acute UTI, cultures reporting pseudomonas aeruginosa, in a patient with recurrent UTIs; recently Enterobacter aerogensis on 12/17/2009 Chronic renal failure, stage II CAD Degenerative cervical disc disease Gait dysfunction, history of falls Gastroesophageal reflux disease [facility] Hospital course:This is an 81-year-old gentleman admitted with acute on chronic anemia, UTI/history of recurrent UTIs, advanced COPD, chronic hypoxic respiratory failure, right lung mass/recent PET scan, bilateral hydronephrosis and multiple other medical issues, recently discharged from [facility] rehab. Hemoglobin 7.4. Evaluated by surgery, scheduled for EGD and colonoscopy this morning. Urine culture reporting pseudomonas aeruginosa, antibiotics adjusted to Zosyn. Currently maintaining O2 sats in the low 90s on room air. Denies chest pain, palpitations. EGD and colonoscopy completed reporting antral gastritis, mild diverticulosis, poor colon prep with no evidence of GI bleed, suspected bleeding from hemorrhoids per surgery. Hemoglobin/Labs pending. Patient will be discharged to [facility]. In a stable condition with guarded prognosis, pending labs,pulmonary DC recommendations and clearance. The impression and plan of care has been dictated as directed. : I performed a history and examination of this patient, discussed the same with the dictator. I agree with the dictator's note ,documented as a scribe. Any additional findings or plans will be noted. Patient Condition at Discharge: Stable Plan - Discharge Summary New Discharge Prescriptions: New Amoxic-Pot Clav 875-125Mg [Augmentin 875-125] 1 tab PO BID 5 Days #10 tab Continue Aspirin EC [Ecotrin Low Dose] 81 mg PO DAILY Folic Acid 1 mg PO DAILY tab Atorvastatin [Lipitor] 40 mg PO HS #30 tab amLODIPine [Norvasc] 5 mg PO DAILY #30 tab Clopidogrel [Plavix] 75 mg PO DAILY #30 tab Calcium Carbonate [Tums] 1,000 mg PO TID PRN tab PRN Reason: Heartburn Fluticasone Propion/Salmeterol [Wixela 250-50 Inhub] 1 puff INHALATION RT-HS Albuterol Sulfate [Proair Hfa] 1 puff INHALATION RT-Q6H PRN PRN Reason: Shortness Of Breath Pantoprazole [Protonix] 40 mg PO AC-BRKFST #30 tab Tamsulosin HCl [Flomax] 0.4 mg PO BID Finasteride [Proscar] 5 mg PO DAILY guaiFENesin [Mucinex] 600 mg PO Q8HR PRN tab PRN Reason: Cough Ipratropium-Albuterol Nebulize [Duoneb 0.5 mg-3 mg/3 ml Soln] 3 ml INHALATION RT-QID PRN PRN Reason: Shortness Of Breath Discharge Medication List Aspirin EC [Ecotrin Low Dose] 81 mg PO DAILY 11/13/18 [History] Albuterol Sulfate [Proair Hfa] 1 puff INHALATION RT-Q6H PRN 10/15/21 [History] Fluticasone Propion/Salmeterol [Wixela 250-50 Inhub] 1 puff INHALATION RT-HS 10/15/21 [History] Atorvastatin [Lipitor] 40 mg PO HS #30 tab 10/22/21 [Rx] Clopidogrel [Plavix] 75 mg PO DAILY #30 tab 10/22/21 [Rx] Folic Acid 1 mg PO DAILY tab 10/22/21 [Rx] Pantoprazole [Protonix] 40 mg PO AC-BRKFST #30 tab 10/22/21 [Rx] amLODIPine [Norvasc] 5 mg PO DAILY #30 tab 10/22/21 [Rx] Finasteride [Proscar] 5 mg PO DAILY 12/24/21 [History] Tamsulosin HCl [Flomax] 0.4 mg PO BID 12/24/21 [History] Calcium Carbonate [Tums] 1,000 mg PO TID PRN tab 12/30/21 [Rx] guaiFENesin [Mucinex] 600 mg PO Q8HR PRN tab 12/31/21 [Rx] Ipratropium-Albuterol Nebulize [Duoneb 0.5 mg-3 mg/3 ml Soln] 3 ml INHALATION RT-QID PRN 01/23/22 [History] Amoxic-Pot Clav 875-125Mg [Augmentin 875-125] 1 tab PO BID 5 Days #10 tab 01/25/22 [Rx] Follow up Appointment(s)/Referral(s): Jorge L Puente DO [Primary Care Provider] - 01/28/22 3:00 pm Ambulatory/Diagnostic Orders: Complete Blood Count w/diff [LAB.AMB] Location: None Selected Activity/Diet/Wound Care/Special Instructions: Lilian Caruso CBC,BMP IN 3 Days Discharge Disposition: TRANSFER TO SNF/ECF
--- NOTE | 2022-01-26 10:28 | P.CNPUL ---
History of Present Illness Consult date: 01/26/22 Requesting physician: Elizabeth Wilkes Reason for consult: other Chief complaint: Right upper lobe pulmonary nodule, anemia History of present illness: This is a 81-year-old white male patient with past medical history of severe COPD with baseline FEV1 of 36% of predicted, known right lung mass measuring 2.8 x 2.3 x 1.7 cm with central calcification does been noted on previous CT scans of the chest. This is being followed on an outpatient basis by Dr. Maurer. Patient had a recent PET scan done on 01/16/2022 right upper lobe 13 mm pulmonary nodule with SUV of 2.1, left lower lobe tubular FDG uptake of 5.1 and right lower lobe consolidation/nodule along the right lateral lower lobe with SUV of 2.5 and 2.4. There was no suspicious uptake in the abdomen or pelvis. There was slight asymmetric left focal uptake at the level of the arytenoid cartilage posteriorly. Patient has not seen Dr. Maurer in follow-up regarding his PET scan results. He came into the emergency department on January 22, 2022 for evaluation of low hemoglobin that was drawn on routine labs while he was getting discharged after undergoing rehabilitation at [facility] following his hospitalization for COVID-19 infection. His hemoglobin on his blood work was noted to be at 5.9 and he was directed to go to the emergency department. Patient was feeling weak, lightheaded. But denied any chest pain, shortness of breath, no abdominal pain, no vomiting no blood in the stool or blood in the urine. No history of colon cancer. Patient was on Plavix for history of TIAs, and a baby aspirin otherwise no NSAID use reported. Patient received a unit of packed red blood cells, currently hemoglobin is up to 7.4, he was evaluated by general surgery, and he had a EGD and colonoscopy yesterday on 01/25/2022 malissa wing antral gastritis, mild diverticulosis, and it was noted that there was no evidence of GI bleeding however the prep was limited. The bleeding was presumed to be from hemorrhoids. Today patient is being [facility], and we were asked to see the patient to follow-up on the PET scan results regarding suspicious malignancy in the right upper lobe with possible metastasis. From pulmonary perspective patient is stable, he is on room air, denies shortness of breath, vital signs are stable. Patient is currently on breathing treatments, Symbicort and antibiotics for the UTI related to pseudomonas aeruginosa Review of Systems All systems: negative Constitutional: Denies chills, Denies fever Eyes: denies blurred vision, denies pain Ears, nose, mouth and throat: Denies headache, Denies sore throat Cardiovascular: Denies chest pain, Denies shortness of breath Respiratory: Denies cough Gastrointestinal: Denies abdominal pain, Denies diarrhea, Denies nausea, Denies vomiting Musculoskeletal: Denies myalgias Integumentary: Denies pruritus, Denies rash Neurological: Denies numbness, Denies weakness Psychiatric: Denies anxiety, Denies depression Endocrine: Denies fatigue, Denies weight change Past Medical History Past Medical History: Coronary Artery Disease (CAD), Chest Pain / Angina, COPD, CVA/TIA, Hyperlipidemia, Osteoarthritis (OA) Additional Past Medical History / Comment(s): COPD, "mini stroke 2-3 months ago- "weakness on rt side, some on the left", indwelling catheter. History of Any Multi-Drug Resistant Organisms: None Reported Past Surgical History: Coronary Bypass/CABG Additional Past Surgical History / Comment(s): 1994 CABG 3 vessel, colonoscopy with benign polypectomy. hoda cataracts Past Anesthesia/Blood Transfusion Reactions: No Reported Reaction Past Psychological History: No Psychological Hx Reported Additional Psychological History / Comment(s): Pt resides with his spouse. He states he has a nebulizer. Smoking Status: Former smoker Past Alcohol Use History: Unable to Obtain Additional Past Alcohol Use History / Comment(s): Pt started smoking in 1955 and quit in 2004. He smoked 1-1.5 ppd. Past Drug Use History: Unable to Obtain - Past Family History Father Family Medical History: Myocardial Infarction ([place]) Additional Family Medical History / Comment(s): Father of a [place] in his 60s. Mother Family Medical History: Unable to Obtain Additional Family Medical History / Comment(s): . Medications and Allergies Home Medications Medication Instructions Recorded Confirmed Type Aspirin EC [Ecotrin Low Dose] 81 mg PO DAILY 11/13/18 01/23/22 History Albuterol Sulfate [Proair Hfa] 1 puff INHALATION RT-Q6H PRN 10/15/21 01/23/22 History Fluticasone Propion/Salmeterol 1 puff INHALATION RT-HS 10/15/21 01/23/22 History [Wixela 250-50 Inhub] Atorvastatin [Lipitor] 40 mg PO HS #30 tab 10/22/21 01/23/22 Rx Clopidogrel [Plavix] 75 mg PO DAILY #30 tab 10/22/21 01/23/22 Rx Folic Acid 1 mg PO DAILY tab 10/22/21 01/23/22 Rx Pantoprazole [Protonix] 40 mg PO AC-BRKFST #30 tab 10/22/21 01/23/22 Rx amLODIPine [Norvasc] 5 mg PO DAILY #30 tab 10/22/21 01/23/22 Rx Finasteride [Proscar] 5 mg PO DAILY 12/24/21 01/23/22 History Tamsulosin HCl [Flomax] 0.4 mg PO BID 12/24/21 01/23/22 History Calcium Carbonate [Tums] 1,000 mg PO TID PRN tab 12/30/21 01/23/22 Rx guaiFENesin [Mucinex] 600 mg PO Q8HR PRN tab 12/31/21 01/23/22 Rx Ipratropium-Albuterol Nebulize 3 ml INHALATION RT-QID PRN 01/23/22 01/23/22 History [Duoneb 0.5 mg-3 mg/3 ml Soln] Amoxic-Pot Clav 875-125Mg 1 tab PO BID 5 Days #10 tab 01/25/22 Rx [Augmentin 875-125] Allergies Allergy/AdvReac Type Severity Reaction Status Date / Time No Known Allergies Allergy Verified 01/23/22 14:35 Physical Exam Vitals: Vital Signs Temp Pulse Pulse Resp BP Pulse Ox 01/26/22 02:30 98.1 F 82 18 114/55 92 L 01/25/22 18:49 98.5 F 77 16 104/55 96 01/25/22 15:56 72 01/25/22 15:45 69 01/25/22 15:09 97.8 F 80 15 117/65 94 L 01/25/22 13:04 97.8 F 80 15 117/65 94 L 01/25/22 11:50 74 01/25/22 11:42 72 01/25/22 11:23 64 132/64 93 L 01/25/22 10:52 60 103/56 93 L 01/25/22 10:39 67 101/51 93 L 01/25/22 10:22 67 90/45 93 L 01/25/22 10:10 79 82/50 90 L Intake and Output 01/25/22 01/26/22 01/26/22 22:59 06:59 14:59 Output Total 500 Balance -500 Output: Urine 500 Other: Voiding Method Indwelling Catheter # Voids 3 0 # Bowel Movements 3 GENERAL EXAM: Alert, very pleasant, 81-year-old white male, resting comfortably in bed, on room air satting 97% comfortable in no apparent distress. HEAD: Normocephalic/atraumatic. EYES: Normal reaction of pupils, equal size. Conjunctiva pink, sclera white. NOSE: Clear with pink turbinates. THROAT: No erythema or exudates. NECK: No masses, no JVD, no thyroid enlargement, no adenopathy. CHEST: No chest wall deformity. Symmetrical expansion. LUNGS: Equal air entry with no crackles, wheeze, rhonchi or dullness. CVS: Regular rate and rhythm, normal S1 and S2, no gallops, no murmurs, no rubs ABDOMEN: Soft, nontender. No hepatosplenomegaly, normal bowel sounds, no guarding or rigidity. EXTREMITIES: No clubbing, no edema, no cyanosis, 2+ pulses and upper and lower extremities. MUSCULOSKELETAL: Muscle strength and tone normal. SPINE: No scoliosis or deformity SKIN: No rashes CENTRAL NERVOUS SYSTEM: Alert and oriented -3. No focal deficits, tone is normal in all 4 extremities. PSYCHIATRIC: Alert and oriented -3. Appropriate affect. Intact judgment and insight. Results - Laboratory Findings CBC and BMP: 01/25/22 10:45 01/25/22 10:45 PT/INR, D-dimer PT 11.2 sec (9.0-12.0) 01/22/22 23:28 INR 1.0 (<1.2) 01/22/22 23:28 Abnormal lab findings: Abnormal Labs 01/22/22 01/22/22 01/22/22 23:14 23:28 23:28 RBC 2.76 L Hgb 6.9 L* Hct 23.3 L MCV MCH MCHC 29.7 L RDW 15.8 H MPV Lymphocytes # 0.8 L Sodium 133 L Anion Gap BUN BUN/Creatinine Ratio Glucose 104 H Total Protein 5.7 L Albumin 3.3 L Urine Protein Urine Blood Ur Leukocyte Esterase Urine RBC Urine WBC Urine WBC Clumps Urine Bacteria Urine Mucus Crossmatch See Detail 01/22/22 01/23/22 01/24/22 23:28 13:07 06:11 RBC 2.99 L 2.99 L Hgb 7.3 L 7.2 L Hct 24.6 L 23.8 L MCV 79.6 L MCH 24.4 L 24.1 L MCHC 29.7 L 30.3 L RDW 17.3 H 18.2 H MPV 9.2 L Lymphocytes # Sodium Anion Gap BUN BUN/Creatinine Ratio Glucose Total Protein Albumin Urine Protein 1+ H Urine Blood Trace H Ur Leukocyte Esterase Large H Urine RBC 16 H Urine WBC >182 H Urine WBC Clumps Few H Urine Bacteria Occasional H Urine Mucus Many H Crossmatch 01/24/22 01/25/22 01/25/22 06:11 10:45 10:45 RBC 3.04 L Hgb 7.4 L Hct 24.7 L MCV MCH 24.3 L MCHC 29.9 L RDW 17.0 H MPV Lymphocytes # Sodium 134 L Anion Gap 9.30 L BUN 8 L BUN/Creatinine Ratio 11.43 L Glucose Total Protein Albumin Urine Protein Urine Blood Ur Leukocyte Esterase Urine RBC Urine WBC Urine WBC Clumps Urine Bacteria Urine Mucus Crossmatch - Diagnostic Findings Chest x-ray: report reviewed, image reviewed Additional studies: PET scan from 01/16/2022 reviewed Assessment and Plan Plan: Assessment: #1. Pulmonary nodules in the right upper lobe, was suspicious uptake on the PET scan from 01/16/2022, with possibility of metastatic malignancy #2. Anemia, acute on chronic, please refer to general surgery consultation and endoscopic evaluation results. Patient has received 1 unit of packed red blood cells during this admission #3. Advanced COPD, with FEV1 of 36% of predicted #4. Chronic kidney disease, unspecified #5. Coronary artery disease #6. Gait dysfunction, history of falls #7. Degenerative cervical disc disease #8. Pseudomonal urinary tract infection, treated with Zosyn Plan: PET scan results have been reviewed Does show a suspicious uptake in the pulmonary nodules in the right lung Patient will need follow-up with Dr. Maurer on an outpatient basis Patient may be a good candidate for SBRT therapy, as he may be a poor candidate for lung biopsy or chemo with radiation We'll discuss this on an outpatient basis during his follow-up, once he is discharged from rehab I have personally seen and examined the patient, performed the documentation and the assessment and plan as written. Number of minutes spent on the visit: 15 Time with Patient: Greater than 30
[2022-01-26 10:37] LABS: African American GFR (CKD) 84.4 (60.0-200.0); Anion Gap 4.6 mmol/L (10.00-18.00); BUN/Creat Ratio 8.21 Ratio (12.00-20.00); Blood Urea Nitrogen 7.9 mg/dL (9.0-27.0); Calcium 8.5 mg/dL (8.7-10.3); Carbon Dioxide 29.1 mmol/L (20.0-27.5); Non-African American GFR(CKD) 72.8 (60.0-200.0); Potassium 3.9 mmol/L (3.5-5.5)
[2022-01-26 11:04] LABS: Basophils # (A) 0.03 X 10*3/uL (0.00-0.10); Basophils % (A) 0.5 %; Eosinophils # (A) 0.08 X 10*3/uL (0.04-0.35); Eosinophils % (A) 1.3 %; HCT 22.8 % (39.6-50.0); HGB 6.9 g/dL (13.0-17.0); Immature Grans, Automated 0.7 %; Lymphocytes # (A) 1.29 X 10*3/uL (0.90-5.00); MCH 24.4 pg (27.0-32.0); MCHC 30.3 g/dL (32.0-37.0); MCV 80.6 fL (80.0-97.0); Mean Platelet Volume 9.7 fL (9.5-12.2); Monocytes # (A) 0.74 X 10*3/uL (0.20-1.00); Monocytes % (A) 12.1 %; NRBC Per 100 WBC 0 /100 WBCS (0.0-0.0); Neutrophils # (A) 3.96 X 10*3/uL (1.80-7.70); Neutrophils % (A) 64.4 %; Platelet Count 304 X 10*3/uL (140-440); RBC 2.83 X 10*6/uL (4.40-5.60); RDW 17.6 % (11.5-14.5); WBC 6.14 X 10*3/uL (4.50-10.00)
[2022-01-26 11:05] LABS: Hypochromasia (M) 2+
[2022-01-26] MEDS ORDERED: FUROSEMIDE 10 MG/ML 2 ML VIAL IV STA (11:30)
--- NOTE | 2022-01-26 13:14 | P.PN ---
Subjective Progress Note Date: 01/26/22 CHIEF COMPLAINT: Anemia HISTORY OF PRESENT ILLNESS: Patient is status post EGD and colonoscopy which revealed antral gastritis, mild diverticulosis and patient had a poor colon prep. His presumed patient may had had bleeding from hemorrhoids. Patient denies any bloody bowel movements. Tolerated diet. Denies abdominal pain. Hemoglobin did drop from 7.4-6.9. He is scheduled for 1 unit of blood patient seen by pulmonary service regarding pulmonary nodule in the right upper lobe with suspicious uptake in the PET scan and concerns of metastatic malignancy. PHYSICAL EXAM: VITAL SIGNS: Reviewed. GENERAL: Well-developed in no acute distress. HEENT: No sclera icterus. Extraocular movements grossly intact. Moist buccal mucosa. Head is atraumatic, normocephalic. ABDOMEN: Soft. Nondistended. Nontender. NEUROLOGIC: Alert and oriented. Cranial nerves II through XII grossly intact. ASSESSMENT: 1. Anemia status post EGD and colonoscopy which revealed antral gastritis, mild diverticulosis and patient had a poor colon prep. No active signs of bleeding PLAN: -Patient received 1 unit of blood today -Continue to hold Plavix -Continue to monitor hemoglobin -Continue monitoring for any signs or symptoms of bleeding Physician Pairer note has been reviewed by physician. Signing provider agrees with the documented findings, assessment, and plan of care. Objective - Vital Signs Vital signs: Vital Signs Temp 98.5 F 01/26/22 08:00 Pulse 89 01/26/22 08:00 Resp 15 01/26/22 08:00 BP 97/51 01/26/22 08:00 Pulse Ox 97 01/26/22 08:00 FiO2 Intake & Output 01/25/22 01/26/22 01/26/22 18:59 06:59 18:59 Intake Total 200 Output Total 1999 Balance -1800 Weight 59.874 kg Intake: IV 200 Output: Urine 1999 Other: Voiding Method Indwelling Catheter # Voids 3 0 # Bowel Movements 3 - Labs CBC & Chem 7: 01/26/22 06:38 01/26/22 06:38 Labs: Abnormal Lab Results - Last 24 Hours (Table) 01/26/22 01/26/22 Range/Units 06:38 06:38 RBC 2.83 L (4.40-5.60) X 10*6/uL Hgb 6.9 L* (13.0-17.0) g/dL Hct 22.8 L (39.6-50.0) % MCH 24.4 L (27.0-32.0) pg MCHC 30.3 L (32.0-37.0) g/dL RDW 17.6 H (11.5-14.5) % Carbon Dioxide 29.1 H (20.0-27.5) mmol/L Anion Gap 4.60 L (10.00-18.00) mmol/L BUN 7.9 L (9.0-27.0) mg/dL BUN/Creatinine Ratio 8.21 L (12.00-20.00) Ratio Calcium 8.5 L (8.7-10.3) mg/dL Microbiology - Last 24 Hours (Table) 01/22/22 23:28 Urine Culture - Final Urine,Voided Pseudomonas aeruginosa
[2022-01-27] MEDS: PIPERACILLIN-TAZOBACTAM 3.375 GM in SODIUM CHLORIDE 0.9% 100 ML IVPB SCH ×4 (00:27→23:36)
[2022-01-27] MEDS: FINASTERIDE 5 MG TAB PO SCH (06:58)
[2022-01-27] MEDS: TAMSULOSIN 0.4 MG CAP.ER.24H PO SCH ×2 (06:58→20:22)
[2022-01-27] MEDS: SYMBICORT 80-4.5 MCG INHALER INHALATION SCH ×2 (07:42→20:28)
[2022-01-27] MEDS: guaiFENesin 600 MG TABLET.ER PO SCH ×2 (09:43→20:23)
[2022-01-27] MEDS: PANTOPRAZOLE 40 MG/10 ML VIAL IVP SCH ×2 (09:44→20:22)
[2022-01-27 10:03] LABS: Anisocytosis Slight; HCT 28.9 % (39.0-53.0); HGB 8.7 gm/dL (13.0-17.5); Hypochromasia Marked; MCH 25.2 pg (25.0-35.0); MCV 83.9 fL (80.0-100.0); Mean Platelet Volume 7.3; Platelet Count 347 k/uL (150-450); Poikilocytosis Moderate; RBC 3.45 m/uL (4.30-5.90); RDW 16.8 % (11.5-15.5); WBC 7.4 k/uL (3.8-10.6)
[2022-01-27 10:21] LABS: African American GFR (CKD) 75 (>60 ml/min/1.73 sqM); Anion Gap 7 mmol/L; Blood Urea Nitrogen 11 mg/dL (9-20); Calcium 8.6 mg/dL (8.4-10.2); Carbon Dioxide 29 mmol/L (22-30); Chloride 97 mmol/L (98-107); Glucose 97 mg/dL (74-99); Non-African American GFR(CKD) 65 (>60 ml/min/1.73 sqM); Potassium 3.9 mmol/L (3.5-5.1); Sodium 133 mmol/L (137-145)
--- NOTE | 2022-01-27 12:27 | P.PN ---
Subjective Progress Note Date: 01/27/22 CHIEF COMPLAINT: Anemia HISTORY OF PRESENT ILLNESS: Patient is status post EGD and colonoscopy which revealed antral gastritis, mild diverticulosis and patient had a poor colon prep. His presumed patient may had had bleeding from hemorrhoids. Patient denies any bloody bowel movements. Tolerated diet. Denies abdominal pain. Patient seen by pulmonary service regarding pulmonary nodule in the right upper lobe with suspicious uptake in the PET scan and concerns of metastatic malignancy. Patient status post 1 unit of blood for hemoglobin of 6.9. Repeat HGB better at 8.7 PHYSICAL EXAM: VITAL SIGNS: Reviewed. GENERAL: Well-developed in no acute distress. HEENT: No sclera icterus. Extraocular movements grossly intact. Moist buccal mucosa. Head is atraumatic, normocephalic. ABDOMEN: Soft. Nondistended. Nontender. NEUROLOGIC: Alert and oriented. Cranial nerves II through XII grossly intact. ASSESSMENT: 1. Anemia status post EGD and colonoscopy which revealed antral gastritis, mild diverticulosis and patient had a poor colon prep. No active signs of bleeding PLAN: -Patient can be discharged from surgical standpoint when medically cleared -Continue workup per pulmonary service regarding pulmonary nodule and concerns for malignancy Physician Rural Mail Contractor note has been reviewed by physician. Signing provider agrees with the documented findings, assessment, and plan of care. Objective - Vital Signs Vital signs: Vital Signs Temp 98.0 F 01/27/22 08:00 Pulse 64 01/27/22 08:00 Resp 17 01/27/22 08:00 BP 126/69 01/27/22 08:00 Pulse Ox 93 L 01/27/22 08:00 FiO2 Intake & Output 01/26/22 01/27/22 01/27/22 18:59 06:59 18:59 Intake Total 284 400 Output Total 1900 2600 Balance -1616 -2200 Weight 59.874 kg Intake: Blood Product 284 400 Rc Pheresis 2 As3 Unit 284 [id number] Output: Urine 1900 2600 Uretheral (Paige) 2600 Other: Voiding Method Indwelling Catheter Indwelling Catheter - Labs CBC & Chem 7: 01/27/22 09:25 01/27/22 09:25 Labs: Abnormal Lab Results - Last 24 Hours (Table) 01/22/22 01/26/22 01/27/22 Range/Units 23:14 14:38 09:25 RBC 3.45 L (4.30-5.90) m/uL Hgb 8.7 L (13.0-17.5) gm/dL Hct 28.9 L (39.0-53.0) % MCHC 30.0 L (31.0-37.0) g/dL RDW 16.8 H (11.5-15.5) % Sodium (137-145) mmol/L Chloride (98-107) mmol/L Crossmatch See Detail See Detail 01/27/22 Range/Units 09:25 RBC (4.30-5.90) m/uL Hgb (13.0-17.5) gm/dL Hct (39.0-53.0) % MCHC (31.0-37.0) g/dL RDW (11.5-15.5) % Sodium 133 L (137-145) mmol/L Chloride 97 L (98-107) mmol/L Crossmatch
[2022-01-27] MEDS: IPRATROPIUM-ALBUTEROL 3 ML NEB INHALATION PRN (20:29)
[2022-01-28] MEDS: PANTOPRAZOLE 40 MG/10 ML VIAL IVP SCH (07:19)
[2022-01-28 07:26] VITALS: BP 138/72; RESP 16; TEMP 98.5
[2022-01-28] MEDS: SYMBICORT 80-4.5 MCG INHALER INHALATION SCH (07:30)
[2022-01-28] MEDS: FINASTERIDE 5 MG TAB PO SCH (08:44)
[2022-01-28] MEDS: guaiFENesin 600 MG TABLET.ER PO SCH (08:44)
[2022-01-28] MEDS: PIPERACILLIN-TAZOBACTAM 3.375 GM in SODIUM CHLORIDE 0.9% 100 ML IVPB SCH (08:45)
[2022-01-28] MEDS: TAMSULOSIN 0.4 MG CAP.ER.24H PO SCH (08:45)
[2022-01-28] MEDS: IPRATROPIUM-ALBUTEROL 3 ML NEB INHALATION PRN (10:57)
[2022-01-28 11:06] VITALS: PULSE 72
--- NOTE | 2022-01-28 11:25 | P.PN ---
Subjective Progress Note Date: 01/28/22 CHIEF COMPLAINT: Anemia HISTORY OF PRESENT ILLNESS: Patient is status post EGD and colonoscopy which revealed antral gastritis, mild diverticulosis and patient had a poor colon prep. His presumed patient may had had bleeding from hemorrhoids. Patient denies any bloody bowel movements. Tolerated diet. Denies abdominal pain. Patient seen by pulmonary service regarding pulmonary nodule in the right upper lobe with suspicious uptake in the PET scan and concerns of metastatic malignancy. Patient is awaiting insurance authorization for ECF placement. Last hemoglobin 8.7 PHYSICAL EXAM: VITAL SIGNS: Reviewed. GENERAL: Well-developed in no acute distress. HEENT: No sclera icterus. Extraocular movements grossly intact. Moist buccal mucosa. Head is atraumatic, normocephalic. ABDOMEN: Soft. Nondistended. Nontender. NEUROLOGIC: Alert and oriented. Cranial nerves II through XII grossly intact. ASSESSMENT: 1. Anemia status post EGD and colonoscopy which revealed antral gastritis, mild diverticulosis and patient had a poor colon prep. No active signs of bleeding PLAN: -Patient can be discharged from surgical standpoint when medically cleared -Continue workup per pulmonary service regarding pulmonary nodule and concerns for malignancy Physician Metal Gauge Maker note has been reviewed by physician. Signing provider agrees with the documented findings, assessment, and plan of care. Objective - Vital Signs Vital signs: Vital Signs Temp 98.5 F 01/28/22 07:25 Pulse 72 01/28/22 11:06 Resp 16 01/28/22 07:25 BP 138/72 01/28/22 07:25 Pulse Ox 94 L 01/28/22 01:49 FiO2 Intake & Output 01/27/22 01/28/22 01/28/22 18:59 06:59 18:59 Output Total 1200 1225 700 Balance -1200 -1225 -700 Output: Urine 1200 1225 600 Straight 800 600 Uretheral (Paige) 500 Post Void Residual 100 Other: Voiding Method Indwelling Catheter # Voids 1 # Bowel Movements 1 1 - Labs CBC & Chem 7: 01/27/22 09:25 01/27/22 09:25
== END 2022-01-28 14:50 | DRG 699 ==
LOC: EC 21:50 → 4SSUR 01-23 02:03
PROVIDERS: ADMIT Family Medicine; ATTEND Family Medicine
PROC: 30233N1 Transfusion of Nonautologous Red Blood Cells into Peripheral Vein, Percutaneous Approach (ICD-10-PCS; 2022-01-23)
PROC: 0DB78ZX Excision of Stomach, Pylorus, Via Natural or Artificial Opening Endoscopic, Diagnostic (ICD-10-PCS; principal; 2022-01-25 07:30)
PROC: 0DJD8ZZ Inspection of Lower Intestinal Tract, Via Natural or Artificial Opening Endoscopic (ICD-10-PCS; 2022-01-25 07:30)
DX: T83.518A Infection and inflammatory reaction due to other urinary catheter, initial encounter (principal); C78.01 Secondary malignant neoplasm of right lung; N39.0 Urinary tract infection, site not specified; D62 Acute posthemorrhagic anemia; J96.11 Chronic respiratory failure with hypoxia; I69.351 Hemiplegia and hemiparesis following cerebral infarction affecting right dominant side; N13.30 Unspecified hydronephrosis; K64.4 Residual hemorrhoidal skin tags; K29.60 Other gastritis without bleeding; J43.9 Emphysema, unspecified; B96.5 Pseudomonas (aeruginosa) (mallei) (pseudomallei) as the cause of diseases classified elsewhere; I25.10 Atherosclerotic heart disease of native coronary artery without angina pectoris; E78.5 Hyperlipidemia, unspecified; M19.90 Unspecified osteoarthritis, unspecified site; R53.1 Weakness; K57.90 Diverticulosis of intestine, part unspecified, without perforation or abscess without bleeding; K44.9 Diaphragmatic hernia without obstruction or gangrene; Z66 Do not resuscitate; N18.2 Chronic kidney disease, stage 2 (mild); R26.9 Unspecified abnormalities of gait and mobility; Y73.1 Therapeutic (nonsurgical) and rehabilitative gastroenterology and urology devices associated with adverse incidents; M50.90 Cervical disc disorder, unspecified, unspecified cervical region; K21.9 Gastro-esophageal reflux disease without esophagitis; Z86.16 Personal history of COVID-19; Z79.82 Long term (current) use of aspirin; Z79.899 Other long term (current) drug therapy; Z79.02 Long term (current) use of antithrombotics/antiplatelets; Z95.1 Presence of aortocoronary bypass graft; Z98.890 Other specified postprocedural states; Z86.010 Personal history of colon polyps; Z98.41 Cataract extraction status, right eye; Z98.42 Cataract extraction status, left eye; Z87.891 Personal history of nicotine dependence; Z87.440 Personal history of urinary (tract) infections; Z91.81 History of falling; Z82.49 Family history of ischemic heart disease and other diseases of the circulatory system
CPT/HCPCS: 36415; 43239; 45378; 71046; 80048; 80053; 81001; 82272; 84484; 85025; 85027; 85610; 85730; 86850; 86900; 86901; 86920; 87077; 87086; 87186; 87635; 88305; 93005; 94640; 96365; 96375; 99285

== ENCOUNTER 2022-02-24 19:46 | Inpatient (IN) | payer MEDICARE ==
[2022-02-24 20:42] LABS: ALT 14 U/L (4-49); AST 18 U/L (17-59); African American GFR (CKD) >90 (>60 ml/min/1.73 sqM); Albumin 3.7 g/dL (3.5-5.0); Alkaline Phosphatase 74 U/L (38-126); Anion Gap 11 mmol/L; Blood Urea Nitrogen 16 mg/dL (9-20); Calcium 8.6 mg/dL (8.4-10.2); Carbon Dioxide 23 mmol/L (22-30); Chloride 94 mmol/L (98-107); Glucose 112 mg/dL (74-99); Magnesium 1.8 mg/dL (1.6-2.3); Non-African American GFR(CKD) 81 (>60 ml/min/1.73 sqM); Sodium 128 mmol/L (137-145); Total Bilirubin 0.7 mg/dL (0.2-1.3); Total Protein 5.9 g/dL (6.3-8.2)
[2022-02-24 20:47] LABS: Anisocytosis Slight; Basophils % (A) 0 %; Eosinophils % (A) 0 %; HCT 23.7 % (39.0-53.0); HGB 7.3 gm/dL (13.0-17.5); Hypochromasia Marked; Lymphocytes # (A) 0.6 k/uL (1.0-4.8); Lymphocytes % (A) 3 %; MCH 24.3 pg (25.0-35.0); MCHC 30.6 g/dL (31.0-37.0); MCV 79.4 fL (80.0-100.0); Mean Platelet Volume 7.5; Microcytosis Slight; Monocytes % (A) 6 %; Neutrophils # (A) 16.5 k/uL (1.3-7.7); Neutrophils % (A) 90 %; Platelet Count 266 k/uL (150-450); RBC 2.98 m/uL (4.30-5.90); WBC 18.3 k/uL (3.8-10.6)
[2022-02-24 20:49] LABS: INR 1.1 (<1.2); Partial Thromboplastin Time 26.7 sec (22.0-30.0)
--- NOTE | 2022-02-24 21:23 | XR ---
EXAMINATION TYPE: XR chest 2V DATE OF EXAM: 02/24/2022 8:54 PM COMPARISON: Chest radiographs from 01/23/2022. PET/CT 01/15/2022 TECHNIQUE: XR chest 2V Frontal and lateral views of the chest. CLINICAL INDICATION:Male, 81 years old with history of Weakness; FINDINGS: Lungs/Pleura: There is no evidence of ,or pneumothorax. Increased interstitial opacities with more c onsolidation appearance in the lung bases. Increased lucency in the apices with flattening of the dar phragms. Mild blunting of the costophrenic angles posteriorly. Known pulmonary nodules seen on prior PET are not as well appreciated. Pulmonary vascularity: Unremarkable. Heart/mediastinum: Cardiomediastinal silhouette is unremarkable. Musculoskeletal: No acute osseous pathology. Midline sternotomy wires are noted. IMPRESSION: 1. Bibasilar opacities which are partially seen on prior PET/CT correlate for superimposed pneumonia . 2. COPD changes.
[2022-02-24] MEDS ORDERED: AZITHROMYCIN 500 MG in SODIUM CHLORIDE 0.9% 250 ML IVPB STA (21:28)
--- NOTE | 2022-02-24 21:52 | ED ---
General Adult HPI - General Chief complaint: Weakness Stated complaint: blood issues Time Seen by Provider: 02/24/22 20:06 Source: patient, family Mode of arrival: wheelchair Limitations: no limitations - History of Present Illness Initial comments: Patient is an 81-year-old male with a past medical history of CVA, COPD, and lung cancer who presents to the emergency department with a chief complaint of generalized weakness. Family is at bedside and helped provide history. Patient states he has felt more weak for the past few days. States getting up to move around with his walker causes increased shortness of breath. Does admit to productive cough. Denies fever, chills, headache, sore throat, chest pain, abdominal pain, nausea, vomiting, burning with urination, blood in urine, blood in stool, diarrhea. Patient is currently being treated with unknown antibiotic for urinary tract infection. He has been on said antibiotic since Tuesday. Jamar cohn got labs drawn by his primary care provider today however was not told results. Family has concern he has low hemoglobin. States he has been receiving a blood transfusion every few months. Patient on Plavix. Patient follows with Dr. Maurer for lung cancer. States he will be receiving first round of radiation soon. - Related Data Home Medications Medication Instructions Recorded Confirmed Aspirin EC [Ecotrin Low Dose] 81 mg PO DAILY 11/13/18 02/24/22 Albuterol Sulfate [Proair Hfa] 1 puff INHALATION RT-Q6H PRN 10/15/21 02/24/22 Fluticasone Propion/Salmeterol 1 puff INHALATION RT-HS 10/15/21 02/24/22 [Wixela 250-50 Inhub] Finasteride [Proscar] 5 mg PO DAILY 12/24/21 02/24/22 Tamsulosin HCl [Flomax] 0.4 mg PO BID 12/24/21 02/24/22 Ipratropium-Albuterol Nebulize 3 ml INHALATION RT-QID PRN 01/23/22 02/24/22 [Duoneb 0.5 mg-3 mg/3 ml Soln] Cephalexin [Keflex] 500 mg PO Q8HR 02/24/22 02/24/22 Tiotropium [place] [Spiriva] 1 puff INHALATION RT-HS 02/24/22 02/24/22 Previous Rx's Medication Instructions Recorded Atorvastatin [Lipitor] 40 mg PO HS #30 tab 10/22/21 Clopidogrel [Plavix] 75 mg PO DAILY #30 tab 10/22/21 Folic Acid 1 mg PO DAILY tab 10/22/21 Pantoprazole [Protonix] 40 mg PO AC-BRKFST #30 tab 10/22/21 amLODIPine [Norvasc] 5 mg PO DAILY #30 tab 10/22/21 Calcium Carbonate [Tums] 1,000 mg PO TID PRN tab 12/30/21 guaiFENesin [Mucinex] 600 mg PO Q8HR PRN tab 12/31/21 Allergies Allergy/AdvReac Type Severity Reaction Status Date / Time No Known Allergies Allergy Verified 02/24/22 22:00 Review of Systems ROS Statement: Those systems with pertinent positive or pertinent negative responses have been documented in the HPI. ROS Other: All systems not noted in ROS Statement are negative. Past Medical History Past Medical History: Coronary Artery Disease (CAD), Chest Pain / Angina, COPD, CVA/TIA, Hyperlipidemia, Osteoarthritis (OA) Additional Past Medical History / Comment(s): COPD, "mini stroke 2-3 months ago- "weakness on rt side, some on the left", indwelling catheter. History of Any Multi-Drug Resistant Organisms: None Reported Past Surgical History: Coronary Bypass/CABG Additional Past Surgical History / Comment(s): 1994 CABG 3 vessel, colonoscopy with benign polypectomy. hoda cataracts Past Anesthesia/Blood Transfusion Reactions: No Reported Reaction Past Psychological History: No Psychological Hx Reported Smoking Status: Former smoker Past Alcohol Use History: Unable to Obtain Past Drug Use History: Unable to Obtain - Past Family History Father Family Medical History: Myocardial Infarction ([place]) Additional Family Medical History / Comment(s): Father of a [place] in his 60s. Mother Family Medical History: Unable to Obtain Additional Family Medical History / Comment(s): . General Exam Limitations: no limitations Course Vital Signs 02/24/22 19:47 Temperature 99 F Pulse Rate 79 Respiratory 22 Rate Blood Pressure 113/59 O2 Sat by Pulse 92 L Oximetry EKG Findings - EKG Comments: EKG Findings:: EKG taken at 20:15. Sinus rhythm, minimal ST depression. Ventricular rate 86. VA interval 126. QRS duration 94. QTc 380 Medical Decision Making - Medical Decision Making This is an 81-year-old male who presents with generalized weakness. Patient well-appearing and in no apparent distress. Afebrile. Recent EGD and colonoscopy from 01/25/22 were reviewed. Showed antral gastritis and mild diverticulosis however there was poor colon prep. There was no active bleeding. Per Dr. Escobar GI bleed may have been from hemorrhoids. Today hemoglobin is 7.3, decreased from 8.0 last visit. Stool occult is positive. There is leukocytosis of 18.3. There is hyponatremia at 128. Chest x-ray shows by basilar opacities which are partially seen on prior CT/CT, correlate for pneumonia. Rocephin and Zithromax initiated. Patient to be admitted for bilateral pneumonia. Case discussed with Dr. Puente who accepts admission with pulmonary consult. Dr. Pereyra is my attending. - Lab Data Result diagrams: 02/24/22 20:23 02/24/22 20:23 Lab Results 02/24/22 02/24/22 02/24/22 Range/Units 20:23 20:23 20:23 WBC 18.3 H (3.8-10.6) k/uL RBC 2.98 L (4.30-5.90) m/uL Hgb 7.3 L (13.0-17.5) gm/dL Hct 23.7 L (39.0-53.0) % MCV 79.4 L (80.0-100.0) fL MCH 24.3 L (25.0-35.0) pg MCHC 30.6 L (31.0-37.0) g/dL RDW 18.0 H (11.5-15.5) % Plt Count 266 (150-450) k/uL MPV 7.5 Neutrophils % 90 % Lymphocytes % 3 % Monocytes % 6 % Eosinophils % 0 % Basophils % 0 % Neutrophils # 16.5 H (1.3-7.7) k/uL Lymphocytes # 0.6 L (1.0-4.8) k/uL Monocytes # 1.0 (0-1.0) k/uL Eosinophils # 0.0 (0-0.7) k/uL Basophils # 0.0 (0-0.2) k/uL Hypochromasia Marked Anisocytosis Slight Microcytosis Slight PT 12.0 (9.0-12.0) sec INR 1.1 (<1.2) APTT 26.7 (22.0-30.0) sec Sodium 128 L (137-145) mmol/L Potassium 4.0 (3.5-5.1) mmol/L Chloride 94 L (98-107) mmol/L Carbon Dioxide 23 (22-30) mmol/L Anion Gap 11 mmol/L BUN 16 (9-20) mg/dL Creatinine 0.85 (0.66-1.25) mg/dL Est GFR (CKD-EPI)AfAm >90 (>60 ml/min/1.73 sqM) Est GFR (CKD-EPI)NonAf 81 (>60 ml/min/1.73 sqM) Glucose 112 H (74-99) mg/dL Plasma Lactic Acid Mele (0.7-2.0) mmol/L Calcium 8.6 (8.4-10.2) mg/dL Magnesium 1.8 (1.6-2.3) mg/dL Total Bilirubin 0.7 (0.2-1.3) mg/dL AST 18 (17-59) U/L ALT 14 (4-49) U/L Alkaline Phosphatase 74 (38-126) U/L Troponin I (0.000-0.034) ng/mL Total Protein 5.9 L (6.3-8.2) g/dL Albumin 3.7 (3.5-5.0) g/dL Stool Occult Blood (Negative) Coronavirus (PCR) (Not Detectd) Influenza Type A RNA (Not Detectd) Influenza Type B (PCR) (Not Detectd) 02/24/22 02/24/22 02/24/22 Range/Units 20:23 20:23 20:23 WBC (3.8-10.6) k/uL RBC (4.30-5.90) m/uL Hgb (13.0-17.5) gm/dL Hct (39.0-53.0) % MCV (80.0-100.0) fL MCH (25.0-35.0) pg MCHC (31.0-37.0) g/dL RDW (11.5-15.5) % Plt Count (150-450) k/uL MPV Neutrophils % % Lymphocytes % % Monocytes % % Eosinophils % % Basophils % % Neutrophils # (1.3-7.7) k/uL Lymphocytes # (1.0-4.8) k/uL Monocytes # (0-1.0) k/uL Eosinophils # (0-0.7) k/uL Basophils # (0-0.2) k/uL Hypochromasia Anisocytosis Microcytosis PT (9.0-12.0) sec INR (<1.2) APTT (22.0-30.0) sec Sodium (137-145) mmol/L Potassium (3.5-5.1) mmol/L Chloride (98-107) mmol/L Carbon Dioxide (22-30) mmol/L Anion Gap mmol/L BUN (9-20) mg/dL Creatinine (0.66-1.25) mg/dL Est GFR (CKD-EPI)AfAm (>60 ml/min/1.73 sqM) Est GFR (CKD-EPI)NonAf (>60 ml/min/1.73 sqM) Glucose (74-99) mg/dL Plasma Lactic Acid Mele 1.9 (0.7-2.0) mmol/L Calcium (8.4-10.2) mg/dL Magnesium (1.6-2.3) mg/dL Total Bilirubin (0.2-1.3) mg/dL AST (17-59) U/L ALT (4-49) U/L Alkaline Phosphatase (38-126) U/L Troponin I <0.012 (0.000-0.034) ng/mL Total Protein (6.3-8.2) g/dL Albumin (3.5-5.0) g/dL Stool Occult Blood (Negative) Coronavirus (PCR) (Not Detectd) Influenza Type A RNA Not Detected (Not Detectd) Influenza Type B (PCR) Not Detected (Not Detectd) 02/24/22 02/24/22 Range/Units 20:23 21:23 WBC (3.8-10.6) k/uL RBC (4.30-5.90) m/uL Hgb (13.0-17.5) gm/dL Hct (39.0-53.0) % MCV (80.0-100.0) fL MCH (25.0-35.0) pg MCHC (31.0-37.0) g/dL RDW (11.5-15.5) % Plt Count (150-450) k/uL MPV Neutrophils % % Lymphocytes % % Monocytes % % Eosinophils % % Basophils % % Neutrophils # (1.3-7.7) k/uL Lymphocytes # (1.0-4.8) k/uL Monocytes # (0-1.0) k/uL Eosinophils # (0-0.7) k/uL Basophils # (0-0.2) k/uL Hypochromasia Anisocytosis Microcytosis PT (9.0-12.0) sec INR (<1.2) APTT (22.0-30.0) sec Sodium (137-145) mmol/L Potassium (3.5-5.1) mmol/L Chloride (98-107) mmol/L Carbon Dioxide (22-30) mmol/L Anion Gap mmol/L BUN (9-20) mg/dL Creatinine (0.66-1.25) mg/dL Est GFR (CKD-EPI)AfAm (>60 ml/min/1.73 sqM) Est GFR (CKD-EPI)NonAf (>60 ml/min/1.73 sqM) Glucose (74-99) mg/dL Plasma Lactic Acid Mele (0.7-2.0) mmol/L Calcium (8.4-10.2) mg/dL Magnesium (1.6-2.3) mg/dL Total Bilirubin (0.2-1.3) mg/dL AST (17-59) U/L ALT (4-49) U/L Alkaline Phosphatase (38-126) U/L Troponin I (0.000-0.034) ng/mL Total Protein (6.3-8.2) g/dL Albumin (3.5-5.0) g/dL Stool Occult Blood Positive (Negative) Coronavirus (PCR) Not Detected (Not Detectd) Influenza Type A RNA (Not Detectd) Influenza Type B (PCR) (Not Detectd) Disposition Clinical Impression: GI bleed, Bilateral pneumonia, Productive cough, Generalized weakness Disposition: ADMITTED IP TO THIS [facility] Condition: Fair Time of Disposition: 22:00 Decision Time: 22:00
[2022-02-24] MEDS ORDERED: NALOXONE 0.4 MG/ML 1 ML VIAL IV PRN (22:04)
[2022-02-24] MEDS ORDERED: IPRATROPIUM-ALBUTEROL 3 ML NEB INHALATION STA (22:33)
[2022-02-24 23:16] LABS: Appearance,Urine Cloudy (Clear); Bilirubin,Urine Negative (Negative); Blood,Urine Trace (Negative); Color,Urine Yellow; Glucose,Urine (UA) Negative (Negative); Ketones,Urine Negative (Negative); Leukocyte Esterase,Urine Large (Negative); Nitrite,Urine Positive (Negative); PH, Urine 5.5 (5.0-8.0); Protein,Urine Trace (Negative); RBC,Urine 4 /hpf (0-5); Specific Gravity,Urine 1.019 (1.001-1.035); Urobilinogen,Urine <2.0 mg/dL (<2.0); WBC,Urine >182 /hpf (0-5)
[2022-02-25] MEDS ORDERED: IPRATROPIUM-ALBUTEROL 3 ML NEB INHALATION PRN ×2 (09:32→11:59)
[2022-02-25] MEDS ORDERED: CALCIUM CARBONATE 500 MG CHEWABLE PO PRN (09:32)
[2022-02-25] MEDS: TAMSULOSIN 0.4 MG CAP.ER.24H PO SCH ×2 (10:19→20:00)
[2022-02-25] MEDS: amLODIPine 5 MG TAB PO SCH (10:19)
[2022-02-25] MEDS: FINASTERIDE 5 MG TAB PO SCH (10:19)
[2022-02-25] MEDS: FOLIC ACID 1 MG TAB PO SCH (10:19)
[2022-02-25] MEDS: PANTOPRAZOLE 40 MG TABLET PO SCH (10:19)
[2022-02-25] MEDS: SYMBICORT 80-4.5 MCG INHALER INHALATION SCH ×2 (10:52→19:56)
--- NOTE | 2022-02-25 11:58 | P.HPIM ---
History of Present Illness H&P Date: 02/25/22 This is an 81-year-old gentleman admitted with acute on chronic anemia, UTI/history of recurrent UTIs, advanced COPD, chronic hypoxic respiratory failure, right lung mass/recent PET scan, bilateral hydronephrosis and multiple other medical issues presented to the ER with increased shortness of breath and weakness over the last few days. Congested productive cough. Reports exertional shortness of breath with minimal exertion. Denies lightheadedness dizziness or focal deficits. Denies chest pain, palpitations. EKG sinus rhythm, Troponin less than 0.012. Denies nausea vomiting or diarrhea. Denies urinary frequency dysuria hematuria. Denies rectal bleeding. He reports, scheduled for first ro und of radiation soon. Reports he has been on antibiotics(Keflex) since Thursday 02/22 for acute UTI. UA reporting urine WBCs greater than 182, leukocytes large, positive nitrates, urine culture pending. Legionella negative . Coronavirus, influenza type A and B not detected. T-max 99, WBC 18.3, hemoglobin 7.3, platelets 266, sodium 128, potassium 4, bicarb 23, BUN 16, creatinine 0.85. albumin 3.7. Lactic acid 1.9. Chest x-ray reporting bibasilar opacities partially seen on prior PET/CT for superimposed pneumonia, COPD changes. Maintained on Zithromax, ceftriaxone. Review of Systems ROS Statement: Those systems with pertinent positive or pertinent negative responses have been documented in the HPI. ROS Other: All systems not noted in ROS Statement are negative. Past Medical History Past Medical History: Coronary Artery Disease (CAD), Cancer, Chest Pain / Angina, COPD, CVA/TIA, Hyperlipidemia, Osteoarthritis (OA) Additional Past Medical History / Comment(s): COPD, "mini stroke 2-3 months ago- "weakness on rt side, some on the left", indwelling catheter. Lung ca dx 2 months ago History of Any Multi-Drug Resistant Organisms: None Reported Past Surgical History: Coronary Bypass/CABG Additional Past Surgical History / Comment(s): 1994 CABG 3 vessel, colonoscopy with benign polypectomy. hoda cataracts Past Anesthesia/Blood Transfusion Reactions: No Reported Reaction Past Psychological History: No Psychological Hx Reported Additional Psychological History / Comment(s): Pt resides with his spouse. He states he has a nebulizer. Smoking Status: Former smoker Past Alcohol Use History: Unable to Obtain Additional Past Alcohol Use History / Comment(s): Pt started smoking in 1955 and quit in 2004. He smoked 1-1.5 ppd. Past Drug Use History: Unable to Obtain - Past Family History Father Family Medical History: Myocardial Infarction ([place]) Additional Family Medical History / Comment(s): Father of a [place] in his 60s. Mother Family Medical History: Unable to Obtain Additional Family Medical History / Comment(s): . Medications and Allergies Home Medications Medication Instructions Recorded Confirmed Type Aspirin EC [Ecotrin Low Dose] 81 mg PO DAILY 11/13/18 02/24/22 History Albuterol Sulfate [Proair Hfa] 1 puff INHALATION RT-Q6H PRN 10/15/21 02/24/22 History Fluticasone Propion/Salmeterol 1 puff INHALATION RT-HS 10/15/21 02/24/22 History [Wixela 250-50 Inhub] Atorvastatin [Lipitor] 40 mg PO HS #30 tab 10/22/21 02/24/22 Rx Clopidogrel [Plavix] 75 mg PO DAILY #30 tab 10/22/21 02/24/22 Rx Folic Acid 1 mg PO DAILY tab 10/22/21 02/24/22 Rx Pantoprazole [Protonix] 40 mg PO AC-BRKFST #30 tab 10/22/21 02/24/22 Rx amLODIPine [Norvasc] 5 mg PO DAILY #30 tab 10/22/21 02/24/22 Rx Finasteride [Proscar] 5 mg PO DAILY 12/24/21 02/24/22 History Tamsulosin HCl [Flomax] 0.4 mg PO BID 12/24/21 02/24/22 History Calcium Carbonate [Tums] 1,000 mg PO TID PRN tab 12/30/21 02/24/22 Rx guaiFENesin [Mucinex] 600 mg PO Q8HR PRN tab 12/31/21 02/24/22 Rx Ipratropium-Albuterol Nebulize 3 ml INHALATION RT-QID PRN 01/23/22 02/24/22 History [Duoneb 0.5 mg-3 mg/3 ml Soln] Cephalexin [Keflex] 500 mg PO Q8HR 02/24/22 02/24/22 History Tiotropium [place] [Spiriva] 1 puff INHALATION RT-HS 02/24/22 02/24/22 History Allergies Allergy/AdvReac Type Severity Reaction Status Date / Time No Known Allergies Allergy Verified 02/24/22 22:00 Physical Exam Vitals: Vital Signs Temp Pulse Pulse Resp BP BP Pulse Ox 02/25/22 05:24 98.7 F 84 20 123/66 99 02/24/22 23:41 97.0 F L 86 16 124/68 91 L 02/24/22 23:14 78 19 136/87 98 02/24/22 22:52 81 15 126/74 96 02/24/22 19:47 99 F 79 22 113/59 92 L Intake and Output 02/24/22 02/25/22 02/25/22 22:59 06:59 14:59 Intake Total 590 Balance 590 Intake: Oral 590 Other: Voiding Method External Catheter Weight 62.596 kg GENERAL EXAM: Alert and oriented 3, sitting up in bed, no acute distress [place]. HEAD: Normocephalic. EYES: Normal reaction of pupils, equal size. THROAT: No erythema or exudates. NECK: Supple, no JVD LUNGS: Diminished air entry CVS: S1 and S2 normal with no audible murmur, regular rhythm. ABDOMEN: Soft, nontender, No hepatosplenomegaly, normal bowel sounds, no guarding or rigidity. SKIN: No rashes, warm and dry CENTRAL NERVOUS SYSTEM: No focal deficits, tone is normal in all 4 extremities. EXTREMITIES: No peripheral edema. No clubbing, no cyanosis. Peripheral pulses are intact. Results CBC & Chem 7: 02/24/22 20:23 02/24/22 20:23 Labs: Abnormal Lab Results - Last 24 Hours (Table) 02/24/22 02/24/22 02/24/22 Range/Units 20:23 20:23 22:11 WBC 18.3 H (3.8-10.6) k/uL RBC 2.98 L (4.30-5.90) m/uL Hgb 7.3 L (13.0-17.5) gm/dL Hct 23.7 L (39.0-53.0) % MCV 79.4 L (80.0-100.0) fL MCH 24.3 L (25.0-35.0) pg MCHC 30.6 L (31.0-37.0) g/dL RDW 18.0 H (11.5-15.5) % Neutrophils # 16.5 H (1.3-7.7) k/uL Lymphocytes # 0.6 L (1.0-4.8) k/uL Sodium 128 L (137-145) mmol/L Chloride 94 L (98-107) mmol/L Glucose 112 H (74-99) mg/dL Total Protein 5.9 L (6.3-8.2) g/dL Urine Protein Trace H (Negative) Urine Blood Trace H (Negative) Ur Leukocyte Esterase Large H (Negative) Urine WBC >182 H (0-5) /hpf Microbiology - Last 24 Hours (Table) 02/24/22 22:11 Urine Culture - Preliminary Urine,Voided Thrombosis Risk Factor Assmnt - Choose All That Apply Any of the Below Risk Factors Present?: No Assessment and Plan Assessment: Acute hypoxic respiratory failure secondary to bilateral pneumonia, possible secondary to tumor,mass affect. 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 Right upper lobe pulmonary nodules, mass, possibility of metastatic malignancy, PET scan recently completed on 01/15/2022, follows with pulmonary, Dr. Maurer outpatient; outpatient report not available at this time- reports first radiation session scheduled. End-stage COPD, emphysema Chronic hypoxic respiratory failure, wears 3 L nasal cannula O2 at home History of recurrent UTIs, pseudomonas aeruginosa, Enterobacter aerogensis Chronic renal failure, stage II CAD Degenerative cervical disc disease Gait dysfunction, history of falls Gastroesophageal reflux disease Heart of hearing Generalized weakness, medical debility Plan: Continue on current medication regime ,monitoring and symptomatic treatment. Repeat labs ordered ; close monitoring of hemoglobin, electrolytes .Aggressive pulmonary toileting with nebulized bronchodilators. Collection of sputum culture in progress. Pulmonary consult in place, recommendations pending. Prognosis guarded given multiple complex medical issues. The impression and plan of care has been dictated as directed. : I performed a history and examination of this patient, discussed the same with the dictator. I agree with the dictator's note ,documented as a scribe. Any additional findings or plans will be noted.
[2022-02-25] MEDS: IPRATROPIUM-ALBUTEROL 3 ML NEB INHALATION SCH ×3 (12:42→19:46)
[2022-02-25] MEDS: CEFEPIME 2 GM in SODIUM CHLORIDE 0.9% 100 ML IVPB SCH (13:16)
[2022-02-25 13:41] LABS: Anisocytosis Slight; Basophils % (A) 0 %; Eosinophils % (A) 0 %; HCT 24.6 % (39.0-53.0); HGB 7.3 gm/dL (13.0-17.5); Hypochromasia Marked; Lymphocytes # (A) 1.2 k/uL (1.0-4.8); Lymphocytes % (A) 7 %; MCH 23.7 pg (25.0-35.0); MCHC 29.5 g/dL (31.0-37.0); MCV 80.6 fL (80.0-100.0); Mean Platelet Volume 7.6; Microcytosis Slight; Monocytes % (A) 6 %; Neutrophils # (A) 15.1 k/uL (1.3-7.7); Neutrophils % (A) 86 %; Platelet Count 267 k/uL (150-450); RBC 3.06 m/uL (4.30-5.90); RDW 18.1 % (11.5-15.5); WBC 17.6 k/uL (3.8-10.6)
[2022-02-25 13:59] LABS: African American GFR (CKD) >90 (>60 ml/min/1.73 sqM); Anion Gap 9 mmol/L; Blood Urea Nitrogen 15 mg/dL (9-20); Calcium 8.8 mg/dL (8.4-10.2); Carbon Dioxide 25 mmol/L (22-30); Chloride 95 mmol/L (98-107); Glucose 103 mg/dL (74-99); Non-African American GFR(CKD) 84 (>60 ml/min/1.73 sqM); Sodium 129 mmol/L (137-145)
--- NOTE | 2022-02-25 14:39 | P.CNPUL ---
History of Present Illness Consult date: 02/25/22 Reason for consult: dyspnea, COPD, lung mass History of present illness: 81-year-old male patient with known history of advanced oxygen-dependent COPD and a spiculated right upper lobe opacity , PET avid , being considered for as the artery treatment. In addition, the patient has coronary artery disease, previous CVA/TIA, hyperlipidemia, chronic hydronephrosis and recurrent urine tract infections and the patient has been infected with gram-negative bacteria in the urine including Enterobacter and most recently Pseudomonas. The patient was at home and the patient started having some increased shortness of breath and a congested cough. Incidentally found lightheaded and dizzy. Denied having any chest pain. Altered mentation. He presented again to the emergency department and UA was obviously abnormal consistent with underlying infection. The patient had chest x-ray that showed also some increased haziness/inflammatory changes in lung bases bilaterally. COVID 19 testing was negative. Influenza A and B was negative. White cell count was at 18.3 with a hemoglobin of 7.3 and a platelet count of 266. Sodium level was at 128 with a potassium level of 4 BUN of 16 and a creatinine of 0.8. Lactic acid level was at 1.9. Based on that, the patient was given a dose of Rocephin and Zithromax in the emergency and the patient was hospitalized. At the time of my evaluation, the patient was quite comfortable and he was communicating. No signs of any acute or ongoing septicemia and he was on 2 L of oxygen by nasal cannula with a pulse ox of 99% his EKG showed normal sinus rhythm. No acute ST segment abnormalities. Legionella urine antigen was also negative. Review of Systems CONSTITUTIONAL: No reported fever or chills.. Progressive debility and ongoing weight loss EYES: Denies change in vision. EARS, NOSE, MOUTH, THROAT: Denies headaches, denies sore throat. CARDIOVASCULAR: Denies chest pain, palpitations or syncopal episodes. RESPIRATORY: Positive for shortness of breath, cough, congestion no hemoptysis. GASTROINTESTINAL: Denies change in appetite, denies abdominal pain GENITOURINARY: Denies hematuria, recurrent UTIs and the patient is currently having difficulties with urination dysuria MUSKULOSKELETAL: Denies pain, denies swelling. INTEGUMENTARY: Denies rash, denies eczema. NEUROLOGICAL: Denies recent memory loss, no recent seizure activity. PSYCHIATRIC: Denies anxiety, denies depression. HEMATOLOGIC/LYMPHATIC: Denies anemia, denies enlarged lymph nodes. Past Medical History Past Medical History: Coronary Artery Disease (CAD), Cancer, Chest Pain / Angina, COPD, CVA/TIA, Hyperlipidemia, Osteoarthritis (OA) Additional Past Medical History / Comment(s): COPD, "mini stroke 2-3 months ago- "weakness on rt side, some on the left", indwelling catheter. Lung mass under investigation being considered for SB RT History of Any Multi-Drug Resistant Organisms: None Reported Past Surgical History: Coronary Bypass/CABG Additional Past Surgical History / Comment(s): 1994 CABG 3 vessel, colonoscopy with benign polypectomy. hoda cataracts Past Anesthesia/Blood Transfusion Reactions: No Reported Reaction Past Psychological History: No Psychological Hx Reported Additional Psychological History / Comment(s): Pt resides with his spouse. He states he has a nebulizer. Smoking Status: Former smoker Past Alcohol Use History: Unable to Obtain Additional Past Alcohol Use History / Comment(s): Pt started smoking in 1954 and quit in 2004. He smoked 1-1.5 ppd. Past Drug Use History: Unable to Obtain - Past Family History Father Family Medical History: Myocardial Infarction (CO) Additional Family Medical History / Comment(s): Father of a CO in his 60s. Mother Family Medical History: Unable to Obtain Additional Family Medical History / Comment(s): . Medications and Allergies Home Medications Medication Instructions Recorded Confirmed Type Aspirin EC [Ecotrin Low Dose] 81 mg PO DAILY 11/13/18 02/24/22 History Albuterol Sulfate [Proair Hfa] 1 puff INHALATION RT-Q6H PRN 10/15/21 02/24/22 History Fluticasone Propion/Salmeterol 1 puff INHALATION RT-HS 10/15/21 02/24/22 History [Wixela 250-50 Inhub] Atorvastatin [Lipitor] 40 mg PO HS #30 tab 10/22/21 02/24/22 Rx Clopidogrel [Plavix] 75 mg PO DAILY #30 tab 10/22/21 02/24/22 Rx Folic Acid 1 mg PO DAILY tab 10/22/21 02/24/22 Rx Pantoprazole [Protonix] 40 mg PO AC-BRKFST #30 tab 10/22/21 02/24/22 Rx amLODIPine [Norvasc] 5 mg PO DAILY #30 tab 10/22/21 02/24/22 Rx Finasteride [Proscar] 5 mg PO DAILY 12/24/21 02/24/22 History Tamsulosin HCl [Flomax] 0.4 mg PO BID 12/24/21 02/24/22 History Calcium Carbonate [Tums] 1,000 mg PO TID PRN tab 12/30/21 02/24/22 Rx guaiFENesin [Mucinex] 600 mg PO Q8HR PRN tab 12/31/21 02/24/22 Rx Ipratropium-Albuterol Nebulize 3 ml INHALATION RT-QID PRN 01/23/22 02/24/22 History [Duoneb 0.5 mg-3 mg/3 ml Soln] Cephalexin [Keflex] 500 mg PO Q8HR 02/24/22 02/24/22 History Tiotropium [place] [Spiriva] 1 puff INHALATION RT-HS 02/24/22 02/24/22 History Allergies Allergy/AdvReac Type Severity Reaction Status Date / Time No Known Allergies Allergy Verified 02/24/22 22:00 Physical Exam Vitals: Vital Signs Temp Pulse Pulse Resp BP BP Pulse Ox 02/25/22 12:50 84 02/25/22 12:44 86 02/25/22 11:47 98.6 F 86 18 154/76 99 02/25/22 05:24 98.7 F 84 20 123/66 99 02/24/22 23:41 97.0 F L 86 16 124/68 91 L 02/24/22 23:14 78 19 136/87 98 02/24/22 22:52 81 15 126/74 96 02/24/22 19:47 99 F 79 22 113/59 92 L Intake and Output 02/24/22 02/25/22 02/25/22 22:59 06:59 14:59 Intake Total 590 Balance 590 Intake: Oral 590 Other: Voiding Method External Catheter Weight 62.596 kg GENERAL EXAM: Alert, very pleasant 79-year-old gentleman, on 2 L nasal cannula, comfortable in no apparent distress. HEAD: Normocephalic. EYES: Normal reaction of pupils, equal size. NOSE: Clear with pink turbinates. THROAT: No erythema or exudates. NECK: No masses, no JVD. CHEST: No chest wall deformity. LUNGS: Equal air entry with crackles in left posterior bases, end expiratory wheeze, diminished CVS: S1 and S2 normal with no audible murmur, regular rhythm. ABDOMEN: No hepatosplenomegaly, normal bowel sounds, no guarding or rigidity. SPINE: No scoliosis or deformity SKIN: No rashes CENTRAL NERVOUS SYSTEM: No focal deficits, tone is normal in all 4 extremities. EXTREMITIES: There is no peripheral edema. No clubbing, no cyanosis. Peripheral pulses are intact. Results - Laboratory Findings CBC and BMP: 02/25/22 13:10 02/25/22 13:10 PT/INR, D-dimer PT 12.0 sec (9.0-12.0) 02/24/22 20:23 INR 1.1 (<1.2) 02/24/22 20:23 Abnormal lab findings: Abnormal Labs 02/24/22 02/24/22 02/24/22 20:23 20:23 22:11 WBC 18.3 H RBC 2.98 L Hgb 7.3 L Hct 23.7 L MCV 79.4 L MCH 24.3 L MCHC 30.6 L RDW 18.0 H Neutrophils # 16.5 H Lymphocytes # 0.6 L Sodium 128 L Chloride 94 L Glucose 112 H Total Protein 5.9 L Urine Protein Trace H Urine Blood Trace H Ur Leukocyte Esterase Large H Urine WBC >182 H 02/25/22 02/25/22 13:10 13:10 WBC 17.6 H RBC 3.06 L Hgb 7.3 L Hct 24.6 L MCV MCH 23.7 L MCHC 29.5 L RDW 18.1 H Neutrophils # 15.1 H Lymphocytes # Sodium 129 L Chloride 95 L Glucose 103 H Total Protein Urine Protein Urine Blood Ur Leukocyte Esterase Urine WBC - Diagnostic Findings Chest x-ray: image reviewed Assessment and Plan Plan: Acute on chronic dyspnea, likely on the basis of COPD. Pneumonia is felt to be less likely. There is some increased haziness in lung bases bilaterally. No clear-cut consolidation on today's chest x-ray. UTI, recurrent, under investigation Acute leukocytosis Advanced COPD, oxygen and steroid dependent, based on FEV1 is 36% of predicted, maintained on Wixela and Spiriva Right upper lobe mass measuring 2.5 cm, PET avid and the patient is being considered for SB RT as the patient had a good candidate for biopsies of any surgical interventions Recurrent UTIs with gram-negative bacteria, essentially related to gram-negative Enterobacter and Pseudomonas and the patient did have an obstructive uropathy with a Paige catheter in place Coronary artery disease appears bypass surgery Hypertension Hyperlipidemia Osteoarthritis Former smoker This history of falls Cervical spinal stenosis, C3-C4 moderate to severe and C5-C6 moderate spinal canal stenosis, additional multilevel bilateral moderate to severe neural foraminal stenosis extending from C3-C4 through C5-C6 reported as per cervical MRI, orthopedic spine recommending steroids/conservative management Carotid artery disease,50% stenosis right carotid bifurcation,SPECT 2 mm aneurysm posterior margin left internal carotid artery cavemous segment,vascular following. No surgery recommended at this time, continued outpatient monit oring. Previous history of CVA Anemia of chronic disease. Gait dysfunction Bilateral hydronephrosis. Followed up by urology on outpatient basis Plan Obtain urine cultures Start The patient IV cefepime covering for pseudomonal and gram-negative urine checked infections Resume bronchodilators Resume home medications Regarding the lung mass, the patient saw radiation oncology and the plan is to still proceed with an SBRT at a later stage We'll continue to follow
[2022-02-25] MEDS: IPRATROPIUM 0.5 MG/2.5 ML NEBU INHALATION SCH (19:57)
[2022-02-25] MEDS: ATORVASTATIN 40 MG TAB PO SCH (20:00)
[2022-02-25] MEDS: guaiFENesin 600 MG TABLET.ER PO PRN (20:00)
[2022-02-26] MEDS: CEFEPIME 2 GM in SODIUM CHLORIDE 0.9% 100 ML IVPB SCH ×2 (03:28→13:29)
[2022-02-26] MEDS: IPRATROPIUM-ALBUTEROL 3 ML NEB INHALATION SCH ×4 (07:25→20:33)
[2022-02-26] MEDS: SYMBICORT 80-4.5 MCG INHALER INHALATION SCH ×2 (07:25→20:33)
[2022-02-26] MEDS: IPRATROPIUM 0.5 MG/2.5 ML NEBU INHALATION SCH ×4 (07:30→20:33)
[2022-02-26] MEDS: CLOPIDOGREL 75 MG TAB PO SCH (08:16)
[2022-02-26] MEDS: FOLIC ACID 1 MG TAB PO SCH (08:16)
[2022-02-26] MEDS: PANTOPRAZOLE 40 MG TABLET PO SCH (08:16)
[2022-02-26] MEDS: ASPIRIN 81 MG PO SCH (08:16)
[2022-02-26] MEDS: FINASTERIDE 5 MG TAB PO SCH (08:16)
[2022-02-26] MEDS: TAMSULOSIN 0.4 MG CAP.ER.24H PO SCH ×2 (08:16→21:10)
[2022-02-26] MEDS: amLODIPine 5 MG TAB PO SCH (08:16)
[2022-02-26 11:27] VITALS: BMI 19.2
--- NOTE | 2022-02-26 13:13 | P.PN ---
Subjective Progress Note Date: 02/26/22 H&P Date: 02/25/22 This is an 81-year-old gentleman admitted with acute on chronic anemia, UTI/history of recurrent UTIs, advanced COPD, chronic hypoxic respiratory failure, right lung mass/recent PET scan, bilateral hydronephrosis and multiple other medical issues presented to the ER with increased shortness of breath and weakness over the last few days. Congested productive cough. Reports exertional shortness of breath with minimal exertion. Denies lightheadedness dizziness or focal deficits. Denies chest pain, palpitations. EKG sinus rhythm, Troponin less than 0.012. Denies nausea vomiting or diarrhea. Denies urinary frequency dysuria hematuria. Denies rectal bleeding. He reports, scheduled for first round of radiation soon. Reports he has been on antibiotics(Keflex) since Thursday 02/22 for acute UTI. UA reporting urine WBCs greater than 182, leukocytes large, positive nitrates, urine culture pending. Legionella negative . Coronavirus, influenza type A and B not detected. T-max 99, WBC 18.3, hemoglobin 7.3, platelets 266, sodium 128, potassium 4, bicarb 23, BUN 16, creatinine 0.85. albumin 3.7. Lactic acid 1.9. Chest x-ray reporting bibasilar opacities partially seen on prior PET/CT for superimposed pneumonia, COPD changes. Maintained on Zithromax, ceftriaxone. 02/26/2022 Maintaining O2 sats in the 90s on 2 L nasal cannula. Continues on cefepime. Blood, Urine and sputum cultures, finalizing. Afebrile, WBC decreased to 17.6, hemoglobin remains at 7.3, platelets 267. Renal function stable. Sodium 129. Denies chest pain, palpitations or increasing shortness of breath. Objective - Vital Signs Vital signs: Vital Signs Temp 98.3 F 02/26/22 11:16 Pulse 91 02/26/22 11:29 Resp 22 02/26/22 11:16 BP 119/68 02/26/22 11:16 Pulse Ox 93 L 02/26/22 11:16 FiO2 Intake & Output 02/25/22 02/26/22 02/26/22 18:59 06:59 18:59 Intake Total 100 Output Total 1200 700 Balance -1200 -600 Weight 62.596 kg Intake: Oral 100 Output: Urine 1200 700 Other: Voiding Method External Catheter External Catheter External Catheter - Exam GENERAL EXAM: Alert and oriented 3, sitting up in bed, no acute distress BISHOP PAIUTE. HEAD: Normocephalic. EYES: Normal reaction of pupils, equal size. THROAT: No erythema or exudates. NECK: Supple, no JVD LUNGS: Diminished air entry, fine bibasilar crackles, mild expiratory wheezing CVS: S1 and S2 normal with no audible murmur, regular rhythm. ABDOMEN: Soft, nontender, No hepatosplenomegaly, normal bowel sounds, no guarding or rigidity. SKIN: No rashes, warm and dry CENTRAL NERVOUS SYSTEM: No focal deficits, tone is normal in all 4 extremities. EXTREMITIES: No peripheral edema. No clubbing, no cyanosis. Peripheral pulses are intact. - Labs CBC & Chem 7: 02/25/22 13:10 02/25/22 13:10 Labs: Abnormal Lab Results - Last 24 Hours (Table) 02/25/22 02/25/22 Range/Units 13:10 13:10 WBC 17.6 H (3.8-10.6) k/uL RBC 3.06 L (4.30-5.90) m/uL Hgb 7.3 L (13.0-17.5) gm/dL Hct 24.6 L (39.0-53.0) % MCH 23.7 L (25.0-35.0) pg MCHC 29.5 L (31.0-37.0) g/dL RDW 18.1 H (11.5-15.5) % Neutrophils # 15.1 H (1.3-7.7) k/uL Sodium 129 L (137-145) mmol/L Chloride 95 L (98-107) mmol/L Glucose 103 H (74-99) mg/dL Microbiology - Last 24 Hours (Table) 02/25/22 10:30 Gram Stain - Preliminary Sputum Sputum Culture - Preliminary 02/24/22 22:50 Blood Culture - Preliminary Blood No Growth after 24 hours 02/24/22 22:30 Blood Culture - Preliminary Blood No Growth after 24 hours 02/24/22 22:11 Urine Culture - Preliminary Urine,Voided Assessment and Plan Assessment: Acute hypoxic respiratory failure secondary to acute COPD exacerbation,possible secondary to tumor,mass affect. 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 Right upper lobe pulmonary nodules, mass, possibility of metastatic malignancy, PET scan recently completed on 01/15/2022, follows with pulmonary, Dr. Maurer outpatient; outpatient report not available at this time- reports first radiation session scheduled. End-stage COPD, emphysema Chronic hypoxic respiratory failure, wears 3 L nasal cannula O2 at home Acute UTI with History of recurrent UTIs, pseudomonas aeruginosa, Enterobacter aerogensis Chronic renal failure, stage II Bilateral hydronephrosis, follows with urology outpatient CAD Degenerative cervical disc disease Gait dysfunction, history of falls Gastroesophageal reflux disease Heart of hearing Generalized weakness, medical debility Plan: Continue on current medication regime ,monitoring and symptomatic treatment. Maintain cefepime .Labs pending, urine culture finalizing. Aggressive pulmonary toileting, nebulized bronchodilators . Patient currently is planning to proceed with radiation with Dr. Pierce outpatient .close monitoring of hemoglobin, electrolytes .transfuse for hemoglobin less than 7.3 with Lasix posttransfusion .Sputum culture in progress. Bladder scan for postvoid residuals. Prognosis guarded given multiple complex medical issues. The impression and plan of care has been dictated as directed. : I performed a history and examination of this patient, discussed the same with the dictator. I agree with the dictator's note ,documented as a scribe. Any additional findings or plans will be noted.
--- NOTE | 2022-02-26 14:54 | P.PN ---
Subjective Progress Note Date: 02/26/22 81-year-old male patient with known history of advanced oxygen-dependent COPD a nd a spiculated right upper lobe opacity , PET avid , being considered for as the artery treatment. In addition, the patient has coronary artery disease, previous CVA/TIA, hyperlipidemia, chronic hydronephrosis and recurrent urine tract infections and the patient has been infected with gram-negative bacteria in the urine including Enterobacter and most recently Pseudomonas. The patient was at home and the patient started having some increased shortness of breath and a congested cough. Incidentally found lightheaded and dizzy. Denied having any chest pain. Altered mentation. He presented again to the emergency department and UA was obviously abnormal consistent with underlying infection. The patient had chest x-ray that showed also some increased haziness/inflammatory changes in lung bases bilaterally. COVID 19 testing was negative. Influenza A and B was negative. White cell count was at 18.3 with a hemoglobin of 7.3 and a platelet count of 266. Sodium level was at 128 with a potassium level of 4 BUN of 16 and a creatinine of 0.8. Lactic acid level was at 1.9. Based on that, the patient was given a dose of Rocephin and Zithromax in the emergency and the patient was hospitalized. At the time of my evaluation, the patient was quite comfortable and he was communicating. No signs of any acute or ongoing septicemia and he was on 2 L of oxygen by nasal cannula with a pulse ox of 99% his EKG showed normal sinus rhythm. No acute ST segment abnormalities. Legionella urine antigen was also negative. On today's evaluation of [facility], the patient is feeling well. He remains on IV cefepime for now. Urine cultures pending for now. There is however gram-negative bacteria growing in the urine culture. He doesn't a congested cough. No significant sputum production. No signs of any ongoing decompensation the respiratory status. No hemodynamic instability. The patient is tolerating his diet. Objective - Vital Signs Vital signs: Vital Signs Temp 98.3 F 02/26/22 11:16 Pulse 91 02/26/22 11:29 Resp 22 02/26/22 11:16 BP 119/68 02/26/22 11:16 Pulse Ox 93 L 02/26/22 11:16 FiO2 Intake & Output 09/02/26/22 02/26/22 18:59 06:59 18:59 Intake Total 100 Output Total 1200 700 Balance -1200 -600 Weight 62.596 kg Intake: Oral 100 Output: Urine 1200 700 Other: Voiding Method External Catheter External Catheter External Catheter - Exam GENERAL EXAM: Alert, very pleasant 79-year-old gentleman, on 2 L nasal cannula, comfortable in no apparent distress. HEAD: Normocephalic. EYES: Normal reaction of pupils, equal size. NOSE: Clear with pink turbinates. THROAT: No erythema or exudates. NECK: No masses, no JVD. CHEST: No chest wall deformity. LUNGS: Equal air entry with crackles in left posterior bases, end expiratory wheeze, diminished CVS: S1 and S2 normal with no audible murmur, regular rhythm. ABDOMEN: No hepatosplenomegaly, normal bowel sounds, no guarding or rigidity. SPINE: No scoliosis or deformity SKIN: No rashes CENTRAL NERVOUS SYSTEM: No focal deficits, tone is normal in all 4 extremities. EXTREMITIES: There is no peripheral edema. No clubbing, no cyanosis. Peripheral pulses are intact. - Labs CBC & Chem 7: 02/25/22 13:10 02/25/22 13:10 Labs: Microbiology - Last 24 Hours (Table) 02/24/22 22:11 Urine Culture - Preliminary Urine,Voided Gram Neg Bacilli 02/25/22 10:30 Gram Stain - Preliminary Sputum Sputum Culture - Preliminary 02/24/22 22:50 Blood Culture - Preliminary Blood No Growth after 24 hours 02/24/22 22:30 Blood Culture - Preliminary Blood No Growth after 24 hours Assessment and Plan Plan: Acute on chronic dyspnea, likely on the basis of COPD. Pneumonia is felt to be less likely. There is some increased haziness in lung bases bilaterally. No clear-cut consolidation on today's chest x-ray. UTI, recurrent, under investigation Acute leukocytosis Advanced COPD, oxygen and steroid dependent, based on FEV1 is 36% of predicted, maintained on Wixela and Spiriva Right upper lobe mass measuring 2.5 cm, PET avid and the patient is being considered for SB RT as the patient had a good candidate for biopsies of any surgical interventions Recurrent UTIs with gram-negative bacteria, essentially related to gram-negative Enterobacter and Pseudomonas and the patient did have an obstructive uropathy with a Paige catheter in place Coronary artery disease appears bypass surgery Hypertension Hyperlipidemia Osteoarthritis Former smoker This history of falls Cervical spinal stenosis, C3-C4 moderate to severe and C5-C6 moderate spinal canal stenosis, additional multilevel bilateral moderate to severe neural foraminal stenosis extending from C3-C4 through C5-C6 reported as per cervical MRI, orthopedic spine recommending steroids/conservative management Carotid artery disease,50% stenosis right carotid bifurcation,SPECT 2 mm aneurysm posterior margin left internal carotid artery cavemous segment,vascular following. No surgery recommended at this time, continued outpatient monitoring. Previous history of CVA Anemia of chronic disease. Gait dysfunction Bilateral hydronephrosis. Followed up by urology on outpatient basis Plan Clinically improving Afebrile hemodynamically stable Awaiting final urine culture. There is gram-negative bacillus for now. He is afebrile, the patient is hemodynamically stable Continue IV cefepime covering for pseudomonal and gram-negative urine checked infections Resume bronchodilators Resume home medications Regarding the lung mass, the patient saw radiation oncology and the plan is to still proceed with an SBRT at a later stage We'll continue to follow
[2022-02-26] MEDS: ATORVASTATIN 40 MG TAB PO SCH (21:10)
[2022-02-27] MEDS: FERROUS SULFATE 325 MG TAB PO SCH ×3 (00:30→18:08)
[2022-02-27] MEDS: CEFEPIME 2 GM in SODIUM CHLORIDE 0.9% 100 ML IVPB SCH ×2 (00:32→12:27)
[2022-02-27] MEDS: IPRATROPIUM-ALBUTEROL 3 ML NEB INHALATION SCH ×4 (07:40→19:31)
[2022-02-27] MEDS: SYMBICORT 80-4.5 MCG INHALER INHALATION SCH ×2 (07:41→19:31)
[2022-02-27] MEDS: FINASTERIDE 5 MG TAB PO SCH (09:35)
[2022-02-27] MEDS: FOLIC ACID 1 MG TAB PO SCH (09:35)
[2022-02-27] MEDS: CLOPIDOGREL 75 MG TAB PO SCH (09:35)
[2022-02-27] MEDS: amLODIPine 5 MG TAB PO SCH (09:35)
[2022-02-27] MEDS: ASPIRIN 81 MG PO SCH (09:35)
[2022-02-27] MEDS: TAMSULOSIN 0.4 MG CAP.ER.24H PO SCH ×2 (09:35→20:32)
[2022-02-27] MEDS: PANTOPRAZOLE 40 MG TABLET PO SCH (09:35)
[2022-02-27 09:49] LABS: % Iron Saturation 3.71 (15.00-50.00); African American GFR (CKD) 92.4 (60.0-200.0); Anion Gap 9.6 mmol/L (10.00-18.00); BUN/Creat Ratio 16.63 Ratio (12.00-20.00); Blood Urea Nitrogen 14.5 mg/dL (9.0-27.0); Calcium 8.6 mg/dL (8.7-10.3); Carbon Dioxide 26.4 mmol/L (20.0-27.5); Ferritin 49.3 ng/mL (22.0-322.0); Magnesium 1.9 mg/dL (1.5-2.4); Non-African American GFR(CKD) 79.7 (60.0-200.0); Potassium 4.3 mmol/L (3.5-5.5)
[2022-02-27 11:03] LABS: Basophils # (A) 0.05 X 10*3/uL (0.00-0.10); Basophils % (A) 0.5 %; Eosinophils # (A) 0.23 X 10*3/uL (0.04-0.35); Eosinophils % (A) 2.2 %; HGB 6.2 g/dL (13.0-17.0); Immature Grans, Automated 0.7 %; Lymphocytes # (A) 0.76 X 10*3/uL (0.90-5.00); Lymphocytes % (A) 7.2 %; MCH 23.5 pg (27.0-32.0); MCV 75.8 fL (80.0-97.0); Mean Platelet Volume 9.7 fL (9.5-12.2); Monocytes # (A) 1.45 X 10*3/uL (0.20-1.00); Monocytes % (A) 13.8 %; NRBC Per 100 WBC 0 /100 WBCS (0.0-0.0); Neutrophils # (A) 7.93 X 10*3/uL (1.80-7.70); Neutrophils % (A) 75.6 %; Platelet Count 275 X 10*3/uL (140-440); RBC 2.64 X 10*6/uL (4.40-5.60); RDW 18.8 % (11.5-14.5); WBC 10.49 X 10*3/uL (4.50-10.00)
--- NOTE | 2022-02-27 14:05 | P.PN ---
Subjective Progress Note Date: 02/27/22 81-year-old male patient with known history of advanced oxygen-dependent COPD a nd a spiculated right upper lobe opacity , PET avid , being considered for as the artery treatment. In addition, the patient has coronary artery disease, previous CVA/TIA, hyperlipidemia, chronic hydronephrosis and recurrent urine tract infections and the patient has been infected with gram-negative bacteria in the urine including Enterobacter and most recently Pseudomonas. The patient was at home and the patient started having some increased shortness of breath and a congested cough. Incidentally found lightheaded and dizzy. Denied having any chest pain. Altered mentation. He presented again to the emergency department and UA was obviously abnormal consistent with underlying infection. The patient had chest x-ray that showed also some increased haziness/inflammatory changes in lung bases bilaterally. COVID 19 testing was negative. Influenza A and B was negative. White cell count was at 18.3 with a hemoglobin of 7.3 and a platelet count of 266. Sodium level was at 128 with a potassium level of 4 BUN of 16 and a creatinine of 0.8. Lactic acid level was at 1.9. Based on that, the patient was given a dose of Rocephin and Zithromax in the emergency and the patient was hospitalized. At the time of my evaluation, the patient was quite comfortable and he was communicating. No signs of any acute or ongoing septicemia and he was on 2 L of oxygen by nasal cannula with a pulse ox of 99% his EKG showed normal sinus rhythm. No acute ST segment abnormalities. Legionella urine antigen was also negative. On today's evaluation of 02/26/2022 , the patient is feeling well. He remains on IV cefepime for now. Urine cultures pending for now. There is however gram-negative bacteria growing in the urine culture. He doesn't a congested cough. No significant sputum production. No signs of any ongoing decompensation the respiratory status. No hemodynamic instability. The patient is tolerating his diet. On 02/27/2022, the patient is sitting up on the chin the patient's, comfortable. Urine culture is still showing gram-negative bacillus. The patient remains on IV cefepime. However, there has been drop in hemoglobin today without any evidence of any acute bleed. Hemoglobin is up to 6.2. The white cell count of 10.4 with a platelet count of 275. The BUN is at 40 with a creatinine of 0.9. Electrolytes are all within normal limits. He does have an occult positive stool. It is possible the patient may be having an occult GI blood loss. He was found also to have a low serum iron which supports this possibility. Objective - Vital Signs Vital signs: Vital Signs Temp 98.3 F 02/27/22 11:15 Pulse 90 02/27/22 11:48 Resp 20 02/27/22 11:15 BP 109/52 02/27/22 11:15 Pulse Ox 94 L 02/27/22 11:15 FiO2 Intake & Output 02/26/22 02/27/22 02/27/22 18:59 06:59 18:59 Intake Total 100 500 180 Output Total 600 1300 600 Balance -500 -800 -420 Weight 62.596 kg Intake: Intake, IV Titration 100 Amount Cefepime 2 gm In Sodium 100 Chloride 0.9% 100 ml @ 25 mls/hr IVPB Q12HR@0000, 1200 [facility] Rx#:[id number] Oral 500 180 Output: Urine 600 1300 600 Other: Voiding Method External Catheter External Catheter External Catheter - Exam GENERAL EXAM: Alert, very pleasant 79-year-old gentleman, on 2 L nasal cannula, comfortable in no apparent distress. HEAD: Normocephalic. EYES: Normal reaction of pupils, equal size. NOSE: Clear with pink turbinates. THROAT: No erythema or exudates. NECK: No masses, no JVD. CHEST: No chest wall deformity. LUNGS: Equal air entry with crackles in left posterior bases, end expiratory wheeze, diminished CVS: S1 and S2 normal with no audible murmur, regular rhythm. ABDOMEN: No hepatosplenomegaly, normal bowel sounds, no guarding or rigidity. SPINE: No scoliosis or deformity SKIN: No rashes CENTRAL NERVOUS SYSTEM: No focal deficits, tone is normal in all 4 extremities. EXTREMITIES: There is no peripheral edema. No clubbing, no cyanosis. Peripheral pulses are intact. - Labs CBC & Chem 7: 02/27/22 05:55 02/27/22 05:55 Labs: Abnormal Lab Results - Last 24 Hours (Table) 02/27/22 02/27/22 Range/Units 05:55 05:55 WBC 10.49 H (4.50-10.00) X 10*3/uL RBC 2.64 L (4.40-5.60) X 10*6/uL Hgb 6.2 L* (13.0-17.0) g/dL Hct 20.0 L (39.6-50.0) % MCV 75.8 L (80.0-97.0) fL MCH 23.5 L (27.0-32.0) pg MCHC 31.0 L (32.0-37.0) g/dL RDW 18.8 H (11.5-14.5) % Immature Gran # 0.07 H (0.00-0.04) X 10*3/uL Neutrophils # 7.93 H (1.80-7.70) X 10*3/uL Lymphocytes # 0.76 L (0.90-5.00) X 10*3/uL Monocytes # 1.45 H (0.20-1.00) X 10*3/uL Sodium 131 L (135-145) mmol/L Chloride 95 L (96-109) mmol/L Anion Gap 9.60 L (10.00-18.00) mmol/L Calcium 8.6 L (8.7-10.3) mg/dL Iron 10 L (65-175) ug/dL % Saturation 3.71 L (15.00-50.00) Transferrin 200.0 L (204.0-354.0) mg/dL Microbiology - Last 24 Hours (Table) 02/25/22 10:30 Gram Stain - Final Sputum Sputum Culture - Final 02/24/22 22:50 Blood Culture - Preliminary Blood No Growth after 48 hours 02/24/22 22:30 Blood Culture - Preliminary Blood No Growth after 48 hours 02/24/22 22:11 Urine Culture - Preliminary Urine,Voided Gram Neg Bacilli Assessment and Plan Plan: Acute on chronic dyspnea, likely on the basis of COPD. Pneumonia is felt to be less likely. There is some increased haziness in lung bases bilaterally. No clear-cut consolidation on today's chest x-ray. UTI, recurrent, under investigation Acute on chronic anemia with interval drop in hemoglobin down to 6.2 and the p atient has underlying iron deficiency with a positive occult blood in the stool. Rule out underlying GI bleed. Acute leukocytosis, improved and the patient's white cell count is up to 10.4 Advanced COPD, oxygen and steroid dependent, based on FEV1 is 36% of predicted, maintained on Wixela and Spiriva Right upper lobe mass measuring 2.5 cm, PET avid and the patient is being considered for SB RT as the patient had a good candidate for biopsies of any surgical interventions Recurrent UTIs with gram-negative bacteria, essentially related to gram-negative Enterobacter and Pseudomonas and the patient did have an obstructive uropathy with a Paige catheter in place Coronary artery disease appears bypass surgery Hypertension Hyperlipidemia Osteoarthritis Former smoker This history of falls Cervical spinal stenosis, C3-C4 moderate to severe and C5-C6 moderate spinal canal stenosis, additional multilevel bilateral moderate to severe neural foraminal stenosis extending from C3-C4 through C5-C6 reported as per cervical MRI, orthopedic spine recommending steroids/conservative management Carotid artery disease,50% stenosis right carotid bifurcation,SPECT 2 mm aneurysm posterior margin left internal carotid artery cavemous segment,vascular following. No surgery recommended at this time, continued outpatient monitoring. Previous history of CVA Anemia of chronic disease. Gait dysfunction Bilateral hydronephrosis. Followed up by urology on outpatient basis Plan Clinically improving May need to transfuse with a 1 units of packed RBC Consultants GI services regarding possibility of GI bleed Give the patient IV Venofer for iron deficiency Afebrile hemodynamically stable Awaiting final urine culture. There is gram-negative bacillus for now. He is afebrile, the patient is hemodynamically stable Continue IV cefepime covering for pseudomonal and gram-negative urine checked infections White cell count is improving Resume bronchodilators Resume home medications Regarding the lung mass, the patient saw radiation oncology and the plan is to still proceed with an SBRT at a later stage We'll continue to follow
--- NOTE | 2022-02-27 16:31 | P.PN ---
Subjective from record This is an 81-year-old gentleman admitted with acute on chronic anemia, UTI/history of recurrent UTIs, advanced COPD, chronic hypoxic respiratory failure, right lung mass/recent PET scan, bilateral hydronephrosis and multiple other medical issues presented to the ER with increased shortness of breath and weakness over the last few days. Congested productive cough. Reports exertional shortness of breath with minimal exertion. Denies lightheadedness dizziness or focal deficits. Denies chest pain, palpitations. EKG sinus rhythm, Troponin less than 0.012. Denies nausea vomiting or diarrhea. Denies urinary frequency dysuria hematuria. Denies rectal bleeding. He reports, scheduled for first round of radiation soon. Reports he has been on antibiotics(Keflex) since Thursday 02/22 for acute UTI. UA reporting urine WBCs greater than 182, leukocytes large, positive nitrates, urine culture pending. Legionella negative . Coronavirus, influenza type A and B not detected. T-max 99, WBC 18.3, hemoglobin 7.3, platelets 266, sodium 128, potassium 4, bicarb 23, BUN 16, creatinine 0.85. albumin 3.7. Lactic acid 1.9. Chest x-ray reporting bibasilar opacities partially seen on prior PET/CT for superimposed pneumonia, COPD changes. Maintained on Zithromax, ceftriaxone. 02/26/2022 Maintaining O2 sats in the 90s on 2 L nasal cannula. Continues on cefepime. Blood, Urine and sputum cultures, finalizing. Afebrile, WBC decreased to 17.6, hemoglobin remains at 7.3, platelets 267. Renal function stable. Sodium 129. Denies chest pain, palpitations or increasing shortness of breath. 02/27/2022 I started resuming the care of the patient today This is a pleasant 81 years old male with multiple medical problems including lung cancer that follow-up outpatient presents because of respiratory symptoms suspected due to bilateral pneumonia, patiently mainly An acute exacerbation of COPD and is also on inhaled steroids, breathing is stable and his improvement and currently requires only 2 L/m of oxygen. His not tachypneic at rest. Patient also denies any dyspnea patient sitting in bed most of the time. No chest pain. Occasional coughing . Patient also does not feel generally weak. However he is covered with cefepime. Most likely patient has UTI with urine culture showing gram-negative bacilli. Patient complains from increased frequency of urination. He is being about 5-10 times per minute. We are going to repeat urine analysis and urine culture. Also we will check for renal ultrasound. Also patients with worsening hemoglobin with evidence of iron deficiency anemia while he is on aspirin and Plavix, therefore, to monitor his hemoglobin and transfuse as needed and consult surgery service [no GI service] for possible GI bleed. However patient had recent EGD which was basically negative and also colonoscopy also was unremarkable except for diverticulosis [01/25/2022] Review of systems CONSTITUTIONAL: No fever, no malaise, no fatigue. HEENT: No recent visual problems or hearing problems. Denied any sore throat. CARDIOVASCULAR: No orthopnea, PND, no palpitations, no syncope. PULMONARY: No chest wall tenderness, no hemoptysis. GASTROINTESTINAL: No diarrhea, no nausea, no vomiting, no abdominal pain. Normoactive bowel sounds. NEUROLOGICAL: No headaches, no weakness, no numbness. HEMATOLOGICAL: Denies any bleeding or petechiae. Active Medications Generic Name Dose Route Start Last Admin Trade Name Freq PRN Reason Stop Dose Admin Albuterol/Ipratropium 3 ml 02/25/22 12:00 02/27/22 16:04 Ipratropium-Albuterol 3 Ml Neb INHALATION 3 ml RT-QID DARRON Administration Albuterol/Ipratropium 3 ml 02/25/22 11:59 Ipratropium-Albuterol 3 Ml Neb INHALATION RT-Q2H PRN Shortness Of Breath Or Wheezing Amlodipine Besylate 5 mg 02/25/22 10:00 02/27/22 09:35 Amlodipine 5 Mg Tab PO 5 mg DAILY DARRON Administration Aspirin 81 mg 02/26/22 09:00 02/27/22 09:35 Aspirin 81 Mg PO 81 mg DAILY DARRON Administration Atorvastatin Calcium 40 mg 02/25/22 21:00 02/26/22 21:10 Atorvastatin 40 Mg Tab PO 40 mg HS DARRON Administration Budesonide/Formoterol Fumarate 2 puff 02/25/22 10:00 02/27/22 07:41 Symbicort 80-4.5 Mcg Inhaler INHALATION 2 puff RT-BID DARRON Administration Calcium Carbonate/Glycine 1,000 mg 02/25/22 09:32 Calcium Carbonate 500 Mg Chewable PO TID PRN Heartburn Clopidogrel Bisulfate 75 mg 02/26/22 09:00 02/27/22 09:35 Clopidogrel 75 Mg Tab PO 75 mg DAILY DARRON Administration Ferrous Sulfate 325 mg 02/26/22 22:30 02/27/22 09:35 Ferrous Sulfate 325 Mg Tab PO 325 mg BID-W/MEALS DARRON Administration Finasteride 5 mg 02/25/22 10:00 02/27/22 09:35 Finasteride 5 Mg Tab PO 5 mg DAILY DARRON Administration Folic Acid 1 mg 02/25/22 10:00 02/27/22 09:35 Folic Acid 1 Mg Tab PO 1 mg DAILY DARRON Administration Guaifenesin 600 mg 02/25/22 09:32 02/25/22 20:00 Guaifenesin 600 Mg Tablet.Er PO 600 mg Q8HR PRN Administration Cough Cefepime HCl 2 gm/ Sodium 100 mls @ 25 mls/hr 02/25/22 13:00 02/27/22 12:27 Chloride IVPB 25 mls/hr Q12HR@0000,1200 DARRON Administration Protocol Ferric Sodium Gluconate 125 mg 110 mls @ 100 mls/hr 02/27/22 15:00 / Sodium Chloride IVPB 03/01/22 10:05 DAILY DARRON Naloxone HCl 0.2 mg 02/24/22 22:04 Naloxone 0.4 Mg/Ml 1 Ml Vial IV Q2M PRN Opioid Reversal Pantoprazole Sodium 40 mg 02/25/22 10:00 02/27/22 09:35 Pantoprazole 40 Mg Tablet PO 40 mg AC-BRKFST DARRON Administration Tamsulosin HCl 0.4 mg 02/25/22 10:00 02/27/22 09:35 Tamsulosin 0.4 Mg Cap.Er.24h PO 0.4 mg BID DARRON Administration Objective - Vital Signs Vital signs: Vital Signs Temp 99.0 F 02/27/22 05:00 Pulse 84 02/27/22 07:55 Resp 20 02/27/22 05:00 BP 109/50 02/27/22 05:00 Pulse Ox 98 02/26/22 20:21 FiO2 Intake & Output 02/26/22 02/27/22 02/27/22 18:59 06:59 18:59 Intake Total 100 500 180 Output Total 600 1300 600 Balance -500 -800 -420 Weight 62.596 kg Intake: Intake, IV Titration 100 Amount Cefepime 2 gm In Sodium 100 Chloride 0.9% 100 ml @ 25 mls/hr IVPB Q12HR@0000, 1200 [facility] Rx#:[id number] Oral 500 180 Output: Urine 600 1300 600 Other: Voiding Method External Catheter External Catheter External Catheter - Exam GENERAL: The patient is alert and oriented x3, not in any acute distress. Well developed, well nourished. HEENT: Pupils are round and equally reacting to light. EOMI. No scleral icterus. No conjunctival pallor. Normocephalic, atraumatic. No pharyngeal erythema. No thyromegaly. CARDIOVASCULAR: S1 and S2 present. No murmurs, rubs, or gallops. PULMONARY: Chest is clear to auscultation, no wheezing or crackles. ABDOMEN: Soft, nontender, nondistended, normoactive bowel sounds. No palpable organomegaly. MUSCULOSKELETAL: No joint swelling or deformity. EXTREMITIES: No cyanosis, clubbing, or pedal edema. NEUROLOGICAL: Gross neurological examination did not reveal any focal deficits. SKIN: No rashes. no petechiae. - Labs CBC & Chem 7: 02/27/22 05:55 02/27/22 05:55 Labs: Abnormal Lab Results - Last 24 Hours (Table) 02/27/22 Range/Units 05:55 Sodium 131 L (135-145) mmol/L Chloride 95 L (96-109) mmol/L Anion Gap 9.60 L (10.00-18.00) mmol/L Calcium 8.6 L (8.7-10.3) mg/dL Iron 10 L (65-175) ug/dL % Saturation 3.71 L (15.00-50.00) Transferrin 200.0 L (204.0-354.0) mg/dL Microbiology - Last 24 Hours (Table) 02/24/22 22:50 Blood Culture - Preliminary Blood No Growth after 48 hours 02/24/22 22:30 Blood Culture - Preliminary Blood No Growth after 48 hours 02/24/22 22:11 Urine Culture - Preliminary Urine,Voided Gram Neg Bacilli Assessment and Plan Assessment: Acute urinary tract infection with gram-negative bacilli Acute COPD exacerbation, bilateral pneumonia felt less likely Acute hypoxic respiratory failure, significantly improved Iron deficiency anemia with a drop in hemoglobin. Rule out GI bleed. Status post one unit of blood transfusion 02/27 Patient has a chronic anemia with hemoglobin fluctuation 6-8 hypernatremia, improving History of obstructive uropathy History of cervical spinal stenosis CKD stage II history of oronary artery disease Plan: This is a pleasant 81 years old male with COPD and anemia Continue with inhaled steroids and cefepime Repeat urinalysis, renal ultrasound. In the meantime continue with cefepime. Urine culture is growing gram-negative bacilli Monitor hemoglobin, after blood transfusion 1. Consult surgery team. Start P rotonix twice a day instead of daily. Right upper lung mass, patient follow up with her oncologist as an outpatient Labs and medication were reviewed.. Continue same treatment. Continue with symptomatic treatment. Resume home medication. Monitor lytes and vitals. DVT and GI prophylaxis. Further recommendations as per clinical course of the patient DVT prophylaxis: no Subcutaneous heparin. Patient is already on aspirin and Plavix, his anemia has chronic elements. GI Prophylaxis: Start Protonix PT/OT: Pending Prognosis is guarded
[2022-02-27 18:18] LABS: Appearance,Urine Clear (Clear); Bacteria,Urine Rare /hpf; Bilirubin,Urine Negative (Negative); Blood,Urine Negative (Negative); Color,Urine Light Yellow; Glucose,Urine (UA) Negative (Negative); Ketones,Urine Negative (Negative); Leukocyte Esterase,Urine Large (Negative); Mucus,Urine Rare /hpf; Nitrite,Urine Negative (Negative); Protein,Urine Trace (Negative); RBC,Urine 8 /hpf (0-5); Specific Gravity,Urine 1.009 (1.001-1.035); Urobilinogen,Urine <2.0 mg/dL (<2.0); WBC,Urine 31 /hpf (0-5)
--- NOTE | 2022-02-27 18:55 | US ---
EXAMINATION TYPE: US renals and bladder DATE OF EXAM: 02/27/2022 COMPARISON: US CLINICAL HISTORY: uti. UTI. EXAM MEASUREMENTS: Right Kidney: 10.4 x 6.7 x 4.8 cm Left Kidney: 11.1 x 4.8 x 4.9 cm Right Kidney: Anechoic area seen laterally at mid: 1.7 x 1.2 x 1.7 cm. A second anechoic area seen m id-inferiorly: 1.2 x 1.1 x 1.2 cm. Left Kidney: Renal pelvis appears to be dilated. Anechoic area seen lateral-mid: 1.6 x 1.3 x 1.2 cm. Bladder: Paige catheter in place. Unable to evaluate. Bilateral Jets seen: No *Incidental finding: hyperechoic focus seen within the spleen: 0.3 x 0.3 x 0.3 cm. IMPRESSION: Bladder is empty during the exam. There is Paige catheter in the bladder. Bilateral renal cortical cy sts. Mild left-sided hydronephrosis.
[2022-02-27] MEDS: SODIUM FERRIC GLUCONAT-SUCROSE 125 MG in SODIUM CHLORIDE 0.9% 100 ML IVPB SCH (20:31)
[2022-02-27] MEDS: ATORVASTATIN 40 MG TAB PO SCH (20:32)
[2022-02-27] MEDS: PANTOPRAZOLE 40 MG/10 ML VIAL IVP SCH (20:32)
[2022-02-28] MEDS: SYMBICORT 80-4.5 MCG INHALER INHALATION SCH ×2 (07:30→19:16)
[2022-02-28] MEDS: IPRATROPIUM-ALBUTEROL 3 ML NEB INHALATION SCH ×4 (07:30→19:16)
[2022-02-28] MEDS: amLODIPine 5 MG TAB PO SCH (08:31)
[2022-02-28] MEDS: CLOPIDOGREL 75 MG TAB PO SCH (08:31)
[2022-02-28] MEDS: PANTOPRAZOLE 40 MG/10 ML VIAL IVP SCH ×2 (08:31→20:15)
[2022-02-28] MEDS: FINASTERIDE 5 MG TAB PO SCH (08:31)
[2022-02-28] MEDS: TAMSULOSIN 0.4 MG CAP.ER.24H PO SCH ×2 (08:31→20:15)
[2022-02-28] MEDS: ASPIRIN 81 MG PO SCH (08:31)
[2022-02-28] MEDS: FOLIC ACID 1 MG TAB PO SCH (08:31)
[2022-02-28] MEDS: FERROUS SULFATE 325 MG TAB PO SCH ×2 (08:31→16:35)
[2022-02-28] MEDS: guaiFENesin 600 MG TABLET.ER PO PRN (08:52)
[2022-02-28] MEDS: SODIUM FERRIC GLUCONAT-SUCROSE 125 MG in SODIUM CHLORIDE 0.9% 100 ML IVPB SCH (09:55)
--- NOTE | 2022-02-28 11:45 | P.GSCN ---
History of Present Illness Consult date: 02/28/22 Reason for Consult: GI bleeding History of present illness: 81-year-old male hospitalized for shortness of breath and fatigue. We were consulted for GI bleed. Stools have been Hemoccult positive. He denies rectal bleeding or melena. He does had a recent EGD and colonoscopy done last month by Dr. Escobar. Denies abdominal pain. Review of Systems The patient denies any acute changes in vision or hearing, no dysphagia or odynophagia, no dysuria or hematuria, no headache, no runny nose, no rectal bleeding or melena, no unexplained weight loss Past Medical History Past Medical History: Coronary Artery Disease (CAD), Cancer, Chest Pain / Angina, COPD, CVA/TIA, Hyperlipidemia, Osteoarthritis (OA) Additional Past Medical History / Comment(s): COPD, "mini stroke 2-3 months ago- "weakness on rt side, some on the left", indwelling catheter. Lung mass under investigation being considered for SB RT History of Any Multi-Drug Resistant Organisms: None Reported Past Surgical History: Coronary Bypass/CABG Additional Past Surgical History / Comment(s): 1994 CABG 3 vessel, colonoscopy with benign polypectomy. hoda cataracts Past Anesthesia/Blood Transfusion Reactions: No Reported Reaction Past Psychological History: No Psychological Hx Reported Additional Psychological History / Comment(s): Pt resides with his spouse. He states he has a nebulizer. Smoking Status: Former smoker Past Alcohol Use History: Unable to Obtain Additional Past Alcohol Use History / Comment(s): Pt started smoking in 1955 and quit in 2004. He smoked 1-1.5 ppd. Past Drug Use History: Unable to Obtain - Past Family History Father Family Medical History: Myocardial Infarction (AL) Additional Family Medical History / Comment(s): Father of a AL in his 60s. Mother Family Medical History: Unable to Obtain Additional Family Medical History / Comment(s): . Medications and Allergies Home Medications Medication Instructions Recorded Confirmed Type Aspirin EC [Ecotrin Low Dose] 81 mg PO DAILY 11/13/18 02/24/22 History Albuterol Sulfate [Proair Hfa] 1 puff INHALATION RT-Q6H PRN 10/15/21 02/24/22 History Fluticasone Propion/Salmeterol 1 puff INHALATION RT-HS 10/15/21 02/24/22 History [Wixela 250-50 Inhub] Atorvastatin [Lipitor] 40 mg PO HS #30 tab 10/22/21 02/24/22 Rx Clopidogrel [Plavix] 75 mg PO DAILY #30 tab 10/22/21 02/24/22 Rx Folic Acid 1 mg PO DAILY tab 10/22/21 02/24/22 Rx Pantoprazole [Protonix] 40 mg PO AC-BRKFST #30 tab 10/22/21 02/24/22 Rx amLODIPine [Norvasc] 5 mg PO DAILY #30 tab 10/22/21 02/24/22 Rx Finasteride [Proscar] 5 mg PO DAILY 12/24/21 02/24/22 History Tamsulosin HCl [Flomax] 0.4 mg PO BID 12/24/21 02/24/22 History Calcium Carbonate [Tums] 1,000 mg PO TID PRN tab 12/30/21 02/24/22 Rx guaiFENesin [Mucinex] 600 mg PO Q8HR PRN tab 12/31/21 02/24/22 Rx Ipratropium-Albuterol Nebulize 3 ml INHALATION RT-QID PRN 01/23/22 02/24/22 History [Duoneb 0.5 mg-3 mg/3 ml Soln] Cephalexin [Keflex] 500 mg PO Q8HR 02/24/22 02/24/22 History Tiotropium [place] [Spiriva] 1 puff INHALATION RT-HS 02/24/22 02/24/22 History Allergies Allergy/AdvReac Type Severity Reaction Status Date / Time No Known Allergies Allergy Verified 02/24/22 22:00 Surgical - Exam Vital Signs Temp Pulse Resp BP Pulse Ox 99 F 79 22 113/59 92 L 02/24/22 19:47 02/24/22 19:47 02/24/22 19:47 02/24/22 19:47 02/24/22 19:47 Physical exam: General: Well-developed, well-nourished HEENT: Normocephalic, sclerae nonicteric Abdomen: Nontender, nondistended Extremities: No edema Neuro: Alert and oriented Results - Labs 02/27/22 05:55 02/27/22 05:55 Abnormal Lab Results - Last 24 Hours (Table) 02/27/22 02/27/22 Range/Units 12:48 17:45 Urine Protein Trace H (Negative) Ur Leukocyte Esterase Large H (Negative) Urine RBC 8 H (0-5) /hpf Urine WBC 31 H (0-5) /hpf Urine Bacteria Rare H (None) /hpf Urine Mucus Rare H (None) /hpf Crossmatch See Detail Microbiology - Last 24 Hours (Table) 02/24/22 22:50 Blood Culture - Preliminary Blood No Growth after 72 hours 02/24/22 22:30 Blood Culture - Preliminary Blood No Growth after 72 hours 02/27/22 17:45 Urine Culture - Preliminary Urine,Catheterized 02/24/22 22:11 Urine Culture - Final Urine,Voided Pseudomonas aeruginosa 02/25/22 10:30 Gram Stain - Final Sputum Sputum Culture - Final Assessment and Plan (1) GI bleed Narrative/Plan: 81-year-old male with chronic anemia. He has heme positive stools. No active visible bleeding at this time. No plans for repeat endoscopy. Dr. Escobar will resume coverage tomorrow. Current Visit: Yes Status: Acute Code(s): K92.2 - GASTROINTESTINAL HEMORRHAGE, UNSPECIFIED SNOMED Code(s): 48820894
[2022-02-28 12:42] LABS: Basophils # (A) 0.07 X 10*3/uL (0.00-0.10); Basophils % (A) 0.7 %; Eosinophils # (A) 0.27 X 10*3/uL (0.04-0.35); Eosinophils % (A) 2.7 %; HGB 7.7 g/dL (13.0-17.0); Immature Grans, Automated 0.5 %; Lymphocytes # (A) 0.78 X 10*3/uL (0.90-5.00); Lymphocytes % (A) 7.9 %; MCH 23.9 pg (27.0-32.0); MCHC 30.8 g/dL (32.0-37.0); MCV 77.6 fL (80.0-97.0); Mean Platelet Volume 9.3 fL (9.5-12.2); Monocytes % (A) 11.1 %; NRBC Per 100 WBC 0 /100 WBCS (0.0-0.0); Neutrophils # (A) 7.62 X 10*3/uL (1.80-7.70); Neutrophils % (A) 77.1 %; Platelet Count 287 X 10*3/uL (140-440); RBC 3.22 X 10*6/uL (4.40-5.60); RDW 18.6 % (11.5-14.5); WBC 9.89 X 10*3/uL (4.50-10.00)
[2022-02-28] MEDS: CEFEPIME 2 GM in SODIUM CHLORIDE 0.9% 100 ML IVPB SCH ×3 (12:53)
--- NOTE | 2022-02-28 13:06 | P.PN ---
Subjective Progress Note Date: 02/28/22 81-year-old male patient with known history of advanced oxygen-dependent COPD a nd a spiculated right upper lobe opacity , PET avid , being considered for as the artery treatment. In addition, the patient has coronary artery disease, previous CVA/TIA, hyperlipidemia, chronic hydronephrosis and recurrent urine tract infections and the patient has been infected with gram-negative bacteria in the urine including Enterobacter and most recently Pseudomonas. The patient was at home and the patient started having some increased shortness of breath and a congested cough. Incidentally found lightheaded and dizzy. Denied having any chest pain. Altered mentation. He presented again to the emergency department and UA was obviously abnormal consistent with underlying infection. The patient had chest x-ray that showed also some increased haziness/inflammatory changes in lung bases bilaterally. COVID 19 testing was negative. Influenza A and B was negative. White cell count was at 18.3 with a hemoglobin of 7.3 and a platelet count of 266. Sodium level was at 128 with a potassium level of 4 BUN of 16 and a creatinine of 0.8. Lactic acid level was at 1.9. Based on that, the patient was given a dose of Rocephin and Zithromax in the emergency and the patient was hospitalized. At the time of my evaluation, the patient was quite comfortable and he was communicating. No signs of any acute or ongoing septicemia and he was on 2 L of oxygen by nasal cannula with a pulse ox of 99% his EKG showed normal sinus rhythm. No acute ST segment abnormalities. Legionella urine antigen was also negative. On today's evaluation of 02/26/2022 , the patient is feeling well. He remains on IV cefepime for now. Urine cultures pending for now. There is however gram-negative bacteria growing in the urine culture. He doesn't a congested cough. No significant sputum production. No signs of any ongoing decompensation the respiratory status. No hemodynamic instability. The patient is tolerating his diet. On 02/27/2022, the patient is sitting up on the chin the patient's, comfortable. Urine culture is still showing gram-negative bacillus. The patient remains on IV cefepime. However, there has been drop in hemoglobin today without any evidence of any acute bleed. Hemoglobin is up to 6.2. The white cell count of 10.4 with a platelet count of 275. The BUN is at 40 with a creatinine of 0.9. Electrolytes are all within normal limits. He does have an occult positive stool. It is possible the patient may be having an occult GI blood loss. He was found also to have a low serum iron which supports this possibility. 02/28/2022, the patient is stable. The patient was given a unit of packed RBC yesterday and the patient was started on IV iron. Gen. surgery was also consulted. No plans for colonoscopy at this point in time. Repeat hemoglobin came back at 7.7. The white cell count came back at 9.8. The urine culture came back for Pseudomonas with intermediate sensitivity to cefepime. No nausea. No vomiting. No chest pain. Very borderline yesterday status of the patient has advanced COPD. Afebrile. Objective - Vital Signs Vital signs: Vital Signs Temp 98.6 F 02/28/22 11:53 Pulse 86 02/28/22 11:53 Resp 18 02/28/22 11:53 BP 106/50 02/28/22 11:53 Pulse Ox 98 02/28/22 11:53 FiO2 Intake & Output 02/27/22 02/28/22 02/28/22 18:59 06:59 18:59 Intake Total 180 560 Output Total 2863 1000 800 Balance -2683 -440 -800 Intake: Oral 180 250 Blood Product 0 310 Rc As-1 Unit 0 310 [id number] Output: Urine 2000 1000 800 Post Void Residual 863 Other: Voiding Method External Catheter Indwelling Catheter Indwelling Catheter - Exam GENERAL EXAM: Alert, very pleasant 79-year-old gentleman, on 2 L nasal cannula, comfortable in no apparent distress. HEAD: Normocephalic. EYES: Normal reaction of pupils, equal size. NOSE: Clear with pink turbinates. THROAT: No erythema or exudates. NECK: No masses, no JVD. CHEST: No chest wall deformity. LUNGS: Equal air entry with crackles in left posterior bases, end expiratory wheeze, diminished CVS: S1 and S2 normal with no audible murmur, regular rhythm. ABDOMEN: No hepatosplenomegaly, normal bowel sounds, no guarding or rigidity. SPINE: No scoliosis or deformity SKIN: No rashes CENTRAL NERVOUS SYSTEM: No focal deficits, tone is normal in all 4 extremities. EXTREMITIES: There is no peripheral edema. No clubbing, no cyanosis. Peripheral pulses are intact. - Labs CBC & Chem 7: 02/28/22 09:12 02/27/22 05:55 Labs: Abnormal Lab Results - Last 24 Hours (Table) 02/27/22 02/27/22 02/28/22 Range/Units 12:48 17:45 09:12 RBC 3.22 L (4.40-5.60) X 10*6/uL Hgb 7.7 L (13.0-17.0) g/dL Hct 25.0 L (39.6-50.0) % MCV 77.6 L (80.0-97.0) fL MCH 23.9 L (27.0-32.0) pg MCHC 30.8 L (32.0-37.0) g/dL RDW 18.6 H (11.5-14.5) % MPV 9.3 L (9.5-12.2) fL Immature Gran # 0.05 H (0.00-0.04) X 10*3/uL Lymphocytes # 0.78 L (0.90-5.00) X 10*3/uL Monocytes # 1.10 H (0.20-1.00) X 10*3/uL Urine Protein Trace H (Negative) Ur Leukocyte Esterase Large H (Negative) Urine RBC 8 H (0-5) /hpf Urine WBC 31 H (0-5) /hpf Urine Bacteria Rare H (None) /hpf Urine Mucus Rare H (None) /hpf Crossmatch See Detail Microbiology - Last 24 Hours (Table) 02/24/22 22:50 Blood Culture - Preliminary Blood No Growth after 72 hours 02/24/22 22:30 Blood Culture - Preliminary Blood No Growth after 72 hours 02/27/22 17:45 Urine Culture - Preliminary Urine,Catheterized 02/24/22 22:11 Urine Culture - Final Urine,Voided Pseudomonas aeruginosa 02/25/22 10:30 Gram Stain - Final Sputum Sputum Culture - Final Assessment and Plan Plan: Acute on chronic dyspnea, likely on the basis of COPD. Pneumonia is felt to be less likely. There is some increased haziness in lung bases bilaterally. No clear-cut consolidation on today's chest x-ray. UTI, recurrent, under investigation, cultures came back positive for Pseudomonas and the patient had intermediate sensitivity to cefepime. The same antibiotic will be continued for now as the patient is clinically improving and the white cell count has normalized. Acute on chronic anemia with interval drop in hemoglobin down to 6.2 and the patient has underlying iron deficiency with a positive occult blood in the stool. Rule out underlying GI bleed. The patient got transferred with units of packed RBC. Hemoglobin improved and currently is up to 7.7 and is being replaced for iron deficiency. Acute leukocytosis, improved and the patient's white cell count is up to 10.4 Advanced COPD, oxygen and steroid dependent, based on FEV1 is 36% of predicted, maintained on Wixela and Spiriva Right upper lobe mass measuring 2.5 cm, PET avid and the patient is being considered for SB RT as the patient had a good candidate for biopsies of any surgical interventions Recurrent UTIs with gram-negative bacteria, essentially related to gram-negative Enterobacter and Pseudomonas and the patient did have an obstructive uropathy with a Paige catheter in place Coronary artery disease appears bypass surgery Hypertension Hyperlipidemia Osteoarthritis Former smoker This history of falls Cervical spinal stenosis, C3-C4 moderate to severe and C5-C6 moderate spinal canal stenosis, additional multilevel bilateral moderate to severe neural foraminal stenosis extending from C3-C4 through C5-C6 reported as per cervical MRI, orthopedic spine recommending steroids/conservative management Carotid artery disease,50% stenosis right carotid bifurcation,SPECT 2 mm aneurysm posterior margin left internal carotid artery cavemous segment,vascular following. No surgery recommended at this time, continued outpatient monitoring. Previous history of CVA Anemia of chronic disease. Gait dysfunction Bilateral hydronephrosis. Followed up by urology on outpatient basis Plan Clinically improving Transfused with units of packed RBC and the hemoglobin is up to 7.7 Continue IV Venofer Not a good candidate for colonoscopy and EGD due to his very borderline respiratory status Continue IV cefepime Resume bronchodilators Resume home medications Regarding the lung mass, the patient saw radiation oncology and the plan is to still proceed with an SBRT at a later stage We'll continue to follow
[2022-02-28 14:13] LABS: African American GFR (CKD) 93.5 (60.0-200.0); Albumin 3.2 g/dL (3.8-4.9); Albumin/Globulin Ratio 1.47 (1.60-3.17); BUN/Creat Ratio 15.35 Ratio (12.00-20.00); Calcium 8.8 mg/dL (8.7-10.3); Carbon Dioxide 24.1 mmol/L (20.0-27.5); Globulin 2.2 g/dL (1.6-3.3); Non-African American GFR(CKD) 80.7 (60.0-200.0); Potassium 4.3 mmol/L (3.5-5.5); Total Bilirubin 0.5 mg/dL (0.30-1.20); Total Protein 5.4 g/dL (6.2-8.2)
[2022-02-28] MEDS: PIPERACILLIN-TAZOBACTAM 3.375 GM in SODIUM CHLORIDE 0.9% 100 ML IVPB SCH ×2 (16:35→23:51)
[2022-02-28] MEDS: ATORVASTATIN 40 MG TAB PO SCH (20:15)
--- NOTE | 2022-02-28 22:04 | P.PN ---
Subjective from record This is an 81-year-old gentleman admitted with acute on chronic anemia, UTI/history of recurrent UTIs, advanced COPD, chronic hypoxic respiratory failure, right lung mass/recent PET scan, bilateral hydronephrosis and multiple other medical issues presented to the ER with increased shortness of breath and weakness over the last few days. Congested productive cough. Reports exertional shortness of breath with minimal exertion. Denies lightheadedness dizziness or focal deficits. Denies chest pain, palpitations. EKG sinus rhythm, Troponin less than 0.012. Denies nausea vomiting or diarrhea. Denies urinary frequency dysuria hematuria. Denies rectal bleeding. He reports, scheduled for first round of radiation soon. Reports he has been on antibiotics(Keflex) since Thursday 02/22 for acute UTI. UA reporting urine WBCs greater than 182, leukocytes large, positive nitrates, urine culture pending. Legionella negative . Coronavirus, influenza type A and B not detected. T-max 99, WBC 18.3, hemoglobin 7.3, platelets 266, sodium 128, potassium 4, bicarb 23, BUN 16, creatinine 0.85. albumin 3.7. Lactic acid 1.9. Chest x-ray reporting bibasilar opacities partially seen on prior PET/CT for superimposed pneumonia, COPD changes. Maintained on Zithromax, ceftriaxone. 02/26/2022 Maintaining O2 sats in the 90s on 2 L nasal cannula. Continues on cefepime. Blood, Urine and sputum cultures, finalizing. Afebrile, WBC decreased to 17.6, hemoglobin remains at 7.3, platelets 267. Renal function stable. Sodium 129. Denies chest pain, palpitations or increasing shortness of breath. 02/27/2022 I started resuming the care of the patient today This is a pleasant 81 years old male with multiple medical problems including lung cancer that follow-up outpatient presents because of respiratory symptoms suspected due to bilateral pneumonia, patiently mainly An acute exacerbation of COPD and is also on inhaled steroids, breathing is stable and his improvement and currently requires only 2 L/m of oxygen. His not tachypneic at rest. Patient also denies any dyspnea patient sitting in bed most of the time. No chest pain. Occasional coughing . Patient also does not feel generally weak. However he is covered with cefepime. Most likely patient has UTI with urine culture showing gram-negative bacilli. Patient complains from increased frequency of urination. He is being about 5-10 times per minute. We are going to repeat urine analysis and urine culture. Also we will check for renal ultrasound. Also patients with worsening hemoglobin with evidence of iron deficiency anemia while he is on aspirin and Plavix, therefore, to monitor his hemoglobin and transfuse as needed and consult surgery service [no GI service] for possible GI bleed. However patient had recent EGD which was basically negative and also colonoscopy also was unremarkable except for diverticulosis [01/25/2022] 02/28/2022 Patient still significantly tachypneic while he is at rest although he showed improvement overall since admission. Patient saturation with 90s on 2 L/m of oxygen nasal cannula the left breast. Patient is a poor surgical candidate and due to poor respiratory functional status. His hemoglobin improved to 7.7 today after transfusion. WBC is back to normal at 9.8. Renal ultrasound showed mild left hydronephrosis with empty bladder because of Paige catheter. Antibiotic was adjusted to Zosyn and patient has evidence of urinary retention and Paige catheter was initiated. Also he was placed on IV Protonix twice daily as he still on aspirin and Plavix. Surgery team were consulted and no planning for colonoscopy/EGD. Patient had these procedures recently done Objective - Vital Signs Vital signs: Vital Signs Temp 98.7 F 02/28/22 05:00 Pulse 86 02/28/22 07:45 Resp 18 02/28/22 08:00 BP 122/69 02/28/22 05:00 Pulse Ox 95 02/28/22 05:00 FiO2 Intake & Output 02/27/22 02/28/22 02/28/22 18:59 06:59 18:59 Intake Total 180 560 Output Total 2863 1000 Balance -6892 -099 Intake: Oral 180 250 Blood Product 0 310 Rc As-1 Unit 0 310 [id number] Output: Urine 2000 1000 Post Void Residual 863 Other: Voiding Method External Catheter Indwelling Catheter Indwelling Catheter - Exam GENERAL: The patient is alert and oriented x3, not in any acute distress. Well developed, well nourished. HEENT: Pupils are round and equally reacting to light. EOMI. No scleral icterus. No conjunctival pallor. Normocephalic, atraumatic. No pharyngeal erythema. No thyromegaly. CARDIOVASCULAR: S1 and S2 present. No murmurs, rubs, or gallops. PULMONARY: Chest is clear to auscultation, no wheezing or crackles. ABDOMEN: Soft, nontender, nondistended, normoactive bowel sounds. No palpable organomegaly. MUSCULOSKELETAL: No joint swelling or deformity. EXTREMITIES: No cyanosis, clubbing, or pedal edema. NEUROLOGICAL: Gross neurological examination did not reveal any focal deficits. SKIN: No rashes. no petechiae. - Labs CBC & Chem 7: 02/28/22 09:12 02/28/22 09:12 Labs: Abnormal Lab Results - Last 24 Hours (Table) 02/27/22 02/27/22 02/27/22 Range/Units 05:55 12:48 17:45 WBC 10.49 H (4.50-10.00) X 10*3/uL RBC 2.64 L (4.40-5.60) X 10*6/uL Hgb 6.2 L* (13.0-17.0) g/dL Hct 20.0 L (39.6-50.0) % MCV 75.8 L (80.0-97.0) fL MCH 23.5 L (27.0-32.0) pg MCHC 31.0 L (32.0-37.0) g/dL RDW 18.8 H (11.5-14.5) % Immature Gran # 0.07 H (0.00-0.04) X 10*3/uL Neutrophils # 7.93 H (1.80-7.70) X 10*3/uL Lymphocytes # 0.76 L (0.90-5.00) X 10*3/uL Monocytes # 1.45 H (0.20-1.00) X 10*3/uL Urine Protein Trace H (Negative) Ur Leukocyte Esterase Large H (Negative) Urine RBC 8 H (0-5) /hpf Urine WBC 31 H (0-5) /hpf Urine Bacteria Rare H (None) /hpf Urine Mucus Rare H (None) /hpf Crossmatch See Detail Microbiology - Last 24 Hours (Table) 02/24/22 22:50 Blood Culture - Preliminary Blood No Growth after 72 hours 02/24/22 22:30 Blood Culture - Preliminary Blood No Growth after 72 hours 02/27/22 17:45 Urine Culture - Preliminary Urine,Catheterized 02/24/22 22:11 Urine Culture - Final Urine,Voided Pseudomonas aeruginosa 02/25/22 10:30 Gram Stain - Final Sputum Sputum Culture - Final Assessment and Plan Assessment: Acute urinary tract infection with gram-negative bacilli Acute COPD exacerbation, bilateral pneumonia felt less likely Acute hypoxic respiratory failure, significantly improved Iron deficiency anemia with a drop in hemoglobin. Rule out GI bleed. Status post one unit of blood transfusion 02/27 Patient has a chronic anemia with hemoglobin fluctuation 6-8 hypernatremia, improving History of obstructive uropathy History of cervical spinal stenosis CKD stage II history of oronary artery disease Plan: This is a pleasant 81 years old male with COPD and anemia Continue with inhaled steroids and cefepime Repeat urinalysis, renal ultrasound. In the meantime continue with cefepime. Urine culture is growing gram-negative bacilli Monitor hemoglobin, after blood transfusion 1. Consult surgery team. Start Protonix twice a day instead of daily. Right upper lung mass, patient follow up with her oncologist as an outpatient Labs and medication were reviewed.. Continue same treatment. Continue with symptomatic treatment. Resume home medication. Monitor lytes and vitals. DVT and GI prophylaxis. Further recommendations as per clinical course of the patient DVT prophylaxis: no Subcutaneous heparin. Patient is already on aspirin and Plavix, his anemia has chronic elements. GI Prophylaxis: Protonix PT/OT: Pending Prognosis is guarded
--- NOTE | 2022-02-28 23:27 | P.CONS ---
History of Present Illness - Reason for Consult Consult date: 02/28/22 persistant UTI , Resistant Requesting physician: Nathaniel E Sheet - Chief Complaint shortness of breath and cough x few days - History of Present Illness History of Present Illness : Patient is 81-year-old male with a past medical history of advanced COPD coronary artery disease CVA TIA recurrent UTI presenting to the hospital 4 days ago for evaluation of increasing shortness of breath and a congested cough patient has been complaining of moderate cough with occasional sputum production no hemoptysis has been feeling lightheaded and dizzy with the symptom the patient was evaluated by the ER physician on arrival to the ER the patient was running a low-grade fever of 99 degrees formulae the patient is afebrile since then patient had white count of 18.3 with a left shift kidney function has been normal liver enzymes are normal patient did have a positive UA with more than 182 WBC patient did have a negative COVID test and negative influenza patient urine has been finalized with multidrug-resistant Pseudomonas with intermittent sensitive to cefepime the patient has been on that has prompted this infectious disease consultation patient did have a chest x-ray on admission bibasilar opacities which are partially seen on the prior CT correlate for superimposed pneumonia Review of system: CONSTITUTIONAL: Positive for weakness denies high-grade fever. EYES: No complaint. ENT: No complaint. RESPIRATORY: As per history of present illness. CARDIOVASCULAR: No complaint. GENITOURINARY as per history of present illness. GASTROINTESTINAL: No complaint. MUSCULOSKELETAL: No complaint. INTEGUMENTARY : No complaint. PSYCHOLOGIC: No complaint. ENDOCRINE: No complaint. NEUROLOGIC: No complaint. Past medical history : Reviewed, documented below Past surgical history : Reviewed, documented below Social history: Reviewed, documented below Medications: Reviewed, as documented below EXAMINATION: Vital sigans= Reviewed and documented below GENERAL DESCRIPTION: Elderly male lying in bed, no distress. No tachypnea or accessory muscle of respiration use. HEENT: Shows Pallor , no scleral icterus. Oral mucous membrane is dry. NECK: Trachea central, no thyromegaly. LUNGS: Unlabored breathing. Decrease intensity breath sounds HEART: S1, S2, regular rate and rhythm. ABDOMEN: Soft, no tenderness , guarding or rigidity EXTREMITIES: No edema feet SKIN: No rash, no masses palpable. NEUROLOGICAL: The patient is awake, alert, oriented x3, mood and affect normal. LABS AND RADIOLOGY: Reviewed results see below Assessment : 1patient presented to hospital with increasing shortness of breath cough which is multifactorial concerning for possible pneumonia in this patient with known COPD blood culture negative sputum was reported negative 2patient with a positive UA concerning for a symptomatic UTI with drug- resistant Pseudomonas intermediate sensitivity to the cefepime Plan: 1-discontinue cefepime 2-start the patient on Zosyn 3.375 g every 8 hours 3-we will repeat a sputum culture as well as UA and a culture We will follow on clinical condition and cultures to further adjust medication if needed Thank you for this consultation we will follow the patient along with you Past Medical History Past Medical History: Coronary Artery Disease (CAD), Cancer, Chest Pain / Angina, COPD, CVA/TIA, Hyperlipidemia, Osteoarthritis (OA) Additional Past Medical History / Comment(s): COPD, "mini stroke 2-3 months ago- "weakness on rt side, some on the left", indwelling catheter. Lung mass under investigation being considered for SB RT History of Any Multi-Drug Resistant Organisms: None Reported Past Surgical History: Coronary Bypass/CABG Additional Past Surgical History / Comment(s): 1994 CABG 3 vessel, colonoscopy with benign polypectomy. hoda cataracts Past Anesthesia/Blood Transfusion Reactions: No Reported Reaction Past Psychological History: No Psychological Hx Reported Additional Psychological History / Comment(s): Pt resides with his spouse. He states he has a nebulizer. Smoking Status: Former smoker Past Alcohol Use History: Unable to Obtain Additional Past Alcohol Use History / Comment(s): Pt started smoking in 1955 and quit in 2004. He smoked 1-1.5 ppd. Past Drug Use History: Unable to Obtain - Past Family History Father Family Medical History: Myocardial Infarction ([place]) Additional Family Medical History / Comment(s): Father of a [place] in his 60s. Mother Family Medical History: Unable to Obtain Additional Family Medical History / Comment(s): . Medications and Allergies Home Medications Medication Instructions Recorded Confirmed Type Aspirin EC [Ecotrin Low Dose] 81 mg PO DAILY 11/13/18 02/24/22 History Albuterol Sulfate [Proair Hfa] 1 puff INHALATION RT-Q6H PRN 10/15/21 02/24/22 History Fluticasone Propion/Salmeterol 1 puff INHALATION RT-HS 10/15/21 02/24/22 History [Wixela 250-50 Inhub] Atorvastatin [Lipitor] 40 mg PO HS #30 tab 10/22/21 02/24/22 Rx Clopidogrel [Plavix] 75 mg PO DAILY #30 tab 10/22/21 02/24/22 Rx Folic Acid 1 mg PO DAILY tab 10/22/21 02/24/22 Rx Pantoprazole [Protonix] 40 mg PO AC-BRKFST #30 tab 10/22/21 02/24/22 Rx amLODIPine [Norvasc] 5 mg PO DAILY #30 tab 10/22/21 02/24/22 Rx Finasteride [Proscar] 5 mg PO DAILY 12/24/21 02/24/22 History Tamsulosin HCl [Flomax] 0.4 mg PO BID 12/24/21 02/24/22 History Calcium Carbonate [Tums] 1,000 mg PO TID PRN tab 12/30/21 02/24/22 Rx guaiFENesin [Mucinex] 600 mg PO Q8HR PRN tab 12/31/21 02/24/22 Rx Ipratropium-Albuterol Nebulize 3 ml INHALATION RT-QID PRN 01/23/22 02/24/22 History [Duoneb 0.5 mg-3 mg/3 ml Soln] Cephalexin [Keflex] 500 mg PO Q8HR 02/24/22 02/24/22 History Tiotropium [place] [Spiriva] 1 puff INHALATION RT-HS 02/24/22 02/24/22 History Allergies Allergy/AdvReac Type Severity Reaction Status Date / Time No Known Allergies Allergy Verified 02/24/22 22:00 Physical Exam Vitals: Vital Signs Temp Pulse Pulse Resp BP BP Pulse Ox 02/28/22 11:53 98.6 F 86 18 106/50 98 02/28/22 11:40 89 02/28/22 11:29 88 02/28/22 08:00 18 02/28/22 07:45 86 02/28/22 07:30 84 02/28/22 05:00 98.7 F 87 18 122/69 95 02/27/22 20:22 99.3 F 87 18 123/53 96 02/27/22 20:00 18 02/27/22 19:42 94 02/27/22 19:32 92 02/27/22 17:09 98.9 F 92 16 119/61 97 02/27/22 16:49 98.8 F 92 16 117/56 98 02/27/22 16:40 98.8 F 86 18 112/62 97 02/27/22 16:13 94 02/27/22 16:04 92 Intake and Output 02/28/22 02/28/22 02/28/22 06:59 14:59 22:59 Intake Total 250 296 Output Total 1000 1300 Balance -750 -1004 Intake: Oral 250 296 Output: Urine 1000 1300 Other: Voiding Method Indwelling Catheter Results CBC & Chem 7: 02/28/22 09:12 02/28/22 09:12 Labs: Abnormal Lab Results - Last 24 Hours (Table) 02/27/22 02/27/22 02/28/22 Range/Units 12:48 17:45 09:12 RBC 3.22 L (4.40-5.60) X 10*6/uL Hgb 7.7 L (13.0-17.0) g/dL Hct 25.0 L (39.6-50.0) % MCV 77.6 L (80.0-97.0) fL MCH 23.9 L (27.0-32.0) pg MCHC 30.8 L (32.0-37.0) g/dL RDW 18.6 H (11.5-14.5) % MPV 9.3 L (9.5-12.2) fL Immature Gran # 0.05 H (0.00-0.04) X 10*3/uL Lymphocytes # 0.78 L (0.90-5.00) X 10*3/uL Monocytes # 1.10 H (0.20-1.00) X 10*3/uL Glucose (70-110) mg/dL Total Protein (6.2-8.2) g/dL Albumin (3.8-4.9) g/dL Albumin/Globulin Ratio (1.60-3.17) g/dL Urine Protein Trace H (Negative) Ur Leukocyte Esterase Large H (Negative) Urine RBC 8 H (0-5) /hpf Urine WBC 31 H (0-5) /hpf Urine Bacteria Rare H (None) /hpf Urine Mucus Rare H (None) /hpf Crossmatch See Detail 02/28/22 Range/Units 09:12 RBC (4.40-5.60) X 10*6/uL Hgb (13.0-17.0) g/dL Hct (39.6-50.0) % MCV (80.0-97.0) fL MCH (27.0-32.0) pg MCHC (32.0-37.0) g/dL RDW (11.5-14.5) % MPV (9.5-12.2) fL Immature Gran # (0.00-0.04) X 10*3/uL Lymphocytes # (0.90-5.00) X 10*3/uL Monocytes # (0.20-1.00) X 10*3/uL Glucose 126 H (70-110) mg/dL Total Protein 5.4 L (6.2-8.2) g/dL Albumin 3.2 L (3.8-4.9) g/dL Albumin/Globulin Ratio 1.47 L (1.60-3.17) g/dL Urine Protein (Negative) Ur Leukocyte Esterase (Negative) Urine RBC (0-5) /hpf Urine WBC (0-5) /hpf Urine Bacteria (None) /hpf Urine Mucus (None) /hpf Crossmatch Microbiology - Last 24 Hours (Table) 02/24/22 22:50 Blood Culture - Preliminary Blood No Growth after 72 hours 02/24/22 22:30 Blood Culture - Preliminary Blood No Growth after 72 hours 02/27/22 17:45 Urine Culture - Preliminary Urine,Catheterized 02/24/22 22:11 Urine Culture - Final Urine,Voided Pseudomonas aeruginosa
[2022-03-01] MEDS: SYMBICORT 80-4.5 MCG INHALER INHALATION SCH ×2 (07:11→18:48)
[2022-03-01] MEDS: IPRATROPIUM-ALBUTEROL 3 ML NEB INHALATION SCH ×4 (07:12→18:49)
[2022-03-01] MEDS: FINASTERIDE 5 MG TAB PO SCH (07:56)
[2022-03-01] MEDS: ASPIRIN 81 MG PO SCH (07:56)
[2022-03-01] MEDS: CLOPIDOGREL 75 MG TAB PO SCH (07:56)
[2022-03-01] MEDS: amLODIPine 5 MG TAB PO SCH (07:56)
[2022-03-01] MEDS: TAMSULOSIN 0.4 MG CAP.ER.24H PO SCH ×2 (07:56→20:01)
[2022-03-01] MEDS: FOLIC ACID 1 MG TAB PO SCH (07:56)
[2022-03-01] MEDS: PIPERACILLIN-TAZOBACTAM 3.375 GM in SODIUM CHLORIDE 0.9% 100 ML IVPB SCH ×2 (07:56→17:19)
[2022-03-01] MEDS: FERROUS SULFATE 325 MG TAB PO SCH ×2 (07:56→17:20)
[2022-03-01] MEDS: PANTOPRAZOLE 40 MG/10 ML VIAL IVP SCH ×2 (07:57→20:01)
[2022-03-01 08:41] LABS: Basophils # (A) 0.07 X 10*3/uL (0.00-0.10); Basophils % (A) 0.8 %; Eosinophils # (A) 0.37 X 10*3/uL (0.04-0.35); Eosinophils % (A) 4.2 %; HCT 23.4 % (39.6-50.0); HGB 7.3 g/dL (13.0-17.0); Immature Grans, Automated 0.8 %; Lymphocytes # (A) 0.82 X 10*3/uL (0.90-5.00); Lymphocytes % (A) 9.3 %; MCH 24.1 pg (27.0-32.0); MCHC 31.2 g/dL (32.0-37.0); MCV 77.2 fL (80.0-97.0); Mean Platelet Volume 9.9 fL (9.5-12.2); Monocytes # (A) 1.08 X 10*3/uL (0.20-1.00); Monocytes % (A) 12.3 %; NRBC Per 100 WBC 0 /100 WBCS (0.0-0.0); Neutrophils % (A) 72.6 %; Platelet Count 297 X 10*3/uL (140-440); RBC 3.03 X 10*6/uL (4.40-5.60); WBC 8.81 X 10*3/uL (4.50-10.00)
[2022-03-01 08:58] LABS: African American GFR (CKD) 95.7 (60.0-200.0); Anion Gap 7.9 mmol/L (10.00-18.00); BUN/Creat Ratio 15.88 Ratio (12.00-20.00); Blood Urea Nitrogen 12.7 mg/dL (9.0-27.0); C Reactive Protein 12.8 mg/dL (0.00-0.80); Calcium 8.8 mg/dL (8.7-10.3); Carbon Dioxide 28.1 mmol/L (20.0-27.5); Magnesium 2.1 mg/dL (1.5-2.4); Non-African American GFR(CKD) 82.6 (60.0-200.0); Potassium 4.2 mmol/L (3.5-5.5)
--- NOTE | 2022-03-01 09:21 | XR ---
EXAMINATION TYPE: XR chest 2V DATE OF EXAM: 03/01/2022 COMPARISON: 02/24/2022 TECHNIQUE: PA and lateral views submitted. HISTORY: Weakness FINDINGS: A right-sided consolidation with pleural effusion. Postoperative change. Hyperinflation suggests COPD with no pneumothorax. Degenerative changes of the spine. AC joint arthropathy. IMPRESSION: 1. Bilateral lower lobe infiltrate and small effusion greater on the right correlate for underlying p neumonia. Follow to resolution to exclude underlying neoplasm. 2. Diffuse COPD. 3. 1 cm nodule right upper lobe corresponds to the previous PET scan abnormality.
--- NOTE | 2022-03-01 10:13 | P.PN ---
Subjective Progress Note Date: 03/01/22 Principal diagnosis: Acute hypoxic respiratory failure secondary to bilateral pneumonia and acute COPD exacerbation 81-year-old male patient with known history of advanced oxygen-dependent COPD and a spiculated right upper lobe opacity , PET avid , being considered for as the artery treatment. In addition, the patient has coronary artery disease, previous CVA/TIA, hyperlipidemia, chronic hydronephrosis and recurrent urine tract infections and the patient has been infected with gram-negative bacteria in the urine including Enterobacter and most recently Pseudomonas. The patient was at home and the patient started having some increased shortness of breath and a congested cough. Incidentally found lightheaded and dizzy. Denied having any chest pain. Altered mentation. He presented again to the emergency department and UA was obviously abnormal consistent with underlying infection. The patient had chest x-ray that showed also some increased haziness/inflammatory changes in lung bases bilaterally. COVID 19 testing was negative. Influenza A and B was negative. White cell count was at 18.3 with a hemoglobin of 7.3 and a platelet count of 266. Sodium level was at 128 with a potassium level of 4 BUN of 16 and a creatinine of 0.8. Lactic acid level was at 1.9. Based on that, the patient was given a dose of Rocephin and Zithromax in the emergency and the patient was hospitalized. At the time of my evaluation, the patient was quite comfortable and he was communicating. No signs of any acute or ongoing septicemia and he was on 2 L of oxygen by nasal c annula with a pulse ox of 99% his EKG showed normal sinus rhythm. No acute ST segment abnormalities. Legionella urine antigen was also negative. On today's evaluation of 02/26/2022 , the patient is feeling well. He remains on IV cefepime for now. Urine cultures pending for now. There is however gram- negative bacteria growing in the urine culture. He doesn't a congested cough. No significant sputum production. No signs of any ongoing decompensation the respiratory status. No hemodynamic instability. The patient is tolerating his diet. On 02/27/2022, the patient is sitting up on the chin the patient's, comfortable. Urine culture is still showing gram-negative bacillus. The patient remains on IV cefepime. However, there has been drop in hemoglobin today without any evidence of any acute bleed. Hemoglobin is up to 6.2. The white cell count of 10.4 with a platelet count of 275. The BUN is at 40 with a creatinine of 0.9. Electrolytes are all within normal limits. He does have an occult positive stool. It is possible the patient may be having an occult GI blood loss. He was found also to have a low serum iron which supports this possibility. 02/28/2022, the patient is stable. The patient was given a unit of packed RBC yesterday and the patient was started on IV iron. Gen. surgery was also consulted. No plans for colonoscopy at this point in time. Repeat hemoglobin came back at 7.7. The white cell count came back at 9.8. The urine culture came back for Pseudomonas with intermediate sensitivity to cefepime. No nausea. No vomiting. No chest pain. Very borderline yesterday status of the patient has advanced COPD. Afebrile. Reevaluated today on 03/01/22, patient remains quite ill, remains on oxygen at 2 L nasal cannula, still complaining of not feeling well. Patient has shortness of breath with any activity. Chest x-ray continues to show significant infiltrate bilaterally involving the right lower lobe mostly and to some extent the left lower lobe. Patient is on broad-spectrum antibiotics, is also on bronchodilators for COPD. Patient received a unit of packed RBCs yesterday for low hemoglobin. And he is also on iron WBC count today is 8.8 hemoglobin is 7.3 , Basic metabolic profile is normal. Pro-calcitonin is 0.18 Objective - Vital Signs Vital signs: Vital Signs Temp 98.2 F 03/01/22 04:06 Pulse 85 03/01/22 04:06 Resp 18 03/01/22 04:06 BP 112/69 03/01/22 04:06 Pulse Ox 96 03/01/22 04:06 FiO2 Intake & Output 02/28/22 03/01/22 03/01/22 18:59 06:59 18:59 Intake Total 518 420 Output Total 1600 1700 Balance -1082 -1280 Intake: Oral 518 420 Output: Urine 1600 1700 Other: Voiding Method Indwelling Catheter Indwelling Catheter Indwelling Catheter - Exam GENERAL EXAM: evealed 81-year-old white male on 2 L nasal cannula, in no distress. HEAD: Normocephalic. EYES: Normal reaction of pupils, equal size. NOSE: Clear with pink turbinates. THROAT: No erythema or exudates. NECK: No masses, no JVD. CHEST: No chest wall deformity. LUNGS: Fine crackles at the bases especially at the right base CVS: S1 and S2 normal with no audible murmur, regular rhythm. ABDOMEN: Soft nontender no megaly no rebound no guarding. SKIN: No rashes CENTRAL NERVOUS SYSTEM: Alert and oriented 3 mg focal deficits. EXTREMITIES: No clubbing edema or cyanosis - Labs CBC & Chem 7: 03/01/22 05:09 03/01/22 05:09 Labs: Abnormal Lab Results - Last 24 Hours (Table) 02/28/22 02/28/22 03/01/22 Range/Units 09:12 09:12 05:09 RBC 3.22 L (4.40-5.60) X 10*6/uL Hgb 7.7 L (13.0-17.0) g/dL Hct 25.0 L (39.6-50.0) % MCV 77.6 L (80.0-97.0) fL MCH 23.9 L (27.0-32.0) pg MCHC 30.8 L (32.0-37.0) g/dL RDW 18.6 H (11.5-14.5) % MPV 9.3 L (9.5-12.2) fL Immature Gran # 0.05 H (0.00-0.04) X 10*3/uL Lymphocytes # 0.78 L (0.90-5.00) X 10*3/uL Monocytes # 1.10 H (0.20-1.00) X 10*3/uL Eosinophils # (0.04-0.35) X 10*3/uL Carbon Dioxide (20.0-27.5) mmol/L Anion Gap (10.00-18.00) mmol/L Glucose 126 H (70-110) mg/dL C-Reactive Protein (0.00-0.80) mg/dL Total Protein 5.4 L (6.2-8.2) g/dL Albumin 3.2 L (3.8-4.9) g/dL Albumin/Globulin Ratio 1.47 L (1.60-3.17) g/dL Procalcitonin 0.18 H (0.02-0.09) ng/mL 03/01/22 03/01/22 Range/Units 05:09 05:09 RBC 3.03 L (4.40-5.60) X 10*6/uL Hgb 7.3 L (13.0-17.0) g/dL Hct 23.4 L (39.6-50.0) % MCV 77.2 L (80.0-97.0) fL MCH 24.1 L (27.0-32.0) pg MCHC 31.2 L (32.0-37.0) g/dL RDW 19.0 H (11.5-14.5) % MPV (9.5-12.2) fL Immature Gran # 0.07 H (0.00-0.04) X 10*3/uL Lymphocytes # 0.82 L (0.90-5.00) X 10*3/uL Monocytes # 1.08 H (0.20-1.00) X 10*3/uL Eosinophils # 0.37 H (0.04-0.35) X 10*3/uL Carbon Dioxide 28.1 H (20.0-27.5) mmol/L Anion Gap 7.90 L (10.00-18.00) mmol/L Glucose (70-110) mg/dL C-Reactive Protein 12.80 H (0.00-0.80) mg/dL Total Protein (6.2-8.2) g/dL Albumin (3.8-4.9) g/dL Albumin/Globulin Ratio (1.60-3.17) g/dL Procalcitonin (0.02-0.09) ng/mL Microbiology - Last 24 Hours (Table) 02/24/22 22:50 Blood Culture - Preliminary Blood No Growth after 96 hours 02/24/22 22:30 Blood Culture - Preliminary Blood No Growth after 96 hours 02/27/22 17:45 Urine Culture - Final Urine,Catheterized Assessment and Plan Assessment: Impression: Acute on chronic hypoxic respiratory failure secondary to acute community- acquired pneumonia bibasilar involving the right lower lobe more so than left lower lobe Acute exacerbation of COPD Recurrent urinary tract infection secondary to Pseudomonas, patient is on cefepime Acute on chronic anemia requiring 1 unit of packed RBCs transfused yesterday. Possible GI blood losses, being evaluated by the admitting physician Advanced COPD FEV1 of 36% Right upper lobe nodule, highly suspicious for bronchogenic carcinoma being evaluated for possible SBRT by radiation oncology Underlying coronary artery disease and previous CABG Hypertension Former smoker Dyslipidemia Cervical spine stenosis Carotid artery disease History of previous CVA Anemia of chronic disease, possible GI blood losses Gait dysfunction Bilateral hydronephrosis, being evaluated by urology on outpatient basis Recommendation: Continue antibiotics Continue bronchodilators Continue iron Patient to be seen by radiation oncology, he was supposed to see Dr. Pierce today but he ended up in the hospital. Resume home meds We will continue to follow prognosis is definitely guarded. Time with Patient: Less than 30
[2022-03-01] MEDS: SODIUM FERRIC GLUCONAT-SUCROSE 125 MG in SODIUM CHLORIDE 0.9% 100 ML IVPB SCH (10:14)
--- NOTE | 2022-03-01 11:22 | P.PN ---
Subjective Progress Note Date: 03/01/22 CHIEF COMPLAINT: GI bleed HISTORY OF PRESENT ILLNESS: Patient presented with shortness of breath and fati omayra. His stool was Hemoccult positive. Patient denies any blood in his stools or melena. He denies any abdominal pain. He has been taking aspirin and Plavix. Patient reports no bowel movement for the last couple of days. He had EGD and colonoscopy in January [address] blackwell showing gastritis, diverticulosis and hemorrhoids. Colonoscopy was limited he had poor bowel prep. Patient is tolerating diet. Afebrile. WBC is 8.81 hemoglobin 7.3 platelets 297 creatinine 0.8 BUN 12.6. Patient is also being treated for pneumonia and COPD exacerbation. Followed by pulmonary service. He also has evidence of a UTI. PHYSICAL EXAM: VITAL SIGNS: Reviewed. GENERAL: Well-developed in no acute distress. HEENT: No sclera icterus. Extraocular movements grossly intact. Moist buccal mucosa. Head is atraumatic, normocephalic. ABDOMEN: Soft. Nondistended. Nontender. NEUROLOGIC: Alert and oriented. Cranial nerves II through XII grossly intact. ASSESSMENT: 1. Anemia with stool Hemoccult positive. No active visible bleeding. 2. Chronic anemia PLAN: -No plans for endoscopy at this time -Continue to observe -Continue iron -Continue monitor hemoglobin -Continue monitoring for signs and symptoms of bleeding -Continue Protonix -recommend to hold aspirin and plavix Physician Custodian Manager note has been reviewed by physician. Signing provider agrees with the documented findings, assessment, and plan of care. Objective - Vital Signs Vital signs: Vital Signs Temp 98.2 F 03/01/22 04:06 Pulse 84 03/01/22 11:04 Resp 18 03/01/22 04:06 BP 112/69 03/01/22 04:06 Pulse Ox 96 03/01/22 04:06 FiO2 Intake & Output 02/28/22 03/01/22 03/01/22 18:59 06:59 18:59 Intake Total 518 420 Output Total 1600 1700 Balance -1082 -1280 Intake: Oral 518 420 Output: Urine 1600 1700 Other: Voiding Method Indwelling Catheter Indwelling Catheter Indwelling Catheter - Labs CBC & Chem 7: 03/01/22 05:09 03/01/22 05:09 Labs: Abnormal Lab Results - Last 24 Hours (Table) 02/28/22 02/28/22 03/01/22 Range/Units 09:12 09:12 05:09 RBC 3.22 L (4.40-5.60) X 10*6/uL Hgb 7.7 L (13.0-17.0) g/dL Hct 25.0 L (39.6-50.0) % MCV 77.6 L (80.0-97.0) fL MCH 23.9 L (27.0-32.0) pg MCHC 30.8 L (32.0-37.0) g/dL RDW 18.6 H (11.5-14.5) % MPV 9.3 L (9.5-12.2) fL Immature Gran # 0.05 H (0.00-0.04) X 10*3/uL Lymphocytes # 0.78 L (0.90-5.00) X 10*3/uL Monocytes # 1.10 H (0.20-1.00) X 10*3/uL Eosinophils # (0.04-0.35) X 10*3/uL Carbon Dioxide (20.0-27.5) mmol/L Anion Gap (10.00-18.00) mmol/L Glucose 126 H (70-110) mg/dL C-Reactive Protein (0.00-0.80) mg/dL Total Protein 5.4 L (6.2-8.2) g/dL Albumin 3.2 L (3.8-4.9) g/dL Albumin/Globulin Ratio 1.47 L (1.60-3.17) g/dL Procalcitonin 0.18 H (0.02-0.09) ng/mL 03/01/22 03/01/22 Range/Units 05:09 05:09 RBC 3.03 L (4.40-5.60) X 10*6/uL Hgb 7.3 L (13.0-17.0) g/dL Hct 23.4 L (39.6-50.0) % MCV 77.2 L (80.0-97.0) fL MCH 24.1 L (27.0-32.0) pg MCHC 31.2 L (32.0-37.0) g/dL RDW 19.0 H (11.5-14.5) % MPV (9.5-12.2) fL Immature Gran # 0.07 H (0.00-0.04) X 10*3/uL Lymphocytes # 0.82 L (0.90-5.00) X 10*3/uL Monocytes # 1.08 H (0.20-1.00) X 10*3/uL Eosinophils # 0.37 H (0.04-0.35) X 10*3/uL Carbon Dioxide 28.1 H (20.0-27.5) mmol/L Anion Gap 7.90 L (10.00-18.00) mmol/L Glucose (70-110) mg/dL C-Reactive Protein 12.80 H (0.00-0.80) mg/dL Total Protein (6.2-8.2) g/dL Albumin (3.8-4.9) g/dL Albumin/Globulin Ratio (1.60-3.17) g/dL Procalcitonin (0.02-0.09) ng/mL Microbiology - Last 24 Hours (Table) 02/24/22 22:50 Blood Culture - Preliminary Blood No Growth after 96 hours 02/24/22 22:30 Blood Culture - Preliminary Blood No Growth after 96 hours 02/27/22 17:45 Urine Culture - Final Urine,Catheterized
--- NOTE | 2022-03-01 12:36 | CDI ---
Documentation Clarification Form Date: 03/01/2022 12:06:08 PM From: Ann Fowler RN CCDS Admit Date: 02/24/2022 10:00:00 PM Patient Name: Calixto Olivarez Visit Number: [id number] Discharge Date: ATTENTION: The Clinical Documentation Specialists (CDI) and [facility] Coding Staff appreciate your assistance in clarifying documentation. Please respond to the clarification below the line at the bottom and electronically sign. The CDI & [facility] Coding staff will review the response and follow-up if needed. Please note: Queries are made part of the Legal Health Record. If you have any questions, please contact the author of this message via ITS. Dr. Jorge L Puente Conflicting documentation has been found in the medical record. As attending physician, please provide clarification. Acute COPD exacerbation, bilateral pneumonia felt less likely, Medicine note, 02/28. Acute community acquired pneumonia bibasilar involving the right lower lobe more so than on the left, Pulmonary note, 03/01. History/Risk Factors: 81-year-old male presents to the ED with Congested productive cough and dyspnea with exertion. Medical History: Right lung mass, Advanced COPD FEV1 of 36% , chronic respiratory failure 3L oxygen, lung cancer and COPD. H&P, 02/25. Clinical Indicators: VSS: 02/24 B/P 113/59 HR 79 Temp 99 F Oral RR 22 SpO2 92% room air VSS: 02/24 23:14 B/P 136/87 HR 78 RR 19 SpO2 98% 3L nasal cannula CXR: 02/24 Bilateral opacities which are partially seen on prior PET/CT correlate for superimposed pneumonia. ID Consult 02/28: patient presented to hospital with increasing shortness of breath, cough which is multifactorial concerning for possible pneumonia in this patient with known COPD. Treatment: 02/25 Albuterol / Ipratropium 3ml Inhalation PRN, Albuterol / Ipratropium 3ml Inhalation QID DARRON; 02/25 Symbicort Inhaler 2 puff inhalation BID ADRRON; 02/25- 02/26 Atrovent Nebulized QID; 02/25 Mucinex 600mg PO Q8HR PRN; 02/24 Azithromycin IVPB x 1; 02/25 02/28 Cefepime 2gm IVPB Q12HR; 02/24 Ceftriaxone 2gm IVPB x 1; 02/28 Zosyn 3.375gm IVPB Q8Hr. Please clarify which diagnosis is most appropriate: [ X] Community acquired pneumonia POA [ ] Community acquired pneumonia ruled out [ ] Other (please specify) [ ] Unable to determine (Template Last Revised: August 2020) MTDD
--- NOTE | 2022-03-01 13:01 | CDI ---
Documentation Clarification Form Date: 03/01/2022 12:39:32 PM From: Ann Fowler RN CCDS Admit Date: 02/24/2022 10:00:00 PM Patient Name: Calixto Olivarez Visit Number: [id number] Discharge Date: ATTENTION: The Clinical Documentation Specialists (CDI) and [facility] Coding Staff appreciate your assistance in clarifying documentation. Please respond to the clarification below the line at the bottom and electronically sign. The CDI & [facility] Coding staff will review the response and follow-up if needed. Please note: Queries are made part of the Legal Health Record. If you have any questions, please contact the author of this message via ITS. Dr. Jorge L Puente Acute respiratory failure is documented 02/28, Medicine note, which may lack sufficient clinical evidence/support in the medical record. Additional clarification is requested. History/Risk Factors: 81-year-old male presents to the ED with Congested productive cough and dyspnea with exertion. Medical History: Right lung mass, Advanced COPD FEV1 of 36% , chronic respiratory failure 3L oxygen, Lung cancer and COPD. H&P, 02/25. Clinical Indicators: Tobacco use: Patient started smoking in 5 quit in 2004, 02/25, H&P. Home oxygen: 3L nasal cannula, 02/25, H&P. VSS: 02/24 B/P 113/59 HR 79 Temp 99 F Oral RR 22 SpO2 92% room air VSS: 02/24 23:14 B/P 136/87 HR 78 RR 19 SpO2 98% 3L nasal cannula CXR: 02/24 Bilateral opacities which are partially seen on prior PET/CT correlate for superimposed pneumonia. Lung 02/25: Equal air entry with crackles in left posterior bases, end expiratory wheeze, diminished. Chronic hypoxic respiratory failure, wears 3L nasal cannula oxygen at home. 02/25, H&P. Treatment: 02/25 Mucinex 600mg PO Q8HR PRN; 02/24 Azithromycin IVPB x 1; 02/25 02/28 Cefepime 2gm IVPB Q12HR; 02/24 Ceftriaxone 2gm IVPB x 1; 02/28 Zosyn 3.375gm IVPB Q8Hr. Breathing Treatments: 02/25 Albuterol / Ipratropium 3ml Inhalation PRN, Albuterol / Ipratropium 3ml Inhalation QID DARRON; 02/25 Symbicort Inhaler 2 puff inhalation BID DARRON; 02/25- 02/26 Atrovent Nebulized QID. Oxygen 02/24 3L nasal cannula; 02/25 2L nasal cannula. Please clarify if Acute respiratory failure is a valid diagnosis? [ ] Acute respiratory failure is present as evidence by (additional clinical support): [ X] Acute respiratory failure is ruled out, chronic respiratory failure is ruled in. [ ] Other (please specify diagnosis) [ ] Unable to determine (Template Last Revised: August 2020) MTDD
[2022-03-01] MEDS: ATORVASTATIN 40 MG TAB PO SCH (20:01)
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
[2022-03-02] MEDS: PIPERACILLIN-TAZOBACTAM 3.375 GM in SODIUM CHLORIDE 0.9% 100 ML IVPB SCH ×4 (00:08→23:18)
[2022-03-02] MEDS ORDERED: HYDROmorphone 1 MG/ML 1 ML SYRINGE IVP PRN (02:32)
[2022-03-02] MEDS: SYMBICORT 80-4.5 MCG INHALER INHALATION SCH ×2 (06:55→20:08)
[2022-03-02] MEDS: IPRATROPIUM-ALBUTEROL 3 ML NEB INHALATION SCH ×4 (06:55→20:07)
[2022-03-02] MEDS: amLODIPine 5 MG TAB PO SCH (09:17)
[2022-03-02] MEDS: PANTOPRAZOLE 40 MG/10 ML VIAL IVP SCH ×2 (09:17→21:49)
[2022-03-02] MEDS: FINASTERIDE 5 MG TAB PO SCH (09:17)
[2022-03-02] MEDS: TAMSULOSIN 0.4 MG CAP.ER.24H PO SCH ×2 (09:17→21:49)
[2022-03-02] MEDS: FERROUS SULFATE 325 MG TAB PO SCH ×2 (09:17→18:12)
[2022-03-02] MEDS: FOLIC ACID 1 MG TAB PO SCH (09:17)
[2022-03-02 09:37] LABS: HCT 24.4 % (39.6-50.0); HGB 7.5 g/dL (13.0-17.0); MCH 24.1 pg (27.0-32.0); MCHC 30.7 g/dL (32.0-37.0); MCV 78.5 fL (80.0-97.0); Mean Platelet Volume 9.2 fL (9.5-12.2); NRBC Per 100 WBC 0 /100 WBCS (0.0-0.0); Platelet Count 316 X 10*3/uL (140-440); RBC 3.11 X 10*6/uL (4.40-5.60); RDW 19.5 % (11.5-14.5); WBC 9.18 X 10*3/uL (4.50-10.00)
--- NOTE | 2022-03-02 13:36 | P.PN ---
Subjective Progress Note Date: 03/02/22 81-year-old male patient with known history of advanced oxygen-dependent COPD and a spiculated right upper lobe opacity , PET avid , being considered for as the artery treatment. In addition, the patient has coronary artery disease, previous CVA/TIA, hyperlipidemia, chronic hydronephrosis and recurrent urine tract infections and the patient has been infected with gram-negative bacteria in the urine including Enterobacter and most recently Pseudomonas. The patient was at home and the patient started having some increased shortness of breath and a congested cough. Incidentally found lightheaded and dizzy. Denied having any chest pain. Altered mentation. He presented again to the emergency dep artment and UA was obviously abnormal consistent with underlying infection. The patient had chest x-ray that showed also some increased haziness/inflammatory changes in lung bases bilaterally. COVID 19 testing was negative. Influenza A and B was negative. White cell count was at 18.3 with a hemoglobin of 7.3 and a platelet count of 266. Sodium level was at 128 with a potassium level of 4 BUN of 16 and a creatinine of 0.8. Lactic acid level was at 1.9. Based on that, the patient was given a dose of Rocephin and Zithromax in the emergency and the patient was hospitalized. At the time of my evaluation, the patient was quite comfortable and he was communicating. No signs of any acute or ongoing septicemia and he was on 2 L of oxygen by nasal cannula with a pulse ox of 99% his EKG showed normal sinus rhythm. No acute ST segment abnormalities. Legionella urine antigen was also negative. On today's evaluation of 02/26/2022 , the patient is feeling well. He remains on IV cefepime for now. Urine cultures pending for now. There is however gram- negative bacteria growing in the urine culture. He doesn't a congested cough. No significant sputum production. No signs of any ongoing decompensation the respiratory status. No hemodynamic instability. The patient is tolerating his diet. On 02/27/2022, the patient is sitting up on the chin the patient's, comfortable. Urine culture is still showing gram-negative bacillus. The patient remains on IV cefepime. However, there has been drop in hemoglobin today without any evidence of any acute bleed. Hemoglobin is up to 6.2. The white cell count of 10.4 with a platelet count of 275. The BUN is at 40 with a creatinine of 0.9. Electrolytes are all within normal limits. He does have an occult positive stool. It is possible the patient may be having an occult GI blood loss. He was found also to have a low serum iron which supports this possibility. 02/28/2022, the patient is stable. The patient was given a unit of packed RBC yesterday and the patient was started on IV iron. Gen. surgery was also consulted. No plans for colonoscopy at this point in time. Repeat hemoglobin came back at 7.7. The white cell count came back at 9.8. The urine culture came back for Pseudomonas with intermediate sensitivity to cefepime. No nausea. No vomiting. No chest pain. Very borderline yesterday status of the patient has advanced COPD. Afebrile. Reevaluated today on 03/01/22, patient remains quite ill, remains on oxygen at 2 L nasal cannula, still complaining of not feeling well. Patient has shortness of breath with any activity. Chest x-ray continues to show significant infiltrate bilaterally involving the right lower lobe mostly and to some extent the left lower lobe. Patient is on broad-spectrum antibiotics, is also on bronchodilators for COPD. Patient received a unit of packed RBCs yesterday for low hemoglobin. And he is also on iron WBC count today is 8.8 hemoglobin is 7.3 , Basic metabolic profile is normal. Pro-calcitonin is 0.18 The patient is seen today 11/30/2021 in follow-up on the regular medical floor. He is currently resting comfortably in bed. Awake and alert in no acute distress. He is feeling a bit better today compared to yesterday. He is maintaining good O2 saturations in the 90s on 2 L/m per nasal cannula. He's been up in the chair with assistance. His appetite is stable. No difficulty swallowing. White count 9.1. Hemoglobin 7.5. Pro-calcitonin 0.18. He is status post 1 unit of packed red blood cells this admission. Urine culture was positive for pseudomonas aeruginosa. Blood cultures reveal no growth. Sputum culture pending. He remains on Zosyn. Continue DuoNeb inhalations, Symbicort. Objective - Vital Signs Vital signs: Vital Signs Temp 98.3 F 03/02/22 12:02 Pulse 79 03/02/22 12:02 Resp 17 03/02/22 12:02 BP 98/54 03/02/22 12:02 Pulse Ox 96 03/02/22 12:02 FiO2 Intake & Output 03/01/22 03/02/22 03/02/22 18:59 06:59 18:59 Intake Total 580 Output Total 1700 1500 Balance -1700 -920 Intake: Intake, IV Titration 100 Amount Piperacillin-Tazobactam 3 100 .375 gm In Sodium Chloride 0.9% 100 ml @ 25 mls/hr IVPB Q8HR [facility] Rx# :[id number] Oral 480 Output: Urine 1700 1500 Other: Voiding Method Indwelling Catheter Indwelling Catheter Indwelling Catheter # Bowel Movements 0 - Exam GENERAL EXAM: Alert, very pleasant 81-year-old male patient, on 2 L nasal cannula, comfortable in no apparent distress. HEAD: Normocephalic. EYES: Normal reaction of pupils, equal size. NOSE: Clear with pink turbinates. THROAT: No erythema or exudates. NECK: No masses, no JVD. CHEST: No chest wall deformity. LUNGS: Equal air entry with crackles in left posterior bases, end expiratory wheeze, diminished CVS: S1 and S2 normal with no audible murmur, regular rhythm. ABDOMEN: No hepatosplenomegaly, normal bowel sounds, no guarding or rigidity. SPINE: No scoliosis or deformity SKIN: No rashes CENTRAL NERVOUS SYSTEM: No focal deficits, tone is normal in all 4 extremities. EXTREMITIES: There is no peripheral edema. No clubbing, no cyanosis. Peripheral pulses are intact. - Labs CBC & Chem 7: 03/02/22 05:54 03/01/22 05:09 Labs: Abnormal Lab Results - Last 24 Hours (Table) 03/02/22 Range/Units 05:54 RBC 3.11 L (4.40-5.60) X 10*6/uL Hgb 7.5 L (13.0-17.0) g/dL Hct 24.4 L (39.6-50.0) % MCV 78.5 L (80.0-97.0) fL MCH 24.1 L (27.0-32.0) pg MCHC 30.7 L (32.0-37.0) g/dL RDW 19.5 H (11.5-14.5) % MPV 9.2 L (9.5-12.2) fL Microbiology - Last 24 Hours (Table) 02/28/22 14:21 Gram Stain - Preliminary Sputum Sputum Culture - Preliminary 02/24/22 22:50 Blood Culture - Preliminary Blood No Growth after 120 hours 02/24/22 22:30 Blood Culture - Preliminary Blood No Growth after 120 hours Assessment and Plan Assessment: Acute on chronic dyspnea, likely on the basis of COPD. Pneumonia is felt to be less likely. Pro-calcitonin 0.18. Remains on Zosyn. There is some increased haziness in lung bases bilaterally. UTI, recurrent, cultures came back positive for Pseudomonas and the patient had intermediate sensitivity to Zosyn. The same antibiotic will be continued for now. Acute on chronic anemia with interval drop in hemoglobin down to 6.2 and the patient has underlying iron deficiency with a positive occult blood in the stool. Rule out underlying GI bleed. The patient got transferred with units of packed RBC. Hemoglobin improved and currently is up to 7.5 and is being replaced for iron deficiency. Acute leukocytosis, improved and the patient's white cell count is9.1 Advanced COPD, oxygen and steroid dependent, based on FEV1 is 36% of predicted, maintained on Wixela and Spiriva Right upper lobe mass measuring 2.5 cm, PET avid and the patient is being considered for SB RT as the patient is not a good candidate for biopsies of any surgical interventions Recurrent UTIs with gram-negative bacteria, essentially related to gram-negative Enterobacter and Pseudomonas and the patient did have an obstructive uropathy with a Paige catheter in place Coronary artery disease appears bypass surgery Hypertension Hyperlipidemia Osteoarthritis Former smoker This history of falls Cervical spinal stenosis, C3-C4 moderate to severe and C5-C6 moderate spinal canal stenosis, additional multilevel bilateral moderate to severe neural foraminal stenosis extending from C3-C4 through C5-C6 reported as per cervical MRI, orthopedic spine recommending steroids/conservative management Carotid artery disease,50% stenosis right carotid bifurcation,SPECT 2 mm aneurysm posterior margin left internal carotid artery cavemous segment,vascular following. No surgery recommended at this time, continued outpatient monitoring. Previous history of CVA Anemia of chronic disease. Gait dysfunction Bilateral hydronephrosis. Followed up by urology on outpatient basis Plan The patient was seen and evaluated Improving from the pulmonary standpoint Continue the current treatment plan Increase his activity as tolerated Titrate the FiO2 as tolerated We will continue to follow I have personally seen and examined the patient, performed the documentation and the assessment and plan as written. Number of minutes spent on the visit: 10.
--- NOTE | 2022-03-02 14:54 | P.PN ---
Subjective Progress Note Date: 03/02/22 CHIEF COMPLAINT: GI bleed HISTORY OF PRESENT ILLNESS: Patient presented with shortness of breath and fati omayra. His stool was Hemoccult positive. Patient denies any blood in his stools or melena. He denies any abdominal pain. He has been taking aspirin and Plavix at home. Patient reports no bowel movement for the last couple of days. He had EGD and colonoscopy in January [address] blackwell showing gastritis, diverticulosis and hemorrhoids. Colonoscopy was limited he had poor bowel prep. Patient is tolerating diet. Afebrile. HGB7.3-7.5 Patient is also being treated for pneumonia and COPD exacerbation. Followed by pulmonary service. He also has evidence of a UTI. Patient seen and examined with Dr. blackwell PHYSICAL EXAM: VITAL SIGNS: Reviewed. GENERAL: Well-developed in no acute distress. HEENT: No sclera icterus. Extraocular movements grossly intact. Moist buccal mucosa. Head is atraumatic, normocephalic. ABDOMEN: Soft. Nondistended. Nontender. NEUROLOGIC: Alert and oriented. Cranial nerves II through XII grossly intact. ASSESSMENT: 1. Anemia with stool Hemoccult positive. No active visible bleeding. 2. Chronic anemia PLAN: -No plans for endoscopy at this time -Would recommend colonoscopy outpatient after patient has completed treatment for his active infection -Continue iron -Continue monitor hemoglobin -Continue monitoring for signs and symptoms of bleeding -Continue Protonix -recommend to hold aspirin and plavix Physician Manager Non Profit note has been reviewed by physician. Signing provider agrees with the documented findings, assessment, and plan of care. Objective - Vital Signs Vital signs: Vital Signs Temp 98.3 F 03/02/22 12:02 Pulse 79 03/02/22 12:02 Resp 17 03/02/22 12:02 BP 98/54 03/02/22 12:02 Pulse Ox 96 03/02/22 12:02 FiO2 Intake & Output 03/01/22 03/02/22 03/02/22 18:59 06:59 18:59 Intake Total 580 Output Total 1700 1500 Balance -1700 -920 Intake: Intake, IV Titration 100 Amount Piperacillin-Tazobactam 3 100 .375 gm In Sodium Chloride 0.9% 100 ml @ 25 mls/hr IVPB Q8HR [facility] Rx# :[id number] Oral 480 Output: Urine 1700 1500 Other: Voiding Method Indwelling Catheter Indwelling Catheter Indwelling Catheter # Bowel Movements 0 - Labs CBC & Chem 7: 03/02/22 05:54 03/01/22 05:09 Labs: Abnormal Lab Results - Last 24 Hours (Table) 03/02/22 Range/Units 05:54 RBC 3.11 L (4.40-5.60) X 10*6/uL Hgb 7.5 L (13.0-17.0) g/dL Hct 24.4 L (39.6-50.0) % MCV 78.5 L (80.0-97.0) fL MCH 24.1 L (27.0-32.0) pg MCHC 30.7 L (32.0-37.0) g/dL RDW 19.5 H (11.5-14.5) % MPV 9.2 L (9.5-12.2) fL Microbiology - Last 24 Hours (Table) 02/28/22 14:21 Gram Stain - Preliminary Sputum Sputum Culture - Preliminary 02/24/22 22:50 Blood Culture - Preliminary Blood No Growth after 120 hours 02/24/22 22:30 Blood Culture - Preliminary Blood No Growth after 120 hours
--- NOTE | 2022-03-02 18:21 | P.PN ---
Subjective Progress Note Date: 03/02/22 H&P Date: 02/25/22 This is an 81-year-old gentleman admitted with acute on chronic anemia, UTI/history of recurrent UTIs, advanced COPD, chronic hypoxic respiratory failure, right lung mass/recent PET scan, bilateral hydronephrosis and multiple other medical issues presented to the ER with increased shortness of breath and weakness over the last few days. Congested productive cough. Reports exertional shortness of breath with minimal exertion. Denies lightheadedness dizziness or focal deficits. Denies chest pain, palpitations. EKG sinus rhythm, Troponin less than 0.012. Denies nausea vomiting or diarrhea. Denies urinary frequency dysuria hematuria. Denies rectal bleeding. He reports, scheduled for first round of radiation soon. Reports he has been on antibiotics(Keflex) since Thursday 02/22 for acute UTI. UA reporting urine WBCs greater than 182, leukocytes large, positive nitrates, urine culture pending. Legionella negative . Coronavirus, influenza type A and B not detected. T-max 99, WBC 18.3, hemoglobin 7.3, platelets 266, sodium 128, potassium 4, bicarb 23, BUN 16, creatinine 0.85. albumin 3.7. Lactic acid 1.9. Chest x-ray reporting bibasilar opacities partially seen on prior PET/CT for superimposed pneumonia, COPD changes. Maintained on Zithromax, ceftriaxone. 02/26/2022 Maintaining O2 sats in the 90s on 2 L nasal cannula. Continues on cefepime. Blood, Urine and sputum cultures, finalizing. Afebrile, WBC decreased to 17.6, hemoglobin remains at 7.3, platelets 267. Renal function stable. Sodium 129. Denies chest pain, palpitations or increasing shortness of breath. 03/02/2022 maintained on Zosyn, nebulized bronchodilators, Symbicort; sputum cultures pending, blood cultures reporting no growth, initial urine culture reporting pseudomonas aeruginosa with repeat reporting no growth. Elevated pro- calcitonin ,0.18 afebrile, normal WBC. Maintaining O2 sats in the high 90s on 2 L nasal cannula. Objective - Vital Signs Vital signs: Vital Signs Temp 98.3 F 03/02/22 12:02 Pulse 80 03/02/22 15:42 Resp 17 03/02/22 12:02 BP 98/54 03/02/22 12:02 Pulse Ox 96 03/02/22 12:02 FiO2 Intake & Output 03/01/22 03/02/22 03/02/22 18:59 06:59 18:59 Intake Total 580 Output Total 1700 1500 1000 Balance -1700 -920 -1000 Intake: Intake, IV Titration 100 Amount Piperacillin-Tazobactam 3 100 .375 gm In Sodium Chloride 0.9% 100 ml @ 25 mls/hr IVPB Q8HR [facility] Rx# :[id number] Oral 480 Output: Urine 1700 1500 1000 Other: Voiding Method Indwelling Catheter Indwelling Catheter Indwelling Catheter # Bowel Movements 0 - Exam GENERAL EXAM: Alert and oriented 3, sitting up in bed, no acute distress. HEAD: Normocephalic. EYES: Normal reaction of pupils, equal size. THROAT: No erythema or exudates. NECK: Supple, no JVD LUNGS: Diminished air entry, fine bibasilar crackles, mild expiratory wheezing CVS: S1 and S2 normal with no audible murmur, regular rhythm. ABDOMEN: Soft, nontender, No hepatosplenomegaly, normal bowel sounds, no guarding or rigidity. SKIN: No rashes, warm and dry CENTRAL NERVOUS SYSTEM: No focal deficits, tone is normal in all 4 extremities. EXTREMITIES: No peripheral edema. No clubbing, no cyanosis. Peripheral pulses are intact. - Labs CBC & Chem 7: 03/02/22 05:54 03/01/22 05:09 Labs: Abnormal Lab Results - Last 24 Hours (Table) 03/02/22 Range/Units 05:54 RBC 3.11 L (4.40-5.60) X 10*6/uL Hgb 7.5 L (13.0-17.0) g/dL Hct 24.4 L (39.6-50.0) % MCV 78.5 L (80.0-97.0) fL MCH 24.1 L (27.0-32.0) pg MCHC 30.7 L (32.0-37.0) g/dL RDW 19.5 H (11.5-14.5) % MPV 9.2 L (9.5-12.2) fL Microbiology - Last 24 Hours (Table) 02/28/22 14:21 Gram Stain - Preliminary Sputum Sputum Culture - Preliminary 02/24/22 22:50 Blood Culture - Preliminary Blood No Growth after 120 hours 02/24/22 22:30 Blood Culture - Preliminary Blood No Growth after 120 hours Assessment and Plan Assessment: Acute hypoxic respiratory failure multifactorial, secondary to acute COPD exacerbation, acute community-acquired bilateral pneumonia ,possible secondary to tumor,mass affect. Bilateral pneumonia now ruled in as per pulmonary, acute community-acquired. Hyponatremia, possibly SIADH secondary to mass affect acute on Chronic anemia,status post 1 unit of packed RBCs , in a patient with recent EGD and colonoscopy reporting antral gastritis, mild diverticulosis, poor colon prep with no evidence of GI bleed, suspected bleeding from hemorrhoids as per surgery. Right upper lobe pulmonary nodules, mass, possibility of metastatic malignancy, PET scan recently completed on 01/15/2022, follows with pulmonary, Dr. Maurer outpatient; outpatient report not available at this time- reports first radiation session scheduled. End-stage COPD, emphysema Chronic hypoxic respiratory failure, wears 3 L nasal cannula O2 at home Acute UTI with pseudomonas aeruginosa ,History of recurrent UTIs, pseudomonas a eruginosa, Enterobacter aerogensis Chronic renal failure, stage II Bilateral hydronephrosis, follows with urology outpatient CAD Degenerative cervical disc disease Gait dysfunction, history of falls Gastroesophageal reflux disease Heart of hearing Generalized weakness, medical debility Plan: Continue on current medication regime ,monitoring and symptomatic treatment. Maintain antibiotics .Sputum culture in progress. Continue with Aggressive pulmonary toileting, nebulized bronchodilators . Complains of right hip pain, x-ray ordered. Patient currently is planning to proceed with radiation with Dr. Pierce outpatient .no inpatient endoscopy as per general surgery.Prognosis guarded given multiple complex medical issues. The impression and plan of care has been dictated as directed. : I performed a history and examination of this patient, discussed the same with the dictator. I agree with the dictator's note ,documented as a scribe. Any additional findings or plans will be noted.
--- NOTE | 2022-03-02 19:07 | XR ---
EXAMINATION TYPE: XR Hip RT and AP Pelvis DATE OF EXAM: 03/02/2022 COMPARISON: NONE HISTORY: Hip pain TECHNIQUE: 3 views FINDINGS: The pelvic ring is intact. The proximal femurs are intact. Sacroiliac joints are intact. Th ere is vascular calcification. No fracture seen. Hip joint spaces are fairly normal. There is minimal acetabular spurring. IMPRESSION: Mild degenerative spurring at the hip joints. No fracture seen.
[2022-03-02] MEDS ORDERED: DOCUSATE 100 MG CAP PO SCH (21:00)
[2022-03-02] MEDS: ATORVASTATIN 40 MG TAB PO SCH (21:49)
[2022-03-03] MEDS: SYMBICORT 80-4.5 MCG INHALER INHALATION SCH ×2 (07:04→20:30)
[2022-03-03] MEDS: IPRATROPIUM-ALBUTEROL 3 ML NEB INHALATION SCH ×4 (07:04→20:30)
[2022-03-03] MEDS: PIPERACILLIN-TAZOBACTAM 3.375 GM in SODIUM CHLORIDE 0.9% 100 ML IVPB SCH ×2 (07:28→15:18)
[2022-03-03] MEDS: FERROUS SULFATE 325 MG TAB PO SCH ×2 (07:28→17:30)
[2022-03-03 08:58] LABS: Basophils # (A) 0.07 X 10*3/uL (0.00-0.10); Basophils % (A) 0.9 %; Eosinophils # (A) 0.35 X 10*3/uL (0.04-0.35); Eosinophils % (A) 4.6 %; HGB 7.5 g/dL (13.0-17.0); Immature Grans, Automated 0.7 %; Lymphocytes # (A) 1.21 X 10*3/uL (0.90-5.00); Lymphocytes % (A) 16.1 %; MCH 24.3 pg (27.0-32.0); MCV 80.9 fL (80.0-97.0); Mean Platelet Volume 9.6 fL (9.5-12.2); Monocytes % (A) 9.3 %; NRBC Per 100 WBC 0 /100 WBCS (0.0-0.0); Neutrophils # (A) 5.15 X 10*3/uL (1.80-7.70); Neutrophils % (A) 68.4 %; Platelet Count 334 X 10*3/uL (140-440); RBC 3.09 X 10*6/uL (4.40-5.60); RDW 19.7 % (11.5-14.5); WBC 7.53 X 10*3/uL (4.50-10.00)
[2022-03-03] MEDS: TAMSULOSIN 0.4 MG CAP.ER.24H PO SCH ×2 (09:19→21:59)
[2022-03-03] MEDS: FINASTERIDE 5 MG TAB PO SCH (09:19)
[2022-03-03] MEDS: amLODIPine 5 MG TAB PO SCH (09:19)
[2022-03-03] MEDS: DOCUSATE 100 MG CAP PO SCH ×2 (09:20→21:59)
[2022-03-03] MEDS: PANTOPRAZOLE 40 MG/10 ML VIAL IVP SCH ×2 (09:20→21:59)
[2022-03-03] MEDS: FOLIC ACID 1 MG TAB PO SCH (09:20)
--- NOTE | 2022-03-03 12:56 | P.PN ---
Subjective Progress Note Date: 03/03/22 CHIEF COMPLAINT: GI bleed HISTORY OF PRESENT ILLNESS: Patient presented with shortness of breath and fati omayra. His stool was Hemoccult positive. Patient denies any blood in his stools or melena. He denies any abdominal pain. He has been taking aspirin and Plavix at home. Patient has had no BM for the past 4 days. He is having flatus. Patient does report he has issues with constipation. He had EGD and colonoscopy in January [address] blackwell showing gastritis, diverticulosis and hemorrhoids. Colonoscopy was limited he had poor bowel prep. Patient is tolerating diet. Afebrile. Hemoglobin stable at 7.5. Patient is also being treated for pneumonia and COPD exacerbation. Followed by pulmonary service. He also has evidence of a UTI. Patient seen and examined with Dr. blackwell PHYSICAL EXAM: VITAL SIGNS: Reviewed. GENERAL: Well-developed in no acute distress. HEENT: No sclera icterus. Extraocular movements grossly intact. Moist buccal mucosa. Head is atraumatic, normocephalic. ABDOMEN: Soft. Nondistended. Nontender. NEUROLOGIC: Alert and oriented. Cranial nerves II through XII grossly intact. ASSESSMENT: 1. Anemia with stool Hemoccult positive. No active visible bleeding. 2. Chronic anemia PLAN: -No plans for endoscopy at this time -Would recommend colonoscopy outpatient after patient has completed treatment for his active infection -Increase Colace to twice a day for constipation and add miralax -Continue iron -Continue monitor hemoglobin -Continue monitoring for signs and symptoms of bleeding -Continue Protonix -recommend to hold aspirin and plavix Physician Molding Machine Operator Helper note has been reviewed by physician. Signing provider agrees with the documented findings, assessment, and plan of care. Objective - Vital Signs Vital signs: Vital Signs Temp 97.7 F 03/03/22 11:00 Pulse 76 03/03/22 11:12 Resp 17 03/03/22 11:00 BP 96/56 03/03/22 11:00 Pulse Ox 96 03/03/22 11:00 FiO2 Intake & Output 03/02/22 03/03/22 03/03/22 18:59 06:59 18:59 Output Total 1000 2350 801 Balance -1000 -2350 -801 Weight 62.596 kg Output: Urine 1000 2350 800 Stool 1 Other: Voiding Method Indwelling Catheter Indwelling Catheter Indwelling Catheter # Bowel Movements 0 - Labs CBC & Chem 7: 03/03/22 04:39 03/01/22 05:09 Labs: Abnormal Lab Results - Last 24 Hours (Table) 03/03/22 Range/Units 04:39 RBC 3.09 L (4.40-5.60) X 10*6/uL Hgb 7.5 L (13.0-17.0) g/dL Hct 25.0 L (39.6-50.0) % MCH 24.3 L (27.0-32.0) pg MCHC 30.0 L (32.0-37.0) g/dL RDW 19.7 H (11.5-14.5) % Immature Gran # 0.05 H (0.00-0.04) X 10*3/uL Microbiology - Last 24 Hours (Table) 02/28/22 14:21 Gram Stain - Final Sputum Sputum Culture - Final 02/24/22 22:50 Blood Culture - Final Blood No Growth after 144 hours 02/24/22 22:30 Blood Culture - Final Blood No Growth after 144 hours
[2022-03-03] MEDS ORDERED: polyethylene glycoL 3350 17 GM POWD.PACK PO SCH (13:00)
--- NOTE | 2022-03-03 14:44 | P.PN ---
Subjective Progress Note Date: 03/03/22 81-year-old male patient with known history of advanced oxygen-dependent COPD and a spiculated right upper lobe opacity , PET avid , being considered for as the artery treatment. In addition, the patient has coronary artery disease, previous CVA/TIA, hyperlipidemia, chronic hydronephrosis and recurrent urine tract infections and the patient has been infected with gram-negative bacteria in the urine including Enterobacter and most recently Pseudomonas. The patient was at home and the patient started having some increased shortness of breath and a congested cough. Incidentally found lightheaded and dizzy. Denied having any chest pain. Altered mentation. He presented again to the emergency dep artment and UA was obviously abnormal consistent with underlying infection. The patient had chest x-ray that showed also some increased haziness/inflammatory changes in lung bases bilaterally. COVID 19 testing was negative. Influenza A and B was negative. White cell count was at 18.3 with a hemoglobin of 7.3 and a platelet count of 266. Sodium level was at 128 with a potassium level of 4 BUN of 16 and a creatinine of 0.8. Lactic acid level was at 1.9. Based on that, the patient was given a dose of Rocephin and Zithromax in the emergency and the patient was hospitalized. At the time of my evaluation, the patient was quite comfortable and he was communicating. No signs of any acute or ongoing septicemia and he was on 2 L of oxygen by nasal cannula with a pulse ox of 99% his EKG showed normal sinus rhythm. No acute ST segment abnormalities. Legionella urine antigen was also negative. On today's evaluation of 02/26/2022 , the patient is feeling well. He remains on IV cefepime for now. Urine cultures pending for now. There is however gram- negative bacteria growing in the urine culture. He doesn't a congested cough. No significant sputum production. No signs of any ongoing decompensation the respiratory status. No hemodynamic instability. The patient is tolerating his diet. On 02/27/2022, the patient is sitting up on the chin the patient's, comfortable. Urine culture is still showing gram-negative bacillus. The patient remains on IV cefepime. However, there has been drop in hemoglobin today without any evidence of any acute bleed. Hemoglobin is up to 6.2. The white cell count of 10.4 with a platelet count of 275. The BUN is at 40 with a creatinine of 0.9. Electrolytes are all within normal limits. He does have an occult positive stool. It is possible the patient may be having an occult GI blood loss. He was found also to have a low serum iron which supports this possibility. 02/28/2022, the patient is stable. The patient was given a unit of packed RBC yesterday and the patient was started on IV iron. Gen. surgery was also consulted. No plans for colonoscopy at this point in time. Repeat hemoglobin came back at 7.7. The white cell count came back at 9.8. The urine culture came back for Pseudomonas with intermediate sensitivity to cefepime. No nausea. No vomiting. No chest pain. Very borderline yesterday status of the patient has advanced COPD. Afebrile. Reevaluated today on 03/01/22, patient remains quite ill, remains on oxygen at 2 L nasal cannula, still complaining of not feeling well. Patient has shortness of breath with any activity. Chest x-ray continues to show significant infiltrate bilaterally involving the right lower lobe mostly and to some extent the left lower lobe. Patient is on broad-spectrum antibiotics, is also on bronchodilators for COPD. Patient received a unit of packed RBCs yesterday for low hemoglobin. And he is also on iron WBC count today is 8.8 hemoglobin is 7.3 , Basic metabolic profile is normal. Pro-calcitonin is 0.18 The patient is seen today 11/30/2021 in follow-up on the regular medical floor. He is currently resting comfortably in bed. Awake and alert in no acute distress. He is feeling a bit better today compared to yesterday. He is maintaining good O2 saturations in the 90s on 2 L/m per nasal cannula. He's been up in the chair with assistance. His appetite is stable. No difficulty swallowing. White count 9.1. Hemoglobin 7.5. Pro-calcitonin 0.18. He is status post 1 unit of packed red blood cells this admission. Urine culture was positive for pseudomonas aeruginosa. Blood cultures reveal no growth. Sputum culture pending. He remains on Zosyn. Continue DuoNeb inhalations, Symbicort. The patient is seen today 03/03/2022 in follow-up on the regular medical floor. He is resting comfortably in bed. Awake and alert in no acute distress. Breathing better today compared to yesterday. He is maintaining good O2 saturations in the 90s on room air. Urine culture is positive for pseudomonas aeruginosa. Sputum culture revealed no growth. Blood cultures reveal no growth. Follow-up urine culture revealed no growth. He is continued on DuoNeb inhalations, Symbicort, antibiotics in the form of Zosyn. White count 7.5. Hemoglobin 7.5. Objective - Vital Signs Vital signs: Vital Signs Temp 97.7 F 03/03/22 11:00 Pulse 76 03/03/22 11:12 Resp 17 03/03/22 11:00 BP 96/56 03/03/22 11:00 Pulse Ox 96 03/03/22 11:00 FiO2 Intake & Output 03/02/22 03/03/22 03/03/22 18:59 06:59 18:59 Output Total 1000 2350 801 Balance -1000 -2350 -801 Weight 62.596 kg Output: Urine 1000 2350 800 Stool 1 Other: Voiding Method Indwelling Catheter Indwelling Catheter Indwelling Catheter # Bowel Movements 0 - Exam GENERAL EXAM: Alert, 81-year-old male, on 2 L nasal cannula, comfortable in no apparent distress. HEAD: Normocephalic. EYES: Normal reaction of pupils, equal size. NOSE: Clear with pink turbinates. THROAT: No erythema or exudates. NECK: No masses, no JVD. CHEST: No chest wall deformity. LUNGS: Equal air entry with crackles in left posterior bases, end expiratory whe ann, diminished CVS: S1 and S2 normal with no audible murmur, regular rhythm. ABDOMEN: No hepatosplenomegaly, normal bowel sounds, no guarding or rigidity. SPINE: No scoliosis or deformity SKIN: No rashes CENTRAL NERVOUS SYSTEM: No focal deficits, tone is normal in all 4 extremities. EXTREMITIES: There is no peripheral edema. No clubbing, no cyanosis. Peripheral pulses are intact. - Labs CBC & Chem 7: 03/03/22 04:39 03/01/22 05:09 Labs: Abnormal Lab Results - Last 24 Hours (Table) 03/03/22 Range/Units 04:39 RBC 3.09 L (4.40-5.60) X 10*6/uL Hgb 7.5 L (13.0-17.0) g/dL Hct 25.0 L (39.6-50.0) % MCH 24.3 L (27.0-32.0) pg MCHC 30.0 L (32.0-37.0) g/dL RDW 19.7 H (11.5-14.5) % Immature Gran # 0.05 H (0.00-0.04) X 10*3/uL Microbiology - Last 24 Hours (Table) 02/28/22 14:21 Gram Stain - Final Sputum Sputum Culture - Final 02/24/22 22:50 Blood Culture - Final Blood No Growth after 144 hours 02/24/22 22:30 Blood Culture - Final Blood No Growth after 144 hours Assessment and Plan Assessment: Acute on chronic dyspnea, likely on the basis of COPD. Pneumonia is felt to be less likely. Pro-calcitonin 0.18. Remains on Zosyn. There is some increased haziness in lung bases bilaterally. UTI, recurrent, cultures came back positive for Pseudomonas and the patient had intermediate sensitivity to Zosyn. The same antibiotic will be continued for now. Acute on chronic anemia with interval drop in hemoglobin down to 6.2 and the patient has underlying iron deficiency with a positive occult blood in the stool. Rule out underlying GI bleed. The patient got transferred with units of packed RBC. Hemoglobin improved and currently is up to 7.5 and is being replaced for iron deficiency. Acute leukocytosis, improved and the patient's white cell count is9.1 Advanced COPD, oxygen and steroid dependent, based on FEV1 is 36% of predicted, maintained on Wixela and Spiriva Right upper lobe mass measuring 2.5 cm, PET avid and the patient is being considered for SB RT as the patient is not a good candidate for biopsies of any surgical interventions Recurrent UTIs with gram-negative bacteria, essentially related to gram-negative Enterobacter and Pseudomonas and the patient did have an obstructive uropathy with a Paige catheter in place Coronary artery disease appears bypass surgery Hypertension Hyperlipidemia Osteoarthritis Former smoker This history of falls Cervical spinal stenosis, C3-C4 moderate to severe and C5-C6 moderate spinal canal stenosis, additional multilevel bilateral moderate to severe neural foraminal stenosis extending from C3-C4 through C5-C6 reported as per cervical MRI, orthopedic spine recommending steroids/conservative management Carotid artery disease,50% stenosis right carotid bifurcation,SPECT 2 mm aneurysm posterior margin left internal carotid artery cavemous segment,vascular following. No surgery recommended at this time, continued outpatient monitoring. Previous history of CVA Anemia of chronic disease. Gait dysfunction Bilateral hydronephrosis. Followed up by urology on outpatient basis Plan The patient was seen and evaluated Medications and labs reviewed Continue the current treatment plan Increase his activity as tolerated Titrate the FiO2 as tolerated Follow-up chest x-ray in the a.m. Probable discharge in the a.m. We will continue to follow I have personally seen and examined the patient, performed the documentation and the assessment and plan as written. Number of minutes spent on the visit: 10.
[2022-03-03 15:54] LABS: S.pneumoniae Serotype 1 (1) 3.5 mcg/mL (>=2.3); S.pneumoniae Serotype 10A (34) 3.8 mcg/mL (>=2.9); S.pneumoniae Serotype 12F (12) <0.4 mcg/mL (>=0.6); S.pneumoniae Serotype 14 (14) 1.5 mcg/mL (>=7.0); S.pneumoniae Serotype 15B (54) 1.9 mcg/mL (>=3.3); S.pneumoniae Serotype 18C (56) 6.8 mcg/mL (>=3.3); S.pneumoniae Serotype 19A (57) 21.5 mcg/mL (>=17.1); S.pneumoniae Serotype 19F (19) 3.4 mcg/mL (>=15.0); S.pneumoniae Serotype 20 (20) <0.4 mcg/mL (>=1.3); S.pneumoniae Serotype 22F (22) 10.4 mcg/mL (>=7.2); S.pneumoniae Serotype 23F (23) 22.7 mcg/mL (>=8.0); S.pneumoniae Serotype 3 (3) <0.4 mcg/mL (>=1.8); S.pneumoniae Serotype 4 (4) 1.3 mcg/mL (>=0.6); S.pneumoniae Serotype 6B (26) 0.8 mcg/mL (>=4.7); S.pneumoniae Serotype 7F (51) 3.9 mcg/mL (>=3.2); S.pneumoniae Serotype 8 (8) <0.4 mcg/mL (>=2.9)
--- NOTE | 2022-03-03 17:13 | P.PN ---
Subjective Progress Note Date: 03/03/22 H&P Date: 02/25/22 This is an 81-year-old gentleman admitted with acute on chronic anemia, UTI/history of recurrent UTIs, advanced COPD, chronic hypoxic respiratory failure, right lung mass/recent PET scan, bilateral hydronephrosis and multiple other medical issues presented to the ER with increased shortness of breath and weakness over the last few days. Congested productive cough. Reports exertional shortness of breath with minimal exertion. Denies lightheadedness dizziness or focal deficits. Denies chest pain, palpitations. EKG sinus rhythm, Troponin less than 0.012. Denies nausea vomiting or diarrhea. Denies urinary frequency dysuria hematuria. Denies rectal bleeding. He reports, scheduled for first round of radiation soon. Reports he has been on antibiotics(Keflex) since Thursday 02/22 for acute UTI. UA reporting urine WBCs greater than 182, leukocytes large, positive nitrates, urine culture pending. Legionella negative . Coronavirus, influenza type A and B not detected. T-max 99, WBC 18.3, hemoglobin 7.3, platelets 266, sodium 128, potassium 4, bicarb 23, BUN 16, creatinine 0.85. albumin 3.7. Lactic acid 1.9. Chest x-ray reporting bibasilar opacities partially seen on prior PET/CT for superimposed pneumonia, COPD changes. Maintained on Zithromax, ceftriaxone. 02/26/2022 Maintaining O2 sats in the 90s on 2 L nasal cannula. Continues on cefepime. Blood, Urine and sputum cultures, finalizing. Afebrile, WBC decreased to 17.6, hemoglobin remains at 7.3, platelets 267. Renal function stable. Sodium 129. Denies chest pain, palpitations or increasing shortness of breath. 03/02/2022 maintained on Zosyn, nebulized bronchodilators, Symbicort; sputum cultures pending, blood cultures reporting no growth, initial urine culture reporting pseudomonas aeruginosa with repeat reporting no growth. Elevated pro- calcitonin ,0.18 afebrile, normal WBC. Maintaining O2 sats in the high 90s on 2 L nasal cannula. 03/03/2022 maintained on nebulized bronchodilators, Symbicort, Zosyn. Initial urine culture positive for pseudomonas aeruginosa. Sputum culture, repeat urine culture and blood cultures reporting no growth. Afebrile, normal WBC. He moglobin 7.5. Reports Breathing easier, maintaining O2 sats in the 90s on room air. Yesterday complained of right hip pain, x-ray completed reporting no fracture. Denies right hip pain today, but complains of left anterior rib tenderness. Denies chest pain, palpitations or increasing shortness of breath. Objective - Vital Signs Vital signs: Vital Signs Temp 97.7 F 03/03/22 11:00 Pulse 84 03/03/22 16:36 Resp 17 03/03/22 11:00 BP 96/56 03/03/22 11:00 Pulse Ox 96 03/03/22 11:00 FiO2 Intake & Output 03/02/22 03/03/22 03/03/22 18:59 06:59 18:59 Output Total 1000 2350 1701 Balance -1000 -2350 -1701 Weight 62.596 kg Output: Urine 1000 2350 1700 Stool 1 Other: Voiding Method Indwelling Catheter Indwelling Catheter Indwelling Catheter # Bowel Movements 0 - Exam GENERAL EXAM: Alert and oriented 3, sitting up in bed, no acute distress. HEAD: Normocephalic. EYES: Normal reaction of pupils, equal size. THROAT: No erythema or exudates. NECK: Supple, no JVD LUNGS: Diminished air entry, fine bibasilar crackles, mild expiratory wheezing CVS: S1 and S2 normal with no audible murmur, regular rhythm. ABDOMEN: Soft, nontender, No hepatosplenomegaly, normal bowel sounds, no guarding or rigidity. SKIN: No rashes, warm and dry CENTRAL NERVOUS SYSTEM: No focal deficits, tone is normal in all 4 extremities. EXTREMITIES: No peripheral edema. No clubbing, no cyanosis. Peripheral pulses are intact. - Labs CBC & Chem 7: 03/03/22 04:39 03/01/22 05:09 Labs: Abnormal Lab Results - Last 24 Hours (Table) 03/03/22 Range/Units 04:39 RBC 3.09 L (4.40-5.60) X 10*6/uL Hgb 7.5 L (13.0-17.0) g/dL Hct 25.0 L (39.6-50.0) % MCH 24.3 L (27.0-32.0) pg MCHC 30.0 L (32.0-37.0) g/dL RDW 19.7 H (11.5-14.5) % Immature Gran # 0.05 H (0.00-0.04) X 10*3/uL Microbiology - Last 24 Hours (Table) 02/28/22 14:21 Gram Stain - Final Sputum Sputum Culture - Final 02/24/22 22:50 Blood Culture - Final Blood No Growth after 144 hours 02/24/22 22:30 Blood Culture - Final Blood No Growth after 144 hours Assessment and Plan Assessment: Acute hypoxic respiratory failure multifactorial, secondary to acute COPD exacerbation, acute community-acquired bilateral pneumonia ,possible secondary to tumor,mass affect. Bilateral pneumonia now ruled in as per pulmonary, acute community-acquired. Hyponatremia, possibly SIADH secondary to mass affect acute on Chronic anemia,status post 1 unit of packed RBCs , in a patient with recent EGD and colonoscopy reporting antral gastritis, mild diverticulosis, poor colon prep with no evidence of GI bleed, suspected bleeding from hemorrhoids as per surgery. Right upper lobe pulmonary nodules, mass, possibility of metastatic malignancy, PET scan recently completed on 01/15/2022, follows with pulmonary, Dr. Maurer outpatient; outpatient report not available at this time- reports first radiat ion session scheduled. End-stage COPD, emphysema Chronic hypoxic respiratory failure, wears 3 L nasal cannula O2 at home Acute UTI with pseudomonas aeruginosa ,History of recurrent UTIs, pseudomonas aeruginosa, Enterobacter aerogensis Chronic renal failure, stage II Bilateral hydronephrosis, follows with urology outpatient CAD Degenerative cervical disc disease Gait dysfunction, history of falls Gastroesophageal reflux disease Heart of hearing Generalized weakness, medical debility Plan: Continue on current medication regime ,monitoring and symptomatic treatment. Reports Dr. Pierce radiation oncology met with him yesterday and patient to maintain his appointment outpatient. Continue on antibiotics ,aggressive pulmonary toileting, nebulized bronchodilators . Colace added for complaints of constipation. Discharge planning in progress for tomorrow. The impression and plan of care has been dictated as directed. : I performed a history and examination of this patient, discussed the same with the dictator. I agree with the dictator's note ,documented as a scribe. Any additional findings or plans will be noted.
--- NOTE | 2022-03-03 17:34 | P.PN ---
Subjective Progress Note Date: 03/01/22 Principal diagnosis: Urinary tract infection and pneumonia Patient is 81-year-old male, presented to hospital on 02/24/2022 for evaluation of increasing shortness of breath and weakness, chest x-ray with bibasilar opacity concerning for possible pneumonia and COPD changes also have a positive UA concerning for UTI with urine did show some Pseudomonas that was resistant to cefepime. On today's evaluation that is 03/01/2022, the patient denies having any fever or any chills, the patient is breathing more comfortably denies having any chest pain continued have a cough but no worsening nausea no vomiting no abdominal pain no diarrhea Objective - Vital Signs Vital signs: Vital Signs Temp 98.1 F 03/01/22 12:41 Pulse 84 03/01/22 12:41 Resp 16 03/01/22 12:41 BP 93/52 03/01/22 12:41 Pulse Ox 91 L 03/01/22 12:41 FiO2 Intake & Output 02/28/22 03/01/22 03/01/22 18:59 06:59 18:59 Intake Total 518 420 Output Total 1600 1700 Balance -1082 -1280 Intake: Oral 518 420 Output: Urine 1600 1700 Other: Voiding Method Indwelling Catheter Indwelling Catheter Indwelling Catheter - Exam GENERAL DESCRIPTION: An elderly male lying in bed in no distress RESPIRATORY SYSTEM: Unlabored breathing , decreased breath sounds at bases HEART: S1 S2 regular rate and rhythm , ABDOMEN: Soft , no tenderness EXTREMITIES: No edema feet - Labs CBC & Chem 7: 03/03/22 04:39 03/01/22 05:09 Labs: Abnormal Lab Results - Last 24 Hours (Table) 02/28/22 03/01/22 03/01/22 Range/Units 09:12 05:09 05:09 RBC (4.40-5.60) X 10*6/uL Hgb (13.0-17.0) g/dL Hct (39.6-50.0) % MCV (80.0-97.0) fL MCH (27.0-32.0) pg MCHC (32.0-37.0) g/dL RDW (11.5-14.5) % Immature Gran # (0.00-0.04) X 10*3/uL Lymphocytes # (0.90-5.00) X 10*3/uL Monocytes # (0.20-1.00) X 10*3/uL Eosinophils # (0.04-0.35) X 10*3/uL Carbon Dioxide 28.1 H (20.0-27.5) mmol/L Anion Gap 7.90 L (10.00-18.00) mmol/L Glucose 126 H (70-110) mg/dL C-Reactive Protein 12.80 H (0.00-0.80) mg/dL Total Protein 5.4 L (6.2-8.2) g/dL Albumin 3.2 L (3.8-4.9) g/dL Albumin/Globulin Ratio 1.47 L (1.60-3.17) g/dL Procalcitonin 0.18 H (0.02-0.09) ng/mL 03/01/22 Range/Units 05:09 RBC 3.03 L (4.40-5.60) X 10*6/uL Hgb 7.3 L (13.0-17.0) g/dL Hct 23.4 L (39.6-50.0) % MCV 77.2 L (80.0-97.0) fL MCH 24.1 L (27.0-32.0) pg MCHC 31.2 L (32.0-37.0) g/dL RDW 19.0 H (11.5-14.5) % Immature Gran # 0.07 H (0.00-0.04) X 10*3/uL Lymphocytes # 0.82 L (0.90-5.00) X 10*3/uL Monocytes # 1.08 H (0.20-1.00) X 10*3/uL Eosinophils # 0.37 H (0.04-0.35) X 10*3/uL Carbon Dioxide (20.0-27.5) mmol/L Anion Gap (10.00-18.00) mmol/L Glucose (70-110) mg/dL C-Reactive Protein (0.00-0.80) mg/dL Total Protein (6.2-8.2) g/dL Albumin (3.8-4.9) g/dL Albumin/Globulin Ratio (1.60-3.17) g/dL Procalcitonin (0.02-0.09) ng/mL Microbiology - Last 24 Hours (Table) 02/24/22 22:50 Blood Culture - Preliminary Blood No Growth after 96 hours 02/24/22 22:30 Blood Culture - Preliminary Blood No Growth after 96 hours 02/27/22 17:45 Urine Culture - Final Urine,Catheterized Assessment and Plan (1) Bilateral pneumonia Current Visit: Yes Status: Acute Code(s): J18.9 - PNEUMONIA, UNSPECIFIED ORGANISM SNOMED Code(s): 514125900 (2) UTI (urinary tract infection) Current Visit: No Status: Acute Code(s): N39.0 - URINARY TRACT INFECTION, SITE NOT SPECIFIED SNOMED Code(s): 59731399 Plan: 1patient is in the hospital with weakness and increasing shortness of breath which is multifactorial in this patient with evidence of bibasilar pneumonia however sputum has been negative for any resistant pathogen the patient also have a positive UA concerning for a cath associated UTI with urine culture did show pseudomonas aeruginosa that was resistant to cefepime however sensitive to Zosyn 2- patient to continue with the Zosyn while waiting for repeat cultures to fin joaquín Time with Patient: Less than 30
--- NOTE | 2022-03-03 17:35 | P.PN ---
Subjective Progress Note Date: 03/02/22 Principal diagnosis: Urinary tract infection and pneumonia Patient is 81-year-old male, presented to hospital on 02/24/2022 for evaluation of increasing shortness of breath and weakness, chest x-ray with bibasilar opacity concerning for possible pneumonia and COPD changes also have a positive UA concerning for UTI with urine did show some Pseudomonas that was resistant to cefepime. On today's evaluation that is 03/02/2022, the patient remains to be afebrile, the patient is breathing on nasal cannula oxygen, the patient denies having any chest pain continued have a cough but no worsening nausea no vomiting no abdominal pain no diarrhea Objective - Vital Signs Vital signs: Vital Signs Temp 98.3 F 03/02/22 12:02 Pulse 79 03/02/22 12:02 Resp 17 03/02/22 12:02 BP 98/54 03/02/22 12:02 Pulse Ox 96 03/02/22 12:02 FiO2 Intake & Output 03/01/22 03/02/22 03/02/22 18:59 06:59 18:59 Intake Total 580 Output Total 1700 1500 Balance -1700 -920 Intake: Intake, IV Titration 100 Amount Piperacillin-Tazobactam 3 100 .375 gm In Sodium Chloride 0.9% 100 ml @ 25 mls/hr IVPB Q8HR [facility] Rx# :[id number] Oral 480 Output: Urine 1700 1500 Other: Voiding Method Indwelling Catheter Indwelling Catheter Indwelling Catheter # Bowel Movements 0 - Exam GENERAL DESCRIPTION: An elderly male lying in bed in no distress RESPIRATORY SYSTEM: Unlabored breathing , decreased breath sounds at bases HEART: S1 S2 regular rate and rhythm , ABDOMEN: Soft , no tenderness EXTREMITIES: No edema feet - Labs CBC & Chem 7: 03/03/22 04:39 03/01/22 05:09 Labs: Abnormal Lab Results - Last 24 Hours (Table) 03/02/22 Range/Units 05:54 RBC 3.11 L (4.40-5.60) X 10*6/uL Hgb 7.5 L (13.0-17.0) g/dL Hct 24.4 L (39.6-50.0) % MCV 78.5 L (80.0-97.0) fL MCH 24.1 L (27.0-32.0) pg MCHC 30.7 L (32.0-37.0) g/dL RDW 19.5 H (11.5-14.5) % MPV 9.2 L (9.5-12.2) fL Microbiology - Last 24 Hours (Table) 02/28/22 14:21 Gram Stain - Preliminary Sputum Sputum Culture - Preliminary 02/24/22 22:50 Blood Culture - Preliminary Blood No Growth after 120 hours 02/24/22 22:30 Blood Culture - Preliminary Blood No Growth after 120 hours Assessment and Plan (1) Bilateral pneumonia Current Visit: Yes Status: Acute Code(s): J18.9 - PNEUMONIA, UNSPECIFIED ORGANISM SNOMED Code(s): 033382313 (2) UTI (urinary tract infection) Current Visit: No Status: Acute Code(s): N39.0 - URINARY TRACT INFECTION, SITE NOT SPECIFIED SNOMED Code(s): 93352967 Plan: 1patient is in the hospital with weakness and increasing shortness of breath w hich is multifactorial in this patient with evidence of bibasilar pneumonia however sputum has been negative for any resistant pathogen the patient also have a positive UA concerning for a cath associated UTI with urine culture did show pseudomonas aeruginosa that was resistant to cefepime however sensitive to Zosyn 2- patient seemed to have shown clinical improvement and will continue with the Zosyn while waiting for repeat cultures to finalize Time with Patient: Less than 30
--- NOTE | 2022-03-03 17:36 | P.PN ---
Subjective Progress Note Date: 03/03/22 Principal diagnosis: Urinary tract infection and pneumonia Patient is 81-year-old male, presented to hospital on 02/24/2022 for evaluation of increasing shortness of breath and weakness, chest x-ray with bibasilar opacity concerning for possible pneumonia and COPD changes also have a positive UA concerning for UTI with urine did show some Pseudomonas that was resistant to cefepime. On today's evaluation that is 03/03/2022, the patient continues to be afebrile, the patient is breathing comfortably on nasal cannula oxygen, the patient denies having any chest pain , the patient continued have a cough but no worsening nausea no vomiting no abdominal pain no diarrhea Objective - Vital Signs Vital signs: Vital Signs Temp 97.7 F 03/03/22 11:00 Pulse 76 03/03/22 11:12 Resp 17 03/03/22 11:00 BP 96/56 03/03/22 11:00 Pulse Ox 96 03/03/22 11:00 FiO2 Intake & Output 03/02/22 03/03/22 03/03/22 18:59 06:59 18:59 Output Total 1000 2350 801 Balance -1000 -2350 -801 Weight 62.596 kg Output: Urine 1000 2350 800 Stool 1 Other: Voiding Method Indwelling Catheter Indwelling Catheter Indwelling Catheter # Bowel Movements 0 - Exam GENERAL DESCRIPTION: An elderly male lying in bed in no distress RESPIRATORY SYSTEM: Unlabored breathing , decreased breath sounds at bases HEART: S1 S2 regular rate and rhythm , ABDOMEN: Soft , no tenderness EXTREMITIES: No edema feet - Labs CBC & Chem 7: 03/03/22 04:39 03/01/22 05:09 Labs: Abnormal Lab Results - Last 24 Hours (Table) 03/03/22 Range/Units 04:39 RBC 3.09 L (4.40-5.60) X 10*6/uL Hgb 7.5 L (13.0-17.0) g/dL Hct 25.0 L (39.6-50.0) % MCH 24.3 L (27.0-32.0) pg MCHC 30.0 L (32.0-37.0) g/dL RDW 19.7 H (11.5-14.5) % Immature Gran # 0.05 H (0.00-0.04) X 10*3/uL Microbiology - Last 24 Hours (Table) 02/28/22 14:21 Gram Stain - Final Sputum Sputum Culture - Final 02/24/22 22:50 Blood Culture - Final Blood No Growth after 144 hours 02/24/22 22:30 Blood Culture - Final Blood No Growth after 144 hours Assessment and Plan (1) Bilateral pneumonia Current Visit: Yes Status: Acute Code(s): J18.9 - PNEUMONIA, UNSPECIFIED ORGANISM SNOMED Code(s): 482071145 (2) UTI (urinary tract infection) Current Visit: No Status: Acute Code(s): N39.0 - URINARY TRACT INFECTION, SITE NOT SPECIFIED SNOMED Code(s): 69518409 Plan: 1patient is in the hospital with weakness and increasing shortness of breath which is multifactorial in this patient with evidence of bibasilar pneumonia however sputum has been negative for any resistant pathogen the patient also have a positive UA concerning for a cath associated UTI with urine culture did show pseudomonas aeruginosa that was resistant to cefepime however sensitive to Zosyn 2- patient seemed to have shown clinical improvement with the Zosyn however repeat sputum as well as urine culture have been negative patient will be able to finish the current course of oral Avelox on discharge Time with Patient: Less than 30
[2022-03-03] MEDS: ATORVASTATIN 40 MG TAB PO SCH (21:59)
[2022-03-04] MEDS: PIPERACILLIN-TAZOBACTAM 3.375 GM in SODIUM CHLORIDE 0.9% 100 ML IVPB SCH ×4 (00:32→23:44)
[2022-03-04] MEDS: IPRATROPIUM-ALBUTEROL 3 ML NEB INHALATION SCH ×4 (07:40→19:39)
[2022-03-04] MEDS: SYMBICORT 80-4.5 MCG INHALER INHALATION SCH ×2 (07:40→19:39)
[2022-03-04] MEDS: TAMSULOSIN 0.4 MG CAP.ER.24H PO SCH ×2 (07:42→20:04)
[2022-03-04] MEDS: PANTOPRAZOLE 40 MG/10 ML VIAL IVP SCH ×2 (07:42→20:04)
[2022-03-04] MEDS: FOLIC ACID 1 MG TAB PO SCH (07:42)
[2022-03-04] MEDS: DOCUSATE 100 MG CAP PO SCH ×2 (07:42→20:04)
[2022-03-04] MEDS: FERROUS SULFATE 325 MG TAB PO SCH ×2 (07:42→17:50)
[2022-03-04] MEDS: amLODIPine 5 MG TAB PO SCH (07:42)
[2022-03-04] MEDS: FINASTERIDE 5 MG TAB PO SCH (07:42)
--- NOTE | 2022-03-04 08:46 | XR ---
EXAMINATION TYPE: XR chest 1V portable DATE OF EXAM: 03/04/2022 HISTORY: Shortness of breath. COMPARISON: 03/01/2022 TECHNIQUE: Single view of the chest is submitted. FINDINGS: Demonstrated are scattered senescent parenchymal change. Patchy infiltrate right lower lobe and to a lesser extent left medial lung base persist. Parapneumoni c effusion noted. The heart is stable. Hilar and mediastinal structures are within normal limits. Degenerative changes are seen of the dorsal spine. IMPRESSION: 1. Stable appearance of the chest felt to reflect underlying pneumonia.
--- NOTE | 2022-03-04 11:10 | P.PN ---
Subjective Progress Note Date: 03/04/22 81-year-old male patient with known history of advanced oxygen-dependent COPD and a spiculated right upper lobe opacity , PET avid , being considered for as the artery treatment. In addition, the patient has coronary artery disease, previous CVA/TIA, hyperlipidemia, chronic hydronephrosis and recurrent urine tract infections and the patient has been infected with gram-negative bacteria in the urine including Enterobacter and most recently Pseudomonas. The patient was at home and the patient started having some increased shortness of breath and a congested cough. Incidentally found lightheaded and dizzy. Denied having any chest pain. Altered mentation. He presented again to the emergency dep artment and UA was obviously abnormal consistent with underlying infection. The patient had chest x-ray that showed also some increased haziness/inflammatory changes in lung bases bilaterally. COVID 19 testing was negative. Influenza A and B was negative. White cell count was at 18.3 with a hemoglobin of 7.3 and a platelet count of 266. Sodium level was at 128 with a potassium level of 4 BUN of 16 and a creatinine of 0.8. Lactic acid level was at 1.9. Based on that, the patient was given a dose of Rocephin and Zithromax in the emergency and the patient was hospitalized. At the time of my evaluation, the patient was quite comfortable and he was communicating. No signs of any acute or ongoing septicemia and he was on 2 L of oxygen by nasal cannula with a pulse ox of 99% his EKG showed normal sinus rhythm. No acute ST segment abnormalities. Legionella urine antigen was also negative. On today's evaluation of 02/26/2022 , the patient is feeling well. He remains on IV cefepime for now. Urine cultures pending for now. There is however gram- negative bacteria growing in the urine culture. He doesn't a congested cough. No significant sputum production. No signs of any ongoing decompensation the respiratory status. No hemodynamic instability. The patient is tolerating his diet. On 02/27/2022, the patient is sitting up on the chin the patient's, comfortable. Urine culture is still showing gram-negative bacillus. The patient remains on IV cefepime. However, there has been drop in hemoglobin today without any evidence of any acute bleed. Hemoglobin is up to 6.2. The white cell count of 10.4 with a platelet count of 275. The BUN is at 40 with a creatinine of 0.9. Electrolytes are all within normal limits. He does have an occult positive stool. It is possible the patient may be having an occult GI blood loss. He was found also to have a low serum iron which supports this possibility. 02/28/2022, the patient is stable. The patient was given a unit of packed RBC yesterday and the patient was started on IV iron. Gen. surgery was also consulted. No plans for colonoscopy at this point in time. Repeat hemoglobin came back at 7.7. The white cell count came back at 9.8. The urine culture came back for Pseudomonas with intermediate sensitivity to cefepime. No nausea. No vomiting. No chest pain. Very borderline yesterday status of the patient has advanced COPD. Afebrile. Reevaluated today on 03/01/22, patient remains quite ill, remains on oxygen at 2 L nasal cannula, still complaining of not feeling well. Patient has shortness of breath with any activity. Chest x-ray continues to show significant infiltrate bilaterally involving the right lower lobe mostly and to some extent the left lower lobe. Patient is on broad-spectrum antibiotics, is also on bronchodilators for COPD. Patient received a unit of packed RBCs yesterday for low hemoglobin. And he is also on iron WBC count today is 8.8 hemoglobin is 7.3 , Basic metabolic profile is normal. Pro-calcitonin is 0.18 The patient is seen today 11/30/2021 in follow-up on the regular medical floor. He is currently resting comfortably in bed. Awake and alert in no acute distress. He is feeling a bit better today compared to yesterday. He is maintaining good O2 saturations in the 90s on 2 L/m per nasal cannula. He's been up in the chair with assistance. His appetite is stable. No difficulty swallowing. White count 9.1. Hemoglobin 7.5. Pro-calcitonin 0.18. He is status post 1 unit of packed red blood cells this admission. Urine culture was positive for pseudomonas aeruginosa. Blood cultures reveal no growth. Sputum culture pending. He remains on Zosyn. Continue DuoNeb inhalations, Symbicort. The patient is seen today 03/03/2022 in follow-up on the regular medical floor. He is resting comfortably in bed. Awake and alert in no acute distress. Breathing better today compared to yesterday. He is maintaining good O2 saturations in the 90s on room air. Urine culture is positive for pseudomonas aeruginosa. Sputum culture revealed no growth. Blood cultures reveal no growth. Follow-up urine culture revealed no growth. He is continued on DuoNeb inhalations, Symbicort, antibiotics in the form of Zosyn. White count 7.5. Hemoglobin 7.5. The patient is seen today 03/04/2022 in follow-up on the regular medical floor. He sitting up in bed. Having breakfast. Awake and alert in no acute distress. Maintaining good O2 saturations in the mid 90s on 2 L/m per nasal cannula. He denies any worsening shortness of breath, cough or congestion. Chest x-ray shows stable patchy infiltrate of the right lower lobe. Urine culture was positive for pseudomonas. Sputum culture revealed no growth. Blood culture revealed no growth. Follow-up urine culture revealed no growth. No new labs today. He is continued on DuoNeb inhalations, Symbicort, antibiotics in the form of Zosyn. Objective - Vital Signs Vital signs: Vital Signs Temp 98.4 F 03/04/22 04:40 Pulse 78 03/04/22 07:50 Resp 16 03/04/22 04:40 BP 109/43 03/04/22 04:40 Pulse Ox 97 03/04/22 07:43 FiO2 Intake & Output 03/03/22 03/04/22 03/04/22 18:59 06:59 18:59 Output Total 1701 1801 Balance -1701 -1801 Weight 62.596 kg Output: Urine 1700 1800 Stool 1 1 Other: Voiding Method Indwelling Catheter Indwelling Catheter Indwelling Catheter - Exam GENERAL EXAM: Alert, pleasant 81-year-old male, on 2 L nasal cannula, comfortable in no apparent distress. HEAD: Normocephalic. EYES: Normal reaction of pupils, equal size. NOSE: Clear with pink turbinates. THROAT: No erythema or exudates. NECK: No masses, no JVD. CHEST: No chest wall deformity. LUNGS: Equal air entry with crackles in right posterior bases, end expiratory wheeze, diminished CVS: S1 and S2 normal with no audible murmur, regular rhythm. ABDOMEN: No hepatosplenomegaly, normal bowel sounds, no guarding or rigidity. SPINE: No scoliosis or deformity SKIN: No rashes CENTRAL NERVOUS SYSTEM: No focal deficits, tone is normal in all 4 extremities. EXTREMITIES: There is no peripheral edema. No clubbing, no cyanosis. Peripheral pulses are intact. - Labs CBC & Chem 7: 03/03/22 04:39 03/01/22 05:09 Labs: Microbiology - Last 24 Hours (Table) 02/28/22 14:21 Gram Stain - Final Sputum Sputum Culture - Final Assessment and Plan Assessment: Acute on chronic dyspnea, likely on the basis of COPD. Pro-calcitonin 0.18. Remains on Zosyn. There is some increased haziness in lung bases bilaterally. UTI, recurrent, cultures came back positive for Pseudomonas and the patient had intermediate sensitivity to Zosyn. The same antibiotic will be continued for now. Acute on chronic anemia with interval drop in hemoglobin down to 6.2 and the patient has underlying iron deficiency with a positive occult blood in the stool. Rule out underlying GI bleed. The patient got transferred with units of packed RBC. Hemoglobin improved and currently is up to 7.5 and is being replaced for iron deficiency. Acute leukocytosis, improved and the patient's white cell count is9.1 Advanced COPD, oxygen and steroid dependent, based on FEV1 is 36% of predicted, maintained on Wixela and Spiriva Right upper lobe mass measuring 2.5 cm, PET avid and the patient is being considered for SB RT as the patient is not a good candidate for biopsies of any surgical interventions Recurrent UTIs with gram-negative bacteria, essentially related to gram-negative Enterobacter and Pseudomonas and the patient did have an obstructive uropathy with a Paige catheter in place Coronary artery disease appears bypass surgery Hypertension Hyperlipidemia Osteoarthritis Former smoker This history of falls Cervical spinal stenosis, C3-C4 moderate to severe and C5-C6 moderate spinal canal stenosis, additional multilevel bilateral moderate to severe neural foraminal stenosis extending from C3-C4 through C5-C6 reported as per cervical MRI, orthopedic spine recommending steroids/conservative management Carotid artery disease,50% stenosis right carotid bifurcation,SPECT 2 mm aneurysm posterior margin left internal carotid artery cavemous segment,vascular following. No surgery recommended at this time, continued outpatient monitoring. Previous history of CVA Anemia of chronic disease. Gait dysfunction Bilateral hydronephrosis. Followed up by urology on outpatient basis Plan The patient was seen and evaluated Chest x-ray and medications reviewed Cleared for discharge from the pulmonary standpoint Complete a course of antibiotics possibly in the form of Augmentin ID service is on the case for final decision Follow-up in the office in 1-2 weeks' I have personally seen and examined the patient, performed the documentation and the assessment and plan as written. Number of minutes spent on the visit: 10.
--- NOTE | 2022-03-04 11:35 | P.DS ---
Providers Date of admission: 02/24/22 22:00 Expected date of discharge: 03/04/22 Attending physician: Jorge L Puente Consults: 02/24/22 22:04 Consult Physician Routine Consulting Provider: Filiberto Maurer Consult Reason/Comments: bilateral pneumonia, history lung cancer Do you want consulting provider notified?: Yes 02/28/22 11:46 Consult Physician Routine Consulting Provider: Tavo Burton Consult Reason/Comments: persistant uti , resistant pseudomonas Do you want consulting provider notified?: Yes 02/28/22 11:50 Consult Physician Routine Consulting Provider: Sudeep Escobar Consult Reason/Comments: GI Bleed Do you want consulting provider notified?: Yes, Notify in am Primary care physician: Jorge L Puente Hospital Course: Final Diagnoses: Acute hypoxic respiratory failure multifactorial, secondary to acute COPD exacerbation, acute community-acquired bilateral pneumonia ,possible secondary to tumor,mass affect. Bilateral pneumonia now ruled in as per pulmonary, acute community-acquired. Hyponatremia, possibly SIADH secondary to mass affect acute on Chronic anemia,status post 1 unit of packed RBCs , in a patient with recent EGD and colonoscopy reporting antral gastritis, mild diverticulosis, poor colon prep with no evidence of GI bleed, suspected bleeding from hemorrhoids as per surgery. Right upper lobe pulmonary nodules, mass, possibility of metastatic malignancy, PET scan recently completed on 01/15/2022, follows with pulmonary, Dr. Maurer outpatient; outpatient report not available at this time- reports first radiation session scheduled. End-stage COPD, emphysema Chronic hypoxic respiratory failure, wears 3 L nasal cannula O2 at home Acute UTI with pseudomonas aeruginosa ,History of recurrent UTIs, pseudomonas aeruginosa, Enterobacter aerogensis Chronic renal failure, stage II Bilateral hydronephrosis, follows with urology outpatient CAD Degenerative cervical disc disease Gait dysfunction, history of falls Gastroesophageal reflux disease Heart of hearing Generalized weakness, medical debility Hospital course:This is an 81-year-old gentleman admitted with acute on chronic anemia, UTI/history of recurrent UTIs, advanced COPD, chronic hypoxic respiratory failure, right lung mass/recent PET scan, bilateral hydronephrosis and multiple other medical issues presented to the ER with increased shortness of breath and weakness over the last few days. Congested productive cough. Reports exertional shortness of breath with minimal exertion. Denies lightheadedness dizziness or focal deficits. Denies chest pain, palpitations. EKG sinus rhythm, Troponin less than 0.012. Denies nausea vomiting or diarrhea. Denies urinary frequency dysuria hematuria. Denies rectal bleeding. He reports, scheduled for first round of radiation soon. Reports he has been on antibiotics(Keflex) since Thursday 02/22 for acute UTI. UA reporting urine WBCs greater than 182, leukocytes large, positive nitrates, urine culture pending. Legionella negative . Coronavirus, influenza type A and B not detected. T-max 99, WBC 18.3, hemoglobin 7.3, platelets 266, sodium 128, potassium 4, bicarb 23, BUN 16, creatinine 0.85. albumin 3.7. Lactic acid 1.9. Chest x-ray reporting bibasilar opacities partially seen on prior PET/CT for superimposed pneumonia, COPD changes. Maintained on Zithromax, ceftriaxone. 02/26/2022 Maintaining O2 sats in the 90s on 2 L nasal cannula. Continues on cefepime. Blood, Urine and sputum cultures, finalizing. Afebrile, WBC decreased to 17.6, hemoglobin remains at 7.3, platelets 267. Renal function stable. Sodium 129. Denies chest pain, palpitations or increasing shortness of breath. 03/02/2022 maintained on Zosyn, nebulized bronchodilators, Symbicort; sputum cultures pending, blood cultures reporting no growth, initial urine culture reporting pseudomonas aeruginosa with repeat reporting no growth. Elevated pro- calcitonin ,0.18 afebrile, normal WBC. Maintaining O2 sats in the high 90s on 2 L nasal cannula. 03/03/2022 maintained on nebulized bronchodilators, Symbicort, Zosyn. Initial urine culture positive for pseudomonas aeruginosa. Sputum culture, repeat urine culture and blood cultures reporting no growth. Afebrile, normal WBC. Hemoglobin 7.5. Reports Breathing easier, maintaining O2 sats in the 90s on room air. Yesterday complained of right hip pain, x-ray completed reporting no fracture. Denies right hip pain today, but complains of left anterior rib tenderness. Denies chest pain, palpitations or increasing shortness of breath. Significant clinical improvement. Patient has been cleared by both pulmonary and general surgery. No rectal bleeding, normal bowel movements reported. General surgery has cleared patient to resume Plavix and aspirin with close monitoring of hemoglobin outpatient. Patient will be discharged to subacute rehab today in a stable condition with guarded prognosis pending final DC recommendations per ID. The impression and plan of care has been dictated as directed. : I performed a history and examination of this patient, discussed the same with the dictator. I agree with the dictator's note ,documented as a scribe. Any additional findings or plans will be noted. Patient Condition at Discharge: Stable Plan - Discharge Summary New Discharge Prescriptions: New Docusate [Colace] 100 mg PO BID cap Ferrous Sulfate [Iron (65 MG Elemental)] 325 mg PO BID-W/MEALS #0 tab Continue Aspirin EC [Ecotrin Low Dose] 81 mg PO DAILY Folic Acid 1 mg PO DAILY tab Atorvastatin [Lipitor] 40 mg PO HS #30 tab amLODIPine [Norvasc] 5 mg PO DAILY #30 tab Clopidogrel [Plavix] 75 mg PO DAILY #30 tab Calcium Carbonate [Tums] 1,000 mg PO TID PRN tab PRN Reason: Heartburn Tiotropium [place] [Spiriva Handihaler] 1 puff INHALATION RT-HS Fluticasone Propion/Salmeterol [Wixela 250-50 Inhub] 1 puff INHALATION RT-HS Albuterol Sulfate [Proair Hfa] 1 puff INHALATION RT-Q6H PRN PRN Reason: Shortness Of Breath Pantoprazole [Protonix] 40 mg PO AC-BRKFST #30 tab Tamsulosin HCl [Flomax] 0.4 mg PO BID Finasteride [Proscar] 5 mg PO DAILY guaiFENesin [Mucinex] 600 mg PO Q8HR PRN tab PRN Reason: Cough Ipratropium-Albuterol Nebulize [Duoneb 0.5 mg-3 mg/3 ml Soln] 3 ml INHALATION RT-QID PRN PRN Reason: Shortness Of Breath Discontinued Cephalexin [Keflex] 500 mg PO Q8HR Discharge Medication List Aspirin EC [Ecotrin Low Dose] 81 mg PO DAILY 11/13/18 [History] Albuterol Sulfate [Proair Hfa] 1 puff INHALATION RT-Q6H PRN 10/15/21 [History] Fluticasone Propion/Salmeterol [Wixela 250-50 Inhub] 1 puff INHALATION RT-HS 10/15/21 [History] Atorvastatin [Lipitor] 40 mg PO HS #30 tab 10/22/21 [Rx] Clopidogrel [Plavix] 75 mg PO DAILY #30 tab 10/22/21 [Rx] Folic Acid 1 mg PO DAILY tab 10/22/21 [Rx] Pantoprazole [Protonix] 40 mg PO AC-BRKFST #30 tab 10/22/21 [Rx] amLODIPine [Norvasc] 5 mg PO DAILY #30 tab 10/22/21 [Rx] Finasteride [Proscar] 5 mg PO DAILY 12/24/21 [History] Tamsulosin HCl [Flomax] 0.4 mg PO BID 12/24/21 [History] Calcium Carbonate [Tums] 1,000 mg PO TID PRN tab 12/30/21 [Rx] guaiFENesin [Mucinex] 600 mg PO Q8HR PRN tab 12/31/21 [Rx] Ipratropium-Albuterol Nebulize [Duoneb 0.5 mg-3 mg/3 ml Soln] 3 ml INHALATION RT-QID PRN 01/23/22 [History] Tiotropium [place] [Spiriva Handihaler] 1 puff INHALATION RT-HS 02/24/22 [History] Docusate [Colace] 100 mg PO BID cap 03/04/22 [Rx] Ferrous Sulfate [Iron (65 MG Elemental)] 325 mg PO BID-W/MEALS #0 tab 03/04/22 [Rx] Follow up Appointment(s)/Referral(s): Jorge L Puente DO [Primary Care Provider] - 3 Days Filiberto Maurer MD [STAFF PHYSICIAN] - 2 Weeks Activity/Diet/Wound Care/Special Instructions: [facility] ASA/Plavix as rec. per surgery cbc,bmp in 3 days Discharge Disposition: TRANSFER TO SNF/ECF
--- NOTE | 2022-03-04 11:41 | P.PN ---
Subjective Progress Note Date: 03/04/22 CHIEF COMPLAINT: GI bleed HISTORY OF PRESENT ILLNESS: Patient presented with shortness of breath and fati omayra. His stool was Hemoccult positive. Patient denies any blood in his stools or melena. He denies any abdominal pain. He has been taking aspirin and Plavix at home. Patient did have a bowel movement yesterday and today. No blood reported stools. He had EGD and colonoscopy in January [address] blackwell showing gastritis, diverticulosis and hemorrhoids. Colonoscopy was limited he had poor bowel prep. Patient is tolerating diet. Afebrile. Hemoglobin stable at 7.5. Patient is also being treated for pneumonia and COPD exacerbation. Followed by pulmonary service. He also has evidence of a UTI. Patient seen and examined with Dr. blackwell PHYSICAL EXAM: VITAL SIGNS: Reviewed. GENERAL: Well-developed in no acute distress. HEENT: No sclera icterus. Extraocular movements grossly intact. Moist buccal mucosa. Head is atraumatic, normocephalic. ABDOMEN: Soft. Nondistended. Nontender. NEUROLOGIC: Alert and oriented. Cranial nerves II through XII grossly intact. ASSESSMENT: 1. Anemia with stool Hemoccult positive. No active visible bleeding. 2. Chronic anemia PLAN: -No plans for endoscopy at this time -Would recommend colonoscopy outpatient after patient has completed treatment for his active infection -Continue Protonix -Okay to resume aspirin and Plavix from surgical standpoint Physician [employer] note has been reviewed by physician. Signing provider agrees with the documented findings, assessment, and plan of care. Objective - Vital Signs Vital signs: Vital Signs Temp 98.4 F 03/04/22 04:40 Pulse 84 03/04/22 11:25 Resp 16 03/04/22 04:40 BP 109/43 03/04/22 04:40 Pulse Ox 97 03/04/22 07:43 FiO2 Intake & Output 03/03/22 03/04/22 03/04/22 18:59 06:59 18:59 Output Total 1701 1801 Balance -1701 -1801 Weight 62.596 kg Output: Urine 1700 1800 Stool 1 1 Other: Voiding Method Indwelling Catheter Indwelling Catheter Indwelling Catheter - Labs CBC & Chem 7: 03/03/22 04:39 03/01/22 05:09 Labs: Microbiology - Last 24 Hours (Table) 02/28/22 14:21 Gram Stain - Final Sputum Sputum Culture - Final
[2022-03-04] MEDS: ATORVASTATIN 40 MG TAB PO SCH (20:04)
[2022-03-05] MEDS: TAMSULOSIN 0.4 MG CAP.ER.24H PO SCH (07:51)
[2022-03-05] MEDS: FERROUS SULFATE 325 MG TAB PO SCH (07:51)
[2022-03-05] MEDS: FINASTERIDE 5 MG TAB PO SCH (07:52)
[2022-03-05] MEDS: PANTOPRAZOLE 40 MG/10 ML VIAL IVP SCH (07:52)
[2022-03-05] MEDS: FOLIC ACID 1 MG TAB PO SCH (07:52)
[2022-03-05] MEDS: amLODIPine 5 MG TAB PO SCH (07:52)
[2022-03-05] MEDS: DOCUSATE 100 MG CAP PO SCH (07:52)
[2022-03-05] MEDS: PIPERACILLIN-TAZOBACTAM 3.375 GM in SODIUM CHLORIDE 0.9% 100 ML IVPB SCH (07:53)
[2022-03-05] MEDS: IPRATROPIUM-ALBUTEROL 3 ML NEB INHALATION SCH ×2 (08:36→11:38)
[2022-03-05] MEDS: SYMBICORT 80-4.5 MCG INHALER INHALATION SCH (08:36)
[2022-03-05 11:44] VITALS: BP 99/52; RESP 20; TEMP 97.7
--- NOTE | 2022-03-05 11:53 | P.PN ---
Subjective Progress Note Date: 03/05/22 81-year-old male patient with known history of advanced oxygen-dependent COPD and a spiculated right upper lobe opacity , PET avid , being considered for as the artery treatment. In addition, the patient has coronary artery disease, previous CVA/TIA, hyperlipidemia, chronic hydronephrosis and recurrent urine tract infections and the patient has been infected with gram-negative bacteria in the urine including Enterobacter and most recently Pseudomonas. The patient was at home and the patient started having some increased shortness of breath and a congested cough. Incidentally found lightheaded and dizzy. Denied having any chest pain. Altered mentation. He presented again to the emergency dep artment and UA was obviously abnormal consistent with underlying infection. The patient had chest x-ray that showed also some increased haziness/inflammatory changes in lung bases bilaterally. COVID 19 testing was negative. Influenza A and B was negative. White cell count was at 18.3 with a hemoglobin of 7.3 and a platelet count of 266. Sodium level was at 128 with a potassium level of 4 BUN of 16 and a creatinine of 0.8. Lactic acid level was at 1.9. Based on that, the patient was given a dose of Rocephin and Zithromax in the emergency and the patient was hospitalized. At the time of my evaluation, the patient was quite comfortable and he was communicating. No signs of any acute or ongoing septicemia and he was on 2 L of oxygen by nasal cannula with a pulse ox of 99% his EKG showed normal sinus rhythm. No acute ST segment abnormalities. Legionella urine antigen was also negative. On today's evaluation of 02/26/2022 , the patient is feeling well. He remains on IV cefepime for now. Urine cultures pending for now. There is however gram- negative bacteria growing in the urine culture. He doesn't a congested cough. No significant sputum production. No signs of any ongoing decompensation the respiratory status. No hemodynamic instability. The patient is tolerating his diet. On 02/27/2022, the patient is sitting up on the chin the patient's, comfortable. Urine culture is still showing gram-negative bacillus. The patient remains on IV cefepime. However, there has been drop in hemoglobin today without any evidence of any acute bleed. Hemoglobin is up to 6.2. The white cell count of 10.4 with a platelet count of 275. The BUN is at 40 with a creatinine of 0.9. Electrolytes are all within normal limits. He does have an occult positive stool. It is possible the patient may be having an occult GI blood loss. He was found also to have a low serum iron which supports this possibility. 02/28/2022, the patient is stable. The patient was given a unit of packed RBC yesterday and the patient was started on IV iron. Gen. surgery was also consulted. No plans for colonoscopy at this point in time. Repeat hemoglobin came back at 7.7. The white cell count came back at 9.8. The urine culture came back for Pseudomonas with intermediate sensitivity to cefepime. No nausea. No vomiting. No chest pain. Very borderline yesterday status of the patient has advanced COPD. Afebrile. Reevaluated today on 03/01/22, patient remains quite ill, remains on oxygen at 2 L nasal cannula, still complaining of not feeling well. Patient has shortness of breath with any activity. Chest x-ray continues to show significant infiltrate bilaterally involving the right lower lobe mostly and to some extent the left lower lobe. Patient is on broad-spectrum antibiotics, is also on bronchodilators for COPD. Patient received a unit of packed RBCs yesterday for low hemoglobin. And he is also on iron WBC count today is 8.8 hemoglobin is 7.3 , Basic metabolic profile is normal. Pro-calcitonin is 0.18 The patient is seen today 11/30/2021 in follow-up on the regular medical floor. He is currently resting comfortably in bed. Awake and alert in no acute distress. He is feeling a bit better today compared to yesterday. He is maintaining good O2 saturations in the 90s on 2 L/m per nasal cannula. He's been up in the chair with assistance. His appetite is stable. No difficulty swallowing. White count 9.1. Hemoglobin 7.5. Pro-calcitonin 0.18. He is status post 1 unit of packed red blood cells this admission. Urine culture was positive for pseudomonas aeruginosa. Blood cultures reveal no growth. Sputum culture pending. He remains on Zosyn. Continue DuoNeb inhalations, Symbicort. The patient is seen today 03/03/2022 in follow-up on the regular medical floor. He is resting comfortably in bed. Awake and alert in no acute distress. Breathing better today compared to yesterday. He is maintaining good O2 saturations in the 90s on room air. Urine culture is positive for pseudomonas aeruginosa. Sputum culture revealed no growth. Blood cultures reveal no growth. Follow-up urine culture revealed no growth. He is continued on DuoNeb inhalations, Symbicort, antibiotics in the form of Zosyn. White count 7.5. Hemoglobin 7.5. The patient is seen today 03/04/2022 in follow-up on the regular medical floor. He sitting up in bed. Having breakfast. Awake and alert in no acute distress. Maintaining good O2 saturations in the mid 90s on 2 L/m per nasal cannula. He denies any worsening shortness of breath, cough or congestion. Chest x-ray shows stable patchy infiltrate of the right lower lobe. Urine culture was positive for pseudomonas. Sputum culture revealed no growth. Blood culture revealed no growth. Follow-up urine culture revealed no growth. No new labs today. He is continued on DuoNeb inhalations, Symbicort, antibiotics in the form of Zosyn. Patient seen today 03/05/2022 in follow-up on the regular medical floor. There is no acute distress. Maintaining good O2 saturations in the 90s on 2 L/m per n sen cannula. Feeling a bit better. Less cough and congestion. No fever or chills. Maintained on DuoNeb inhalations, Symbicort, Zosyn. Objective - Vital Signs Vital signs: Vital Signs Temp 97.7 F 03/05/22 11:25 Pulse 78 03/05/22 11:38 Resp 20 03/05/22 11:25 BP 99/52 03/05/22 11:25 Pulse Ox 96 03/05/22 11:25 FiO2 Intake & Output 03/04/22 03/05/22 03/05/22 18:59 06:59 18:59 Intake Total 200 1030 Output Total 1400 1700 Balance -1200 -670 Intake: Intake, IV Titration 200 200 Amount Piperacillin-Tazobactam 3 200 200 .375 gm In Sodium Chloride 0.9% 100 ml @ 25 mls/hr IVPB Q8HR [facility] Rx# :[id number] Oral 830 Output: Urine 1400 1700 Other: Voiding Method Indwelling Catheter Indwelling Catheter Indwelling Catheter # Bowel Movements 1 - Exam GENERAL EXAM: Alert, pleasant 81-year-old male, on 2 L nasal cannula, comfortable in no apparent distress. HEAD: Normocephalic. EYES: Normal reaction of pupils, equal size. NOSE: Clear with pink turbinates. THROAT: No erythema or exudates. NECK: No masses, no JVD. CHEST: No chest wall deformity. LUNGS: Equal air entry with crackles in right posterior bases, end expiratory wheeze, diminished CVS: S1 and S2 normal with no audible murmur, regular rhythm. ABDOMEN: No hepatosplenomegaly, normal bowel sounds, no guarding or rigidity. SPINE: No scoliosis or deformity SKIN: No rashes CENTRAL NERVOUS SYSTEM: No focal deficits, tone is normal in all 4 extremities. EXTREMITIES: There is no peripheral edema. No clubbing, no cyanosis. Peripheral pulses are intact. - Labs CBC & Chem 7: 03/03/22 04:39 03/01/22 05:09 Assessment and Plan Assessment: Acute on chronic dyspnea, likely on the basis of COPD. Pro-calcitonin 0.18. Remains on Zosyn. There is some increased haziness in lung bases bilaterally. UTI, recurrent, cultures came back positive for Pseudomonas and the patient had intermediate sensitivity to Zosyn. The same antibiotic will be continued for now. Acute on chronic anemia with interval drop in hemoglobin down to 6.2 and the patient has underlying iron deficiency with a positive occult blood in the stool. Rule out underlying GI bleed. The patient got transferred with units of packed RBC. Hemoglobin improved and currently is up to 7.5 and is being replaced for iron deficiency. Acute leukocytosis, improved and the patient's white cell count is9.1 Advanced COPD, oxygen and steroid dependent, based on FEV1 is 36% of predicted, maintained on Wixela and Spiriva Right upper lobe mass measuring 2.5 cm, PET avid and the patient is being considered for SB RT as the patient is not a good candidate for biopsies of any surgical interventions Recurrent UTIs with gram-negative bacteria, essentially related to gram-negative Enterobacter and Pseudomonas and the patient did have an obstructive uropathy with a Paige catheter in place Coronary artery disease appears bypass surgery Hypertension Hyperlipidemia Osteoarthritis Former smoker This history of falls Cervical spinal stenosis, C3-C4 moderate to severe and C5-C6 moderate spinal canal stenosis, additional multilevel bilateral moderate to severe neural foraminal stenosis extending from C3-C4 through C5-C6 reported as per cervical MRI, orthopedic spine recommending steroids/conservative management Carotid artery disease,50% stenosis right carotid bifurcation,SPECT 2 mm aneurysm posterior margin left internal carotid artery cavemous segment,vascular following. No surgery recommended at this time, continued outpatient monitoring. Previous history of CVA Anemia of chronic disease. Gait dysfunction Bilateral hydronephrosis. Followed up by urology on outpatient basis Plan The patient was seen and evaluated Cleared for discharge from the pulmonary standpoint Follow-up in the office in 1-2 weeks' I have personally seen and examined the patient, performed the documentation and the assessment and plan as written. Number of minutes spent on the visit: 10.
[2022-03-05 11:55] VITALS: PULSE 79
--- NOTE | 2022-03-05 12:21 | P.PN ---
Subjective Progress Note Date: 03/05/22 CHIEF COMPLAINT: GI bleed HISTORY OF PRESENT ILLNESS: Patient presented with shortness of breath and fati omayra. His stool was Hemoccult positive. Patient denies any blood in his stools or melena. He denies any abdominal pain. He has been taking aspirin and Plavix at home. Patient has had normal brown bowel movements. He had EGD and colonoscopy in January [address] blackwell showing gastritis, diverticulosis and hemorrhoids. Colonoscopy was limited he had poor bowel prep. Patient is tolerating diet. Afebrile. Hemoglobin stable at 7.5. Patient is also being treated for pneumonia and COPD exacerbation. Followed by pulmonary service. He also has evidence of a UTI. Patient is awaiting insurance authorization for placement to [facility] Patient seen and examined with Dr. blackwell PHYSICAL EXAM: VITAL SIGNS: Reviewed. GENERAL: Well-developed in no acute distress. HEENT: No sclera icterus. Extraocular movements grossly intact. Moist buccal mucosa. Head is atraumatic, normocephalic. ABDOMEN: Soft. Nondistended. Nontender. NEUROLOGIC: Alert and oriented. Cranial nerves II through XII grossly intact. ASSESSMENT: 1. Anemia with stool Hemoccult positive. No active visible bleeding. 2. Chronic anemia PLAN: -No plans for endoscopy at this time -Would recommend colonoscopy outpatient after patient has completed treatment for his active infection -Continue Protonix -Okay to resume aspirin and Plavix from surgical standpoint -Patient can be discharged from surgical standpoint Physician Deckhand Clam Dredge note has been reviewed by physician. Signing provider agrees with the documented findings, assessment, and plan of care. Objective - Vital Signs Vital signs: Vital Signs Temp 97.7 F 03/05/22 11:25 Pulse 79 03/05/22 11:54 Resp 20 03/05/22 11:25 BP 99/52 03/05/22 11:25 Pulse Ox 96 03/05/22 11:25 FiO2 Intake & Output 03/04/22 03/05/22 03/05/22 18:59 06:59 18:59 Intake Total 200 1030 Output Total 1400 1700 Balance -1200 -670 Intake: Intake, IV Titration 200 200 Amount Piperacillin-Tazobactam 3 200 200 .375 gm In Sodium Chloride 0.9% 100 ml @ 25 mls/hr IVPB Q8HR [facility] Rx# :[id number] Oral 830 Output: Urine 1400 1700 Other: Voiding Method Indwelling Catheter Indwelling Catheter Indwelling Catheter # Bowel Movements 1 - Labs CBC & Chem 7: 03/03/22 04:39 03/01/22 05:09
--- NOTE | 2022-03-05 15:22 | P.PN ---
Subjective Progress Note Date: 03/04/22 Principal diagnosis: Urinary tract infection and pneumonia Patient is 81-year-old male, presented to hospital on 02/24/2022 for evaluation of increasing shortness of breath and weakness, chest x-ray with bibasilar opacity concerning for possible pneumonia and COPD changes also have a positive UA concerning for UTI with urine did show some Pseudomonas that was resistant to cefepime. On today's evaluation that is 03/04/2022, the patient remains to be afebrile, the patient is breathing comfortably on nasal cannula oxygen, the patient denies having any chest pain , the patient cough has decreased in intensity and not begin any sputum no nausea no vomiting no abdominal pain or diarrhea Objective - Vital Signs Vital signs: Vital Signs Temp 97.8 F 03/04/22 12:29 Pulse 87 03/04/22 12:29 Resp 19 03/04/22 12:29 BP 111/60 03/04/22 12:29 Pulse Ox 97 03/04/22 12:29 FiO2 Intake & Output 03/03/22 03/04/22 03/04/22 18:59 06:59 18:59 Output Total 1701 1801 Balance -1701 -1801 Weight 62.596 kg Output: Urine 1700 1800 Stool 1 1 Other: Voiding Method Indwelling Catheter Indwelling Catheter Indwelling Catheter - Exam GENERAL DESCRIPTION: An elderly male lying in bed in no distress RESPIRATORY SYSTEM: Unlabored breathing , decreased breath sounds at bases HEART: S1 S2 regular rate and rhythm , ABDOMEN: Soft , no tenderness EXTREMITIES: No edema feet - Labs CBC & Chem 7: 03/03/22 04:39 03/01/22 05:09 Assessment and Plan (1) Bilateral pneumonia Status: Acute Code(s): J18.9 - PNEUMONIA, UNSPECIFIED ORGANISM SNOMED Code(s): 052289911 (2) UTI (urinary tract infection) Status: Acute Code(s): N39.0 - URINARY TRACT INFECTION, SITE NOT SPECIFIED SNOMED Code(s): 13652672 Plan: 1patient is in the hospital with weakness and increasing shortness of breath which is multifactorial in this patient with evidence of bibasilar pneumonia however sputum has been negative for any resistant pathogen the patient also have a positive UA concerning for a cath associated UTI with urine culture did show pseudomonas aeruginosa that was resistant to cefepime however sensitive to Zosyn 2- patient slowly clinical improvement and will continue with the Zosyn however repeat sputum as well as urine culture have been negative patient will be able to finish the current course of oral Avelox on discharge Time with Patient: Less than 30
--- NOTE | 2022-03-05 15:23 | P.PN ---
Subjective Progress Note Date: 03/05/22 Principal diagnosis: Urinary tract infection and pneumonia Patient is 81-year-old male, presented to hospital on 02/24/2022 for evaluation of increasing shortness of breath and weakness, chest x-ray with bibasilar opacity concerning for possible pneumonia and COPD changes also have a positive UA concerning for UTI with urine did show some Pseudomonas that was resistant to cefepime. On today's evaluation that is 03/05/2022, the patient continues to be afebrile, the patient is breathing comfortably on nasal cannula oxygen, the patient denies having any chest pain , the patient cough has decreased in intensity and mostly dry in nature, the patient denies having any nausea and vomiting no abdominal pain and no diarrhea Objective - Vital Signs Vital signs: Vital Signs Temp 97.7 F 03/05/22 11:25 Pulse 79 03/05/22 11:54 Resp 20 03/05/22 11:25 BP 99/52 03/05/22 11:25 Pulse Ox 96 03/05/22 11:25 FiO2 Intake & Output 03/04/22 03/05/22 03/05/22 18:59 06:59 18:59 Intake Total 200 1030 Output Total 1400 1700 Balance -1200 -670 Intake: Intake, IV Titration 200 200 Amount Piperacillin-Tazobactam 3 200 200 .375 gm In Sodium Chloride 0.9% 100 ml @ 25 mls/hr IVPB Q8HR [facility] Rx# :[id number] Oral 830 Output: Urine 1400 1700 Other: Voiding Method Indwelling Catheter Indwelling Catheter Indwelling Catheter # Bowel Movements 1 - Exam GENERAL DESCRIPTION: An elderly male lying in bed in no distress RESPIRATORY SYSTEM: Unlabored breathing , decreased breath sounds at bases HEART: S1 S2 regular rate and rhythm , ABDOMEN: Soft , no tenderness EXTREMITIES: No edema feet - Labs CBC & Chem 7: 03/03/22 04:39 03/01/22 05:09 Assessment and Plan (1) Bilateral pneumonia Status: Acute Code(s): J18.9 - PNEUMONIA, UNSPECIFIED ORGANISM SNOMED Code(s): 535123807 (2) UTI (urinary tract infection) Status: Acute Code(s): N39.0 - URINARY TRACT INFECTION, SITE NOT SPECIFIED SNOMED Code(s): 25673483 Plan: 1patient is in the hospital with weakness and increasing shortness of breath which is multifactorial in this patient with evidence of bibasilar pneumonia however sputum has been negative for any resistant pathogen the patient also have a positive UA concerning for a cath associated UTI with urine culture did show pseudomonas aeruginosa that was resistant to cefepime however sensitive to Zosyn 2- patient has shown clinical improvement repeat cultures has been negative he will finish therapy with oral Avelox 400 daily for 7 days and close out patient follow-up Time with Patient: Less than 30
== END 2022-03-05 15:17 | DRG 194 ==
LOC: EC 19:46 → 5NMEDONC 22:00
PROVIDERS: ADMIT Family Medicine; ATTEND Family Medicine
PROC: 30233N1 Transfusion of Nonautologous Red Blood Cells into Peripheral Vein, Percutaneous Approach (ICD-10-PCS; principal; 2022-02-27)
DX: J18.9 Pneumonia, unspecified organism (principal); C78.01 Secondary malignant neoplasm of right lung; E22.2 Syndrome of inappropriate secretion of antidiuretic hormone; K92.1 Melena; N13.6 Pyonephrosis; N17.9 Acute kidney failure, unspecified; J96.11 Chronic respiratory failure with hypoxia; E78.5 Hyperlipidemia, unspecified; I12.9 Hypertensive chronic kidney disease with stage 1 through stage 4 chronic kidney disease, or unspecified chronic kidney disease; I25.10 Atherosclerotic heart disease of native coronary artery without angina pectoris; J43.9 Emphysema, unspecified; K21.9 Gastro-esophageal reflux disease without esophagitis; K29.70 Gastritis, unspecified, without bleeding; K57.90 Diverticulosis of intestine, part unspecified, without perforation or abscess without bleeding; K59.00 Constipation, unspecified; K64.9 Unspecified hemorrhoids; M19.90 Unspecified osteoarthritis, unspecified site; M48.02 Spinal stenosis, cervical region; I65.21 Occlusion and stenosis of right carotid artery; Z99.81 Dependence on supplemental oxygen; I72.0 Aneurysm of carotid artery; D63.8 Anemia in other chronic diseases classified elsewhere; D50.9 Iron deficiency anemia, unspecified; R26.9 Unspecified abnormalities of gait and mobility; B96.5 Pseudomonas (aeruginosa) (mallei) (pseudomallei) as the cause of diseases classified elsewhere; M50.30 Other cervical disc degeneration, unspecified cervical region; N18.2 Chronic kidney disease, stage 2 (mild); Z20.822 Contact with and (suspected) exposure to COVID-19; Z79.02 Long term (current) use of antithrombotics/antiplatelets; Z79.52 Long term (current) use of systemic steroids; Z79.82 Long term (current) use of aspirin; Z79.899 Other long term (current) drug therapy; Z82.49 Family history of ischemic heart disease and other diseases of the circulatory system; Z86.010 Personal history of colon polyps; Z86.73 Personal history of transient ischemic attack (TIA), and cerebral infarction without residual deficits; Z87.440 Personal history of urinary (tract) infections; Z87.891 Personal history of nicotine dependence; Z91.81 History of falling; Z95.1 Presence of aortocoronary bypass graft; Z85.118 Personal history of other malignant neoplasm of bronchus and lung
CPT/HCPCS: 36415; 71045; 71046; 73502; 76770; 80048; 80053; 81001; 82272; 82607; 82728; 82746; 83540; 83550; 83605; 83735; 84145; 84484; 85025; 85027; 85610; 85730; 86140; 86317; 86850; 86900; 86901; 86920; 87040; 87070; 87077; 87086; 87186; 87205; 87449; 87502; 87635; 93005; 94640; 94760; 96365; 96366; 96368; 99285

== ENCOUNTER → 2022-04-21 | Outpatient (CLI) | payer MEDICARE ==
[2022-04-21 18:06] LABS: Reticulocyte % 1.22 % (0.10-1.80)
[2022-04-21 19:08] LABS: Basophils # (A) 0.07 X 10*3/uL (0.00-0.10); Basophils % (A) 0.9 %; Eosinophils # (A) 0.09 X 10*3/uL (0.04-0.35); Eosinophils % (A) 1.2 %; Immature Grans, Automated 0.3 %; Lymphocytes # (A) 1.07 X 10*3/uL (0.90-5.00); Lymphocytes % (A) 13.7 %; Monocytes % (A) 10.2 %; NRBC Per 100 WBC 0 /100 WBCS (0.0-0.0); Neutrophils # (A) 5.76 X 10*3/uL (1.80-7.70); Neutrophils % (A) 73.7 %
[2022-04-21 19:12] LABS: HCT 26.5 % (39.6-50.0); HGB 7.8 g/dL (13.0-17.0); MCH 23.6 pg (27.0-32.0); MCHC 29.4 g/dL (32.0-37.0); MCV 80.3 fL (80.0-97.0); Mean Platelet Volume 9.9 fL (9.5-12.2); Platelet Count 353 X 10*3/uL (140-440); RDW 20.7 % (11.5-14.5); WBC 7.81 X 10*3/uL (4.50-10.00)
[2022-04-21 19:13] LABS: Acanthocytes 2+; Anisocytosis (M) 2+; Elliptocytes 2+; Hypochromasia (M) 2+; Schistocytes 2+
[2022-04-21 22:27] LABS: % Iron Saturation 2.84 (15.00-50.00); Ferritin 15.4 ng/mL (22.0-322.0)
== END | disposition home or self-care (01) ==
LOC: LABWHC1 14:04
PROVIDERS: ATTEND Internal Medicine Critical Care Medicine
DX: D50.9 Iron deficiency anemia, unspecified (principal)
CPT/HCPCS: 36415; 82607; 82728; 82746; 83540; 83550; 85025; 85045

== ENCOUNTER → 2022-05-03 | Outpatient (CLI) | payer MEDICARE ==
[2022-05-03 22:40] LABS: Appearance,Urine Cloudy (Clear); Bilirubin,Urine Negative (Negative); Blood,Urine Negative (Negative); Color,Urine Yellow (Yellow); Ketones,Urine Negative (Negative); Nitrite,Urine Positive (Negative); PH, Urine 5.5 (5.0-8.0); Specific Gravity,Urine 1.014 (1.001-1.030); Urobilinogen,Urine 0.2 (0.2,1.0)
[2022-05-03 23:16] LABS: Bacteria,Urine 3+ /HPF (None Seen)
[2022-05-03 23:49] LABS: HCT 30.8 % (39.6-50.0); HGB 8.7 g/dL (13.0-17.0); MCH 22.7 pg (27.0-32.0); MCHC 28.2 g/dL (32.0-37.0); MCV 80.4 fL (80.0-97.0); Mean Platelet Volume 9.3 fL (9.5-12.2); NRBC Per 100 WBC 0 /100 WBCS (0.0-0.0); Platelet Count 333 X 10*3/uL (140-440); RBC 3.83 X 10*6/uL (4.40-5.60); RDW 22.5 % (11.5-14.5)
[2022-05-04 00:14] LABS: African American GFR (CKD) 80.3 (60.0-200.0); Anion Gap 9.8 mmol/L (10.00-18.00); BUN/Creat Ratio 13.9 Ratio (12.00-20.00); Blood Urea Nitrogen 13.9 mg/dL (9.0-27.0); Calcium 9.8 mg/dL (8.7-10.3); Carbon Dioxide 27.2 mmol/L (20.0-27.5); Non-African American GFR(CKD) 69.3 (60.0-200.0); Potassium 5.1 mmol/L (3.5-5.5)
[2022-05-04 00:47] LABS: Basophils # (A) 0.06 X 10*3/uL (0.00-0.10); Basophils % (A) 0.8 %; Eosinophils # (A) 0.12 X 10*3/uL (0.04-0.35); Eosinophils % (A) 1.5 %; Immature Grans, Automated 0.5 %; Lymphocytes # (A) 1.16 X 10*3/uL (0.90-5.00); Lymphocytes % (A) 14.9 %; Monocytes # (A) 0.78 X 10*3/uL (0.20-1.00); Neutrophils # (A) 5.64 X 10*3/uL (1.80-7.70); Neutrophils % (A) 72.3 %
== END | disposition home or self-care (01) ==
LOC: LABPAT 15:27
PROVIDERS: ATTEND Urology
DX: Z01.818 Encounter for other preprocedural examination (principal); I49.3 Ventricular premature depolarization; N40.1 Benign prostatic hyperplasia with lower urinary tract symptoms; R53.83 Other fatigue
CPT/HCPCS: 80048; 81001; 85025; 87086; 93005

== ENCOUNTER 2022-05-07 10:44 | Day surgery (SDC) | payer MEDICARE ==
--- NOTE | 2022-05-07 07:50 | P.HPIHPCON ---
History of Present Illness H&P Date: 05/07/22 Chief Complaint: BPH, urinary retention This is an 81 yo male with hx of urinary retention he has failed multiple TOV. Underwent Cystoscopy which showed evidence of an obstructive prostate. option of TURP was discussed with him. Discussed risk of surgery which includes but no limited to bleeding, infection, persistent retention, stricture and urinary incontenince. Discussed also given his age and comorbidities he is at higher risk of medical complication which include but not limited to hear attack, blood clots, stroke and even loss of life. He was medically cleared for his surgery by his primary care physician and manager strategic development Consent for Procedure: I have explained the operation/procedure to the patient, including the risks, benefits, side effects, alternative therapies (including not receiving the proposed treatment or service), the likelihood of the patient achieving his/her goals, and potential recuperation problems for the procedure/sedation/analgesia, as well as any blood products, if indicated. I also explained to the patient the risks, benefits and side effects of the alternatives, as well as the risks related to not receiving the proposed procedure, care, treatment, or services. Past Medical History Past Medical History: Coronary Artery Disease (CAD), Cancer, Chest Pain / Angina, COPD, CVA/TIA, Hyperlipidemia, Osteoarthritis (OA) Additional Past Medical History / Comment(s): COPD, "mini stroke 2-3 months ago- "weakness on rt side, some on the left", indwelling catheter. Lung mass under investigation being considered for SB RT History of Any Multi-Drug Resistant Organisms: Other MDRO Past Surgical History: Coronary Bypass/CABG Additional Past Surgical History / Comment(s): 1994 CABG 3 vessel, colonoscopy with benign polypectomy. hoda cataracts Past Anesthesia/Blood Transfusion Reactions: No Reported Reaction Additional Past Anesthesia/Blood Transfusion Reaction / Comment(s): no hx of problems with prior blood transfusions Smoking Status: Former smoker - Past Family History Father Family Medical History: Myocardial Infarction (DE) Additional Family Medical History / Comment(s): Father of a DE in his 60s. Mother Family Medical History: Unable to Obtain Additional Family Medical History / Comment(s): . Medications and Allergies Home Medications Medication Instructions Recorded Confirmed Type Aspirin EC [Ecotrin Low Dose] 81 mg PO DAILY 11/13/18 05/06/22 History Albuterol Sulfate [Proair Hfa] 1 puff INHALATION RT-Q6H PRN 10/15/21 05/06/22 History Fluticasone Propion/Salmeterol 1 puff INHALATION RT-HS 10/15/21 05/06/22 History [Wixela 250-50 Inhub] Atorvastatin [Lipitor] 40 mg PO HS #30 tab 10/22/21 05/06/22 Rx Clopidogrel [Plavix] 75 mg PO DAILY #30 tab 10/22/21 05/06/22 Rx Folic Acid 1 mg PO DAILY tab 10/22/21 05/06/22 Rx Pantoprazole [Protonix] 40 mg PO AC-BRKFST #30 tab 10/22/21 05/06/22 Rx Finasteride [Proscar] 5 mg PO QAM 12/24/21 05/06/22 History guaiFENesin [Mucinex] 600 mg PO Q8HR PRN tab 12/31/21 05/06/22 Rx Ipratropium-Albuterol Nebulize 3 ml INHALATION RT-QID PRN 01/23/22 05/06/22 History [Duoneb 0.5 mg-3 mg/3 ml Soln] Tiotropium [place] [Spiriva 1 puff INHALATION RT-HS 02/24/22 05/06/22 History Handihaler] Ferrous Sulfate [Iron (65 MG 325 mg PO BID-W/MEALS #0 tab 03/04/22 05/06/22 Rx Elemental)] Ascorbic Acid [Vitamin C] 500 mg PO DAILY 05/06/22 05/06/22 History Sulfamethox-Tmp 800-160Mg [Bactrim 1 tab PO Q12HR 05/06/22 05/06/22 History DS 800-160 mg] amLODIPine [Norvasc] 5 mg PO DAILY PRN 05/06/22 05/06/22 History Allergies Allergy/AdvReac Type Severity Reaction Status Date / Time No Known Allergies Allergy Verified 04/19/22 08:56 Surgical - Exam - General no distress, no pain - Respiratory normal expansion, normal respiratory effort - Abdomen Abdomen: soft, non tender Assessment and Plan Assessment: OR for TURP
[~2022-05-07 10:44] MED LIST: DEXAMETHASONE SOD PHOSPHATE 4 MG/ML 1 ML VIAL IV ONE; GENTAMICIN 100 MG in SODIUM CHLORIDE 0.9% 100 ML IVPB PRN; HYDROmorphone 0.5 MG/0.5 ML SYRINGE IVP PRN; LACTATED RINGERS 1,000 ML IV SCH; MIDAZOLAM 2 MG/2 ML VIAL IV PRN; ONDANSETRON 4 MG/2 ML VIAL IVP ONE
[2022-05-07] MEDS ORDERED: fentaNYL (PF) 50 MCG/ML 2 ML AMP ONE (12:40)
[2022-05-07] MEDS ORDERED: PHENYLEPHRINE-0.9% NACL SYG 1,000 MCG/10 ML SYRINGE ONE (12:40)
--- NOTE | 2022-05-07 13:08 | P.ANPRN ---
Procedure Note - Anesthesia - Epidural/Spinal Spinal Date of Procedure: 05/07/22 Procedure Start Time: 12:48 Procedure Stop Time: 12:52 Location of Patient: OR Indication: Analgesia, Requested by Surgeon Sedation Type: Sedate with meaningful contact maintained Preparation: Sterile Prep Number of Attempts: 1 Position: Sitting Needle Guage: 25 Narrative: Sterile technique, iodine skin prep, 25g with introducer needle entered L4/L5 interspinus space and advanced until CSF return. 1.5mL 0.75% bupi with dextrose injected. patient tolerated procedure well Blood Aspirated: No Pain Paresthesia on Injection Noted: No Events: Uneventful and Well Tolerated
[2022-05-07 14:16] VITALS: TEMP 98.4
--- NOTE | 2022-05-07 15:43 | P.OP ---
Date of Procedure: 05/07/22 Preoperative Diagnosis: BPH, urinary retention Postoperative Diagnosis: same Procedure(s) Performed: cystoscopy, Turp( bipolar) Implants: none Anesthesia: DANKA Surgeon: David Vickers Estimated Blood Loss (ml): 75 Pathology: other (Prostate adenoma) Condition: stable Disposition: PACU Indications for Procedure: This is an 81 yo male with hx of urinary retention he has failed multiple TOV. Underwent Cystoscopy which showed evidence of an obstructive prostate. option of TURP was discussed with him. Discussed risk of surgery which includes but no limited to bleeding, infection, persistent retention, stricture and urinary incontenince. Discussed also given his age and comorbidities he is at higher risk of medical complication which include but not limited to hear attack, blood clots, stroke and even loss of life. He was medically cleared for his surgery by his primary care physician and purler Operative Findings: Trilobar hyperplasia Description of Procedure: Patient brought to the operating room, general anesthesia was induced. He was prepped and draped in sterile fashion and placed in dorsal lithotomy position. Resectoscope fitted with a 25-[place] sheath was inserted per urethra, cystoscopy was performed which showed a heavily trabeculated bladder, there was evidence of trilobar hyperplasia, and completely occlusive prostate. Using the bipolar resectoscope loop the prostate adenoma was resected down to the surgical capsule, initially starting with the left lateral lobe then carried to the median lobe of the right lateral lobe. The area of resection was thoroughly f ulgurated. Next the prostate chips were irrigated out using the Ellik evacuator. Repeat cystoscopy showed no evidence of bleeding within the prostatic fossa, or any additional prostate chips. Of note the prostatic fossa was wide open, there was no injury to the ureteral orifice or the external sphincter. The resectoscope was removed and a 22-[place] Paige was placed with return of clear urine. The balloon was inflated to 30 mL. Patient tolerated the procedure well was taken to recovery in stable condition
[2022-05-07 16:01] VITALS: BP 129/58; PULSE 74; RESP 17
== END 2022-05-07 16:30 | disposition home or self-care (01) ==
LOC: OR 10:44
PROVIDERS: ATTEND Urology
DX: N40.1 Benign prostatic hyperplasia with lower urinary tract symptoms (principal); R33.8 Other retention of urine; N32.89 Other specified disorders of bladder; I25.119 Atherosclerotic heart disease of native coronary artery with unspecified angina pectoris; Z95.1 Presence of aortocoronary bypass graft; J44.9 Chronic obstructive pulmonary disease, unspecified; Z87.891 Personal history of nicotine dependence; I63.9 Cerebral infarction, unspecified; E78.5 Hyperlipidemia, unspecified; M19.90 Unspecified osteoarthritis, unspecified site; Z16.24 Resistance to multiple antibiotics; Z98.890 Other specified postprocedural states; Z82.49 Family history of ischemic heart disease and other diseases of the circulatory system; Z79.82 Long term (current) use of aspirin; Z79.02 Long term (current) use of antithrombotics/antiplatelets; Z79.899 Other long term (current) drug therapy
CPT/HCPCS: 52601; 62322; 84132; J1100; J0690; J2405; J3010; J1580; J2370; 88305

== ENCOUNTER → 2022-06-07 | Outpatient (CLI) | payer MEDICARE ==
--- NOTE | 2022-06-07 15:56 | CT ---
EXAMINATION TYPE: CT chest wo con DATE OF EXAM: 06/07/2022 COMPARISON: Prior CT December 25, 2021. Prior PET/CT January 15, 2022 HISTORY: MALIGNANT NEOPLASM OF LOWER LOBE CT DLP: 267.0 mGycm. Automated Exposure Control for Dose Reduction was Utilized. TECHNIQUE: CT scan of the thorax is performed without IV contrast. FINDINGS: LUNGS: Moderate to advanced underlying emphysematous change is redemonstrated. Persistent spiculated 2.8 x 2.1 cm nodule in the anterior right mid lung with central calcification corresponding to hyperm etabolic lesion or malignancy axial image 34 is not significantly changed from most recent CT in the size or appearance. There is however enlargement of the 1.2 x 1.1 cm left lower lobe nodule axial marce ge [address] and PET/CT. Mild to moderate bibasilar linear scarring and/or atelectasis w ith more prominent nodular thickening along the right lung fissure axial image 43 corresponds to sagi ttal image 18 should be closely followed possibly elongated consolidation. No pleural effusion or pne umothorax seen bilaterally. There is an enlarging 8 mm right lower lobe nodule axial image 54. Tiny c alcified 3 mm left mid lung nodule axial image 32 redemonstrated. MEDIASTINUM: Lack of IV contrast is noted to limit evaluation for mediastinal and especially hilar ad enopathy. There are no definitive new greater than 1 cm noncalcified mediastinal lymph nodes. Promine nt calcified anterior superior right hilar lymph nodes are redemonstrated . No cardiomegaly or peric ardial effusion is seen. Post-CABG changes with sternal wires and mediastinal clips is redemonstrated . OTHER: Calcifications or clips in the upper abdomen are again seen. IMPRESSION: Overall neoplastic progression with enlarging bilateral noncalcified pulmonary nodules no jeremias.
== END | disposition home or self-care (01) ==
LOC: RADCTMAIN 14:04
PROVIDERS: ATTEND Radiology Radiation Oncology
DX: C34.31 Malignant neoplasm of lower lobe, right bronchus or lung (principal); R91.8 Other nonspecific abnormal finding of lung field
CPT/HCPCS: 71250

== ENCOUNTER → 2022-08-26 | Outpatient (CLI) | payer MEDICARE ==
--- NOTE | 2022-08-26 10:06 | CT ---
EXAMINATION TYPE: CT chest wo con CT DLP: 179.5 mGycm, Automated exposure control for dose reduction was used. DATE OF EXAM: 08/26/2022 9:30 AM COMPARISON: PET/CT 07/30/2022, CT chest 06/07/22 CLINICAL INDICATION:Male, 82 years old with history of R91.8 abnormal finding lung field; PHH, Lung cancer TECHNIQUE: Multiple axial images were obtained through the chest without IV contrast. Lack of IV or o ral contrast limits evaluation of solid and hollow organ viscera. FINDINGS: LUNGS/ PLEURA: Moderate to advanced underlying emphysematous change redemonstrated. Relatively stabl e persistent spiculated 3.1 x 2.4 cm nodule within the anterior right midlung with central calcificat ion corresponding to recent CT demonstrated FDG avid lesion. Similar scattered right mid and lower jordon ng consolidative opacities. Stable right lower lobe 9 mm pulmonary nodule (series 4, image 57). Redem onstration of masslike consolidation within the left lower lobe measuring grossly 8.5 x 4.0 cm with d ecreased surrounding opacities from prior exam. Small left pleural effusion. No pneumothorax. Stable tiny calcific 3 mm left midlung nodule. AIRWAY: Patent and unremarkable.. HEART: Size within normal limits. No pericardial effusion. MEDIASTINUM: Limited evaluation due to lack of intravenous contrast for adenopathy. Prominent calcifi ed anterior superior right hilar lymph nodes redemonstrated. Post CABG changes. Coronary artery calci fications and/or stents. VASCULATURE: No aortic aneurysm. Atherosclerotic calcification of the aorta and its branches. MUSCULOSKELETAL: No acute osseous abnormalities. Median sternotomy wires. No aggressive osseous lesio n. SOFT TISSUES/LYMPH NODES: Unremarkable. LOWER NECK: No significant findings. UPPER ABDOMEN: No significant findings. IMPRESSION: 1. Similar right upper lobe spiculated nodule with redemonstration of scattered regions of peripheral consolidation throughout the right mid and lower lung and masslike consolidation within the left low er lung. Decreased left lower lung patchy airspace opacities from prior examination. Stable right low er lung pulmonary nodule. These consolidative opacities may represent metastasis versus infectious/in flammatory process. Continued follow-up is recommended. 2. Small left pleural effusion redemonstrated.
== END | disposition home or self-care (01) ==
LOC: RADCTMAIN 09:08
PROVIDERS: ATTEND Radiology Radiation Oncology
DX: C34.31 Malignant neoplasm of lower lobe, right bronchus or lung (principal); J90 Pleural effusion, not elsewhere classified; R91.8 Other nonspecific abnormal finding of lung field
CPT/HCPCS: 71250

== ENCOUNTER 2022-09-05 16:21 | Inpatient (IN) | payer MEDICARE ==
[2022-09-05] MEDS ORDERED: SODIUM CHLORIDE 0.9% 500 ML 500 ML IV STA (16:39)
[2022-09-05] MEDS ORDERED: IPRATROPIUM 0.5 MG/2.5 ML NEBU INHALATION STA (16:39)
[2022-09-05] MEDS ORDERED: MAGNESIUM SULFATE-D5W PMX 1 GM in DEXTROSE/WATER 1 100ML.BAG IVPB STA (16:39)
[2022-09-05] MEDS ORDERED: methylPREDNISolone SOD SUCCI 125 MG/2 ML VIAL IV STA (16:39)
[2022-09-05] MEDS ORDERED: ACETAMINOPHEN TAB 500 MG TAB PO STA (17:02)
--- NOTE | 2022-09-05 17:09 | ED ---
General Adult HPI - General Chief complaint: Shortness of Breath Stated complaint: COPD Time Seen by Provider: 09/05/22 16:30 Source: patient, RN notes reviewed, old records reviewed Mode of arrival: ambulatory Limitations: no limitations - History of Present Illness Initial comments: Patient is an 82-year-old male with past medical history remarkable for COPD on baseline 3 L nasal cannula at home, one cancer status post radiation, cardiac bypass, CAD, presents emergency Department complaining of a one-week history of worsening upper respiratory infectious symptoms. States she has been coughing a lot for the last week or so. Has no serious any productive cough of yellowish- green sputum. Seems to be getting worse and he is short of breath because of it. Believes his COPD is flaring up as well. Endorses bilateral rib pain that is worse with coughing. Denies any other seema chest pain. Denies any nausea or vomiting. Denies any diarrhea. Endorses that he may have a low-grade fever but he has not checked. Denies any nausea or vomiting. Denies any diarrhea. Denies any abdominal pain. Has been using updrafts at home in his normal i nhalers without much improvement. Presents for further evaluation at this time over concern for infection. - Related Data Home Medications Medication Instructions Recorded Confirmed Aspirin EC [Ecotrin Low Dose] 81 mg PO HS 11/13/18 09/05/22 Albuterol Sulfate [Proair Hfa] 2 puff INHALATION RT-Q6H PRN 10/15/21 09/05/22 Fluticasone Propion/Salmeterol 1 puff INHALATION RT-BID 10/15/21 09/05/22 [Wixela 250-50 Inhub] Finasteride [Proscar] 5 mg PO HS 12/24/21 09/05/22 Albuterol Nebulized [Ventolin 2.5 mg INHALATION RT-Q4H PRN 09/05/22 09/05/22 Nebulized] Pantoprazole [Protonix] 40 mg PO HS 09/05/22 09/05/22 Rosuvastatin Calcium 5 mg PO DAILY 09/05/22 09/05/22 Tiotropium 2.5 Mcg/Puff [Spiriva 2 puff INHALATION RT-DAILY 09/05/22 09/05/22 Respimat 2.5 Mcg] Previous Rx's Medication Instructions Recorded Atorvastatin [Lipitor] 40 mg PO HS #30 tab 10/22/21 Clopidogrel [Plavix] 75 mg PO DAILY #30 tab 10/22/21 Folic Acid 1 mg PO DAILY tab 10/22/21 Allergies Allergy/AdvReac Type Severity Reaction Status Date / Time No Known Allergies Allergy Verified 09/05/22 18:46 Review of Systems ROS Statement: Those systems with pertinent positive or pertinent negative responses have been documented in the HPI. Review of Systems: CONST: Denies fever EYES: Denies blurry vision ENT: Endorses nasal congestion C/V: Denies Chest pain RESP: Endorses dyspnea, productive cough GI: Denies abdominal pain : Denies dysuria SKIN: Denies rash. MSK: Denies joint pain. NEURO: Denies headache ROS Other: All systems not noted in ROS Statement are negative. Past Medical History Past Medical History: Coronary Artery Disease (CAD), Cancer, Chest Pain / Angina, COPD, CVA/TIA, Hyperlipidemia, Osteoarthritis (OA) Additional Past Medical History / Comment(s): COPD, "mini stroke 2-3 months ago- "weakness on rt side, some on the left", indwelling catheter. Lung mass under investigation being considered for SB RT History of Any Multi-Drug Resistant Organisms: Other MDRO Past Surgical History: Coronary Bypass/CABG Additional Past Surgical History / Comment(s): 1994 CABG 3 vessel, colonoscopy with benign polypectomy. hoda cataracts Past Anesthesia/Blood Transfusion Reactions: No Reported Reaction Additional Past Anesthesia/Blood Transfusion Reaction / Comment(s): no hx of problems with prior blood transfusions Past Psychological History: No Psychological Hx Reported Smoking Status: Former smoker Past Alcohol Use History: None Reported Past Drug Use History: None Reported - Past Family History Father Family Medical History: Myocardial Infarction (HI) Additional Family Medical History / Comment(s): Father of a HI in his 60s. Mother Family Medical History: Unable to Obtain Additional Family Medical History / Comment(s): . General Exam - General Exam Comments Initial Comments: General: Appears in no acute distress. Afebrile HEAD: Normal with no signs of head trauma. EYES: PERRLA, EOMI, conjunctiva normal, no discharge. ENT: Hearing grossly intact, normal oropharynx. RESPIRATORY: Hypoxic on room air which is typical for the patient, when placed on 3 L nasal cannula hypoxia resolves. Mild increased work of breathing. Diminished breath sounds bilaterally with end expiratory wheezing. Productive cough of a yellowish green sputum. C/V: Regular rate and rhythm. S1 and S2 auscultated, no edema, peripheral pulses 2+ and intact throughout ABD: Abd is soft, nontender, nondistended EXT: Normal range of motion, no obvious deformity SKIN: No rashes or lesions observed on exposed skin. NEURO: Alert and oriented 4. Limitations: no limitations Course Vital Signs 09/05/22 09/05/22 09/05/22 16:25 16:27 16:54 Temperature 99 F Pulse Rate 106 H 94 Respiratory 24 22 Rate Blood Pressure 124/70 O2 Sat by Pulse 88 L Oximetry 09/05/22 09/05/22 17:05 19:00 Temperature 98.6 F Pulse Rate 96 77 Respiratory 18 Rate Blood Pressure 115/63 O2 Sat by Pulse 95 Oximetry Medical Decision Making - Medical Decision Making Was pt. sent in by a medical professional or institution (, PA, CONDENSER TESTER, urgent care, hospital, or correction...) When possible be specific @ -No Did you speak to anyone other than the patient for history (EMS, parent, family, police, friend...)? What history was obtained from this source @ -No Did you review nursing and triage notes (agree or disagree)? Why? @ -I reviewed and agree with nursing and triage notes Were old charts reviewed (outside hosp., previous admission, EMS record, old EKG, old radiological studies, urgent care reports/EKG's, correction records)? Report findings @ -Recent chest CT from 08/26/2022 reviewed as well as documents from February 2022. Differential Diagnosis (chest pain, altered mental status, abdominal pain women, abdominal pain men, vaginal bleeding, weakness, fever, dyspnea, syncope, headache, dizziness, GI bleed, back pain, seizure, CVA, palpatations, mental health, musculoskeletal)? @ -Infectious process, COPD, lung cancer, ACS, viral syndrome. This list is not all-inclusive. EKG interpreted by me (3pts min.). @ -As above X-rays interpreted by me (1pt min.). @ -Chest x-ray when compared with previous show what appears to be worsening bilateral infiltrates, with a productive cough that is concerning for pneumonia. CT interpreted by me (1pt min.). @ -None done U/S interpreted by me (1pt. min.). @ -None done What testing was considered but not performed or refused? (CT, X-rays, U/S, labs)? Why? @ -None What meds were considered but not given or refused? Why? @ -None Did you discuss the management of the patient with other professionals (professionals i.e. Dr., PA, CONDENSER TESTER, lab, RT, psych nurse, marriage and family social worker, small piece cutter, teacher, loss prevention officer, clinical case manager)? Give summary @ -No Was smoking cessation discussed for >3mins.? @ -No Was critical care preformed (if so, how long)? @ -No Were there social determinants of health that impacted care today? How? (Ho melessness, low income, unemployed, alcoholism, drug addiction, transportation, low edu. Level, literacy, decrease access to med. care, usp, rehab)? @ -No Was there de-escalation of care discussed even if they declined (Discuss DNR or withdrawal of care, Hospice)? DNR status @ -No What co-morbidities impacted this encounter? (DM, HTN, Smoking, COPD, CAD, Cancer, CVA, ARF, Chemo, Hep., AIDS, mental health diagnosis, sleep apnea, morbid obesity)? @ -COPD, lung cancer Was patient admitted / discharged? Hospital course, mention meds given and route, prescriptions, significant lab abnormalities, going to OR and other pertinent info. @ -Based on the patient's presentation and physical exam, I'm concerned for upper respiratory infection for the patient's recurrent symptoms. However we will obtain cardiopulmonary labs, chest x-ray, EKG. He is non-hypoxic on his normal 3 L nasal cannula, but does have very mild end expiratory phase his breathing. On exam it does appear that he is having a COPD component to his current symptoms as well as 19 will be treated with IV steroids as well as breathing treatments, DuoNeb. Viral labs will be obtained. Vital signs otherwise within acceptable limits. Patient was in agreement this plan. CT chest obtained approximate 10 days ago revealed a right upper lobe nodule as well as scattered regions of consolidation throughout the bilateral lower lungs which represent metastases versus possible infectious or inflammatory process. There is also a small left pleural effusion. These findings were seen on prior imaging. Chest x-ray today does show some redemonstration of the infiltrates but they do his appear to be somewhat worse. Concerning for pneumonia. EKG showed no signs of acute ischemia. Labs remarkable for his chronic anemia, nondetectable, troponin, normal BNP. Patient's Covid, flu, RSV negative. On reevaluation, patient is resting more comfortably at this time. Wheezing is improved. However due to his history, as well as his chest x-ray findings, and the amount of work of breathing he had upon presentation I did recommend we admit him for IV antibiotics at this time. Pulmonology, team to evaluate him as well. He was in agreement this plan. We will continue COPD treatment with steroids as well as DuoNeb breathing treatments. Patiently started on antibiotics, azithromycin as well as Rocephin for pneumonia. He was in agreement with this plan. Pulmonology was consulted. I spoke with the admitting physician, Dr. Joaquin who accepted the patient. as [facility] is covering for Dr. Puente. Undiagnosed new problem with uncertain prognosis? @ -No Drug Therapy requiring intensive monitoring for toxicity (Heparin, Nitro, Insulin, Cardizem)? @ -No Were any procedures done? @ -No Diagnosis/symptom? @ -COPD With chronic hypoxic respiratory failure. Acute, or Chronic, or Acute on Chronic? @ -acute on chronic Uncomplicated (without systemic symptoms) or Complicated (systemic symptoms)? @ -Complicated Side effects of treatment? @ -No Exacerbation, Progression, or Severe Exacerbation? @ -No Poses a threat to life or bodily function? How? (Chest pain, [place], HI, pneumonia, PE, COPD, DKA, ARF, appy, cholecystitis, CVA, Diverticulitis, Homicidal, Suicidal, threat to staff... and all critical care pts) @ -Yes, if untreated resolved and hypoxia which can result in significant morbidity or mortality Diagnosis/symptom? @ -Pneumonia Acute, or Chronic, or Acute on Chronic? @ -Acute Uncomplicated (without systemic symptoms) or Complicated (systemic symptoms)? @ -complicated Side effects of treatment? @ -none Exacerbation, Progression, or Severe Exacerbation] @ -no Poses a threat to life or bodily function? @ -yes - Lab Data Result diagrams: 09/05/22 16:47 09/05/22 16:47 Lab Results 09/05/22 09/05/22 09/05/22 Range/Units 16:47 16:47 16:47 WBC 10.4 (3.8-10.6) k/uL RBC 3.56 L (4.30-5.90) m/uL Hgb 11.3 L (13.0-17.5) gm/dL Hct 34.1 L (39.0-53.0) % MCV 95.7 (80.0-100.0) fL MCH 31.7 (25.0-35.0) pg MCHC 33.1 (31.0-37.0) g/dL RDW 16.4 H (11.5-15.5) % Plt Count 355 (150-450) k/uL MPV 7.4 Neutrophils % 82 % Lymphocytes % 7 % Monocytes % 8 % Eosinophils % 1 % Basophils % 0 % Neutrophils # 8.6 H (1.3-7.7) k/uL Lymphocytes # 0.8 L (1.0-4.8) k/uL Monocytes # 0.8 (0-1.0) k/uL Eosinophils # 0.1 (0-0.7) k/uL Basophils # 0.0 (0-0.2) k/uL Anisocytosis Slight PT 11.7 (9.0-12.0) sec INR 1.1 (<1.2) APTT 21.7 L (22.0-30.0) sec VBG pH (7.31-7.41) VBG pCO2 (37-51) mmHg VBG HCO3 (24-28) mmol/L Sodium 133 L (137-145) mmol/L Potassium 4.8 (3.5-5.1) mmol/L Chloride 99 (98-107) mmol/L Carbon Dioxide 28 (22-30) mmol/L Anion Gap 6 mmol/L BUN 15 (9-20) mg/dL Creatinine 0.69 (0.66-1.25) mg/dL Est GFR (CKD-EPI)AfAm >90 (>60 ml/min/1.73 sqM) Est GFR (CKD-EPI)NonAf 87 (>60 ml/min/1.73 sqM) Glucose 99 (74-99) mg/dL Plasma Lactic Acid Mele (0.7-2.0) mmol/L Calcium 8.8 (8.4-10.2) mg/dL Magnesium 1.8 (1.6-2.3) mg/dL Total Bilirubin 0.6 (0.2-1.3) mg/dL AST 29 (17-59) U/L ALT 22 (4-49) U/L Alkaline Phosphatase 94 (38-126) U/L Troponin I (0.000-0.034) ng/mL NT-Pro-B Natriuret Pep pg/mL Total Protein 6.0 L (6.3-8.2) g/dL Albumin 3.2 L (3.5-5.0) g/dL Influenza Type A (PCR) (Not Detectd) Influenza Type B (PCR) (Not Detectd) RSV (PCR) (Not Detectd) SARS-CoV-2 (PCR) (Not Detectd) 09/05/22 09/05/22 09/05/22 Range/Units 16:47 16:47 16:47 WBC (3.8-10.6) k/uL RBC (4.30-5.90) m/uL Hgb (13.0-17.5) gm/dL Hct (39.0-53.0) % MCV (80.0-100.0) fL MCH (25.0-35.0) pg MCHC (31.0-37.0) g/dL RDW (11.5-15.5) % Plt Count (150-450) k/uL MPV Neutrophils % % Lymphocytes % % Monocytes % % Eosinophils % % Basophils % % Neutrophils # (1.3-7.7) k/uL Lymphocytes # (1.0-4.8) k/uL Monocytes # (0-1.0) k/uL Eosinophils # (0-0.7) k/uL Basophils # (0-0.2) k/uL Anisocytosis PT (9.0-12.0) sec INR (<1.2) APTT (22.0-30.0) sec VBG pH (7.31-7.41) VBG pCO2 (37-51) mmHg VBG HCO3 (24-28) mmol/L Sodium (137-145) mmol/L Potassium (3.5-5.1) mmol/L Chloride (98-107) mmol/L Carbon Dioxide (22-30) mmol/L Anion Gap mmol/L BUN (9-20) mg/dL Creatinine (0.66-1.25) mg/dL Est GFR (CKD-EPI)AfAm (>60 ml/min/1.73 sqM) Est GFR (CKD-EPI)NonAf (>60 ml/min/1.73 sqM) Glucose (74-99) mg/dL Plasma Lactic Acid Mele 1.0 (0.7-2.0) mmol/L Calcium (8.4-10.2) mg/dL Magnesium (1.6-2.3) mg/dL Total Bilirubin (0.2-1.3) mg/dL AST (17-59) U/L ALT (4-49) U/L Alkaline Phosphatase (38-126) U/L Troponin I <0.012 (0.000-0.034) ng/mL NT-Pro-B Natriuret Pep 577 pg/mL Total Protein (6.3-8.2) g/dL Albumin (3.5-5.0) g/dL Influenza Type A (PCR) (Not Detectd) Influenza Type B (PCR) (Not Detectd) RSV (PCR) (Not Detectd) SARS-CoV-2 (PCR) (Not Detectd) 09/05/22 09/05/22 Range/Units 16:47 16:47 WBC (3.8-10.6) k/uL RBC (4.30-5.90) m/uL Hgb (13.0-17.5) gm/dL Hct (39.0-53.0) % MCV (80.0-100.0) fL MCH (25.0-35.0) pg MCHC (31.0-37.0) g/dL RDW (11.5-15.5) % Plt Count (150-450) k/uL MPV Neutrophils % % Lymphocytes % % Monocytes % % Eosinophils % % Basophils % % Neutrophils # (1.3-7.7) k/uL Lymphocytes # (1.0-4.8) k/uL Monocytes # (0-1.0) k/uL Eosinophils # (0-0.7) k/uL Basophils # (0-0.2) k/uL Anisocytosis PT (9.0-12.0) sec INR (<1.2) APTT (22.0-30.0) sec VBG pH 7.41 (7.31-7.41) VBG pCO2 40 (37-51) mmHg VBG HCO3 25 (24-28) mmol/L Sodium (137-145) mmol/L Potassium (3.5-5.1) mmol/L Chloride (98-107) mmol/L Carbon Dioxide (22-30) mmol/L Anion Gap mmol/L BUN (9-20) mg/dL Creatinine (0.66-1.25) mg/dL Est GFR (CKD-EPI)AfAm (>60 ml/min/1.73 sqM) Est GFR (CKD-EPI)NonAf (>60 ml/min/1.73 sqM) Glucose (74-99) mg/dL Plasma Lactic Acid Mele (0.7-2.0) mmol/L Calcium (8.4-10.2) mg/dL Magnesium (1.6-2.3) mg/dL Total Bilirubin (0.2-1.3) mg/dL AST (17-59) U/L ALT (4-49) U/L Alkaline Phosphatase (38-126) U/L Troponin I (0.000-0.034) ng/mL NT-Pro-B Natriuret Pep pg/mL Total Protein (6.3-8.2) g/dL Albumin (3.5-5.0) g/dL Influenza Type A (PCR) Not Detected (Not Detectd) Influenza Type B (PCR) Not Detected (Not Detectd) RSV (PCR) Not Detected (Not Detectd) SARS-CoV-2 (PCR) Not Detected (Not Detectd) - EKG Data -: EKG Interpreted by Me EKG Comments: 12-lead Electrocardiogram Interpretation Note EKG was reviewed and interpreted by myself. 12-lead ECG performed at 1643 is interpreted by me as revealing normal sinus rhythm at a rate of 91 beats per minute. [place] is normal. NM interval is 134 ms, QRS duration is 94 ms, QTc is 395 ms.. There were no acute ST or T wave abnormalities to suggest myocardial ischemia or injury. R wave progression across the precordium was satisfactory. By my interpretation this EKG is non-diagnostic for acute ischemia. When compared with EKG from February 2022, no significant change. Disposition Clinical Impression: COPD (chronic obstructive pulmonary disease), Pneumonia, Chronic respiratory failure with hypoxia Disposition: ADMITTED IP TO THIS HOSP Condition: Stable Time of Disposition: 18:00
[2022-09-05 17:26] LABS: Anisocytosis Slight; Basophils % (A) 0 %; Eosinophils # (A) 0.1 k/uL (0-0.7); Eosinophils % (A) 1 %; HCT 34.1 % (39.0-53.0); HGB 11.3 gm/dL (13.0-17.5); Lymphocytes # (A) 0.8 k/uL (1.0-4.8); Lymphocytes % (A) 7 %; MCH 31.7 pg (25.0-35.0); MCHC 33.1 g/dL (31.0-37.0); MCV 95.7 fL (80.0-100.0); Mean Platelet Volume 7.4; Monocytes # (A) 0.8 k/uL (0-1.0); Monocytes % (A) 8 %; Neutrophils # (A) 8.6 k/uL (1.3-7.7); Neutrophils % (A) 82 %; Platelet Count 355 k/uL (150-450); RBC 3.56 m/uL (4.30-5.90); RDW 16.4 % (11.5-15.5); WBC 10.4 k/uL (3.8-10.6)
--- NOTE | 2022-09-05 17:26 | XR ---
EXAMINATION TYPE: XR chest 2V DATE OF EXAM: 09/05/2022 COMPARISON: 03/04/2022 HISTORY: Shortness of breath and lung cancer TECHNIQUE: Frontal and lateral views of the chest are obtained. FINDINGS: There are median sternotomy wires. The heart size normal. There is diffuse interstitial opacity and mild hyperinflation lungs consistent with COPD. There are bilateral partially consolidative lower lobe infiltrates and small bilateral pleural effusi ons. The osseous structures are intact IMPRESSION: 1. Bilateral lower lobe partially consolidative lung infiltrates with small bilateral pleural effusio ns. Findings consistent with an acute cardiopulmonary process, likely bilateral pneumonia. 2. Diffuse interstitial changes with hyperinflation consistent with COPD.
[2022-09-05 17:34] LABS: VBG PH 7.41 (7.31-7.41)
[2022-09-05 17:37] LABS: ALT 22 U/L (4-49); AST 29 U/L (17-59); African American GFR (CKD) >90 (>60 ml/min/1.73 sqM); Albumin 3.2 g/dL (3.5-5.0); Alkaline Phosphatase 94 U/L (38-126); Anion Gap 6 mmol/L; Blood Urea Nitrogen 15 mg/dL (9-20); Calcium 8.8 mg/dL (8.4-10.2); Carbon Dioxide 28 mmol/L (22-30); Chloride 99 mmol/L (98-107); Glucose 99 mg/dL (74-99); Magnesium 1.8 mg/dL (1.6-2.3); Non-African American GFR(CKD) 87 (>60 ml/min/1.73 sqM); Potassium 4.8 mmol/L (3.5-5.1); Sodium 133 mmol/L (137-145); Total Bilirubin 0.6 mg/dL (0.2-1.3)
[2022-09-05 18:07] LABS: INR 1.1 (<1.2)
[2022-09-05 18:08] LABS: Prothrombin Time 11.7 sec (9.0-12.0)
[2022-09-05 18:10] LABS: Partial Thromboplastin Time 21.7 sec (22.0-30.0)
[2022-09-05] MEDS ORDERED: NALOXONE 0.4 MG/ML 1 ML VIAL IV PRN (18:10)
[2022-09-05] MEDS ORDERED: PNEUMONIA PROTOCOL UTILIZED 1 EACH MISC PO PRN (18:13)
[2022-09-05] MEDS ORDERED: AZITHROMYCIN 500 MG in SODIUM CHLORIDE 0.9% 250 ML IVPB STA (18:13)
[2022-09-05] MEDS ORDERED: IPRATROPIUM-ALBUTEROL 3 ML NEB INHALATION PRN (19:08)
[2022-09-05] MEDS ORDERED: IPRATROPIUM-ALBUTEROL 3 ML NEB INHALATION SCH ×2 (20:00)
[2022-09-05] MEDS: HEPARIN SODIUM,PORCINE/PF 5,000 UNIT/0.5 ML SYRINGE SQ SCH (20:54)
[2022-09-06] MEDS ORDERED: IPRATROPIUM 0.5 MG/2.5 ML NEBU INHALATION PRN (00:09)
[2022-09-06] MEDS ORDERED: ALBUTEROL NEBULIZED 2.5 MG/3 ML INHALATION PRN (00:09)
[2022-09-06 06:23] LABS: Appearance,Urine Clear (Clear); Bilirubin,Urine Negative (Negative); Blood,Urine Negative (Negative); Color,Urine Light Yellow; Glucose,Urine (UA) Negative (Negative); Ketones,Urine Negative (Negative); Leukocyte Esterase,Urine Negative (Negative); Nitrite,Urine Negative (Negative); PH, Urine 5.5 (5.0-8.0); Protein,Urine Negative (Negative); Specific Gravity,Urine 1.008 (1.001-1.035); Urobilinogen,Urine <2.0 mg/dL (<2.0)
[2022-09-06] MEDS ORDERED: NON FORMULARY DRUG (Tiotropium 2.5 Mcg/Puff 10 PUFF Each) INHALATION SCH (08:00)
[2022-09-06] MEDS ORDERED: methylPREDNISolone SOD SUCCI 40 MG/ML 1 ML VIAL IV SCH (09:00)
[2022-09-06] MEDS: ALBUTEROL NEBULIZED 2.5 MG/3 ML INHALATION SCH ×4 (09:58→20:38)
[2022-09-06] MEDS: SYMBICORT 80-4.5 MCG INHALER INHALATION SCH ×2 (09:58→20:39)
[2022-09-06] MEDS: IPRATROPIUM 0.5 MG/2.5 ML NEBU INHALATION SCH ×4 (09:59→20:38)
[2022-09-06] MEDS: ATORVASTATIN 10 MG TAB PO SCH (10:27)
[2022-09-06] MEDS: HEPARIN SODIUM,PORCINE/PF 5,000 UNIT/0.5 ML SYRINGE SQ SCH ×2 (10:28→20:56)
[2022-09-06] MEDS: CLOPIDOGREL 75 MG TAB PO SCH (10:28)
[2022-09-06 10:43] LABS: Basophils # (A) 0.04 X 10*3/uL (0.00-0.10); Basophils % (A) 0.5 %; Eosinophils # (A) 0 X 10*3/uL (0.04-0.35); Eosinophils % (A) 0 %; HCT 37.4 % (39.6-50.0); HGB 11.9 g/dL (13.0-17.0); Immature Grans, Automated 0.9 %; Lymphocytes # (A) 0.68 X 10*3/uL (0.90-5.00); Lymphocytes % (A) 8.6 %; MCH 31.2 pg (27.0-32.0); MCHC 31.8 g/dL (32.0-37.0); MCV 97.9 fL (80.0-97.0); Mean Platelet Volume 9.7 fL (9.5-12.2); Monocytes # (A) 0.18 X 10*3/uL (0.20-1.00); Monocytes % (A) 2.3 %; NRBC Per 100 WBC 0 /100 WBCS (0.0-0.0); Neutrophils # (A) 6.98 X 10*3/uL (1.80-7.70); Neutrophils % (A) 87.7 %; Platelet Count 427 X 10*3/uL (140-440); RBC 3.82 X 10*6/uL (4.40-5.60); WBC 7.95 X 10*3/uL (4.50-10.00)
[2022-09-06 10:53] LABS: African American GFR (CKD) 95.1 (60.0-200.0); Anion Gap 10.9 mmol/L (10.00-18.00); BUN/Creat Ratio 20.5 Ratio (12.00-20.00); Blood Urea Nitrogen 16.4 mg/dL (9.0-27.0); Calcium 9.5 mg/dL (8.7-10.3); Carbon Dioxide 25.1 mmol/L (20.0-27.5)
[2022-09-06] MEDS: AZITHROMYCIN 500 MG TAB PO SCH (11:09)
--- NOTE | 2022-09-06 14:33 | P.CNPUL ---
History of Present Illness Consult date: 09/06/22 Requesting physician: Rohit Joaquin Reason for consult: dyspnea, COPD, abnormal CXR/CT Chief complaint: Shortness of breath, cough, congestion History of present illness: This is a very pleasant 82-year-old male patient with a known history of coronary artery disease with previous coronary artery bypass grafting in 1994, hyperlipidemia, TIAs, benign prostatic hyperplasia with previous TURP, m icrocytic anemia,, severe oxygen dependent chronic obstructive pulmonary disease with an FEV1 value 36% of predicted, and right lung mass measuring 2.8 x 2.3 x 1.7 highly suspicious for malignancy. He also was found to have a 1.2 cm left lower lobe nodule 8mm right lower lobe nodule. PET scan did reveal intense metabolic activity however based on the severity of his COPD he was not considered for lung biopsy or wedge resection. He did undergo SBRT by radiation oncology for total of 5 sessions. His follow-up computed tomography scan of the chest from 08/26/2022 revealed similar right upper lobe spiculated nodule with redemonstration of scattered regions of peripheral consolidation throughout the right mid and lower lung and masslike consolidation within the left lower lung. Decreased left lower lung patchy airspace opacities from prior examination. Stable right lower lobe pulmonary nodule. He's consolidative opacities may represent metastasis versus infectious/inflammatory process. He presented here to the emergency room last evening with complaints of increasing shortness of b reath, coughing congestion with green productive sputum. Chest x-ray reveals bilateral lower lobe partially consolidated lung infiltrates and small bilateral pleural effusions. Consistent with acute cardiopulmonary process, suspicious for pneumonia. Diffusion interstitial changes with hyperinflation consistent with COPD. White count 7.9. Hemoglobin 11.9. Sodium 138. Potassium 5.0. Bicarb 25. BUN 16. Creatinine 0.8. Urinalysis clean. ProBNP 577. Troponin negative 1. Influenza screen negative. RSV screen negative. COVID-19 screen negative. He's been initiated on ceftriaxone and azithromycin. He is seen today in consultation on the regular medical floor. He is currently sitting up in bed. Awake and alert in no acute distress. He is still having a lot of cough and congestion. He does have thick green sputum. Maintaining good O2 saturations in the mid 90s on 3 L nasal cannula. He's been afebrile. He continued on Symbicort and albuterol. Heparin for DVT prophylaxis. Prednisone taper. Review of Systems REVIEW OF SYSTEMS: CONSTITUTIONAL: Denies any recent significant weight loss or weight gain. EYES: Denies change in vision. EARS, NOSE, MOUTH, THROAT: Denies headaches, denies sore throat. CARDIOVASCULAR: Denies chest pain, palpitations or syncopal episodes. RESPIRATORY: Positive for shortness of breath, cough, congestion no hemoptysis. GASTROINTESTINAL: Denies change in appetite, denies abdominal pain GENITOURINARY: Denies hematuria, denies infections. MUSKULOSKELETAL: Denies pain, denies swelling. INTEGUMENTARY: Denies rash, denies eczema. NEUROLOGICAL: Denies recent memory loss, no recent seizure activity. PSYCHIATRIC: Denies anxiety, denies depression. HEMATOLOGIC/LYMPHATIC: Denies anemia, denies enlarged lymph nodes. Past Medical History Past Medical History: Coronary Artery Disease (CAD), Cancer, Chest Pain / Angina, COPD, CVA/TIA, Hyperlipidemia, Osteoarthritis (OA) Additional Past Medical History / Comment(s): COPD, "mini stroke 2-3 months ago- "weakness on rt side, some on the left", indwelling catheter. Lung mass under investigation being considered for SB RT History of Any Multi-Drug Resistant Organisms: Other MDRO Past Surgical History: Coronary Bypass/CABG Additional Past Surgical History / Comment(s): 1994 CABG 3 vessel, colonoscopy with benign polypectomy. hoda cataracts Past Anesthesia/Blood Transfusion Reactions: No Reported Reaction Additional Past Anesthesia/Blood Transfusion Reaction / Comment(s): no hx of problems with prior blood transfusions Past Psychological History: No Psychological Hx Reported Smoking Status: Former smoker Past Alcohol Use History: None Reported Past Drug Use History: None Reported - Past Family History Father Family Medical History: Myocardial Infarction (VT) Additional Family Medical History / Comment(s): Father of a VT in his 60s. Mother Family Medical History: Unable to Obtain Additional Family Medical History / Comment(s): . Medications and Allergies Home Medications Medication Instructions Recorded Confirmed Type Aspirin EC [Ecotrin Low Dose] 81 mg PO HS 11/13/18 09/05/22 History Albuterol Sulfate [Proair Hfa] 2 puff INHALATION RT-Q6H PRN 10/15/21 09/05/22 History Fluticasone Propion/Salmeterol 1 puff INHALATION RT-BID 10/15/21 09/05/22 History [Wixela 250-50 Inhub] Atorvastatin [Lipitor] 40 mg PO HS #30 tab 10/22/21 09/05/22 Rx Clopidogrel [Plavix] 75 mg PO DAILY #30 tab 10/22/21 09/05/22 Rx Folic Acid 1 mg PO DAILY tab 10/22/21 09/05/22 Rx Finasteride [Proscar] 5 mg PO HS 12/24/21 09/05/22 History Albuterol Nebulized [Ventolin 2.5 mg INHALATION RT-Q4H PRN 09/05/22 09/05/22 History Nebulized] Pantoprazole [Protonix] 40 mg PO HS 09/05/22 09/05/22 History Rosuvastatin Calcium 5 mg PO DAILY 09/05/22 09/05/22 History Tiotropium 2.5 Mcg/Puff [Spiriva 2 puff INHALATION RT-DAILY 09/05/22 09/05/22 History Respimat 2.5 Mcg] Allergies Allergy/AdvReac Type Severity Reaction Status Date / Time No Known Allergies Allergy Verified 09/05/22 18:46 Physical Exam Vitals: Vital Signs Temp Pulse Pulse Resp BP BP Pulse Ox 09/06/22 12:39 95 09/06/22 08:52 84 14 09/06/22 07:21 98.3 F 84 14 139/71 96 09/06/22 02:30 97.4 F L 77 18 131/68 97 09/05/22 22:10 98.6 F 78 18 146/60 09/05/22 22:00 18 09/05/22 20:57 97.9 F 75 18 109/57 96 09/05/22 19:00 98.6 F 77 18 115/63 95 09/05/22 17:05 96 09/05/22 16:54 94 09/05/22 16:27 22 09/05/22 16:25 99 F 106 H 24 124/70 88 L Intake and Output 09/05/22 09/06/22 09/06/22 22:59 06:59 14:59 Intake Total 0 Output Total 250 300 600 Balance -250 -300 -600 Intake: Intake, IV Titration 0 Amount Azithromycin 500 mg In 0 Sodium Chloride 0.9% 250 ml @ 250 mls/hr IVPB ONCE STA Rx#:[id number] Output: Urine 250 600 Other 300 Other: Voiding Method Urinal Weight 68.039 kg GENERAL EXAM: Alert, pleasant 82-year-old gentleman, on 3 L nasal cannula, fairly comfortable in no apparent distress. HEAD: Normocephalic. EYES: Normal reaction of pupils, equal size. NOSE: Clear with pink turbinates. THROAT: No erythema or exudates. NECK: No masses, no JVD. CHEST: No chest wall deformity. LUNGS: Equal air entry with bilateral scattered rhonchi left greater than right. CVS: S1 and S2 normal with no audible murmur, regular rhythm. ABDOMEN: No hepatosplenomegaly, normal bowel sounds, no guarding or rigidity. SPINE: No scoliosis or deformity SKIN: No rashes CENTRAL NERVOUS SYSTEM: No focal deficits, tone is normal in all 4 extremities. EXTREMITIES: There is no peripheral edema. No clubbing, no cyanosis. Peripheral pulses are intact. Results - Laboratory Findings CBC and BMP: 09/06/22 06:35 09/06/22 06:35 PT/INR, D-dimer PT 11.7 sec (9.0-12.0) 09/05/22 16:47 INR 1.1 (<1.2) 09/05/22 16:47 Abnormal lab findings: Abnormal Labs 09/05/22 09/05/22 09/05/22 16:47 16:47 16:47 RBC 3.56 L Hgb 11.3 L Hct 34.1 L MCV MCHC RDW 16.4 H Immature Gran # Neutrophils # 8.6 H Lymphocytes # 0.8 L Monocytes # Eosinophils # APTT 21.7 L Sodium 133 L BUN/Creatinine Ratio Glucose Total Protein 6.0 L Albumin 3.2 L 09/06/22 09/06/22 06:35 06:35 RBC 3.82 L Hgb 11.9 L Hct 37.4 L MCV 97.9 H MCHC 31.8 L RDW 16.0 H Immature Gran # 0.07 H Neutrophils # Lymphocytes # 0.68 L Monocytes # 0.18 L Eosinophils # 0 L APTT Sodium BUN/Creatinine Ratio 20.50 H Glucose 140 H Total Protein Albumin - Diagnostic Findings Chest x-ray: image reviewed Assessment and Plan Assessment: Acute on chronic hypoxemic respiratory failure secondary to suspected community- acquired pneumonia. Pro-calcitonin pending. Sputum culture pending. Acute exacerbation of severe oxygen dependent chronic obstructive pulmonary disease with an FEV1 value 36% of predicted Former smoker Right lung mass measuring 2.8 x 2.3 x 1.7 highly suspicious for malignancy. He also was found to have a 1.2 cm left lower lobe nodule 8mm right lower lobe nodule. PET scan did reveal intense metabolic activity however based on the severity of his COPD he was not considered for lung biopsy or wedge resection. He did undergo SBRT by radiation oncology for total of 5 sessions. His follow- up computed tomography scan of the chest from 08/26/2022 revealed similar right upper lobe spiculated nodule with redemonstration of scattered regions of peripheral consolidation throughout the right mid and lower lung and masslike consolidation within the left lower lung. Decreased left lower lung patchy airspace opacities from prior examination. Stable right lower lobe pulmonary nodule. Consolidative opacities may represent metastasis versus infectious/inflammatory process. Hyperlipidemia Benign prostatic hyperplasia with previous TURP Coronary artery disease with previous coronary artery bypass surgery in 1994 History of CVA/TIA Plan: The patient was seen and evaluated Chest x-ray, labs and medications reviewed Continue ceftriaxone and azithromycin Continue bronchodilators, prednisone taper Check pro calcitonin Sputum sample We'll continue to follow and make further recommendations based on his clinical status I have personally seen and examined the patient, performed the documentation and the assessment and plan as written. Number of minutes spent on the visit: 20.
--- NOTE | 2022-09-06 14:47 | XR ---
EXAMINATION TYPE: XR chest 2V DATE OF EXAM: 09/06/2022 COMPARISON: 09/05/2022 TECHNIQUE: PA and lateral views submitted. HISTORY: Cough FINDINGS: There are median sternotomy wires. The heart size normal. There is diffuse interstitial opacity and m ild hyperinflation lungs consistent with COPD. There are bilateral partially consolidative lower lobe infiltrates and small bilateral pleural effusions. The osseous structures are intact. AC joint arthr opathy noted. IMPRESSION: 1. COPD with bilateral areas of atelectasis or infiltrate stable from prior exam. Underlying pleural thickening or small effusions with no definite overt failure. Correlate for pneumonia.
--- NOTE | 2022-09-06 15:32 | P.HPIM ---
History of Present Illness H&P Date: 09/06/22 Chief Complaint: Worsening shortness of breath, congestion This is an 82-year-old gentleman with past medical history of chronic anemia, recurrent UTIs, advanced COPD, chronic hypoxic respiratory failure, right lung mass suspicious for malignancy, S/P SBRT with radiation oncology-follows with - pulmonary, bilateral hydronephrosis and multiple other medical issues presented to the ER with increased shortness of breath, congestion, productive cough with green sputum chest x-ray reported bilateral lower lobe partially consolidated lung infiltrates with small bilateral pleural effusions consistent with acute cardiopulmonary process, likely bilateral pneumonia, diffuse interstitial changes with hyperinflation consistent with COPD. Afebrile, normal WBC, lactic acid 1 hemoglobin 11.9, platelets 427 INR 1.1 sodium 138, potassium 5 bicarb 25 BUN and 16.4, creatinine 0.8, magnesium 1.8, albumin 3.2. UA negative. Influenza type a,type B, RSV, coronavirus not detected. Vital signs stable, maintaining O2 sats on 3 L nasal cannula(baseline). Currently maintained on nebulized bronchodilators, steroids, Symbicort, ceftriaxone and azithromycin. Review of Systems ROS Statement: Those systems with pertinent positive or pertinent negative responses have been documented in the HPI. ROS Other: All systems not noted in ROS Statement are negative. Past Medical History Past Medical History: Coronary Artery Disease (CAD), Cancer, Chest Pain / Angina, COPD, CVA/TIA, Hyperlipidemia, Osteoarthritis (OA) Additional Past Medical History / Comment(s): COPD, "mini stroke 2-3 months ago- "weakness on rt side, some on the left", indwelling catheter. Lung mass under investigation being considered for SB RT History of Any Multi-Drug Resistant Organisms: Other MDRO Past Surgical History: Coronary Bypass/CABG Additional Past Surgical History / Comment(s): 1994 CABG 3 vessel, colonoscopy with benign polypectomy. hoda cataracts Past Anesthesia/Blood Transfusion Reactions: No Reported Reaction Additional Past Anesthesia/Blood Transfusion Reaction / Comment(s): no hx of problems with prior blood transfusions Past Psychological History: No Psychological Hx Reported Smoking Status: Former smoker Past Alcohol Use History: None Reported Past Drug Use History: None Reported - Past Family History Father Family Medical History: Myocardial Infarction (CT) Additional Family Medical History / Comment(s): Father of a CT in his 60s. Mother Family Medical History: Unable to Obtain Additional Family Medical History / Comment(s): . Medications and Allergies Home Medications Medication Instructions Recorded Confirmed Type Aspirin EC [Ecotrin Low Dose] 81 mg PO HS 11/13/18 09/05/22 History Albuterol Sulfate [Proair Hfa] 2 puff INHALATION RT-Q6H PRN 10/15/21 09/05/22 History Fluticasone Propion/Salmeterol 1 puff INHALATION RT-BID 10/15/21 09/05/22 History [Wixela 250-50 Inhub] Atorvastatin [Lipitor] 40 mg PO HS #30 tab 10/22/21 09/05/22 Rx Clopidogrel [Plavix] 75 mg PO DAILY #30 tab 10/22/21 09/05/22 Rx Folic Acid 1 mg PO DAILY tab 10/22/21 09/05/22 Rx Finasteride [Proscar] 5 mg PO HS 12/24/21 09/05/22 History Albuterol Nebulized [Ventolin 2.5 mg INHALATION RT-Q4H PRN 09/05/22 09/05/22 History Nebulized] Pantoprazole [Protonix] 40 mg PO HS 09/05/22 09/05/22 History Rosuvastatin Calcium 5 mg PO DAILY 09/05/22 09/05/22 History Tiotropium 2.5 Mcg/Puff [Spiriva 2 puff INHALATION RT-DAILY 09/05/22 09/05/22 History Respimat 2.5 Mcg] Allergies Allergy/AdvReac Type Severity Reaction Status Date / Time No Known Allergies Allergy Verified 09/05/22 18:46 Physical Exam Vitals: Vital Signs Temp Pulse Pulse Resp BP BP Pulse Ox 09/06/22 07:21 98.3 F 84 14 139/71 96 09/06/22 02:30 97.4 F L 77 18 131/68 97 09/05/22 22:10 98.6 F 78 18 146/60 09/05/22 22:00 18 09/05/22 20:57 97.9 F 75 18 109/57 96 09/05/22 19:00 98.6 F 77 18 115/63 95 09/05/22 17:05 96 09/05/22 16:54 94 09/05/22 16:27 22 09/05/22 16:25 99 F 106 H 24 124/70 88 L Intake and Output 09/05/22 09/06/22 09/06/22 22:59 06:59 14:59 Intake Total 0 Output Total 250 300 Balance -250 -300 Intake: Intake, IV Titration 0 Amount Azithromycin 500 mg In 0 Sodium Chloride 0.9% 250 ml @ 250 mls/hr IVPB ONCE STA Rx#:[id number] Output: Urine 250 Other 300 Other: Weight 68.039 kg GENERAL EXAM: Alert and oriented 3, sitting up in bed, no acute distress [place]. HEAD: Normocephalic. EYES: Normal reaction of pupils, equal size. THROAT: No erythema or exudates. NECK: Supple, no JVD LUNGS: Diminished air entry, scattered rhonchi CVS: S1 and S2 normal with no audible murmur, regular rhythm. ABDOMEN: Soft, nontender, No hepatosplenomegaly, normal bowel sounds, no guarding or rigidity. SKIN: No rashes, warm and dry CENTRAL NERVOUS SYSTEM: No focal deficits, tone is normal in all 4 extremities. EXTREMITIES: No peripheral edema. No clubbing, no cyanosis. Peripheral pulses are intact. Results CBC & Chem 7: 09/06/22 06:35 09/06/22 06:35 Labs: Abnormal Lab Results - Last 24 Hours (Table) 09/05/22 09/05/22 09/05/22 Range/Units 16:47 16:47 16:47 RBC 3.56 L (4.30-5.90) m/uL Hgb 11.3 L (13.0-17.5) gm/dL Hct 34.1 L (39.0-53.0) % RDW 16.4 H (11.5-15.5) % Neutrophils # 8.6 H (1.3-7.7) k/uL Lymphocytes # 0.8 L (1.0-4.8) k/uL APTT 21.7 L (22.0-30.0) sec Sodium 133 L (137-145) mmol/L Total Protein 6.0 L (6.3-8.2) g/dL Albumin 3.2 L (3.5-5.0) g/dL Assessment and Plan Assessment: Acute on chronic hypoxic respiratory failure multifactorial, secondary to acute COPD exacerbation , possible community-acquired pneumonia. Wears 3L nasal cannula O2 at home. Bilateral pneumonia now ruled in as per pulmonary, acute community-acquired. Hyponatremia, possibly SIADH secondary to mass affect Chronic anemia Right upper lobe pulmonary nodules, mass, suspicious for metastatic malignancy , possible infectious, possible inflammatory process . Status post SBRT. Follows up OP with pulmonary, Dr. Maurer, End-stage COPD, emphysema History of recurrent UTIs, pseudomonas aeruginosa, Enterobacter aerogensis Chronic renal failure, stage II Bilateral hydronephrosis, follows with urology outpatient BPH with history of TURP CAD Degenerative cervical disc disease Gait dysfunction, history of falls Gastroesophageal reflux disease Heart of hearing Generalized weakness, medical debility Former nicotine dependence History of CVA/TIA Plan: Continue on current medication regime ,monitoring and symptomatic treatment. Aggressive pulmonary toileting, maintain nebulized bronchodilators, steroids, antibiotics of ceftriaxone and azithromycin. Pulmonary consult in place, recommendations pending. Initially declined chest x-ray but now willing to proceed. The impression and plan of care has been dictated as directed. : I performed a history and examination of this patient, discussed the same with the dictator. I agree with the dictator's note ,documented as a scribe. Any additional findings or plans will be noted.
[2022-09-06] MEDS ORDERED: PANTOPRAZOLE 40 MG TABLET PO SCH (21:00)
[2022-09-06] MEDS ORDERED: ASPIRIN 81 MG PO SCH (21:00)
[2022-09-06] MEDS ORDERED: FINASTERIDE 5 MG TAB PO SCH (21:00)
[2022-09-06] MEDS ORDERED: ATORVASTATIN 40 MG TAB PO SCH (21:00)
[2022-09-07 08:09] VITALS: BP 131/80; TEMP 97.1
[2022-09-07] MEDS ORDERED: predniSONE 20 MG TAB PO SCH (09:00)
[2022-09-07] MEDS: SYMBICORT 80-4.5 MCG INHALER INHALATION SCH (09:11)
[2022-09-07] MEDS: ALBUTEROL NEBULIZED 2.5 MG/3 ML INHALATION SCH ×2 (09:12→12:30)
[2022-09-07] MEDS: IPRATROPIUM 0.5 MG/2.5 ML NEBU INHALATION SCH ×2 (09:12→12:30)
[2022-09-07 09:16] VITALS: PULSE 80
[2022-09-07] MEDS: AZITHROMYCIN 500 MG TAB PO SCH (10:33)
[2022-09-07] MEDS: CLOPIDOGREL 75 MG TAB PO SCH (10:33)
[2022-09-07] MEDS: HEPARIN SODIUM,PORCINE/PF 5,000 UNIT/0.5 ML SYRINGE SQ SCH (10:33)
[2022-09-07] MEDS: ATORVASTATIN 10 MG TAB PO SCH (10:33)
[2022-09-07 11:17] LABS: African American GFR (CKD) 95.1 (60.0-200.0); Anion Gap 8.8 mmol/L (10.00-18.00); Blood Urea Nitrogen 18.4 mg/dL (9.0-27.0); Calcium 9.5 mg/dL (8.7-10.3); Carbon Dioxide 27.2 mmol/L (20.0-27.5); Potassium 5.1 mmol/L (3.5-5.5)
--- NOTE | 2022-09-07 11:32 | P.DS ---
Providers Date of admission: 09/05/22 18:10 Expected date of discharge: 09/07/22 Attending physician: Jorge L Puente Consults: 09/05/22 18:10 Consult Physician Routine Consulting Provider: Filiberto Maurer Consult Reason/Comments: copd, pneumonia Do you want consulting provider notified?: Yes Primary care physician: Jorge L Puente [facility] Course: Final Diagnoses: Acute on chronic hypoxic respiratory failure multifactorial, secondary to acute COPD exacerbation , possible community-acquired pneumonia. Pro-calcitonin 0.17. Wears 3L nasal cannula O2 at home. Bilateral pneumonia ,acute community-acquired. Hyponatremia, possibly SIADH secondary to mass affect Chronic anemia Right upper lobe pulmonary nodules, mass, suspicious for metastatic malignancy , possible infectious, possible inflammatory process . Status post SBRT. Follows up OP with pulmonary, Dr. Maurer, End-stage COPD, emphysema History of recurrent UTIs, pseudomonas aeruginosa, Enterobacter aerogensis Chronic renal failure, stage II Bilateral hydronephrosis, follows with urology outpatient BPH with history of TURP CAD Degenerative cervical disc disease Gait dysfunction, history of falls Gastroesophageal reflux disease Heart of hearing Generalized weakness, medical debility Former nicotine dependence History of CVA/TIA Hospital course:This is an 82-year-old gentleman with past medical history of chronic anemia, recurrent UTIs, advanced COPD, chronic hypoxic respiratory failure, right lung mass suspicious for malignancy, S/P SBRT with radiation oncology-follows with - pulmonary, bilateral hydronephrosis and multiple other medical issues presented to the ER with increased shortness of breath, congestion, productive cough with green sputum chest x-ray reported bilateral lower lobe partially consolidated lung infiltrates with small bilateral pleural effusions consistent with acute cardiopulmonary process, likely bilateral pneumonia, diffuse interstitial changes with hyperinflation consistent with COPD. Afebrile, normal WBC, lactic acid 1 hemoglobin 11.9, platelets 427 INR 1.1 sodium 138, potassium 5 bicarb 25 BUN and 16.4, creatinine 0.8, magnesium 1.8, albumin 3.2. UA negative. Influenza type a,type B, RSV, coronavirus not detected. Vital signs stable, maintaining O2 sats on 3 L nasal cannula(baseline). Currently maintained on nebulized bronchodilators, steroids, Symbicort, ceftriaxone and azithromycin. Evaluated by pulmonary, maintained on nebulized bronchodilators, steroids, antibiotics of ceftriaxone and azithromycin. Patient is eager for discharge. Maintaining O2 sats in the high 90s on 3 L nasal cannula-base line. Patient will be discharged home today in stable condition with guarded prognosis pending final DC recommendations and clearance per pulmonary. The impression and plan of care has been dictated as directed. : I performed a history and examination of this patient, discussed the same with the dictator. I agree with the dictator's note ,documented as a scribe. Any additional findings or plans will be noted. Patient Condition at Discharge: Stable Plan - Discharge Summary Discharge Rx Participant: No New Discharge Prescriptions: New cefUROXime axetiL [Ceftin] 500 mg PO BID 5 Days #10 tab predniSONE 10 mg PO DIRECTED #30 tab Continue Aspirin EC [Ecotrin Low Dose] 81 mg PO HS Folic Acid 1 mg PO DAILY tab Atorvastatin [Lipitor] 40 mg PO HS #30 tab Clopidogrel [Plavix] 75 mg PO DAILY #30 tab Pantoprazole [Protonix] 40 mg PO HS Rosuvastatin Calcium 5 mg PO DAILY Albuterol Nebulized [Ventolin Nebulized] 2.5 mg INHALATION RT-Q4H PRN PRN Reason: Shortness Of Breath Tiotropium 2.5 Mcg/Puff [Spiriva Respimat 2.5 Mcg] 2 puff INHALATION RT-DAILY Fluticasone Propion/Salmeterol [Wixela 250-50 Inhub] 1 puff INHALATION RT-BID Albuterol Sulfate [Proair Hfa] 2 puff INHALATION RT-Q6H PRN PRN Reason: Shortness Of Breath Finasteride [Proscar] 5 mg PO HS Discharge Medication List Aspirin EC [Ecotrin Low Dose] 81 mg PO HS 11/13/18 [History] Albuterol Sulfate [Proair Hfa] 2 puff INHALATION RT-Q6H PRN 10/15/21 [History] Fluticasone Propion/Salmeterol [Wixela 250-50 Inhub] 1 puff INHALATION RT-BID 10/15/21 [History] Atorvastatin [Lipitor] 40 mg PO HS #30 tab 10/22/21 [Rx] Clopidogrel [Plavix] 75 mg PO DAILY #30 tab 10/22/21 [Rx] Folic Acid 1 mg PO DAILY tab 10/22/21 [Rx] Finasteride [Proscar] 5 mg PO HS 07/21/22 [History] Albuterol Nebulized [Ventolin Nebulized] 2.5 mg INHALATION RT-Q4H PRN 09/05/22 [History] Pantoprazole [Protonix] 40 mg PO HS 09/05/22 [History] Rosuvastatin Calcium 5 mg PO DAILY 09/05/22 [History] Tiotropium 2.5 Mcg/Puff [Spiriva Respimat 2.5 Mcg] 2 puff INHALATION RT-DAILY 09/05/22 [History] cefUROXime axetiL [Ceftin] 500 mg PO BID 5 Days #10 tab 09/07/22 [Rx] predniSONE 10 mg PO DIRECTED #30 tab 09/07/22 [Rx] Follow up Appointment(s)/Referral(s): Jorge L Puente DO [Primary Care Provider] - 1-2 days
--- NOTE | 2022-09-07 13:17 | P.PN ---
Subjective Progress Note Date: 09/07/22 This is a very pleasant 82-year-old male patient with a known history of coronary artery disease with previous coronary artery bypass grafting in 1994, hyperlipidemia, TIAs, benign prostatic hyperplasia with previous TURP, microcytic anemia,, severe oxygen dependent chronic obstructive pulmonary disease with an FEV1 value 36% of predicted, and right lung mass measuring 2.8 x 2.3 x 1.7 highly suspicious for malignancy. He also was found to have a 1.2 cm left lower lobe nodule 8mm right lower lobe nodule. PET scan did reveal intense metabolic activity however based on the severity of his COPD he was not considered for lung biopsy or wedge resection. He did undergo SBRT by radiation oncology for total of 5 sessions. His follow-up computed tomography scan of the chest from 08/26/2022 revealed similar right upper lobe spiculated nodule with redemonstration of scattered regions of peripheral consolidation throughout the right mid and lower lung and masslike consolidation within the left lower lung. Decreased left lower lung patchy airspace opacities from prior examination. Stable right lower lobe pulmonary nodule. He's consolidative opacities may represent metastasis versus infectious/inflammatory process. He presented here to the emergency room last evening with complaints of increasing shortness of breath, coughing congestion with green productive sputum. Chest x-ray reveals bilateral lower lobe partially consolidated lung infiltrates and small bilateral pleural effusions. Consistent with acute cardiopulmonary process, suspicious for pneumonia. Diffusion interstitial changes with hyperinflation consistent with COPD. White count 7.9. Hemoglobin 11.9. Sodium 138. Potassium 5.0. Bicarb 25. BUN 16. Creatinine 0.8. Urinalysis clean. ProBNP 577. Troponin negative 1. Influenza screen negative. RSV screen negative. COVID-19 screen negative. He's been initiated on ceftriaxone and azithromycin. He is seen today in consultation on the regular medical floor. He is currently sitting up in bed. Awake and alert in no acute distress. He is still having a lot of cough and congestion. He does have thick green sputum. Maintaining good O2 saturations in the mid 90s on 3 L nasal cannula. He's been afebrile. He continued on Symbicort and albuterol. Heparin for DVT prophylaxis. Prednisone taper. The patient is seen today 09/07/2022 in follow-up on the regular medical floor. He is currently sedated on the bedside. It alert in no acute distress. He is maintaining O2 saturations in the high 90s on 3 L/m per nasal cannula. Pro- calcitonin 0.17. Continued on ceftriaxone and azithromycin. Blood cultures reveal no growth. Sodium 138. Potassium 5.1. Bicarb 27. BUN 18. Creatinine 0.8. Glucose 90. He is continued on Symbicort, albuterol, prednisone taper. Heparin for DVT prophylaxis. He is quite adamant about going home today. Objective - Vital Signs Vital signs: Vital Signs Temp 97.1 F L 09/07/22 07:00 Pulse 80 09/07/22 09:34 Resp 18 09/07/22 07:00 BP 131/80 09/07/22 07:00 Pulse Ox 99 09/07/22 09:13 FiO2 Intake & Output 09/06/22 09/07/22 09/07/22 18:59 06:59 18:59 Output Total 700 550 Balance -700 -550 Output: Urine 700 550 Other: Voiding Method Urinal - Exam GENERAL EXAM: Alert, 82-year-old gentleman, on 3 L nasal cannula, fairly comfortable in no apparent distress. HEAD: Normocephalic. EYES: Normal reaction of pupils, equal size. NOSE: Clear with pink turbinates. THROAT: No erythema or exudates. NECK: No masses, no JVD. CHEST: No chest wall deformity. LUNGS: Equal air entry with bilateral scattered rhonchi left greater than right. CVS: S1 and S2 normal with no audible murmur, regular rhythm. ABDOMEN: No hepatosplenomegaly, normal bowel sounds, no guarding or rigidity. SPINE: No scoliosis or deformity SKIN: No rashes CENTRAL NERVOUS SYSTEM: No focal deficits, tone is normal in all 4 extremities. EXTREMITIES: There is no peripheral edema. No clubbing, no cyanosis. Peripheral pulses are intact. - Labs CBC & Chem 7: 09/06/22 06:35 09/07/22 07:08 Labs: Abnormal Lab Results - Last 24 Hours (Table) 09/06/22 09/07/22 Range/Units 06:35 07:08 Anion Gap 8.80 L (10.00-18.00) mmol/L BUN/Creatinine Ratio 23.00 H (12.00-20.00) Ratio Procalcitonin 0.17 H (0.02-0.09) ng/mL Microbiology - Last 24 Hours (Table) 09/05/22 17:15 Blood Culture - Preliminary Blood No Growth after 24 hours 09/05/22 17:00 Blood Culture - Preliminary Blood No Growth after 24 hours Assessment and Plan Assessment: Acute on chronic hypoxemic respiratory failure secondary to suspected community-acquired pneumonia. Pro-calcitonin 0.17. Sputum culture pending. Continued on ceftriaxone and azithromycin Acute exacerbation of severe oxygen dependent chronic obstructive pulmonary disease with an FEV1 value 36% of predicted Former smoker Right lung mass measuring 2.8 x 2.3 x 1.7 highly suspicious for malignancy. He also was found to have a 1.2 cm left lower lobe nodule 8mm right lower lobe nodule. PET scan did reveal intense metabolic activity however based on the severity of his COPD he was not considered for lung biopsy or wedge resection. He did undergo SBRT by radiation oncology for total of 5 sessions. His follow- up computed tomography scan of the chest from 08/26/2022 revealed similar right upper lobe spiculated nodule with redemonstration of scattered regions of peripheral consolidation throughout the right mid and lower lung and masslike consolidation within the left lower lung. Decreased left lower lung patchy airspace opacities from prior examination. Stable right lower lobe pulmonary nodule. Consolidative opacities may represent metastasis versus infectious/i nflammatory process. Hyperlipidemia Benign prostatic hyperplasia with previous TURP Coronary artery disease with previous coronary artery bypass surgery in 1994 History of CVA/TIA Plan: The patient was seen and evaluated Chest x-ray, labs and medications reviewed The patient is quite adamant about going home Complete a course of antibiotics Complete a prednisone taper Continue his home pulmonary medications, oxygen Follow up in our office in 1 week I have personally seen and examined the patient, performed the documentation and the assessment and plan as written. Number of minutes spent on the visit: 10.
[2022-09-07 13:46] VITALS: RESP 19
== END 2022-09-07 14:07 | disposition home health service (06) | DRG 193 ==
LOC: EC 16:21 → 4SSUR 18:10
PROVIDERS: ADMIT Family Medicine; ATTEND Family Medicine
DX: J18.9 Pneumonia, unspecified organism (principal); J96.21 Acute and chronic respiratory failure with hypoxia; E87.1 Hypo-osmolality and hyponatremia; N13.30 Unspecified hydronephrosis; J43.9 Emphysema, unspecified; Z20.822 Contact with and (suspected) exposure to COVID-19; D64.9 Anemia, unspecified; E11.22 Type 2 diabetes mellitus with diabetic chronic kidney disease; E78.5 Hyperlipidemia, unspecified; I12.9 Hypertensive chronic kidney disease with stage 1 through stage 4 chronic kidney disease, or unspecified chronic kidney disease; I25.10 Atherosclerotic heart disease of native coronary artery without angina pectoris; K21.9 Gastro-esophageal reflux disease without esophagitis; R29.6 Repeated falls; Z91.81 History of falling; M50.30 Other cervical disc degeneration, unspecified cervical region; N18.2 Chronic kidney disease, stage 2 (mild); N40.0 Benign prostatic hyperplasia without lower urinary tract symptoms; Z79.02 Long term (current) use of antithrombotics/antiplatelets; Z79.52 Long term (current) use of systemic steroids; Z79.899 Other long term (current) drug therapy; Z86.73 Personal history of transient ischemic attack (TIA), and cerebral infarction without residual deficits; Z87.440 Personal history of urinary (tract) infections; Z87.891 Personal history of nicotine dependence; Z90.79 Acquired absence of other genital organ(s); Z92.3 Personal history of irradiation; Z95.1 Presence of aortocoronary bypass graft; Z99.81 Dependence on supplemental oxygen; Z82.49 Family history of ischemic heart disease and other diseases of the circulatory system; Z87.19 Personal history of other diseases of the digestive system; Z98.49 Cataract extraction status, unspecified eye
CPT/HCPCS: 36415; 71046; 80048; 80053; 81003; 82803; 83605; 83735; 83880; 84145; 84484; 85025; 85610; 85730; 87040; 87636; 93005; 94640; 94760; 96365; 96367; 96375; 99285

== ENCOUNTER → 2022-11-29 | Outpatient (CLI) | payer MEDICARE ==
--- NOTE | 2022-11-29 11:32 | CT ---
EXAMINATION TYPE: CT chest wo con DATE OF EXAM: 11/29/2022 COMPARISON: 08/26/2022 HISTORY: Abnormal lung padron, hx lung ca CT DLP: 183.40 mGycm, Automated exposure control for dose reduction was used. CONTRAST: Performed injected with 0 mL of Isovue 370. TECHNIQUE: Axial images were obtained at 5 mm thick sections. Reconstructed images are reviewed on [employer] computer in the coronal plane. FINDINGS: Portion of the thyroid visualized is normal. Extensive emphysematous changes are present through the lung padron. A small area of pneumonitis changes posterior right midlung. Series 4 image 30. There is calcificatio n and scarring within the anterior right midlung which was present previously. This appears less dens e and consolidated than comparison currently measuring 2.2 x 2.3 cm. Previous measurement 3.1 x 2.4 c m. There is some pneumonitis changes in the posterior right lung which appears improved from comparison. There is a 1.1 cm nodule within the posterior medial right lung base. Series 4 image 56. Previous angelica surement 0.9 cm. Previous left lower lobe consolidation has resolved. There were additional scattered infiltrates within the bilateral lungs which appear resolved. No suspicious enlarged mediastinal or hilar adenopathy is evident. The ascending aorta diameter at the level of the main pulmonary artery is 3.4 cm. The main pulmonary artery diameter at the bifurcat ion is 2.3 cm. There is extensive coronary artery vascular calcification. Limited CT sections are obtained through the upper abdomen. Abdomen is essentially unremarkable. IMPRESSIONS: 1. Improving infiltrates and densities. 2. There is a nodule within the posterior medial right lung which is 1 cm previous measurement 0.9 cm . Continued monitoring is recommended. 3. Extensive emphysematous changes.
== END | disposition home or self-care (01) ==
LOC: RADCTMAIN 09:02
PROVIDERS: ATTEND Radiology Radiation Oncology
DX: C34.31 Malignant neoplasm of lower lobe, right bronchus or lung (principal); R91.1 Solitary pulmonary nodule; J43.9 Emphysema, unspecified
CPT/HCPCS: 71250

== ENCOUNTER → 2023-04-06 | Outpatient (CLI) | payer MEDICARE ==
[2023-04-06 13:07] LABS: African American GFR (CKD) 81 (>60 ml/min/1.73 sqM); Blood Urea Nitrogen 19 mg/dL (9-20); Non-African American GFR(CKD) 70 (>60 ml/min/1.73 sqM)
--- NOTE | 2023-04-06 13:54 | CT ---
EXAMINATION TYPE: CT chest w con CT DLP: 253.1 mGycm, Automated exposure control for dose reduction was used. DATE OF EXAM: 04/06/2023 1:29 PM COMPARISON: Multiple CTs of the chest with most recent on 11/09/2022. PET/CT 02/11/2023. CLINICAL INDICATION:Male, 82 years old with history of C34.31,R91.8 abn findings; PHH, Abn find TECHNIQUE: Multiple axial images were obtained through the chest. Sagittal and coronal reformats were created for review. Contrast used:100 mL of Isovue 300 with IV Contrast (None if empty) Oral contrast used: (None if empty) FINDINGS: LUNGS/ PLEURA: Paraseptal and centrilobular emphysema changes. No focal evidence of consolidation, pn eumothorax or pleural effusion. Left lower lobe nodule has increased in size now measuring 10 mm, pre viously 6 mm. Additional right lower lung pulmonary nodule measuring 13 mm, previously 11 mm. Left lo wer lung more superior pulmonary nodule measuring up to 14 mm a be fractionally larger, previously 13 . Left major fissure intrafissural lymph node. Stable morphology of the scarring within the right upp er lung anteriorly as a similar flattened appearance with calcification. Bilateral Boch[place]k fat-cont aining hernias. AIRWAY: Patent and unremarkable. HEART: Size within normal limits. There is moderate to severe coronary artery atherosclerosis with demarco rgical clips present in the mediastinum. MEDIASTINUM: Left paratracheal lymph node measures similarly at 16 mm in short axis. VASCULATURE: No aortic aneurysm. MUSCULOSKELETAL: Moderate disc degeneration changes are present throughout the thoracolumbar spine. SOFT TISSUES/LYMPH NODES: Unremarkable. LOWER NECK: No significant findings. UPPER ABDOMEN: Simple appearing bilateral renal cysts. No lymphadenopathy in the upper abdomen visual ized. IMPRESSION: 1. Increasing size of bilateral lower lobe pulmonary nodules persistent malignancy. Stable morpholog y of the right midlung streaky atelectasis and/or scarring. No new or enlarging lymph nodes identifie d. 2. Moderate to severe emphysema.
== END | disposition home or self-care (01) ==
LOC: RADCTMAIN 12:22
PROVIDERS: ATTEND Radiology Radiation Oncology
DX: C34.31 Malignant neoplasm of lower lobe, right bronchus or lung (principal); J43.2 Centrilobular emphysema; R91.8 Other nonspecific abnormal finding of lung field
CPT/HCPCS: 82565; 84520; 71260; Q9967

== ENCOUNTER → 2023-05-27 | Outpatient (CLI) | payer MEDICARE ==
--- NOTE | 2023-06-07 16:04 | MR ---
EXAMINATION TYPE: MR scapula RT wo/w con DATE OF EXAM: 05/27/2023 COMPARISON: Correlation CT chest 04/06/[address] 02/11/2023 HISTORY: 82-year-old male C34.31, R91.8. History of lung cancer with right scapular pain. Technique: Multiplanar, multisequence images of the right scapula were obtained before and after admi nistration of 6.5 mL intravenous Gadavist gadolinium contrast. FINDINGS: There is moderate to severe degenerative change at the AC joint. Inferior spurring mildly encroaches onto the myotendinous junction of the supraspinatus tendon. There is heterogeneity of the rotator cuff tendons and scattered interstitial tearing throughout the subscapularis tendon. No retracted or high-grade partial-thickness tear is seen. The glenohumeral joint is intact with small joint effusion. Trace effusion within the anterior subacr omial/subdeltoid bursa. There is a heterogeneous, enhancing oval lesion within the subscapularis muscle belly just anterior t o the body of the scapula as noted on patient's 02/11/2023 PET/CT. This measures 2.9 x 1.4 cm and shows ridging is postcontrast enhancement. Some enhancement and some minimal fatty infiltration extends me dially within the subscapularis muscle belly, likely some reactive edema. There is linear fluid signal undercutting the labral chondral junction along the anterior aspect of t he labrum. Findings suggest underlying anterior labral tear. There is a second area of subtle enhancement of the right posterolateral chest wall musculature measu ring 1.8 x 0.6 cm, possibly involving the latissimus dorsi, for example axial postcontrast series 130 1 image 8 and sagittal postcontrast series 1202 image 25. IMPRESSION: 1. Heterogeneously enhancing soft tissue mass measuring 2.9 x 1.4 cm within the subscapularis muscle belly anterior to the body of the scapula corresponding to the site of hypermetabolism on patient's P ET/CT. Findings suggestive of intramuscular metastasis. 2. Suspicious for a second soft tissue metastatic lesion measuring 1.8 x 0.7 cm located in the signing agent olateral chest wall musculature, postcontrast sagittal series 1202 image 25. This may be a new lesion as it was not well-demonstrated on 02/11/2023. 3. Incidental: Moderate to severe AC joint OA. Subscapularis tendinosis with prominent interstitial t earing. Anterior labral tear.
== END | disposition home or self-care (01) ==
LOC: RADMRIMAIN 11:49
PROVIDERS: ATTEND Radiology Radiation Oncology
DX: C34.31 Malignant neoplasm of lower lobe, right bronchus or lung (principal); M25.511 Pain in right shoulder; R91.8 Other nonspecific abnormal finding of lung field; R91.1 Solitary pulmonary nodule
CPT/HCPCS: 73220; A9585

== ENCOUNTER 2023-08-26 11:04 | Inpatient (IN) | payer MEDICARE ==
[2023-08-26] MEDS: IPRATROPIUM-ALBUTEROL 3 ML NEB INHALATION STA ×2 (11:22→12:49)
[2023-08-26] MEDS: methylPREDNISolone SOD SUCCI 125 MG/2 ML VIAL IV STA (11:42)
[2023-08-26] MEDS: MAGNESIUM SULFATE-D5W PMX 1 GM in DEXTROSE/WATER 1 100ML.BAG IVPB STA (11:43)
--- NOTE | 2023-08-26 11:43 | XR ---
EXAMINATION TYPE: XR chest 2V DATE OF EXAM: 08/26/2023 11:38 AM CLINICAL INDICATION:Male, 83 years old with history of difficulty breathing; [facility] COMPARISON: Chest radiographs from 09/06/2022. TECHNIQUE: XR chest 2V Frontal and lateral views of the chest. FINDINGS: Lungs/Pleura: Prominent interstitial lung markings are seen scattered throughout the lungs with aylin ening of the diaphragm and increased lucency of the lung apices. No evidence of focal consolidation, pneumothorax or pleural effusion. Pulmonary vascularity: Unremarkable. Heart/mediastinum: Cardiomediastinal silhouette is unremarkable. Musculoskeletal: No acute osseous pathology. IMPRESSION: Chronic changes with COPD without acute pulmonary process. No significant change from prior.
[2023-08-26] MEDS: SODIUM CHLORIDE 0.9% 1,000 ML IV STA (11:44)
[2023-08-26 11:48] LABS: INR 1.2 (<1.2); Partial Thromboplastin Time 27.9 sec (22.0-30.0); Prothrombin Time 12.5 sec (10.0-12.5)
[2023-08-26 11:56] LABS: Basophils % (A) 0 %; Eosinophils % (A) 0 %; HCT 42.1 % (39.0-53.0); HGB 13.7 gm/dL (13.0-17.5); Lymphocytes # (A) 0.6 k/uL (1.0-4.8); Lymphocytes % (A) 5 %; MCH 33.4 pg (25.0-35.0); MCHC 32.6 g/dL (31.0-37.0); MCV 102.5 fL (80.0-100.0); Macrocytosis Slight; Mean Platelet Volume 7.5; Monocytes # (A) 0.7 k/uL (0-1.0); Monocytes % (A) 6 %; Neutrophils # (A) 10.5 k/uL (1.3-7.7); Neutrophils % (A) 88 %; Platelet Count 290 k/uL (150-450); RDW 13.2 % (11.5-15.5); WBC 11.9 k/uL (3.8-10.6)
[2023-08-26 12:02] LABS: ALT 25 U/L (4-49); AST 27 U/L (17-59); African American GFR (CKD) >90 (>60 ml/min/1.73 sqM); Albumin 3.1 g/dL (3.5-5.0); Alkaline Phosphatase 107 U/L (38-126); Anion Gap 11 mmol/L; Blood Urea Nitrogen 30 mg/dL (9-20); Calcium 9.1 mg/dL (8.4-10.2); Carbon Dioxide 27 mmol/L (22-30); Chloride 100 mmol/L (98-107); Glucose 97 mg/dL (74-99); Magnesium 2.2 mg/dL (1.6-2.3); Non-African American GFR(CKD) 81 (>60 ml/min/1.73 sqM); Potassium 4.1 mmol/L (3.5-5.1); Sodium 138 mmol/L (137-145); Total Bilirubin 0.9 mg/dL (0.2-1.3); Total Protein 5.6 g/dL (6.3-8.2)
--- NOTE | 2023-08-26 12:22 | ED ---
General Adult HPI - General Chief complaint: Shortness of Breath Stated complaint: SOB Source: patient, RN notes reviewed, old records reviewed Mode of arrival: EMS Limitations: physical limitation - History of Present Illness Initial comments: Patient is a 83-year-old male with past medical history markable for COPD on chronic 2 to 3 L nasal cannula at home as well as CABG and hyperlipidemia. Has known lung cancer that is just being observed as he states there are no treatment options. Presents emergency department with 2 weeks of worsening shortness of breath. Is having a productive cough as well. Denies any chest pain. Denies any abdominal pain, nausea, vomiting. Has chronic back pain. States he is having a productive cough of yellow mucus which seems to be getting worse over the last 2 weeks. Presents for further evaluation at this time.Denies any lower extremity edema, recent long distance travel. - Related Data Home Medications Medication Instructions Recorded Confirmed Aspirin EC [Ecotrin Low Dose] 81 mg PO HS 11/13/18 08/26/23 Albuterol Sulfate [Proair Hfa] 2 puff INHALATION RT-Q6H PRN 10/15/21 08/26/23 Fluticasone Propion/Salmeterol 1 puff INHALATION RT-BID 10/15/21 08/26/23 [Wixela 250-50 Inhub] Finasteride [Proscar] 5 mg PO DAILY 12/24/21 08/26/23 Albuterol Nebulized [Ventolin 2.5 mg INHALATION RT-Q4H PRN 09/05/22 08/26/23 Nebulized] Pantoprazole [Protonix] 40 mg PO DAILY 09/05/22 08/26/23 Rosuvastatin Calcium 5 mg PO HS 09/05/22 08/26/23 Tiotropium 2.5 Mcg/Puff [Spiriva 2 puff INHALATION RT-DAILY 09/05/22 08/26/23 Respimat 2.5 Mcg] Ferrous Sulfate [Feosol] 325 mg PO DAILY 08/26/23 08/26/23 Folic Acid 1 mg PO HS 08/26/23 08/26/23 Previous Rx's Medication Instructions Recorded Clopidogrel [Plavix] 75 mg PO DAILY #30 tab 10/22/21 Allergies Allergy/AdvReac Type Severity Reaction Status Date / Time No Known Allergies Allergy Verified 08/26/23 11:10 Review of Systems ROS Statement: Those systems with pertinent positive or pertinent negative responses have been documented in the HPI. Review of Systems: CONST: Denies fever EYES: Denies blurry vision ENT: Endorses nasal congestion C/V: Denies Chest pain RESP: Endorses cough, shortness of breath GI: Denies abdominal pain : Denies dysuria SKIN: Denies rash. MSK: Denies joint pain. NEURO: Denies headache ROS Other: All systems not noted in ROS Statement are negative. Past Medical History Past Medical History: Coronary Artery Disease (CAD), Cancer, Chest Pain / Angina, COPD, CVA/TIA, Hyperlipidemia, Osteoarthritis (OA) Additional Past Medical History / Comment(s): COPD, "mini stroke 2-3 months ago- "weakness on rt side, some on the left", indwelling catheter. Lung mass under investigation being considered for SB RT History of Any Multi-Drug Resistant Organisms: Other MDRO Past Surgical History: Coronary Bypass/CABG Additional Past Surgical History / Comment(s): 1994 CABG 3 vessel, colonoscopy with benign polypectomy. hoda cataracts Past Anesthesia/Blood Transfusion Reactions: No Reported Reaction Additional Past Anesthesia/Blood Transfusion Reaction / Comment(s): no hx of problems with prior blood transfusions Past Psychological History: No Psychological Hx Reported Smoking Status: Former smoker Past Alcohol Use History: None Reported Past Drug Use History: None Reported - Past Family History Father Family Medical History: Myocardial Infarction ([place]) Additional Family Medical History / Comment(s): Father of a [place] in his 60s. Mother Family Medical History: Unable to Obtain Additional Family Medical History / Comment(s): . General Exam - General Exam Comments Initial Comments: General: Appears in mild respiratory distress. Appears cachectic. HEAD: Normal with no signs of head trauma. EYES: PERRLA, EOMI, conjunctiva normal, no discharge. ENT: Hearing grossly intact, normal oropharynx. RESPIRATORY: Increased work of breathing. No hypoxia and baseline chronic nasal cannula oxygen. Coarse breath sounds bilaterally with bilateral end expiratory wheezes. C/V: Regular rate and rhythm. S1 and S2 auscultated, no edema, peripheral pulses 2+ and intact throughout ABD: Abd is soft, nontender, nondistended EXT: Normal range of motion, no obvious deformity SKIN: No rashes or lesions observed on exposed skin. NEURO: Alert and oriented x 4. Limitations: physical limitation Course Vital Signs 08/26/23 08/26/23 08/26/23 11:11 11:22 11:31 Temperature 97.5 F L Pulse Rate 94 94 92 Respiratory 28 H Rate Blood Pressure 160/99 O2 Sat by Pulse 95 Oximetry 08/26/23 08/26/23 12:49 13:00 Temperature Pulse Rate 85 88 Respiratory Rate Blood Pressure O2 Sat by Pulse Oximetry Medical Decision Making - Medical Decision Making Was pt. sent in by a medical professional or institution (, CHASITY, METHODS AND PROCEDURES ANALYST, urgent care, hospital, or alf...) When possible be specific @ -No Did you speak to anyone other than the patient for history (EMS, parent, family, police, friend...)? What history was obtained from this source @ -No Did you review nursing and triage notes (agree or disagree)? Why? @ -I reviewed and agree with nursing and triage notes Were old charts reviewed (outside hosp., previous admission, EMS record, old EKG, old radiological studies, urgent care reports/EKG's, alf records)? Report findings @ -Old charts reviewed Differential Diagnosis (chest pain, altered mental status, abdominal pain women, abdominal pain men, vaginal bleeding, weakness, fever, dyspnea, syncope, headache, dizziness, GI bleed, back pain, seizure, CVA, palpatations, mental health, musculoskeletal)? @ -Differential Dyspnea: Coronary syndrome, arrhythmia, tamponade, asthma, COPD, pulmonary embolism, pneumonia, pneumothorax, pulmonary effusion, anaphylaxis, diabetic ketoacidosis, flailed chest, pulmonary contusion, diaphragmatic rupture, anemia, neuromuscular, this is not meant to be an all-inclusive list. EKG interpreted by me (3pts min.). @ -As above X-rays interpreted by me (1pt min.). @ -Chest x-ray shows chronic findings with no obvious acute process or infection. CT interpreted by me (1pt min.). @ -None done U/S interpreted by me (1pt. min.). @ -None done What testing was considered but not performed or refused? (CT, X-rays, U/S, labs)? Why? @ -None What meds were considered but not given or refused? Why? @ -None Did you discuss the management of the patient with other professionals (professionals i.e. , CHASITY, METHODS AND PROCEDURES ANALYST, lab, RT, psych nurse, oncology social work, roll up operator, teacher, chief risk officer, case preparer and liner)? Give summary @ -I spoke with Dr. Moyer who is covering for Dr. Puente who accepted the admission. Was smoking cessation discussed for >3mins.? @ -No Was critical care preformed (if so, how long)? @ -No Were there social determinants of health that impacted care today? How? (Homelessness, low income, unemployed, alcoholism, drug addiction, transportation, low edu. Level, literacy, decrease access to med. care, halfway, rehab)? @ -No Was there de-escalation of care discussed even if they declined (Discuss DNR or withdrawal of care, Hospice)? DNR status @ -Confirmed patient is DNR with the patient as well as multiple family members. What co-morbidities impacted this encounter? (DM, HTN, Smoking, COPD, CAD, Cancer, CVA, ARF, Chemo, Hep., AIDS, mental health diagnosis, sleep apnea, morbid obesity)? @ -Chronic hypoxic respiratory failure, COPD Was patient admitted / discharged? Hospital course, mention meds given and route, prescriptions, significant lab abnormalities, going to OR and other pertinent info. @ -Based on patient's presentation and physical exam, patient presents emergency department complaining of productive cough, suspect upper respiratory infection. Symptoms all seem to be secondary to upper respiratory infection as he is having a productive cough as well as worsening congestion. Appears to be having a COPD exacerbation with chronic hypoxic respiratory failure. Has a history of lung cancer. Vital signs are within acceptable limits. Patient will be symptomatically treated with IV steroids, magnesium, fluids as well as a breathing treatment. Patient was in agreement this plan. EKG shows no signs of acute ischemia. Chest x-ray shows chronic findings with no obvious acute infectious process. Patient's laboratory studies are remarkable for a minimal leukocytosis of 11.9.Negative viral swabs. On reevaluation, patient's work of breathing is improved, wheezing is slightly improved as well.. I did discuss with the patient, and we both agree to admit the patient to observation for breathing treatments for COPD exacerbation as well as start the patient on Z-Jalen for bronchitis. Patient was in agreement this plan. Will continue with oxygen supplementation. Patient and family also requesting hospice consult as he is already DNR. Pulmonology also consulted. I spoke with Dr. Moyer who is covering for Dr. Puente who accepted the admission. Undiagnosed new problem with uncertain prognosis? @ -No Drug Therapy requiring intensive monitoring for toxicity (Heparin, Nitro, Insulin, Cardizem)? @ -No Were any procedures done? @ -No Diagnosis/symptom? @ -COPD, bronchitis, chronic hypoxic respiratory failure Acute, or Chronic, or Acute on Chronic? @ -Acute Uncomplicated (without systemic symptoms) or Complicated (systemic symptoms)? @ -Complicated Side effects of treatment? @ -None Exacerbation, Progression, or Severe Exacerbation] @ -No Poses a threat to life or bodily function? @ -Yes - Lab Data Result diagrams: 08/26/23 11:24 08/26/23 11:24 Lab Results 08/26/23 08/26/23 08/26/23 Range/Units 11:24 11:24 11:24 WBC 11.9 H (3.8-10.6) k/uL RBC 4.10 L (4.30-5.90) m/uL Hgb 13.7 (13.0-17.5) gm/dL Hct 42.1 (39.0-53.0) % MCV 102.5 H (80.0-100.0) fL MCH 33.4 (25.0-35.0) pg MCHC 32.6 (31.0-37.0) g/dL RDW 13.2 (11.5-15.5) % Plt Count 290 (150-450) k/uL MPV 7.5 Neutrophils % 88 % Lymphocytes % 5 % Monocytes % 6 % Eosinophils % 0 % Basophils % 0 % Neutrophils # 10.5 H (1.3-7.7) k/uL Lymphocytes # 0.6 L (1.0-4.8) k/uL Monocytes # 0.7 (0-1.0) k/uL Eosinophils # 0.0 (0-0.7) k/uL Basophils # 0.0 (0-0.2) k/uL Macrocytosis Slight PT 12.5 (10.0-12.5) sec INR 1.2 H (<1.2) APTT 27.9 (22.0-30.0) sec Sodium 138 (137-145) mmol/L Potassium 4.1 (3.5-5.1) mmol/L Chloride 100 (98-107) mmol/L Carbon Dioxide 27 (22-30) mmol/L Anion Gap 11 mmol/L BUN 30 H (9-20) mg/dL Creatinine 0.81 (0.66-1.25) mg/dL Est GFR (CKD-EPI)AfAm >90 (>60 ml/min/1.73 sqM) Est GFR (CKD-EPI)NonAf 81 (>60 ml/min/1.73 sqM) Glucose 97 (74-99) mg/dL Plasma Lactic Acid Mele (0.7-2.0) mmol/L Calcium 9.1 (8.4-10.2) mg/dL Magnesium 2.2 (1.6-2.3) mg/dL Total Bilirubin 0.9 (0.2-1.3) mg/dL AST 27 (17-59) U/L ALT 25 (4-49) U/L Alkaline Phosphatase 107 (38-126) U/L Total Protein 5.6 L (6.3-8.2) g/dL Albumin 3.1 L (3.5-5.0) g/dL Influenza Type A (PCR) (Not Detectd) Influenza Type B (PCR) (Not Detectd) RSV (PCR) (Not Detectd) SARS-CoV-2 (PCR) (Not Detectd) 08/26/23 08/26/23 Range/Units 11:24 11:24 WBC (3.8-10.6) k/uL RBC (4.30-5.90) m/uL Hgb (13.0-17.5) gm/dL Hct (39.0-53.0) % MCV (80.0-100.0) fL MCH (25.0-35.0) pg MCHC (31.0-37.0) g/dL RDW (11.5-15.5) % Plt Count (150-450) k/uL MPV Neutrophils % % Lymphocytes % % Monocytes % % Eosinophils % % Basophils % % Neutrophils # (1.3-7.7) k/uL Lymphocytes # (1.0-4.8) k/uL Monocytes # (0-1.0) k/uL Eosinophils # (0-0.7) k/uL Basophils # (0-0.2) k/uL Macrocytosis PT (10.0-12.5) sec INR (<1.2) APTT (22.0-30.0) sec Sodium (137-145) mmol/L Potassium (3.5-5.1) mmol/L Chloride (98-107) mmol/L Carbon Dioxide (22-30) mmol/L Anion Gap mmol/L BUN (9-20) mg/dL Creatinine (0.66-1.25) mg/dL Est GFR (CKD-EPI)AfAm (>60 ml/min/1.73 sqM) Est GFR (CKD-EPI)NonAf (>60 ml/min/1.73 sqM) Glucose (74-99) mg/dL Plasma Lactic Acid Mele 1.0 (0.7-2.0) mmol/L Calcium (8.4-10.2) mg/dL Magnesium (1.6-2.3) mg/dL Total Bilirubin (0.2-1.3) mg/dL AST (17-59) U/L ALT (4-49) U/L Alkaline Phosphatase (38-126) U/L Total Protein (6.3-8.2) g/dL Albumin (3.5-5.0) g/dL Influenza Type A (PCR) Not Detected (Not Detectd) Influenza Type B (PCR) Not Detected (Not Detectd) RSV (PCR) Not Detected (Not Detectd) SARS-CoV-2 (PCR) Not Detected (Not Detectd) - EKG Data -: EKG Interpreted by Me EKG Comments: 12-lead Electrocardiogram Interpretation Note EKG was reviewed and interpreted by myself. 12-lead ECG performed at [facility] is interpreted by me as revealing normal sinus rhythm at a rate of 92 beats per minute. [place] is normal. OR interval is 124 ms, QRS duration is 93 ms, QTc is 395 ms.. There were no ST or T wave abnormalities to suggest myocardial ischemia or injury. R wave progression across the precordium was satisfactory. By my interpretation this EKG is non-diagnostic for acute ischemia. Disposition Clinical Impression: COPD (chronic obstructive pulmonary disease), Bronchitis, Chronic respiratory failure with hypoxia Disposition: ADMITTED IP TO THIS HOSP Condition: Stable Referrals: Jorge L Puente DO [Primary Care Provider] - 1-2 days Time of Disposition: 13:32
[2023-08-26] MEDS: AZITHROMYCIN 500 MG in SODIUM CHLORIDE 0.9% 250 ML IVPB STA (13:12)
[2023-08-26] MEDS ORDERED: NALOXONE 0.4 MG/ML 1 ML VIAL IV PRN (13:30)
[2023-08-26] MEDS: SODIUM CHLORIDE 0.9% 1,000 ML IV SCH (13:58)
[2023-08-26] MEDS: IPRATROPIUM-ALBUTEROL 3 ML NEB INHALATION SCH (15:35)
[2023-08-26] MEDS: ATORVASTATIN 10 MG TAB PO SCH (20:14)
[2023-08-26] MEDS: ASPIRIN 81 MG PO SCH (20:14)
[2023-08-26] MEDS: HEPARIN SODIUM,PORCINE 5,000 UNIT/ML 1 ML VIAL SQ SCH (20:14)
[2023-08-26] MEDS: SYMBICORT 80-4.5 MCG INHALER INHALATION SCH (20:20)
[2023-08-26 20:32] LABS: Appearance,Urine Clear (Clear); Bilirubin,Urine Negative (Negative); Blood,Urine Negative (Negative); Color,Urine Yellow; Glucose,Urine (UA) 1+ (Negative); Ketones,Urine 1+ (Negative); Leukocyte Esterase,Urine Negative (Negative); Mucus,Urine Rare /hpf; Nitrite,Urine Negative (Negative); Protein,Urine 1+ (Negative); RBC,Urine 7 /hpf (0-5); Squamous Epithelial Cell,Urine <1 /hpf (0-4); WBC,Urine 2 /hpf (0-5)
--- NOTE | 2023-08-26 22:58 | P.HPIM ---
History of Present Illness H&P Date: 08/26/23 Chief Complaint: Shortness of breath Patient is a 83-year-old male with a past medical history of coronary disease status post triple-vessel CABG, lung cancer with metastatic lesions to scapula as per MRI on 06/07/2023, and chest wall musculature posterolaterally, patient underwent radiation treatments and is on follow-up with pulmonary as an outpatient presents to ER with complaints of with complaints of worsening shortness of breath for the past 2 weeks. Patient is also having cough with green sputum sometimes. Denies any chest pain. No nausea vomiting or abdominal pain. No diarrhea. Patient does have chronic pain due to malignancy. Denies any leg swelling. Chest x-ray showed chronic changes with COPD without acute pulmonary process. No significant change from prior. EKG showed sinus rhythm with possible left atrial enlargement. Laboratory data showed WBC 11.9 hemoglobin 13.7 and platelets 290 Sodium 138 potassium 4.1 chloride 100 bicarb is 27 BUN 30 and creatinine 0.81. Liver enzymes are not elevated and albumin 3.1 Urinalysis is negative for infection. Influenza AB RSV and COVID-19 PCR not detected. Past Medical History Past Medical History: Coronary Artery Disease (CAD), Cancer, Chest Pain / Angina, COPD, CVA/TIA, Hyperlipidemia, Osteoarthritis (OA) Additional Past Medical History / Comment(s): COPD, "mini stroke 2-3 months ago- "weakness on rt side, some on the left", indwelling catheter. Lung mass under investigation being considered for SB RT History of Any Multi-Drug Resistant Organisms: Other MDRO Past Surgical History: Coronary Bypass/CABG Additional Past Surgical History / Comment(s): 1994 CABG 3 vessel, colonoscopy with benign polypectomy. hoda cataracts Past Anesthesia/Blood Transfusion Reactions: No Reported Reaction Additional Past Anesthesia/Blood Transfusion Reaction / Comment(s): no hx of problems with prior blood transfusions Past Psychological History: No Psychological Hx Reported Additional Psychological History / Comment(s): Pt resides with his spouse. He states he has a nebulizer. Smoking Status: Former smoker Past Alcohol Use History: None Reported Additional Past Alcohol Use History / Comment(s): Pt started smoking in 1955 and quit in 2004. He smoked 1-1.5 ppd. Past Drug Use History: None Reported - Past Family History Father Family Medical History: Myocardial Infarction ([place]) Additional Family Medical History / Comment(s): Father of a [place] in his 60s. Mother Family Medical History: Unable to Obtain Additional Family Medical History / Comment(s): . Medications and Allergies Home Medications Medication Instructions Recorded Confirmed Type Aspirin EC [Ecotrin Low Dose] 81 mg PO HS 11/13/18 08/26/23 History Albuterol Sulfate [Proair Hfa] 2 puff INHALATION RT-Q6H PRN 10/15/21 08/26/23 History Fluticasone Propion/Salmeterol 1 puff INHALATION RT-BID 10/15/21 08/26/23 History [Wixela 250-50 Inhub] Clopidogrel [Plavix] 75 mg PO DAILY #30 tab 10/22/21 08/26/23 Rx Finasteride [Proscar] 5 mg PO DAILY 12/24/21 08/26/23 History Albuterol Nebulized [Ventolin 2.5 mg INHALATION RT-Q4H PRN 09/05/22 08/26/23 History Nebulized] Pantoprazole [Protonix] 40 mg PO DAILY 09/05/22 08/26/23 History Rosuvastatin Calcium 5 mg PO HS 09/05/22 08/26/23 History Tiotropium 2.5 Mcg/Puff [Spiriva 2 puff INHALATION RT-DAILY 09/05/22 08/26/23 History Respimat 2.5 Mcg] Ferrous Sulfate [Feosol] 325 mg PO DAILY 08/26/23 08/26/23 History Folic Acid 1 mg PO HS 08/26/23 08/26/23 History Allergies Allergy/AdvReac Type Severity Reaction Status Date / Time No Known Allergies Allergy Verified 08/26/23 11:10 Physical Exam Vitals: Vital Signs Temp Pulse Pulse Resp BP BP Pulse Ox 08/26/23 20:34 94 08/26/23 20:20 91 08/26/23 19:12 97.6 F 92 18 131/69 97 08/26/23 15:44 89 08/26/23 15:35 90 08/26/23 15:15 97.8 F 106 H 20 157/95 93 L 08/26/23 13:43 103 H 24 118/77 92 L 08/26/23 13:00 88 08/26/23 12:49 85 08/26/23 11:31 92 08/26/23 11:22 94 08/26/23 11:11 97.5 F L 94 28 H 160/99 95 Intake and Output 08/26/23 08/26/23 08/26/23 06:59 14:59 22:59 Intake Total 118 Balance 118 Intake: Oral 118 Other: Weight 60.781 kg 60.781 kg PHYSICAL EXAMINATION: Patient is lying in the bed comfortably, no acute distress, awake alert and oriented.. HEENT: Normocephalic. Neck is supple. Pupils reactive. Nostrils clear. Oral cavity is moist. Neck reveals no JVD, carotid bruits, or thyromegaly. CHEST EXAMINATION: Trachea is central. Symmetrical expansion. Bilateral diffuse wheezing and scattered rhonchi and crackles.. CARDIAC: Normal S1, S2 with no gallops. No murmurs ABDOMEN: Soft. Bowel sounds normal. No organomegaly. No abdominal bruits. Extremities: reveal no edema. No clubbing or cyanosis Neurologically awake, alert, oriented x 2-3 with well-coordinated movements. No gross focal deficits noted Skin: No rash or skin lesions. Psychiatric: Coperative. Nonsuicidal Musculoskeletal: No joint swelling or deformity. Results CBC & Chem 7: 08/26/23 11:24 08/26/23 11:24 Labs: Abnormal Lab Results - Last 24 Hours (Table) 08/26/23 08/26/23 08/26/23 Range/Units 11: 11:24 11:24 WBC 11.9 H (3.8-10.6) k/uL RBC 4.10 L (4.30-5.90) m/uL MCV 102.5 H (80.0-100.0) fL Neutrophils # 10.5 H (1.3-7.7) k/uL Lymphocytes # 0.6 L (1.0-4.8) k/uL INR 1.2 H (<1.2) BUN (9-20) mg/dL Total Protein (6.3-8.2) g/dL Albumin (3.5-5.0) g/dL Urine Protein 1+ H (Negative) Urine Glucose (UA) 1+ H (Negative) Urine Ketones 1+ H (Negative) Urine RBC 7 H (0-5) /hpf Urine Mucus Rare H (None) /hpf 03/22/24 Range/Units 11:24 WBC (3.8-10.6) k/uL RBC (4.30-5.90) m/uL MCV (80.0-100.0) fL Neutrophils # (1.3-7.7) k/uL Lymphocytes # (1.0-4.8) k/uL INR (<1.2) BUN 30 H (9-20) mg/dL Total Protein 5.6 L (6.3-8.2) g/dL Albumin 3.1 L (3.5-5.0) g/dL Urine Protein (Negative) Urine Glucose (UA) (Negative) Urine Ketones (Negative) Urine RBC (0-5) /hpf Urine Mucus (None) /hpf Thrombosis Risk Factor Assmnt - DVT/VTE Prophylaxis DVT/VTE Prophylaxis: Pharmacologic Prophylaxis ordered - Choose All That Apply Any of the Below Risk Factors Present?: No Other Risk Factors: Yes Each Risk Factor Represents 3 Points: Age 75 years or older Thrombosis Risk Factor Assessment Total Risk Factor Score: 3 Thrombosis Risk Factor Assessment Level: Moderate Risk Assessment and Plan Assessment: Acute on chronic hypoxic respiratory failure secondary to COPD and underlying lung malignancy. Acute exacerbation of severe COPD and chronic hypoxic respiratory failure Lung malignancy with multiple pulmonary nodules and metastatic lesions to the scapula and chest wall musculature. Patient underwent SBRT radiation by onco logy for total of 5 sessions. Outpatient follow-up with oncology and pulmonary. BPH with prior history of TURP Hyperlipidemia Coronary artery disease history of triple-vessel coronary artery bypass graft in 1994 History of CVA/TIA Moderate protein calorie malnutrition GI and DVT prophylaxis Plan: Patient will be continued on oxygen supplementation. Continue with IV Solu- Medrol, DuoNebs and antibiotics azithromycin. Continue pain management and other home medications and follow-up closely. Pr ognosis is guarded at this time and family is considering discussion with palliative care. Pulmonary was consulted. Time with Patient: Greater than 30
[2023-08-26] MEDS: methylPREDNISolone SOD SUCCI 125 MG/2 ML VIAL IV SCH (23:55)
[2023-08-27] MEDS ORDERED: NON FORMULARY DRUG (Tiotropium 2.5 Mcg/Puff 10 PUFF Each) INHALATION SCH (08:00)
[2023-08-27 09:47] LABS: Basophils # (A) 0.04 X 10*3/uL (0.00-0.10); Basophils % (A) 0.5 %; Eosinophils # (A) 0 X 10*3/uL (0.04-0.35); Eosinophils % (A) 0 %; Lymphocytes # (A) 0.42 X 10*3/uL (0.90-5.00); Lymphocytes % (A) 5.6 %; MCH 33.1 pg (27.0-32.0); MCHC 33.3 g/dL (32.0-37.0); MCV 99.4 FL (80.0-97.0); Mean Platelet Volume 9.5 FL (9.5-12.2); Monocytes # (A) 0.17 X 10*3/uL (0.20-1.00); Monocytes % (A) 2.3 %; NRBC Per 100 WBC 0 X 10*3/uL (0.00-0.01); Neutrophils # (A) 6.78 X 10*3/uL (1.80-7.70); Neutrophils % (A) 90.4 %; Platelet Count 241 X 10*3/uL (140-440); RBC 3.62 X 10*6/uL (4.40-5.60); RDW 13.6 % (11.5-14.5)
[2023-08-27 10:01] LABS: BUN/Creat Ratio 36.43 Ratio (12.00-20.00); Blood Urea Nitrogen 25.5 mg/dL (9.0-27.0); Calcium 8.7 mg/dL (8.7-10.3); Carbon Dioxide 28.7 mmol/L (21.6-31.8); Chloride 104 mmol/L (96-109); Glucose 136 mg/dL (70-110); Potassium 4.6 mmol/L (3.5-5.5); Sodium 139 mmol/L (135-145)
[2023-08-27] MEDS: FAMOTIDINE 20 MG TAB PO SCH (10:37)
[2023-08-27] MEDS: PANTOPRAZOLE 40 MG TABLET PO SCH (10:37)
[2023-08-27] MEDS: FINASTERIDE 5 MG TAB PO SCH (10:38)
[2023-08-27] MEDS: CLOPIDOGREL 75 MG TAB PO SCH (10:38)
[2023-08-27] MEDS: AZITHROMYCIN 250 MG TAB PO SCH (11:40)
[2023-08-27 13:25] VITALS: BMI 18.4
[2023-08-27] MEDS ORDERED: RX INFO: IV CONTRAST WAS GIVEN 1 EACH MISC MISCELLANE PRN (14:39)
--- NOTE | 2023-08-27 14:39 | P.CNPUL ---
History of Present Illness Consult date: 08/27/23 Reason for consult: dyspnea History of present illness: On today's evaluation of 08/27/2023, patient is being seen in consultation regarding his shortness of breath. The patient is very well-known to me. The patient has advanced oxygen dependent COPD and the patient has been followed up with me in the office on an outpatient basis and the patient has an FEV1 of 3 6% of predicted based on a previous spirometry evaluation the patient is also developed a right lung mass that was suspicious for malignancy and based on his advanced lung disease, no surgical resection or biopsy was attempted and the patient was given SBRT. The patient subsequently had multiple CAT scan of the chest and multiple CAT scans. His course was also complicated by development of a pneumonia. In summary, the most recent CAT scan of the chest was done on 04/06/2023 showed that the patient continues to have advanced centrilobular emphysema without any focal areas of consolidation or pneumothorax. There was a left lower lobe left lower lobe nodule increased in size from 6 mm to 10 mm, right lower lobe pulmonary nodule that has increased from 11 mm to 13 mm, another left lower lobe superior segment pulmonary nodule increased from 30 mm up to 14 mm. The previously radiated right upper lobe pulmonary mass was looking hazy. The patient currently is coming in with worsening shortness of breath, he has a congested cough. No significant sputum production. He also has a anterior abdominal wall pulmonary nodule/lesion that he has felt few months back. No hemoptysis. No pleurisy. No altered mentation. No other new complaints otherwise for now. WBC count is 7.5 with a hemoglobin 12 and a platelet count of 241. BUN is at 25 with a creatinine of 0.7 and his sodium level is at 139. UA is negative. The viral screen was also negative. He was hospitalized for acute COPD exacerbation. Review of Systems CONSTITUTIONAL: Denies any recent significant diminished appetite and weight loss EYES: Denies change in vision. EARS, NOSE, MOUTH, THROAT: Denies headaches, denies sore throat. CARDIOVASCULAR: Denies chest pain, palpitations or syncopal episodes. RESPIRATORY: Positive for shortness of breath, cough, congestion no hemoptysis. GASTROINTESTINAL: Denies change in appetite, denies abdominal pain GENITOURINARY: Denies hematuria, denies infections. MUSKULOSKELETAL: Denies pain, denies swelling. INTEGUMENTARY: Denies rash, denies eczema. NEUROLOGICAL: Denies recent memory loss, no recent seizure activity. PSYCHIATRIC: Denies anxiety, denies depression. HEMATOLOGIC/LYMPHATIC: Denies anemia, denies enlarged lymph nodes. Past Medical History Past Medical History: Coronary Artery Disease (CAD), Cancer, Chest Pain / Angina, COPD, CVA/TIA, Hyperlipidemia, Osteoarthritis (OA) Additional Past Medical History / Comment(s): COPD, "mini stroke 2-3 months ago- "weakness on rt side, some on the left", indwelling catheter. Lung mass under investigation being considered for SB RT History of Any Multi-Drug Resistant Organisms: Other MDRO Past Surgical History: Coronary Bypass/CABG Additional Past Surgical History / Comment(s): 1994 CABG 3 vessel, colonoscopy with benign polypectomy. hoda cataracts Past Anesthesia/Blood Transfusion Reactions: No Reported Reaction Additional Past Anesthesia/Blood Transfusion Reaction / Comment(s): no hx of problems with prior blood transfusions Past Psychological History: No Psychological Hx Reported Additional Psychological History / Comment(s): Pt resides with his spouse. He states he has a nebulizer. Smoking Status: Former smoker Past Alcohol Use History: None Reported Additional Past Alcohol Use History / Comment(s): Pt started smoking in 1955 and quit in 2004. He smoked 1-1.5 ppd. Past Drug Use History: None Reported - Past Family History Father Family Medical History: Myocardial Infarction ([place]) Additional Family Medical History / Comment(s): Father of a [place] in his 60s. Mother Family Medical History: Unable to Obtain Additional Family Medical History / Comment(s): . Medications and Allergies Home Medications Medication Instructions Recorded Confirmed Type Aspirin EC [Ecotrin Low Dose] 81 mg PO HS 11/13/18 08/26/23 History Albuterol Sulfate [Proair Hfa] 2 puff INHALATION RT-Q6H PRN 10/15/21 08/26/23 History Fluticasone Propion/Salmeterol 1 puff INHALATION RT-BID 10/15/21 08/26/23 History [Wixela 250-50 Inhub] Clopidogrel [Plavix] 75 mg PO DAILY #30 tab 10/22/21 08/26/23 Rx Finasteride [Proscar] 5 mg PO DAILY 12/24/21 08/26/23 History Albuterol Nebulized [Ventolin 2.5 mg INHALATION RT-Q4H PRN 09/05/22 08/26/23 History Nebulized] Pantoprazole [Protonix] 40 mg PO DAILY 09/05/22 08/26/23 History Rosuvastatin Calcium 5 mg PO HS 09/05/22 08/26/23 History Tiotropium 2.5 Mcg/Puff [Spiriva 2 puff INHALATION RT-DAILY 09/05/22 08/26/23 History Respimat 2.5 Mcg] Ferrous Sulfate [Feosol] 325 mg PO DAILY 08/26/23 08/26/23 History Folic Acid 1 mg PO HS 08/26/23 08/26/23 History Allergies Allergy/AdvReac Type Severity Reaction Status Date / Time No Known Allergies Allergy Verified 08/26/23 11:10 Physical Exam Vitals: Vital Signs Temp Pulse Pulse Resp BP Pulse Ox 08/27/23 13:20 97.8 F 94 18 128/64 94 L 08/27/23 12:15 102 H 08/27/23 12:02 100 08/27/23 08:53 102 H 08/27/23 08:38 100 08/27/23 07:02 97.9 F 73 18 147/73 97 08/27/23 02:25 97.8 F 75 16 120/64 98 08/26/23 20:34 94 08/26/23 20:20 91 08/26/23 19:12 97.6 F 92 18 131/69 97 08/26/23 15:44 89 08/26/23 15:35 90 08/26/23 15:15 97.8 F 106 H 20 157/95 93 L Intake and Output 08/26/23 08/27/23 08/27/23 22:59 06:59 14:59 Intake Total 118 Output Total 450 Balance 118 -450 Intake: Oral 118 Output: Urine 450 Other: # Voids 1 # Bowel Movements 1 Weight 60.781 kg 60.781 kg GENERAL EXAM: Alert, pleasant 82-year-old gentleman, on 3 L nasal cannula, fairly comfortable in no apparent distress. HEAD: Normocephalic. EYES: Normal reaction of pupils, equal size. NOSE: Clear with pink turbinates. THROAT: No erythema or exudates. NECK: No masses, no JVD. CHEST: No chest wall deformity. LUNGS: Equal air entry with bilateral scattered rhonchi left greater than right. CVS: S1 and S2 normal with no audible murmur, regular rhythm. ABDOMEN: No hepatosplenomegaly, normal bowel sounds, no guarding or rigidity. SPINE: No scoliosis or deformity SKIN: No rashes CENTRAL NERVOUS SYSTEM: No focal deficits, tone is normal in all 4 extremities. EXTREMITIES: There is no peripheral edema. No clubbing, no cyanosis. Peripheral pulses are intact. Results - Laboratory Findings CBC and BMP: 08/27/23 05:09 08/27/23 05:09 ABG WBC 7.50 X 10*3/uL (4.50-10.00) 08/27/23 05:09 RBC 3.62 X 10*6/uL (4.40-5.60) L 08/27/23 05:09 Hgb 12.0 g/dL (13.0-17.0) L 08/27/23 05:09 Hct 36.0 % (39.6-50.0) L 08/27/23 05:09 MCV 99.4 FL (80.0-97.0) H 08/27/23 05:09 MCH 33.1 pg (27.0-32.0) H 08/27/23 05:09 MCHC 33.3 g/dL (32.0-37.0) 08/27/23 05:09 RDW 13.6 % (11.5-14.5) 08/27/23 05:09 Plt Count 241 X 10*3/uL (140-440) 08/27/23 05:09 MPV 9.5 FL (9.5-12.2) 08/27/23 05:09 Immature Gran % (Auto) 1.20 % 08/27/23 05:09 Absolute Nucleated RBC 0 % 08/27/23 05:09 Neutrophils % 90.4 % 08/27/23 05:09 Lymphocytes % 5.6 % 08/27/23 05:09 Monocytes % 2.3 % 08/27/23 05:09 Eosinophils % 0 % 08/27/23 05:09 Basophils % 0.5 % 08/27/23 05:09 Immature Gran # 0.09 X 10*3/uL (0.00-0.04) H 08/27/23 05:09 Neutrophils # 6.78 X 10*3/uL (1.80-7.70) 08/27/23 05:09 Lymphocytes # 0.42 X 10*3/uL (0.90-5.00) L 08/27/23 05:09 Monocytes # 0.17 X 10*3/uL (0.20-1.00) L 08/27/23 05:09 Eosinophils # 0 X 10*3/uL (0.04-0.35) L 08/27/23 05:09 Basophils # 0.04 X 10*3/uL (0.00-0.10) 08/27/23 05:09 NRBC/100 WBC Diff 0 X 10*3/uL (0.00-0.01) 08/27/23 05:09 Macrocytosis Slight 08/26/23 11:24 PT 12.5 sec (10.0-12.5) 08/26/23 11:24 INR 1.2 (<1.2) H 08/26/23 11:24 APTT 27.9 sec (22.0-30.0) 08/26/23 11:24 Sodium 139 mmol/L (135-145) 08/27/23 05:09 Potassium 4.6 mmol/L (3.5-5.5) 08/27/23 05:09 Chloride 104 mmol/L (96-109) 08/27/23 05:09 Carbon Dioxide 28.7 mmol/L (21.6-31.8) 08/27/23 05:09 Anion Gap 6.30 mmol/L (4.00-12.00) 08/27/23 05:09 BUN 25.5 mg/dL (9.0-27.0) 08/27/23 05:09 Creatinine 0.7 mg/dL (0.6-1.5) 08/27/23 05:09 Est GFR (CKD-EPI) 90 (>=60) 08/27/23 05:09 Est GFR (CKD-EPI)AfAm >90 (>60 ml/min/1.73 sqM) 08/26/23 11:24 Est GFR (CKD-EPI)NonAf 81 (>60 ml/min/1.73 sqM) 08/26/23 11:24 BUN/Creatinine Ratio 36.43 Ratio (12.00-20.00) H 08/27/23 05:09 Glucose 136 mg/dL (70-110) H 08/27/23 05:09 Plasma Lactic Acid [place] 1.0 mmol/L (0.7-2.0) 08/26/23 11:24 Calcium 8.7 mg/dL (8.7-10.3) 08/27/23 05:09 Magnesium 2.2 mg/dL (1.6-2.3) 08/26/23 11:24 Total Bilirubin 0.9 mg/dL (0.2-1.3) 08/26/23 11:24 AST 27 U/L (17-59) 08/26/23 11:24 ALT 25 U/L (4-49) 08/26/23 11:24 Alkaline Phosphatase 107 U/L (38-126) 08/26/23 11:24 Total Protein 5.6 g/dL (6.3-8.2) L 08/26/23 11:24 Albumin 3.1 g/dL (3.5-5.0) L 08/26/23 11:24 Urine Color Yellow 08/26/23 11:22 Urine Appearance Clear (Clear) 08/26/23 11:22 Urine pH 6.0 (5.0-8.0) 08/26/23 11:22 Ur Specific [place] 1.030 (1.001-1.035) 08/26/23 11:22 Urine Protein 1+ (Negative) H 08/26/23 11:22 Urine Glucose (UA) 1+ (Negative) H 08/26/23 11:22 Urine Ketones 1+ (Negative) H 08/26/23 11:22 Urine Blood Negative (Negative) 08/26/23 11:22 Urine Nitrite Negative (Negative) 08/26/23 11:22 Urine Bilirubin Negative (Negative) 08/26/23 11:22 Urine Urobilinogen 2.0 mg/dL (<2.0) 08/26/23 11:22 Ur Leukocyte Esterase Negative (Negative) 08/26/23 11:22 Urine RBC 7 /hpf (0-5) H 08/26/23 11:22 Urine WBC 2 /hpf (0-5) 08/26/23 11:22 Ur Squamous Epith Cells <1 /hpf (0-4) 08/26/23 11:22 Urine Mucus Rare /hpf (None) H 08/26/23 11:22 Influenza Type A (PCR) Not Detected (Not Detectd) 08/26/23 11:24 Influenza Type B (PCR) Not Detected (Not Detectd) 08/26/23 11:24 RSV (PCR) Not Detected (Not Detectd) 08/26/23 11:24 SARS-CoV-2 (PCR) Not Detected (Not Detectd) 08/26/23 11:24 PT/INR, D-dimer PT 12.5 sec (10.0-12.5) 08/26/23 11:24 INR 1.2 (<1.2) H 08/26/23 11:24 Abnormal lab findings: Abnormal Labs 08/26/23 08/26/23 08/26/23 11:22 11:24 11:24 WBC 11.9 H RBC 4.10 L Hgb Hct MCV 102.5 H MCH Immature Gran # Neutrophils # 10.5 H Lymphocytes # 0.6 L Monocytes # Eosinophils # INR 1.2 H BUN BUN/Creatinine Ratio Glucose Total Protein Albumin Urine Protein 1+ H Urine Glucose (UA) 1+ H Urine Ketones 1+ H Urine RBC 7 H Urine Mucus Rare H 08/26/23 08/27/23 08/27/23 11:24 05:09 05:09 WBC RBC 3.62 L Hgb 12.0 L Hct 36.0 L MCV 99.4 H MCH 33.1 H Immature Gran # 0.09 H Neutrophils # Lymphocytes # 0.42 L Monocytes # 0.17 L Eosinophils # 0 L INR BUN 30 H BUN/Creatinine Ratio 36.43 H Glucose 136 H Total Protein 5.6 L Albumin 3.1 L Urine Protein Urine Glucose (UA) Urine Ketones Urine RBC Urine Mucus - Diagnostic Findings Chest x-ray: image reviewed Assessment and Plan Plan: Acute on chronic dyspnea secondary to COPD exacerbation. Chronic hypoxic respiratory failure maintained on O2 at 3 L/min nasal cannula Advance and severe COPD with chronic hypoxic respiratory failure and the patient has an FEV1 of 36% predicted with significant limitation exercise capacity Former smoker Right lung mass measuring 2.8 x 2.3 x 1.7 highly suspicious for malignancy. Patient is post SBRT. Subsequent CAT scan of the chest including the most recent CAT scan of the chest that was done April 2023 showed several pulmonary nodules in the lower lobes bilaterally consistent with metastatic disease. As such there is evidence of disease progression. Hyperlipidemia Benign prostatic hyperplasia with previous TURP Coronary artery disease with previous coronary artery bypass surgery in 1994 History of CVA/TIA Plan: The patient will need a follow-up CAT scan of the chest to assess progression of his malignancy Continue oxygen therapy at 3 L Continue bronchodilators Continue steroids Very limited performance and functional status Long-term prognosis poor Continue antibiotics Experiencing occasional chest wall and shoulder pain, will give [place] for that We'll continue to follow and make further recommendations based on his clinical status
[2023-08-27] MEDS: HYDROcodone/APAP 5-325MG 1 EACH TAB PO PRN (16:04)
[2023-08-27] MEDS: FOLIC ACID 1 MG TAB PO SCH (21:21)
--- NOTE | 2023-08-27 23:55 | PN ---
PROGRESS NOTE DATE OF SERVICE: 08/27/2023 SUBJECTIVE: This is an 83-year-old gentleman, who was admitted with shortness of breath, also underlying lung malignancy. The patient is complaining of weakness. There is a scapula and chest wall musculature as well. Radiation has been done recently. PAST MEDICAL HISTORY: Reviewed. REVIEW OF SYSTEMS: A 14-point review is negative except as mentioned earlier. CURRENT MEDICATIONS: Reviewed include Symbicort. Dose and rest of medications noted. PHYSICAL EXAMINATION: VITAL SIGNS: Pulse is 102, blood pressure 147/77, respirations 18. CHEST: Bilateral scattered rhonchi and crackles. ABDOMEN: Soft and nontender. LEGS: No edema. NERVOUS SYSTEM: Diffusely weak. LABORATORY DATA: Chest x-ray noted. Rest of the labs; hemoglobin is 12. Rest of the labs are noted. ASSESSMENT: 1. Chronic obstructive pulmonary disease exacerbation, acute on chronic hypoxic respiratory failure; present on admission. 2. Lung malignancy with METS. 3. Hyperlipidemia. 4. Coronary artery disease, coronary artery bypass graft. 5. History of cerebrovascular accident, transient ischemic attack. 6. Moderate protein-calorie malnutrition with gait dysfunction. 7. No code, no CPR, no vent. 8. Acute tracheobronchitis. RECOMMENDATIONS AND DISCUSSION: I recommend to continue current management. Continue with bronchodilators. Continue with empiric antibiotics. Continue steroids, PT/OT evaluation. Guarded prognosis. Further medications see orders for details. Pulmonary consultation. Also obtain a procalcitonin as well. MMODL / IJN: [id number] / MTDD
--- NOTE | 2023-08-28 00:19 | CT ---
EXAMINATION TYPE: CT chest w con DATE OF EXAM: 08/27/2023 COMPARISON: Most recent prior CT April 06, 2023 and older studies HISTORY: Follow up for Lung CA. CT DLP: 306.3 mGycm. Automated Exposure Control for Dose Reduction was Utilized. TECHNIQUE: CT scan of the thorax is performed following with IV Contrast, patient injected with 100 ml mL of Isovue 300. FINDINGS: LUNGS: Moderate to advanced underlying emphysematous change is redemonstrated. Stable 1.6 cm scarlike opacity in the anterior right mid lung with central calcification on axial image 38 is not significa ntly changed from most recent CT in size or appearance. Tiny left basilar pleural effusion on curren t study. Improved nodularity in the left lung base. There is new multifocal irregular consolidations in the bilateral lower lungs right greater than left on current study. New focal consolidation board handler ior inferior right upper lobe. New mild diffuse interstitial prominence. Some Mild to moderate bibasi lar linear scarring and/or atelectasis with more thickened scarring in the periphery of the right mid dle lobe redemonstrated. No pneumothorax seen bilaterally. Tiny calcified 3 mm left mid lung nodule a xial image 45 is redemonstrated. MEDIASTINUM: Stable prominent AP window lymph nodes axial image 31. No cardiomegaly or pericardial ef fusion is seen. Post-CABG changes with sternal wires and mediastinal clips is redemonstrated. OTHER: A few small simple appearing thin-walled cyst in the bilateral kidneys are redemonstrated. IMPRESSION: 1. Improved findings in the left lower lung. Stable findings presumed posttreatment changes in the an terior right midlung. No new or enlarging masses or lymph nodes. Findings consistent with overall pos itive treatment response. 2. Moderate to advanced emphysematous change with new mild bilateral interstitial edema and new right greater than left bilateral multifocal consolidations.
[2023-08-28] MEDS: guaiFENesin 600 MG TABLET.ER PO PRN (07:57)
[2023-08-28] MEDS: FERROUS SULFATE 325 MG TAB PO SCH (07:57)
[2023-08-28 10:11] LABS: Basophils # (A) 0.04 X 10*3/uL (0.00-0.10); Basophils % (A) 0.3 %; Eosinophils # (A) 0 X 10*3/uL (0.04-0.35); Eosinophils % (A) 0 %; HCT 36.6 % (39.6-50.0); Lymphocytes # (A) 0.42 X 10*3/uL (0.90-5.00); Lymphocytes % (A) 3.4 %; MCH 32.7 pg (27.0-32.0); MCHC 32.8 g/dL (32.0-37.0); MCV 99.7 FL (80.0-97.0); Mean Platelet Volume 9.5 FL (9.5-12.2); Monocytes # (A) 0.26 X 10*3/uL (0.20-1.00); Monocytes % (A) 2.1 %; NRBC Per 100 WBC 0 X 10*3/uL (0.00-0.01); Neutrophils # (A) 11.52 X 10*3/uL (1.80-7.70); Neutrophils % (A) 92.8 %; Platelet Count 274 X 10*3/uL (140-440); RBC 3.67 X 10*6/uL (4.40-5.60); RDW 13.6 % (11.5-14.5); WBC 12.42 X 10*3/uL (4.50-10.00)
[2023-08-28 10:12] LABS: BUN/Creat Ratio 33.29 Ratio (12.00-20.00); Blood Urea Nitrogen 23.3 mg/dL (9.0-27.0); Calcium 9.3 mg/dL (8.7-10.3); Chloride 102 mmol/L (96-109); Glucose 126 mg/dL (70-110); Potassium 4.5 mmol/L (3.5-5.5); Sodium 140 mmol/L (135-145)
--- NOTE | 2023-08-28 13:19 | P.PN ---
Subjective Progress Note Date: 08/28/23 On today's evaluation of 08/27/2023, patient is being seen in consultation regarding his shortness of breath. The patient is very well-known to me. The patient has advanced oxygen dependent COPD and the patient has been followed up with me in the office on an outpatient basis and the patient has an FEV1 of 3 6% of predicted based on a previous spirometry evaluation the patient is also developed a right lung mass that was suspicious for malignancy and based on his advanced lung disease, no surgical resection or biopsy was attempted and the patient was given SBRT. The patient subsequently had multiple CAT scan of the chest and multiple CAT scans. His course was also complicated by development of a pneumonia. In summary, the most recent CAT scan of the chest was done on 04/06/2023 showed that the patient continues to have advanced centrilobular emphysema without any focal areas of consolidation or pneumothorax. There was a left lower lobe left lower lobe nodule increased in size from 6 mm to 10 mm, right lower lobe pulmonary nodule that has increased from 11 mm to 13 mm, another left lower lobe superior segment pulmonary nodule increased from 30 mm up to 14 mm. The previously radiated right upper lobe pulmonary mass was looking hazy. The patient currently is coming in with worsening shortness of breath, he has a congested cough. No significant sputum production. He also has a anterior abdominal wall pulmonary nodule/lesion that he has felt few months back. No hemoptysis. No pleurisy. No altered mentation. No other new complaints otherwise for now. WBC count is 7.5 with a hemoglobin 12 and a platelet count of 241. BUN is at 25 with a creatinine of 0.7 and his sodium level is at 139. UA is negative. The viral screen was also negative. He was hospitalized for acute COPD exacerbation. On today's evaluation of 08/28/2023, the patient is being seen for a follow-up. The patient is doing well. Less bronchospastic and wheezy compared to yesterday. A CT scan of the chest was done and the CAT scan shows no evidence of any disease progression in terms of his malignancy. The patient has improved finding in the left lower lobe consolidation. The patient has advanced COPD in the background. White cell count of 12 hemoglobin 12 and platelet count of 274, BUN is 23 with a creatinine of 0.7 and sodium levels of 140 and the patient remains on Rocephin and Zithromax and IV Solu-Medrol and Symbicort as maintenance. He remains on bronchodilators [id number]. No new complaints otherwise for now. Oxygen requirements are still stable and the patient remains on 3 L of oxygen by nasal cannula. Objective - Vital Signs Vital signs: Vital Signs Temp 97.9 F 08/28/23 07:10 Pulse 92 08/28/23 09:07 Resp 17 08/28/23 07:10 BP 155/71 08/28/23 07:10 Pulse Ox 99 08/28/23 07:10 FiO2 Intake & Output 08/27/23 08/28/23 08/28/23 18:59 06:59 18:59 Output Total 480 600 Balance -480 -600 Weight 60.781 kg Output: Urine 480 600 Other: Voiding Method External Catheter # Voids 1 # Bowel Movements 1 - Exam GENERAL EXAM: Alert, pleasant 82-year-old gentleman, on 3 L nasal cannula, fair ly comfortable in no apparent distress. HEAD: Normocephalic. EYES: Normal reaction of pupils, equal size. NOSE: Clear with pink turbinates. THROAT: No erythema or exudates. NECK: No masses, no JVD. CHEST: No chest wall deformity. LUNGS: Equal air entry with bilateral scattered rhonchi left greater than right. CVS: S1 and S2 normal with no audible murmur, regular rhythm. ABDOMEN: No hepatosplenomegaly, normal bowel sounds, no guarding or rigidity. SPINE: No scoliosis or deformity SKIN: No rashes CENTRAL NERVOUS SYSTEM: No focal deficits, tone is normal in all 4 extremities. EXTREMITIES: There is no peripheral edema. No clubbing, no cyanosis. Peripheral pulses are intact. - Labs CBC & Chem 7: 08/28/23 05:38 08/28/23 05:38 Labs: Abnormal Lab Results - Last 24 Hours (Table) 08/27/23 08/28/23 08/28/23 Range/Units 05:09 05:38 05:38 WBC 12.42 H (4.50-10.00) X 10*3/uL RBC 3.67 L (4.40-5.60) X 10*6/uL Hgb 12.0 L (13.0-17.0) g/dL Hct 36.6 L (39.6-50.0) % MCV 99.7 H (80.0-97.0) FL MCH 32.7 H (27.0-32.0) pg Immature Gran # 0.18 H (0.00-0.04) X 10*3/uL Neutrophils # 11.52 H (1.80-7.70) X 10*3/uL Lymphocytes # 0.42 L (0.90-5.00) X 10*3/uL Eosinophils # 0 L (0.04-0.35) X 10*3/uL BUN/Creatinine Ratio 33.29 H (12.00-20.00) Ratio Glucose 126 H (70-110) mg/dL Procalcitonin 0.49 H (0.02-0.09) ng/mL Microbiology - Last 24 Hours (Table) 08/26/23 12:50 Blood Culture - Preliminary Blood 08/26/23 13:05 Blood Culture - Preliminary Blood Assessment and Plan Plan: Acute on chronic dyspnea secondary to COPD exacerbation. Chronic hypoxic respiratory failure maintained on O2 at 3 L/min nasal cannula Advance and severe COPD with chronic hypoxic respiratory failure and the patient has an FEV1 of 36% predicted with significant limitation exercise capacity Former smoker Right lung mass measuring 2.8 x 2.3 x 1.7 highly suspicious for malignancy. Patient is post SBRT. Subsequent CAT scan of the chest including the most recent CAT scan of the chest that was done April 2023 showed several pulmonary nodules in the lower lobes bilaterally consistent with metastatic disease. As such there is evidence of disease progression. Hyperlipidemia Benign prostatic hyperplasia with previous TURP Coronary artery disease with previous coronary artery bypass surgery in 1994 History of CVA/TIA Plan: CAT scan of the chest was reviewed and there is no evidence of any disease progression in terms of malignancy. There is moderate to severe COPD. Left lower lobe pneumonia from previous hospitalizations has recovered Continue oxygen therapy at 3 L Continue bronchodilators Continue steroids Very limited performance and functional status Long-term prognosis poor Continue antibiotics Experiencing occasional chest wall and shoulder pain, will give [place] for that We'll continue to follow and make further recommendations based on his clinical status
--- NOTE | 2023-08-28 23:36 | PN ---
PROGRESS NOTE DATE OF SERVICE: 08/28/2023 SUBJECTIVE: This 83-year-old gentleman admitted with COPD exacerbation, also had lung malignancy with METS. The patient is closely monitored. No chest pain. No palpitations. No fever. PHYSICAL EXAMINATION: VITAL SIGNS: Pulse is 84, blood pressure 150/70, and respirations 17. CHEST: Few scattered rhonchi and crackles. ABDOMEN: Soft. NERVOUS SYSTEM: Nonfocal. LABORATORY DATA: WBC 12.42, rest of the labs are noted. ASSESSMENT: 1. Chronic obstructive pulmonary disease exacerbation with acute on chronic hypoxic respiratory failure, present on admission. 2. Lung malignancy with metastasis. 3. Hyperlipidemia. 4. Coronary artery disease, coronary artery bypass graft. 5. History of cerebrovascular accident, transient ischemic attack. 6. Moderate protein-calorie malnutrition. 7. Acute tracheobronchitis. 8. No code, no CPR, no vent. RECOMMENDATIONS: I recommend to continue current management. Continue symptomatic treatment. Continue antibiotics. Continue rest of medications. I would recommend follow up labs and Dr. Puente will follow. MMONELL / PILIN: [id number] /
[2023-08-29 08:31] LABS: Basophils # (A) 0.05 X 10*3/uL (0.00-0.10); Basophils % (A) 0.4 %; Eosinophils # (A) 0 X 10*3/uL (0.04-0.35); Eosinophils % (A) 0 %; HCT 39.1 % (39.6-50.0); HGB 12.8 g/dL (13.0-17.0); Lymphocytes # (A) 0.43 X 10*3/uL (0.90-5.00); Lymphocytes % (A) 3.8 %; MCH 32.2 pg (27.0-32.0); MCHC 32.7 g/dL (32.0-37.0); MCV 98.2 FL (80.0-97.0); Mean Platelet Volume 9.3 FL (9.5-12.2); Monocytes # (A) 0.26 X 10*3/uL (0.20-1.00); Monocytes % (A) 2.3 %; NRBC Per 100 WBC 0 X 10*3/uL (0.00-0.01); Neutrophils # (A) 10.43 X 10*3/uL (1.80-7.70); Neutrophils % (A) 91.6 %; Platelet Count 290 X 10*3/uL (140-440); RBC 3.98 X 10*6/uL (4.40-5.60); RDW 13.3 % (11.5-14.5); WBC 11.39 X 10*3/uL (4.50-10.00)
[2023-08-29 08:39] LABS: BUN/Creat Ratio 29.12 Ratio (12.00-20.00); Blood Urea Nitrogen 23.3 mg/dL (9.0-27.0); Carbon Dioxide 31.3 mmol/L (21.6-31.8); Chloride 100 mmol/L (96-109); Glucose 113 mg/dL (70-110); Potassium 5.2 mmol/L (3.5-5.5); Sodium 138 mmol/L (135-145)
--- NOTE | 2023-08-29 11:37 | PN ---
PROGRESS NOTE DATE OF SERVICE: 08/29/2023 SUBJECTIVE: This is an 83-year-old gentleman, admitted with COPD exacerbation, also had underlying lung cancer. The chest CT was done by Pulmonary, which showed improved findings in the left lower area. The patient is extremely weak. Possible ECF rehab is considered. PHYSICAL EXAMINATION: VITAL SIGNS: Pulse is 78, blood pressure 116/84, respirations 16. CHEST: Few scattered rhonchi. ABDOMEN: Soft. NERVOUS SYSTEM: Nonfocal. LABORATORY DATA: WBC 7.8. Rest of the labs are noted. ASSESSMENT: 1. Chronic obstructive pulmonary disease acute exacerbation with acute on chronic hypoxic respiratory failure, present on admission. 2. Acute purulent tracheobronchitis. 3. Lung malignancy with metastasis. 4. Hyperlipidemia. 5. Generalized weak and gait dysfunction. 6. CAD, CABG. 7. History of CVA, TIA. 8. Moderate protein-calorie malnutrition. 9. No code. No CPR. No vent. RECOMMENDATIONS: Recommend to continue current management, continue symptomatic treatment. Repeat labs. Otherwise, continue with antibiotics. Continue with steroids. PT/OT evaluation and possible ECF rehab. We will talk to the , case management. Will follow. MMODL / IJN: [id number] /
--- NOTE | 2023-08-29 14:11 | P.PN ---
Subjective Progress Note Date: 08/29/23 On today's evaluation of 08/27/2023, patient is being seen in consultation regarding his shortness of breath. The patient is very well-known to me. The patient has advanced oxygen dependent COPD and the patient has been followed up with me in the office on an outpatient basis and the patient has an FEV1 of 3 6% of predicted based on a previous spirometry evaluation the patient is also developed a right lung mass that was suspicious for malignancy and based on his advanced lung disease, no surgical resection or biopsy was attempted and the patient was given SBRT. The patient subsequently had multiple CAT scan of the chest and multiple CAT scans. His course was also complicated by development of a pneumonia. In summary, the most recent CAT scan of the chest was done on 04/06/2023 showed that the patient continues to have advanced centrilobular emphysema without any focal areas of consolidation or pneumothorax. There was a left lower lobe left lower lobe nodule increased in size from 6 mm to 10 mm, right lower lobe pulmonary nodule that has increased from 11 mm to 13 mm, another left lower lobe superior segment pulmonary nodule increased from 30 mm up to 14 mm. The previously radiated right upper lobe pulmonary mass was looking hazy. The patient currently is coming in with worsening shortness of breath, he has a congested cough. No significant sputum production. He also has a anterior abdominal wall pulmonary nodule/lesion that he has felt few months back. No hemoptysis. No pleurisy. No altered mentation. No other new complaints otherwise for now. WBC count is 7.5 with a hemoglobin 12 and a platelet count of 241. BUN is at 25 with a creatinine of 0.7 and his sodium l evel is at 139. UA is negative. The viral screen was also negative. He was hospitalized for acute COPD exacerbation. On today's evaluation of 08/28/2023, the patient is being seen for a follow-up. The patient is doing well. Less bronchospastic and wheezy compared to yesterday. A CT scan of the chest was done and the CAT scan shows no evidence of any disease progression in terms of his malignancy. The patient has improved finding in the left lower lobe consolidation. The patient has advanced COPD in the background. White cell count of 12 hemoglobin 12 and platelet count of 274, BUN is 23 with a creatinine of 0.7 and sodium levels of 140 and the patient remains on Rocephin and Zithromax and IV Solu-Medrol and Symbicort as maintenance. He remains on bronchodilators [id number]. No new complaints otherwise for now. Oxygen requirements are still stable and the patient remains on 3 L of oxygen by nasal cannula. The patient is seen today August 29, 2023 in follow-up on the regular medical floor. He is currently sitting up in bed. Awake and alert in no acute distress. He is breathing a bit easier today compared to yesterday. Continue good O2 saturations in the upper 90s on 3 L/min per nasal cannula. He has been afebrile. Hemodynamically stable. White count 11.3. Hemoglobin 12.8. Platelets 290. Sodium 138. Potassium 5.2. Bicarb 32. BUN 23. Creatinine 0.8. Glucose 113. Procalcitonin was 0.49. And azithromycin. Continue on DuoNeb inhalations, Symbicort, Solu-Medrol. Heparin for DVT prophylaxis. Objective - Vital Signs Vital signs: Vital Signs Temp 98.0 F 08/29/23 07:25 Pulse 86 08/29/23 12:34 Resp 16 08/29/23 07:25 BP 169/84 08/29/23 07:25 Pulse Ox 98 08/29/23 09:26 FiO2 Intake & Output 08/28/23 08/29/23 08/29/23 18:59 06:59 18:59 Intake Total 236 240 118 Output Total 700 1200 Balance -464 -960 118 Intake: Oral 236 240 118 Output: Urine 700 1200 Other: Voiding Method External Catheter - Exam GENERAL EXAM: Alert, very pleasant 83-year-old male, on 3 L nasal cannula, comfortable in no apparent distress. HEAD: Normocephalic. EYES: Normal reaction of pupils, equal size. NOSE: Clear with pink turbinates. THROAT: No erythema or exudates. NECK: No masses, no JVD. CHEST: No chest wall deformity. LUNGS: Equal air entry with bilateral scattered rhonchi. CVS: S1 and S2 normal with no audible murmur, regular rhythm. ABDOMEN: No hepatosplenomegaly, normal bowel sounds, no guarding or rigidity. SPINE: No scoliosis or deformity SKIN: No rashes CENTRAL NERVOUS SYSTEM: No focal deficits, tone is normal in all 4 extremities. EXTREMITIES: There is no peripheral edema. No clubbing, no cyanosis. Peripheral pulses are intact. - Labs CBC & Chem 7: 08/29/23 05:44 08/29/23 05:41 Labs: Abnormal Lab Results - Last 24 Hours (Table) 08/29/23 08/29/23 Range/Units 05:41 05:44 WBC 11.39 H (4.50-10.00) X 10*3/uL RBC 3.98 L (4.40-5.60) X 10*6/uL Hgb 12.8 L (13.0-17.0) g/dL Hct 39.1 L (39.6-50.0) % MCV 98.2 H (80.0-97.0) FL MCH 32.2 H (27.0-32.0) pg MPV 9.3 L (9.5-12.2) FL Immature Gran # 0.22 H (0.00-0.04) X 10*3/uL Neutrophils # 10.43 H (1.80-7.70) X 10*3/uL Lymphocytes # 0.43 L (0.90-5.00) X 10*3/uL Eosinophils # 0 L (0.04-0.35) X 10*3/uL BUN/Creatinine Ratio 29.12 H (12.00-20.00) Ratio Glucose 113 H (70-110) mg/dL Microbiology - Last 24 Hours (Table) 08/26/23 12:50 Blood Culture - Preliminary Blood 08/26/23 13:05 Blood Culture - Preliminary Blood Assessment and Plan Assessment: Acute on chronic dyspnea secondary to COPD exacerbation Chronic hypoxic respiratory failure maintained on O2 at 3 L/min nasal cannula Advance and severe COPD with chronic hypoxic respiratory failure and the patient has an FEV1 of 36% predicted with significant limitation exercise capacity Former smoker Right lung mass measuring 2.8 x 2.3 x 1.7 highly suspicious for malignancy. Patient is post SBRT. Subsequent CAT scan of the chest including the most recent CAT scan of the chest that was done April 2023 showed several pulmonary nodules in the lower lobes bilaterally consistent with metastatic disease. As such there is evidence of disease progression. Hyperlipidemia Benign prostatic hyperplasia with previous TURP Coronary artery disease with previous coronary artery bypass surgery in 1994 History of CVA/TIA Plan: The patient was seen and evaluated Labs and medications reviewed Improved but not quite back to baseline Continue bronchodilators, steroids Heparin for DVT prophylaxis DNR/DNI CODE STATUS We will continue to follow I have personally seen and examined the patient, performed the documentation and the assessment and plan as written. Number of minutes spent on the visit: 10.
[2023-08-29] MEDS ORDERED: IPRATROPIUM-ALBUTEROL 3 ML NEB INHALATION PRN (20:04)
[2023-08-30] MEDS: IPRATROPIUM-ALBUTEROL 3 ML NEB INHALATION SCH (08:51)
[2023-08-30] MEDS: predniSONE 20 MG TAB PO SCH (09:11)
[2023-08-30 11:33] LABS: Basophils # (A) 0.03 X 10*3/uL (0.00-0.10); Basophils % (A) 0.3 %; Eosinophils # (A) 0 X 10*3/uL (0.04-0.35); Eosinophils % (A) 0 %; HCT 41.2 % (39.6-50.0); HGB 13.9 g/dL (13.0-17.0); Lymphocytes # (A) 0.44 X 10*3/uL (0.90-5.00); Lymphocytes % (A) 4.7 %; MCH 32.9 pg (27.0-32.0); MCHC 33.7 g/dL (32.0-37.0); MCV 97.6 FL (80.0-97.0); Mean Platelet Volume 9.1 FL (9.5-12.2); Monocytes # (A) 0.32 X 10*3/uL (0.20-1.00); Monocytes % (A) 3.4 %; NRBC Per 100 WBC 0 X 10*3/uL (0.00-0.01); Neutrophils # (A) 8.27 X 10*3/uL (1.80-7.70); Neutrophils % (A) 88.4 %; Platelet Count 324 X 10*3/uL (140-440); RBC 4.22 X 10*6/uL (4.40-5.60); RDW 13.3 % (11.5-14.5); WBC 9.36 X 10*3/uL (4.50-10.00)
[2023-08-30 11:48] LABS: BUN/Creat Ratio 31.25 Ratio (12.00-20.00); Calcium 9.4 mg/dL (8.7-10.3); Carbon Dioxide 31.9 mmol/L (21.6-31.8); Chloride 98 mmol/L (96-109); Glucose 87 mg/dL (70-110); Potassium 4.7 mmol/L (3.5-5.5); Sodium 138 mmol/L (135-145)
--- NOTE | 2023-08-30 12:20 | P.PN ---
Subjective Progress Note Date: 08/30/23 On today's evaluation of 08/27/2023, patient is being seen in consultation regarding his shortness of breath. The patient is very well-known to me. The patient has advanced oxygen dependent COPD and the patient has been followed up with me in the office on an outpatient basis and the patient has an FEV1 of 3 6% of predicted based on a previous spirometry evaluation the patient is also developed a right lung mass that was suspicious for malignancy and based on his advanced lung disease, no surgical resection or biopsy was attempted and the patient was given SBRT. The patient subsequently had multiple CAT scan of the chest and multiple CAT scans. His course was also complicated by development of a pneumonia. In summary, the most recent CAT scan of the chest was done on 04/06/2023 showed that the patient continues to have advanced centrilobular emphysema without any focal areas of consolidation or pneumothorax. There was a left lower lobe left lower lobe nodule increased in size from 6 mm to 10 mm, right lower lobe pulmonary nodule that has increased from 11 mm to 13 mm, another left lower lobe superior segment pulmonary nodule increased from 30 mm up to 14 mm. The previously radiated right upper lobe pulmonary mass was looking hazy. The patient currently is coming in with worsening shortness of breath, he has a congested cough. No significant sputum production. He also has a anterior abdominal wall pulmonary nodule/lesion that he has felt few months back. No hemoptysis. No pleurisy. No altered mentation. No other new complaints otherwise for now. WBC count is 7.5 with a hemoglobin 12 and a platelet count of 241. BUN is at 25 with a creatinine of 0.7 and his sodium l evel is at 139. UA is negative. The viral screen was also negative. He was hospitalized for acute COPD exacerbation. On today's evaluation of 08/28/2023, the patient is being seen for a follow-up. The patient is doing well. Less bronchospastic and wheezy compared to yesterday. A CT scan of the chest was done and the CAT scan shows no evidence of any disease progression in terms of his malignancy. The patient has improved finding in the left lower lobe consolidation. The patient has advanced COPD in the background. White cell count of 12 hemoglobin 12 and platelet count of 274, BUN is 23 with a creatinine of 0.7 and sodium levels of 140 and the patient remains on Rocephin and Zithromax and IV Solu-Medrol and Symbicort as maintenance. He remains on bronchodilators [id number]. No new complaints otherwise for now. Oxygen requirements are still stable and the patient remains on 3 L of oxygen by nasal cannula. The patient is seen today August 29, 2023 in follow-up on the regular medical floor. He is currently sitting up in bed. Awake and alert in no acute distress. He is breathing a bit easier today compared to yesterday. Continue good O2 saturations in the upper 90s on 3 L/min per nasal cannula. He has been afebrile. Hemodynamically stable. White count 11.3. Hemoglobin 12.8. Platelets 290. Sodium 138. Potassium 5.2. Bicarb 32. BUN 23. Creatinine 0.8. Glucose 113. Procalcitonin was 0.49. And azithromycin. Continue on DuoNeb inhalations, Symbicort, Solu-Medrol. Heparin for DVT prophylaxis. The patient is seen today August 30, 2023 in follow-up on the regular medical floor. He is currently awake and alert in no acute distress. Sitting up in bed having breakfast. He denies any worsening shortness of breath, cough or congestion. He is continued on DuoNeb and elations, Symbicort, Solu-Medrol, Mucinex. Remains on antibiotics in the form of ceftriaxone and azithromycin. Heparin for DVT prophylaxis. He is working with physical therapy. The plan is for possible subacute rehab debilitation at discharge. White count 9.3. Hemoglobin 13.9. Sodium 138. Potassium 4.7. Bicarb 32. BUN 25. Creatinine 0.8. Glucose 87. Objective - Vital Signs Vital signs: Vital Signs Temp 97.2 F L 08/30/23 07:00 Pulse 88 08/30/23 11:46 Resp 16 08/30/23 07:00 BP 163/83 08/30/23 07:00 Pulse Ox 94 L 08/30/23 08:54 FiO2 Intake & Output 08/29/23 08/30/23 08/30/23 18:59 06:59 18:59 Intake Total 472 Output Total 500 1450 Balance -28 1450 Intake: Oral 472 Output: Urine 500 1450 Other: Voiding Method External Catheter External Catheter - Exam GENERAL EXAM: Alert, pleasant 83-year-old male, resting in bed, on 3 L nasal cannula, comfortable in no apparent distress. HEAD: Normocephalic. EYES: Normal reaction of pupils, equal size. NOSE: Clear with pink turbinates. THROAT: No erythema or exudates. NECK: No masses, no JVD. CHEST: No chest wall deformity. LUNGS: Equal air entry with bilateral scattered rhonchi. CVS: S1 and S2 normal with no audible murmur, regular rhythm. ABDOMEN: No hepatosplenomegaly, normal bowel sounds, no guarding or rigidity. SPINE: No scoliosis or deformity SKIN: No rashes CENTRAL NERVOUS SYSTEM: No focal deficits, tone is normal in all 4 extremities. EXTREMITIES: There is no peripheral edema. No clubbing, no cyanosis. Peripheral pulses are intact. - Labs CBC & Chem 7: 08/30/23 07:10 08/30/23 07:10 Labs: Abnormal Lab Results - Last 24 Hours (Table) 08/30/23 08/30/23 Range/Units 07:10 07:10 RBC 4.22 L (4.40-5.60) X 10*6/uL MCV 97.6 H (80.0-97.0) FL MCH 32.9 H (27.0-32.0) pg MPV 9.1 L (9.5-12.2) FL Immature Gran # 0.30 H (0.00-0.04) X 10*3/uL Neutrophils # 8.27 H (1.80-7.70) X 10*3/uL Lymphocytes # 0.44 L (0.90-5.00) X 10*3/uL Eosinophils # 0 L (0.04-0.35) X 10*3/uL Carbon Dioxide 31.9 H (21.6-31.8) mmol/L BUN/Creatinine Ratio 31.25 H (12.00-20.00) Ratio Microbiology - Last 24 Hours (Table) 08/26/23 12:50 Blood Culture - Preliminary Blood 08/26/23 13:05 Blood Culture - Preliminary Blood Assessment and Plan Assessment: Acute on chronic dyspnea secondary to COPD exacerbation Chronic hypoxic respiratory failure maintained on O2 at 3 L/min nasal cannula Advance and severe COPD with chronic hypoxic respiratory failure and the patient has an FEV1 of 36% predicted with significant limitation exercise capacity Former smoker Right lung mass measuring 2.8 x 2.3 x 1.7 highly suspicious for malignancy. Patient is post SBRT. Subsequent CAT scan of the chest including the most recent CAT scan of the chest that was done April 2023 showed several pulmonary nodules in the lower lobes bilaterally consistent with metastatic disease. As such there is evidence of disease progression. Hyperlipidemia Benign prostatic hyperplasia with previous TURP Coronary artery disease with previous coronary artery bypass surgery in 1994 History of CVA/TIA Plan: The patient was seen and evaluated Labs and medications reviewed Stable from the pulmonary standpoint Complete a prednisone taper Complete a course of antibiotics Continue his home Wixela, Spiriva and albuterol Plan is for subacute rehabilitation at discharge This patient was seen independently by the pulmonary nurse practitioner addressing pulmonary issues I have personally seen and examined the patient, performed the documentation and the assessment and plan as written. Number of minutes spent on the visit: 23.
--- NOTE | 2023-08-30 14:57 | P.PN ---
Subjective Progress Note Date: 08/30/23 This is an 83-year-old male who was recently admitted with increased shortness of breath with acute COPD exacerbation and underlying history of lung cancer being closely monitored. Patient is maintained on IV steroids which is being transition to oral steroids and continue DuoNeb treatments with pulmonary following. Patient chronically wears oxygen outpatient and is at his baseline. Patient with acute purulent tracheobronchitis and underlying lung cancer with metastasis is being monitored by pulmonary and will need close outpatient follow-up. Patient with significant weakness was evaluated by physical therapy recommending home with 27/12 supervision or possible subacute rehab. Patient is adamant he is going home and is refusing any form of rehab. Patient reports he feels fine and would like to go home. Patient is afebrile with no reported chest pain or palpitations. Patient continues to report shortness of breath but reports to feeling improved and again asking to go home. Patient does not currently have his oxygen supplies home for transport home and family arranging to bring his tanks tomorrow for discharge. Probable discharge in 24 hours. Review of systems: Constitutional: No reports of fatigue, fever, or chills Cardiovascular: No reports of chest pain or palpitations Respiratory: reports of shortness of breath although feels improved GI: No reports of nausea, no reports of vomiting, no diarrhea : No reports of dysuria or retention Neurovascular: reports of generalized weakness All medications have been reviewed PHYSICAL EXAMINATION: GENERAL: The patient is alert and oriented x3, Well developed, elderly appearing, thin built HEENT: Pupils are round and equally reacting to light. EOMI. no scleral icterus. No conjunctival pallor. Normocephalic, atraumatic. No pharyngeal erythema. No thyromegaly. CARDIOVASCULAR: S1 and S2 muffled PULMONARY: diminished breath sounds bilaterally with coarse scattered rhonchi noted throughout and faint expiratory wheezing noted at the bases ABDOMEN: soft. Nontender on exam. non-distended, normoactive bowel sounds. No palpable organomegaly. MUSCULOSKELETAL: No joint swelling or deformity. EXTREMITIES: No cyanosis, clubbing, or pedal edema. NEUROLOGICAL: Gross neurological examination did not reveal any focal deficits. Diffuse weakness SKIN: No rashes. Assessment: Chronic obstructive pulmonary disease, acute exacerbation with acute on chronic hypoxic respiratory failure, present on admission Acute purulent tracheobronchitis Lung malignancy with metastasis History of hyperlipidemia Generalized weakness with gait dysfunction History of coronary artery disease with CABG History of CVA/TIA Moderate protein calorie malnutrition with a BMI of 18.4 GI prophylaxis DVT prophylaxis No code Plan: Recommend to continue with current medications and management with pulmonary following. Patient is continued on IV steroids along with DuoNeb treatments and being transition to oral prednisone. Recommend taper on discharge and outpatient follow-up Patient has been evaluated by physical therapy recommending rehab versus home with home care and 27/12 supervision. Patient is adamant he is returning home and refusing any form of rehab. Patient does not currently have his oxygen tanks and supplies for discharge and family will be bringing them in the morning and we will plan on discharge in 24 hours Recommend repeat PT/OT therapy evaluation in the a.m. prior to discharge to promote strength and mobility. Due to multiple complex medical issues, prognosis is guarded. The impression and plan of care has been dictated by Ny Woods, nurse practitioner as directed. Dr. Rex MD I have performed a history and examination and MDM of this patient, discussed the same with the dictator, and agree with the dictator's assessment and plan as written ,documented as a scribe. Based on total visit time, I have performed more than 50% of the visit. Any additional findings or plans will be noted. Objective - Vital Signs Vital signs: Vital Signs Temp 97.2 F L 08/30/23 07:00 Pulse 88 08/30/23 11:46 Resp 16 08/30/23 07:00 BP 163/83 08/30/23 07:00 Pulse Ox 94 L 08/30/23 08:54 FiO2 Intake & Output 08/29/23 08/30/23 08/30/23 18:59 06:59 18:59 Intake Total 472 Output Total 500 1450 Balance -28 -1450 Intake: Oral 472 Output: Urine 500 1450 Other: Voiding Method External Catheter External Catheter - Labs CBC & Chem 7: 08/30/23 07:10 08/30/23 07:10 Labs: Abnormal Lab Results - Last 24 Hours (Table) 08/30/23 08/30/23 Range/Units 07:10 07:10 RBC 4.22 L (4.40-5.60) X 10*6/uL MCV 97.6 H (80.0-97.0) FL MCH 32.9 H (27.0-32.0) pg MPV 9.1 L (9.5-12.2) FL Immature Gran # 0.30 H (0.00-0.04) X 10*3/uL Neutrophils # 8.27 H (1.80-7.70) X 10*3/uL Lymphocytes # 0.44 L (0.90-5.00) X 10*3/uL Eosinophils # 0 L (0.04-0.35) X 10*3/uL Carbon Dioxide 31.9 H (21.6-31.8) mmol/L BUN/Creatinine Ratio 31.25 H (12.00-20.00) Ratio Microbiology - Last 24 Hours (Table) 08/26/23 12:50 Blood Culture - Preliminary Blood 08/26/23 13:05 Blood Culture - Preliminary Blood
[2023-08-31 04:17] VITALS: TEMP 97.7
[2023-08-31 07:48] VITALS: BP 182/82; RESP 16
--- NOTE | 2023-08-31 12:46 | P.PN ---
Subjective Progress Note Date: 08/31/23 On today's evaluation of 08/27/2023, patient is being seen in consultation regarding his shortness of breath. The patient is very well-known to me. The patient has advanced oxygen dependent COPD and the patient has been followed up with me in the office on an outpatient basis and the patient has an FEV1 of 3 6% of predicted based on a previous spirometry evaluation the patient is also developed a right lung mass that was suspicious for malignancy and based on his advanced lung disease, no surgical resection or biopsy was attempted and the patient was given SBRT. The patient subsequently had multiple CAT scan of the chest and multiple CAT scans. His course was also complicated by development of a pneumonia. In summary, the most recent CAT scan of the chest was done on 04/06/2023 showed that the patient continues to have advanced centrilobular emphysema without any focal areas of consolidation or pneumothorax. There was a left lower lobe left lower lobe nodule increased in size from 6 mm to 10 mm, right lower lobe pulmonary nodule that has increased from 11 mm to 13 mm, another left lower lobe superior segment pulmonary nodule increased from 30 mm up to 14 mm. The previously radiated right upper lobe pulmonary mass was looking hazy. The patient currently is coming in with worsening shortness of breath, he has a congested cough. No significant sputum production. He also has a anterior abdominal wall pulmonary nodule/lesion that he has felt few months back. No hemoptysis. No pleurisy. No altered mentation. No other new complaints otherwise for now. WBC count is 7.5 with a hemoglobin 12 and a platelet count of 241. BUN is at 25 with a creatinine of 0.7 and his sodium l evel is at 139. UA is negative. The viral screen was also negative. He was hospitalized for acute COPD exacerbation. On today's evaluation of 08/28/2023, the patient is being seen for a follow-up. The patient is doing well. Less bronchospastic and wheezy compared to yesterday. A CT scan of the chest was done and the CAT scan shows no evidence of any disease progression in terms of his malignancy. The patient has improved finding in the left lower lobe consolidation. The patient has advanced COPD in the background. White cell count of 12 hemoglobin 12 and platelet count of 274, BUN is 23 with a creatinine of 0.7 and sodium levels of 140 and the patient remains on Rocephin and Zithromax and IV Solu-Medrol and Symbicort as maintenance. He remains on bronchodilators [id number]. No new complaints otherwise for now. Oxygen requirements are still stable and the patient remains on 3 L of oxygen by nasal cannula. The patient is seen today August 29, 2023 in follow-up on the regular medical floor. He is currently sitting up in bed. Awake and alert in no acute distress. He is breathing a bit easier today compared to yesterday. Continue good O2 saturations in the upper 90s on 3 L/min per nasal cannula. He has been afebrile. Hemodynamically stable. White count 11.3. Hemoglobin 12.8. Platelets 290. Sodium 138. Potassium 5.2. Bicarb 32. BUN 23. Creatinine 0.8. Glucose 113. Procalcitonin was 0.49. And azithromycin. Continue on DuoNeb inhalations, Symbicort, Solu-Medrol. Heparin for DVT prophylaxis. The patient is seen today August 30, 2023 in follow-up on the regular medical floor. He is currently awake and alert in no acute distress. Sitting up in bed having breakfast. He denies any worsening shortness of breath, cough or congestion. He is continued on DuoNeb and elations, Symbicort, Solu-Medrol, Mucinex. Remains on antibiotics in the form of ceftriaxone and azithromycin. Heparin for DVT prophylaxis. He is working with physical therapy. The plan is for possible subacute rehab debilitation at discharge. White count 9.3. Hemoglobin 13.9. Sodium 138. Potassium 4.7. Bicarb 32. BUN 25. Creatinine 0.8. Glucose 87. The patient is seen today August 31, 2023 in follow-up on the regular medical floor. He is currently awake and alert in no acute distress. Resting comfortably in bed. He is maintaining O2 saturations in the 90s on 2 L/min per nasal cannula. He is afebrile. Hemodynamically stable. Blood cultures revealed no growth. He is continue on DuoNeb inhalations, Symbicort, prednisone taper. Antibiotics in the form of ceftriaxone. Heparin for DVT prophylaxis. He has been up ambulating with a walker and assistance. He is declining subacute rehabilitation. Objective - Vital Signs Vital signs: Vital Signs Temp 97.7 F 08/31/23 07:44 Pulse 74 08/31/23 12:26 Resp 16 08/31/23 07:44 BP 182/82 08/31/23 07:44 Pulse Ox 95 08/31/23 09:32 FiO2 Intake & Output 08/30/23 08/31/23 08/31/23 18:59 06:59 18:59 Intake Total 240 Output Total 200 1300 Balance -200 -1300 240 Weight 60.781 kg Intake: Oral 240 Output: Urine 200 1300 Other: Voiding Method External Catheter External Catheter Incontinent External Catheter - Exam GENERAL EXAM: Alert, 83-year-old male, resting in bed, on 3 L nasal cannula, in no apparent distress. HEAD: Normocephalic. EYES: Normal reaction of pupils, equal size. NOSE: Clear with pink turbinates. THROAT: No erythema or exudates. NECK: No masses, no JVD. CHEST: No chest wall deformity. LUNGS: Equal air entry with bilateral scattered rhonchi. CVS: S1 and S2 normal with no audible murmur, regular rhythm. ABDOMEN: No hepatosplenomegaly, normal bowel sounds, no guarding or rigidity. SPINE: No scoliosis or deformity SKIN: No rashes CENTRAL NERVOUS SYSTEM: No focal deficits, tone is normal in all 4 extremities. EXTREMITIES: There is no peripheral edema. No clubbing, no cyanosis. Peripheral pulses are intact. - Labs CBC & Chem 7: 08/30/23 07:10 08/30/23 07:10 Assessment and Plan Assessment: Acute on chronic dyspnea secondary to COPD exacerbation Chronic hypoxic respiratory failure maintained on O2 at 3 L/min nasal cannula Advance and severe COPD with chronic hypoxic respiratory failure and the patient has an FEV1 of 36% predicted with significant limitation exercise capacity Former smoker Right lung mass measuring 2.8 x 2.3 x 1.7 highly suspicious for malignancy. Patient is post SBRT. Subsequent CAT scan of the chest including the most recent CAT scan of the chest that was done April 2023 showed several pulmonary nodules in the lower lobes bilaterally consistent with metastatic disease. As such there is evidence of disease progression. Hyperlipidemia Benign prostatic hyperplasia with previous TURP Coronary artery disease with previous coronary artery bypass surgery in 1994 History of CVA/TIA Plan: The patient was seen and evaluated Medications reviewed Complete a prednisone taper Complete a course of antibiotics Continue his home Wixela, Spiriva and albuterol Patient had declined subacute rehabilitation Plan is for home with his This patient was seen independently by the pulmonary nurse practitioner addressing pulmonary issues I have personally seen and examined the patient, performed the documentation and the assessment and plan as written. Number of minutes spent on the visit: 22.
[2023-08-31 12:48] VITALS: PULSE 71
--- NOTE | 2023-08-31 15:44 | P.DS ---
Providers Date of admission: 08/27/23 13:56 Expected date of discharge: 08/31/23 Attending physician: Moon Moyer Consults: 08/26/23 12:40 Consult Physician Routine Consulting Provider: Filiberto Maurer Consult Reason/Comments: copd, bronchitis Do you want consulting provider notified?: Yes Primary care physician: Jorge L Puente Hospital Course: Final diagnosis Chronic obstructive pulmonary disease, acute exacerbation with acute on chronic hypoxic respiratory failure, present on admission Acute purulent tracheobronchitis Lung malignancy with metastasis History of hyperlipidemia Generalized weakness with gait dysfunction History of coronary artery disease with CABG History of CVA/TIA Moderate protein calorie malnutrition with a BMI of 18.4 GI prophylaxis DVT prophylaxis No code Discharge disposition Patient is being discharged in a stable condition with guarded prognosis to home with home care. Patient will follow-up with Dr. Puente in the outpatient setting upon discharge. Patient is to continue with prednisone taper along with inhalers and her short course of oral Ceftin 500 mg twice daily for the next 3 days to complete the course. Patient to follow-up with pulmonary outpatient as scheduled. Total time taken is greater than 35 minutes. Hospital course This is a 83-year-old male who was recently admitted with increased shortness of breath with COPD exacerbation with acute on chronic hypoxic respiratory failure as well as acute purulent tracheobronchitis. Patient had a mildly elevated procalcitonin maintained on ceftriaxone. Patient continued on IV steroids along with breathing inhalational treatments showing some clinical improvement. Patient chronically wears oxygen outpatient and arrangements being made for family to bring tanks for discharge home. Patient will continue on a prednisone taper along with a short course of oral Ceftin and close outpatient follow-up with pulmonary. Patient with weakness was evaluated by physical therapy recommending home with outpatient rehab and 27/12/care versus ECF. Patient is adamant about going home and home care is being arranged. Patient has been cleared by consultations for discharge. Please refer to consultation notes for further HPI. Currently no reports of chest pain, no worsening shortness of breath, or palpitations. Patient is afebrile. No reports of nausea or vomiting and patient is tolerating diet. Patient will be discharged home today. Guarded prognosis and high risk for readmissions given patient's significant comorbidities. Physical exam: Gen: This is a 83-year-old male who is awake, alert and oriented x 3, thin built, elderly appearing, well-developed HEENT: Head is atraumatic, normocephalic. Pupils equal, round. Sclerae is anicteric. NECK: Supple. No JVD. No lymphadenopathy. No thyromegaly. LUNGS: Diminished breath sounds bilaterally with some scattered coarse rhonchi. Expiratory wheezing noted on exam as well. No intercostal retractions. HEART: S1, S2 are muffled ABDOMEN: Soft. Thin bowel sounds are present. No masses. No tenderness. EXTREMITIES: No pedal edema. No calf tenderness. NEUROLOGICAL: Patient is awake, alert and oriented x3. Cranial nerves 2 through 12 are grossly intact. Diffusely weak Please refer to medication reconciliation sheet for a list of medications. The impression and plan of care has been dictated by Ny Woods, Nurse Practitioner as directed. Dr. Rex MD I have performed a history and examination and MDM of this patient, discussed the same with the dictator, and agree with the dictator's assessment and plan as written ,documented as a scribe. Based on total visit time, I have performed more than 50% of the visit. Patient Condition at Discharge: Stable Plan - Discharge Summary Discharge Rx Participant: Yes New Discharge Prescriptions: New Ipratropium-Albuterol Nebulize [Duoneb 0.5 mg-3 mg/3 ml Soln] 3 ml INHALATION QID #100 each Multivitamin [Multivitamins Adult Gummies] 1 each PO DAILY #30 tablet Thiamine [Vitamin B-1] 100 mg PO DAILY #30 tablet guaiFENesin [Mucinex] 600 mg PO Q12H PRN #20 tab PRN Reason: Cough predniSONE 10 mg PO DIRECTED #30 tab Continue Aspirin EC [Ecotrin Low Dose] 81 mg PO HS Clopidogrel [Plavix] 75 mg PO DAILY #30 tab Pantoprazole [Protonix] 40 mg PO DAILY Rosuvastatin Calcium 5 mg PO HS Albuterol Nebulized [Ventolin Nebulized] 2.5 mg INHALATION RT-Q4H PRN PRN Reason: Shortness Of Breath Tiotropium 2.5 Mcg/Puff [Spiriva Respimat 2.5 Mcg] 2 puff INHALATION RT-DAILY Ferrous Sulfate [Iron (65 MG Elemental)] 325 mg PO DAILY Fluticasone Propion/Salmeterol [Wixela 250-50 Inhub] 1 puff INHALATION RT-BID Albuterol Sulfate [Proair Hfa] 2 puff INHALATION RT-Q6H PRN PRN Reason: Shortness Of Breath Finasteride [Proscar] 5 mg PO DAILY Folic Acid 1 mg PO HS Discharge Medication List Aspirin EC [Ecotrin Low Dose] 81 mg PO HS 11/13/18 [History] Albuterol Sulfate [Proair Hfa] 2 puff INHALATION RT-Q6H PRN 10/15/21 [History] Fluticasone Propion/Salmeterol [Wixela 250-50 Inhub] 1 puff INHALATION RT-BID 10/15/21 [History] Clopidogrel [Plavix] 75 mg PO DAILY #30 tab 10/22/21 [Rx] Finasteride [Proscar] 5 mg PO DAILY 12/24/21 [History] Albuterol Nebulized [Ventolin Nebulized] 2.5 mg INHALATION RT-Q4H PRN 09/05/22 [History] Pantoprazole [Protonix] 40 mg PO DAILY 09/05/22 [History] Rosuvastatin Calcium 5 mg PO HS 09/05/22 [History] Tiotropium 2.5 Mcg/Puff [Spiriva Respimat 2.5 Mcg] 2 puff INHALATION RT-DAILY 09/05/22 [History] Ferrous Sulfate [Iron (65 MG Elemental)] 325 mg PO DAILY 08/26/23 [History] Folic Acid 1 mg PO HS 08/26/23 [History] Ipratropium-Albuterol Nebulize [Duoneb 0.5 mg-3 mg/3 ml Soln] 3 ml INHALATION QID #100 each 08/31/23 [Rx] Multivitamin [Multivitamins Adult Gummies] 1 each PO DAILY #30 tablet 08/31/23 [Rx] Thiamine [Vitamin B-1] 100 mg PO DAILY #30 tablet 08/31/23 [Rx] guaiFENesin [Mucinex] 600 mg PO Q12H PRN #20 tab 08/31/23 [Rx] predniSONE 10 mg PO DIRECTED #30 tab 08/31/23 [Rx] Follow up Appointment(s)/Referral(s): [facility], [NON-STAFF] - 1 Week Jorge L Puente DO [Primary Care Provider] - 09/07/23 9:50 am Filiberto Maurer MD [STAFF PHYSICIAN] - 09/26/23 2:25 pm Activity/Diet/Wound Care/Special Instructions: Activity limited until follow-up Follow-up with primary care provider on discharge Follow-up with pulmonary outpatient Continue taking medications as prescribed Discharge Disposition: HOME WITH HOME HEALTH SERVICES
== END 2023-08-31 15:09 | disposition home health service (06) | DRG 189 ==
LOC: EC 11:04 → 6NMEDSUR 13:31 → OBSVTOIN 08-27 13:56
PROVIDERS: ADMIT Internal Medicine; ATTEND Internal Medicine
PROC: 3E0F7SF Introduction of Other Gas into Respiratory Tract, Via Natural or Artificial Opening (ICD-10-PCS; principal; 2023-08-27)
DX: J96.21 Acute and chronic respiratory failure with hypoxia (principal); J44.1 Chronic obstructive pulmonary disease with (acute) exacerbation; C34.90 Malignant neoplasm of unspecified part of unspecified bronchus or lung; E44.0 Moderate protein-calorie malnutrition; Z68.1 Body mass index [BMI] 19.9 or less, adult; C79.9 Secondary malignant neoplasm of unspecified site; J44.0 Chronic obstructive pulmonary disease with (acute) lower respiratory infection; J43.2 Centrilobular emphysema; Z99.81 Dependence on supplemental oxygen; E78.5 Hyperlipidemia, unspecified; N40.0 Benign prostatic hyperplasia without lower urinary tract symptoms; I25.10 Atherosclerotic heart disease of native coronary artery without angina pectoris; Z95.1 Presence of aortocoronary bypass graft; Z66 Do not resuscitate; Z86.73 Personal history of transient ischemic attack (TIA), and cerebral infarction without residual deficits; G89.3 Neoplasm related pain (acute) (chronic); J20.9 Acute bronchitis, unspecified; Z79.02 Long term (current) use of antithrombotics/antiplatelets; Z90.79 Acquired absence of other genital organ(s); Z92.3 Personal history of irradiation; Z79.52 Long term (current) use of systemic steroids; Z98.42 Cataract extraction status, left eye; Z98.41 Cataract extraction status, right eye; Z79.899 Other long term (current) drug therapy; Z82.49 Family history of ischemic heart disease and other diseases of the circulatory system
CPT/HCPCS: 36415; 71046; 71260; 80048; 80053; 81001; 83605; 83735; 84145; 85025; 85610; 85730; 87040; 87636; 93005; 94640; 94760; 96365; 96367; 96375; 99285

== ENCOUNTER 2023-09-06 10:42 | Emergency (ER) | payer MEDICARE ==
--- NOTE | 2023-09-06 11:09 | ED ---
General Adult HPI - General Chief complaint: Shortness of Breath Stated complaint: sob Time Seen by Provider: 09/06/23 10:43 Source: patient, EMS, RN notes reviewed Mode of arrival: EMS Limitations: no limitations - History of Present Illness Initial comments: Patient is a pleasant 83-year-old male present to the emergency department with concerns with difficulty breathing. Onset of symptoms was around 3 AM. Patient has chronic dyspnea associated with COPD and lung cancer. Patient is a poor historian. Patient does admit to occasional cough. No fever. - Related Data Home Medications Medication Instructions Recorded Confirmed Aspirin EC [Ecotrin Low Dose] 81 mg PO HS 11/13/18 09/06/23 Albuterol Sulfate [Proair Hfa] 2 puff INHALATION RT-Q6H PRN 10/15/21 09/06/23 Fluticasone Propion/Salmeterol 1 puff INHALATION RT-BID 10/15/21 09/06/23 [Wixela 250-50 Inhub] Finasteride [Proscar] 5 mg PO DAILY 12/24/21 09/06/23 Albuterol Nebulized [Ventolin 2.5 mg INHALATION RT-Q4H PRN 09/05/22 09/06/23 Nebulized] Pantoprazole [Protonix] 40 mg PO DAILY 09/05/22 09/06/23 Rosuvastatin Calcium 5 mg PO HS 09/05/22 09/06/23 Tiotropium 2.5 Mcg/Puff [Spiriva 2 puff INHALATION RT-DAILY 09/05/22 09/06/23 Respimat 2.5 Mcg] Ferrous Sulfate [Iron (65 MG 325 mg PO DAILY 08/26/23 09/06/23 Elemental)] Folic Acid 1 mg PO HS 08/26/23 09/06/23 Ipratropium-Albuterol Nebulize 3 ml INHALATION RT-QID 09/06/23 09/06/23 [Duoneb 0.5 mg-3 mg/3 ml Soln] Multivitamin [Multivitamins Adult 1 tab PO DAILY 09/06/23 09/06/23 Gummies] predniSONE See Taper PO DIRECTED 09/06/23 09/06/23 Previous Rx's Medication Instructions Recorded Clopidogrel [Plavix] 75 mg PO DAILY #30 tab 10/22/21 Thiamine [Vitamin B-1] 100 mg PO DAILY #30 tablet 08/31/23 guaiFENesin [Mucinex] 600 mg PO Q12H PRN #20 tab 08/31/23 Allergies Allergy/AdvReac Type Severity Reaction Status Date / Time No Known Allergies Allergy Verified 09/06/23 13:58 Review of Systems ROS Statement: Those systems with pertinent positive or pertinent negative responses have been documented in the HPI. ROS Other: All systems not noted in ROS Statement are negative. Constitutional: Denies: fever Respiratory: Reports: as per HPI, cough, dyspnea Cardiovascular: Denies: chest pain Endocrine: Denies: fatigue Gastrointestinal: Denies: abdominal pain Musculoskeletal: Denies: back pain Past Medical History Past Medical History: Coronary Artery Disease (CAD), Cancer, Chest Pain / Angina, COPD, CVA/TIA, Hyperlipidemia, Osteoarthritis (OA) Additional Past Medical History / Comment(s): COPD, "mini stroke 2-3 months ago- "weakness on rt side, some on the left", indwelling catheter. Lung mass under investigation being considered for SB RT History of Any Multi-Drug Resistant Organisms: Other MDRO Past Surgical History: Coronary Bypass/CABG Additional Past Surgical History / Comment(s): 1994 CABG 3 vessel, colonoscopy with benign polypectomy. hoda cataracts Past Anesthesia/Blood Transfusion Reactions: No Reported Reaction Additional Past Anesthesia/Blood Transfusion Reaction / Comment(s): no hx of problems with prior blood transfusions Past Psychological History: No Psychological Hx Reported Smoking Status: Former smoker Past Alcohol Use History: None Reported Past Drug Use History: None Reported - Past Family History Father Family Medical History: Myocardial Infarction ([place]) Additional Family Medical History / Comment(s): Father of a [place] in his 60s. Mother Family Medical History: Unable to Obtain Additional Family Medical History / Comment(s): . General Exam Limitations: no limitations General appearance: alert Head exam: Present: normocephalic Eye exam: Present: normal appearance Neck exam: Present: normal inspection Respiratory exam: Present: respiratory distress, wheezes, accessory muscle use, decreased breath sounds Cardiovascular Exam: Present: tachycardia GI/Abdominal exam: Present: soft. Absent: tenderness Extremities exam: Present: normal inspection. Absent: pedal edema, calf tenderness Neurological exam: Present: alert Psychiatric exam: Present: normal affect, normal mood Skin exam: Present: normal color Course Vital Signs 09/06/23 09/06/23 09/06/23 10:46 10:55 10:59 Temperature 97.9 F Pulse Rate 105 H 109 H Respiratory 32 H Rate Blood Pressure 167/97 O2 Sat by Pulse 98 97 96 Oximetry 09/06/23 09/06/23 11:17 11:39 Temperature Pulse Rate 103 H 118 H Respiratory Rate Blood Pressure O2 Sat by Pulse Oximetry EKG Findings - EKG Results: EKG: interpreted by ERMD (Right axis. Normal QRS. Nonspecific T wave), sinus rhythm EKG shows: tachycardia Medical Decision Making - Medical Decision Making Was pt. sent in by a medical professional or institution (, PA, [employer], urgent care, hospital, or longterm...) When possible be specific @ -No Did you speak to anyone other than the patient for history (EMS, parent, family, police, friend...)? What history was obtained from this source @ -No Did you review nursing and triage notes (agree or disagree)? Why? @ -I reviewed and agree with nursing and triage notes Were old charts reviewed (outside hosp., previous admission, EMS record, old EKG, old radiological studies, urgent care reports/EKG's, longterm records)? Report findings @ -Previous chest x-ray reviewed with similar findings to today, interstitial changes, more lower. Differential Diagnosis (chest pain, altered mental status, abdominal pain women, abdominal pain men, vaginal bleeding, weakness, fever, dyspnea, syncope, headache, dizziness, GI bleed, back pain, seizure, CVA, palpatations, mental health, musculoskeletal)? @ -Differential Dyspnea: Coronary syndrome, arrhythmia, tamponade, asthma, COPD, pulmonary embolism, pneumonia, pneumothorax, pulmonary effusion, anaphylaxis, diabetic ketoacidosis, flailed chest, pulmonary contusion, diaphragmatic rupture, anemia, neur omuscular, this is not meant to be an all-inclusive list. EKG interpreted by me (3pts min.). @ -As above X-rays interpreted by me (1pt min.). @ -Chest x-ray shows bilateral lower interstitial changes CT interpreted by me (1pt min.). @ -None done U/S interpreted by me (1pt. min.). @ -None done What testing was considered but not performed or refused? (CT, X-rays, U/S, labs)? Why? @ -None What meds were considered but not given or refused? Why? @ -None Did you discuss the management of the patient with other professionals (professionals i.e. DrNajma, PA, [employer], lab, RT, psych nurse, social work lecturer, heel cutter, teacher, client sales and service officer, case briefer)? Give summary @ -Case discussed with Dr. Puente who will admit his patient. Case also discussed with hospice nurse who is evaluating patient for hospice Was smoking cessation discussed for >3mins.? @ -No Was critical care preformed (if so, how long)? @ -No Were there social determinants of health that impacted care today? How? (Homelessness, low income, unemployed, alcoholism, drug addiction, transportation, low edu. Level, literacy, decrease access to med. care, half-way, rehab)? @ -No Was there de-escalation of care discussed even if they declined (Discuss DNR or withdrawal of care, Hospice)? DNR status @ -No What co-morbidities impacted this encounter? (DM, HTN, Smoking, COPD, CAD, Cancer, CVA, ARF, Chemo, Hep., AIDS, mental health diagnosis, sleep apnea, morbid obesity)? @ -None Was patient admitted / discharged? Hospital course, mention meds given and route, prescriptions, significant lab abnormalities, going to OR and other per tinent info. @ -Patient reevaluated and somewhat improved. Patient still has minimal respiratory distress. Patient and family updated on results and plan. Patient will be admitted. Hospice is currently talking with family and they will decide if patient may be a hospice admission Undiagnosed new problem with uncertain prognosis? @ -No Drug Therapy requiring intensive monitoring for toxicity (Heparin, Nitro, Insulin, Cardizem)? @ -No Were any procedures done? @ -No Diagnosis/symptom? @ -COPD, lung cancer Acute, or Chronic, or Acute on Chronic? @ -Acute, acute on chronic Uncomplicated (without systemic symptoms) or Complicated (systemic symptoms)? @ -Default Side effects of treatment? @ -No Exacerbation, Progression, or Severe Exacerbation? @ -No Poses a threat to life or bodily function? How? (Chest pain, [place], [place], pneumonia, PE, COPD, DKA, ARF, appy, cholecystitis, CVA, Diverticulitis, Homicidal, Suicidal, threat to staff... and all critical care pts) @ -No - Lab Data Result diagrams: 09/06/23 12:32 09/06/23 12:32 Lab Results 09/06/23 09/06/23 09/06/23 Range/Units 12:32 12:32 12:32 WBC 13.9 H (3.8-10.6) k/uL RBC 4.00 L (4.30-5.90) m/uL Hgb 13.3 (13.0-17.5) gm/dL Hct 40.0 (39.0-53.0) % MCV 100.0 (80.0-100.0) fL MCH 33.1 (25.0-35.0) pg MCHC 33.1 (31.0-37.0) g/dL RDW 13.3 (11.5-15.5) % Plt Count 422 (150-450) k/uL MPV 7.3 Neutrophils % 93 % Lymphocytes % 2 % Monocytes % 4 % Eosinophils % 0 % Basophils % 0 % Neutrophils # 12.9 H (1.3-7.7) k/uL Lymphocytes # 0.3 L (1.0-4.8) k/uL Monocytes # 0.6 (0-1.0) k/uL Eosinophils # 0.1 (0-0.7) k/uL Basophils # 0.0 (0-0.2) k/uL PT 11.6 (10.0-12.5) sec INR 1.1 (<1.2) APTT 22.8 (22.0-30.0) sec Sodium 131 L (137-145) mmol/L Potassium 4.3 (3.5-5.1) mmol/L Chloride 96 L (98-107) mmol/L Carbon Dioxide 31 H (22-30) mmol/L Anion Gap 4 mmol/L BUN 29 H (9-20) mg/dL Creatinine 0.79 (0.66-1.25) mg/dL Est GFR (CKD-EPI)AfAm >90 (>60 ml/min/1.73 sqM) Est GFR (CKD-EPI)NonAf 82 (>60 ml/min/1.73 sqM) Glucose 93 (74-99) mg/dL Plasma Lactic Acid Mele (0.7-2.0) mmol/L Calcium 8.9 (8.4-10.2) mg/dL Magnesium 2.2 (1.6-2.3) mg/dL Total Bilirubin 0.9 (0.2-1.3) mg/dL AST 29 (17-59) U/L ALT 32 (4-49) U/L Alkaline Phosphatase 84 (38-126) U/L Total Protein 5.5 L (6.3-8.2) g/dL Albumin 3.2 L (3.5-5.0) g/dL Influenza Type A (PCR) (Not Detectd) Influenza Type B (PCR) (Not Detectd) RSV (PCR) (Not Detectd) SARS-CoV-2 (PCR) (Not Detectd) 09/06/23 09/06/23 Range/Units 12:32 12:33 WBC (3.8-10.6) k/uL RBC (4.30-5.90) m/uL Hgb (13.0-17.5) gm/dL Hct (39.0-53.0) % MCV (80.0-100.0) fL MCH (25.0-35.0) pg MCHC (31.0-37.0) g/dL RDW (11.5-15.5) % Plt Count (150-450) k/uL MPV Neutrophils % % Lymphocytes % % Monocytes % % Eosinophils % % Basophils % % Neutrophils # (1.3-7.7) k/uL Lymphocytes # (1.0-4.8) k/uL Monocytes # (0-1.0) k/uL Eosinophils # (0-0.7) k/uL Basophils # (0-0.2) k/uL PT (10.0-12.5) sec INR (<1.2) APTT (22.0-30.0) sec Sodium (137-145) mmol/L Potassium (3.5-5.1) mmol/L Chloride (98-107) mmol/L Carbon Dioxide (22-30) mmol/L Anion Gap mmol/L BUN (9-20) mg/dL Creatinine (0.66-1.25) mg/dL Est GFR (CKD-EPI)AfAm (>60 ml/min/1.73 sqM) Est GFR (CKD-EPI)NonAf (>60 ml/min/1.73 sqM) Glucose (74-99) mg/dL Plasma Lactic Acid Mele 1.3 (0.7-2.0) mmol/L Calcium (8.4-10.2) mg/dL Magnesium (1.6-2.3) mg/dL Total Bilirubin (0.2-1.3) mg/dL AST (17-59) U/L ALT (4-49) U/L Alkaline Phosphatase (38-126) U/L Total Protein (6.3-8.2) g/dL Albumin (3.5-5.0) g/dL Influenza Type A (PCR) Not Detected (Not Detectd) Influenza Type B (PCR) Not Detected (Not Detectd) RSV (PCR) Not Detected (Not Detectd) SARS-CoV-2 (PCR) Not Detected (Not Detectd) Disposition Clinical Impression: COPD (chronic obstructive pulmonary disease), Lung cancer Disposition: ADMITTED IP TO THIS HOSP Is patient prescribed a controlled substance at d/c from ED?: No Referrals: Jorge L Puente DO [Primary Care Provider] - 1-2 days Time of Disposition: 14:08
[2023-09-06] MEDS: IPRATROPIUM-ALBUTEROL 3 ML NEB INHALATION STA ×2 (11:16)
[2023-09-06 11:24] VITALS: TEMP 97.9
--- NOTE | 2023-09-06 12:18 | XR ---
EXAMINATION TYPE: XR chest 2V DATE OF EXAM: 09/06/2023 12:07 PM CLINICAL INDICATION:Male, 83 years old with history of difficulty breathing; [facility] COMPARISON: Chest radiographs from TECHNIQUE: XR chest 2V Frontal and lateral views of the chest. FINDINGS: Lungs/Pleura: Fibrotic changes with increased interstitial lung markings most proximal lung base. The re is flattening of diaphragms with increased lucency in the lung apices. There is no evidence of ple ural effusion, focal consolidation, or pneumothorax. Pulmonary vascularity: Unremarkable. Heart/mediastinum: Cardiomediastinal silhouette is unremarkable. Post aortic valve repair changes. T wo lead cardiac conduction device overlying the left hemithorax with lead tips projecting over the ri ght ventricle and right atrium. Musculoskeletal: No acute osseous pathology. IMPRESSION: Basilar fibrotic change which is similar prior with superimposed COPD changes.
[2023-09-06] MEDS: methylPREDNISolone SOD SUCCI 125 MG/2 ML VIAL IV STA (12:33)
[2023-09-06 12:44] LABS: Basophils % (A) 0 %; Eosinophils # (A) 0.1 k/uL (0-0.7); Eosinophils % (A) 0 %; HGB 13.3 gm/dL (13.0-17.5); Lymphocytes # (A) 0.3 k/uL (1.0-4.8); Lymphocytes % (A) 2 %; MCH 33.1 pg (25.0-35.0); MCHC 33.1 g/dL (31.0-37.0); Mean Platelet Volume 7.3; Monocytes # (A) 0.6 k/uL (0-1.0); Monocytes % (A) 4 %; Neutrophils # (A) 12.9 k/uL (1.3-7.7); Neutrophils % (A) 93 %; Platelet Count 422 k/uL (150-450); RDW 13.3 % (11.5-15.5); WBC 13.9 k/uL (3.8-10.6)
[2023-09-06 12:51] LABS: INR 1.1 (<1.2); Partial Thromboplastin Time 22.8 sec (22.0-30.0); Prothrombin Time 11.6 sec (10.0-12.5)
[2023-09-06 12:59] LABS: ALT 32 U/L (4-49); AST 29 U/L (17-59); African American GFR (CKD) >90 (>60 ml/min/1.73 sqM); Albumin 3.2 g/dL (3.5-5.0); Alkaline Phosphatase 84 U/L (38-126); Anion Gap 4 mmol/L; Blood Urea Nitrogen 29 mg/dL (9-20); Calcium 8.9 mg/dL (8.4-10.2); Carbon Dioxide 31 mmol/L (22-30); Chloride 96 mmol/L (98-107); Glucose 93 mg/dL (74-99); Magnesium 2.2 mg/dL (1.6-2.3); Non-African American GFR(CKD) 82 (>60 ml/min/1.73 sqM); Potassium 4.3 mmol/L (3.5-5.1); Sodium 131 mmol/L (137-145); Total Bilirubin 0.9 mg/dL (0.2-1.3); Total Protein 5.5 g/dL (6.3-8.2)
--- NOTE | 2023-09-06 14:32 | ED ---
Medical Decision Making - Medical Decision Making Patient was seen by hospice. Patient and family and hospice staff have made decision to be discharged with hospice care that we will start today. Dr. Kwame centeno. - Lab Data Result diagrams: 09/06/23 12:32 09/06/23 12:32 Lab Results 09/06/23 09/06/23 09/06/23 Range/Units 12:32 12:32 12:32 WBC 13.9 H (3.8-10.6) k/uL RBC 4.00 L (4.30-5.90) m/uL Hgb 13.3 (13.0-17.5) gm/dL Hct 40.0 (39.0-53.0) % MCV 100.0 (80.0-100.0) fL MCH 33.1 (25.0-35.0) pg MCHC 33.1 (31.0-37.0) g/dL RDW 13.3 (11.5-15.5) % Plt Count 422 (150-450) k/uL MPV 7.3 Neutrophils % 93 % Lymphocytes % 2 % Monocytes % 4 % Eosinophils % 0 % Basophils % 0 % Neutrophils # 12.9 H (1.3-7.7) k/uL Lymphocytes # 0.3 L (1.0-4.8) k/uL Monocytes # 0.6 (0-1.0) k/uL Eosinophils # 0.1 (0-0.7) k/uL Basophils # 0.0 (0-0.2) k/uL PT 11.6 (10.0-12.5) sec INR 1.1 (<1.2) APTT 22.8 (22.0-30.0) sec Sodium 131 L (137-145) mmol/L Potassium 4.3 (3.5-5.1) mmol/L Chloride 96 L (98-107) mmol/L Carbon Dioxide 31 H (22-30) mmol/L Anion Gap 4 mmol/L BUN 29 H (9-20) mg/dL Creatinine 0.79 (0.66-1.25) mg/dL Est GFR (CKD-EPI)AfAm >90 (>60 ml/min/1.73 sqM) Est GFR (CKD-EPI)NonAf 82 (>60 ml/min/1.73 sqM) Glucose 93 (74-99) mg/dL Plasma Lactic Acid Mele (0.7-2.0) mmol/L Calcium 8.9 (8.4-10.2) mg/dL Magnesium 2.2 (1.6-2.3) mg/dL Total Bilirubin 0.9 (0.2-1.3) mg/dL AST 29 (17-59) U/L ALT 32 (4-49) U/L Alkaline Phosphatase 84 (38-126) U/L Total Protein 5.5 L (6.3-8.2) g/dL Albumin 3.2 L (3.5-5.0) g/dL Influenza Type A (PCR) (Not Detectd) Influenza Type B (PCR) (Not Detectd) RSV (PCR) (Not Detectd) SARS-CoV-2 (PCR) (Not Detectd) 09/06/23 09/06/23 Range/Units 12:32 12:33 WBC (3.8-10.6) k/uL RBC (4.30-5.90) m/uL Hgb (13.0-17.5) gm/dL Hct (39.0-53.0) % MCV (80.0-100.0) fL MCH (25.0-35.0) pg MCHC (31.0-37.0) g/dL RDW (11.5-15.5) % Plt Count (150-450) k/uL MPV Neutrophils % % Lymphocytes % % Monocytes % % Eosinophils % % Basophils % % Neutrophils # (1.3-7.7) k/uL Lymphocytes # (1.0-4.8) k/uL Monocytes # (0-1.0) k/uL Eosinophils # (0-0.7) k/uL Basophils # (0-0.2) k/uL PT (10.0-12.5) sec INR (<1.2) APTT (22.0-30.0) sec Sodium (137-145) mmol/L Potassium (3.5-5.1) mmol/L Chloride (98-107) mmol/L Carbon Dioxide (22-30) mmol/L Anion Gap mmol/L BUN (9-20) mg/dL Creatinine (0.66-1.25) mg/dL Est GFR (CKD-EPI)AfAm (>60 ml/min/1.73 sqM) Est GFR (CKD-EPI)NonAf (>60 ml/min/1.73 sqM) Glucose (74-99) mg/dL Plasma Lactic Acid Mele 1.3 (0.7-2.0) mmol/L Calcium (8.4-10.2) mg/dL Magnesium (1.6-2.3) mg/dL Total Bilirubin (0.2-1.3) mg/dL AST (17-59) U/L ALT (4-49) U/L Alkaline Phosphatase (38-126) U/L Total Protein (6.3-8.2) g/dL Albumin (3.5-5.0) g/dL Influenza Type A (PCR) Not Detected (Not Detectd) Influenza Type B (PCR) Not Detected (Not Detectd) RSV (PCR) Not Detected (Not Detectd) SARS-CoV-2 (PCR) Not Detected (Not Detectd) Disposition Clinical Impression: COPD (chronic obstructive pulmonary disease), Lung cancer Disposition: HOME SELF-CARE Is patient prescribed a controlled substance at d/c from ED?: No Referrals: Jorge L Puente DO [Primary Care Provider] - 1-2 days
[2023-09-06 15:47] VITALS: BP 114/74; PULSE 93; RESP 24
== END 2023-09-06 17:10 | disposition home or self-care (01) ==
LOC: EC 10:42
DX: J44.9 Chronic obstructive pulmonary disease, unspecified (principal); R00.0 Tachycardia, unspecified; C34.90 Malignant neoplasm of unspecified part of unspecified bronchus or lung; Z87.891 Personal history of nicotine dependence
CPT/HCPCS: 36415; 94640; 93005; 80053; 83605; 83735; 85025; 85610; 85730; 87636; 71046; 99285; 96374; J2930